=== PATIENT | female | born 1945 | race Caucasian/White ===

== ENCOUNTER 2017-06-25 14:45 | Inpatient (IN) | payer OTHER ==
[~2017-06-25] VITALS: Ht 160 cm; Wt 140.0 kg
[2017-06-25] MEDS ORDERED: ONDANSETRON INJ 2 MG/ML 2 ML VIAL IV STA (15:01)
[2017-06-25] MEDS ORDERED: SODIUM CHLORIDE 0.9% 500ML 500 ML IV STA ×2 (15:01→16:43)
--- NOTE | 2017-06-25 15:05 | EMERGENCY ROOM VISIT NOTE ---
History Report prepared by Pietro: Ying Russo Under the Supervision of: Dr. Joshua Parra D.O. First contact with patient: 14:54 Chief Complaint: VOMITING Stated Complaint: THROWING UP, AB PAIN Nursing Triage Summary: vomiting, constipation, and abd. pain x3 days. History of Present Illness The patient is a 71 year old female who presents to the Emergency Room with complaints of intermittent vomiting beginning 2 days ago. The patient states that her symptoms started with a cough 10 days ago and 2 days ago she began to have nausea and vomiting. She reports that she is not able to keep food or water down and her emesis is dark brown and purplish in color. She notes that she thought she had the flu but called her PCP today and he advised her to come in to the ED to be evaluated for a bowel obstruction. The patient complains of chills, abdominal pain with vomiting, a headache, and constipation for 2-3 days. She reports a history of diverticulitis, cholecystectomy, and appendectomy. Source of History: patient Onset: 2 days ago Position: other (global) Quality: other (vomiting) Timing: intermittent Associated Symptoms: + chills, + headache, + cough, + abdominal pain Note: Pt complains of constipation. Review of Systems See HPI for pertinent positives & negatives. A total of 10 systems reviewed and were otherwise negative. Past Medical & Surgical Medical Problems: (1) Diverticulitis Surgical Problems: (1) History of appendectomy (2) History of cholecystectomy Family History No pertinent family history stated. Social History Smoking Status: Never Smoker Marital Status: Housing Status: lives with family Occupation Status: employed Current/Historical Medications Scheduled Bismuth Subsalicylate (Pepto Bismol Chew Tab), 2 TAB PO TID Furosemide (Lasix), 40 MG PO DAILY Insulin Human Isophan/Regular (Novolin 70/30), 38 UNITS SC BID Metoprolol Succ (Toprol Xl) (Toprol-Xl), 50 MG PO DAILY Simvastatin (Zocor), 40 MG PO QPM Allergies Coded Allergies: Ciprofloxacin (Verified Allergy, Severe, swelling, 06/25/17) Physical Exam Vital Signs Date Time Temp Pulse Resp B/P (MAP) Pulse Ox O2 Delivery O2 Flow Rate FiO2 06/25/17 20:10 120 22 139/85 97 Oxymask 10 06/25/17 20:01 36.4 119 23 111/81 93 Oxymask 10 06/25/17 16:59 101 20 136/87 97 06/25/17 16:23 97 06/25/17 16:09 99 20 139/73 97 Nasal Cannula 2.5 06/25/17 14:47 36.8 101 20 131/76 93 2.5 Physical Exam GENERAL: Patient is awake, alert, mildly anxious appearing and uncomfortable. EYES: The conjunctivae are clear. The pupils are round and reactive. EARS, NOSE, MOUTH AND THROAT: The nose is without any evidence of any deformity. Mucous membranes are moist tongue is midline NECK: The neck is nontender and supple. RESPIRATORY: Shallow breath sounds noted with diminished breath sounds throughout no conversational dyspnea or tachypnea noted. CARDIOVASCULAR: Tachycardic rate and regular rhythm noted there no murmurs noted to auscultation GASTROINTESTINAL: The abdomen is moderately distended but soft. Bowel sounds are present in all quadrants. Abdomen is diffusely tender. Multiple surgical sites noted. LUQ and epigastric tenderness noted. MUSCULOSKELETAL/EXTREMITIES: There is no evidence of gross deformity full range of motion is noted in the hips and shoulders SKIN: There is no obvious evidence of any rash. There are no petechiae, pallor or cyanosis noted. NEUROLOGIC: Patient is awake alert and oriented x3 Medical Decision & Procedures ER Provider Diagnostic Interpretation: Radiology results as stated below per my review and radiologist interpretation: CHEST ONE VIEW PORTABLE FINDINGS: No pleural effusions. No pneumothorax. The heart is mildly enlarged. No focal lung consolidations to suggest pneumonia. No evidence for pulmonary edema. IMPRESSION: Mild cardiomegaly. Electronically signed by: Kike Riley M.D. 06/25/2017 3:47 PM Dictated Date/Time: 06/25/2017 3:46 PM A[address]OMEN AND PELVIS CT WITHOUT CONTRAST FINDINGS: Mild subsegmental bibasilar atelectasis and/or pleural-parenchymal scarring. No pneumatosis or pneumoperitoneum identified. Imaged inferior cardiac chambers are unremarkable. Gallbladder appears to be surgically absent. Hepatic steatosis. No intrahepatic biliary ductal dilation. Spleen and right adrenal gland are unremarkable. Low attenuating lesion of the left adrenal gland, 1.3 x 1.7 cm demonstrates Hounsfield unit of 7 suggesting adrenal adenoma. Mild nonspecific symmetric bilateral perinephric stranding. No renal calculi or hydronephrosis. Ureters are within normal limits. Urinary bladder is partially collapsed. Uterus and adnexa are unremarkable. Moderate atherosclerosis of the aorta. No bulky adenopathy. Air-fluid level of the stomach. Fluid-filled distention involves multiple loops of small bowel throughout the upper, mid and lower abdomen with bowel loops measuring up to 3.2 cm transversely. Focal transition point is noted on image 288 series 3 as bowel enters a moderate left paracentral ventral abdominal wall hernia which contains both mesenteric fat and small bowel. Additional focal transition point is noted along the left lateral margin of the hernia ostium, image 284 series 3. Mild interloop edema is noted as well as mild mesenteric edema. Multiple additional ventral abdominal wall hernias are noted including a right paracentral ventral abdominal wall hernia containing nonobstructed transverse colon. The terminal ileum is decompressed. Prior ventral abdominal wall hernia repair. Postoperative changes of the mid sigmoid colon suggesting prior partial sigmoid colon resection. A few scattered noninflamed colonic diverticula are noted. Multilevel degenerative changes of the spine and pelvis. Bones appear intact. At least moderate changes of the bilateral hips. Mild levoscoliosis of the lumbar spine. IMPRESSION: 1. High-grade small bowel obstruction secondary to a left paracentral hernia which contains both small bowel and mesenteric fat. Transitioned collapsed bowel noted along the margins of the hernia sac as above. Mild interloop and mesenteric edema without evidence of pneumatosis or pneumoperitoneum. 2. Prior partial sigmoid colon resection. Minimal colonic diverticulosis. 3. Hepatic steatosis. 4. Left adrenal adenoma, 1.7 cm. Electronically signed by: Abelardo Espinal M.D. 06/25/2017 4:09 PM Dictated Date/Time: 06/25/2017 3:56 PM Laboratory Results 06/25/17 15:15 Red Blood Count 5.27, Mean Corpuscular Volume 88.0, Mean Corpuscular Hemoglobin 29.6, Mean Corpuscular Hemoglobin Concent 33.6, Mean Platelet Volume 9.4, Neutrophils (%) (Auto) 86.1, Lymphocytes (%) (Auto) 8.1, Monocytes (%) (Auto) 5.3, Eosinophils (%) (Auto) 0.1, Basophils (%) (Auto) 0.1, Neutrophils # (Auto) 12.34, Lymphocytes # (Auto) 1.16, Monocytes # (Auto) 0.76, Eosinophils # (Auto) 0.01, Basophils # (Auto) 0.01 06/25/17 15:15 Test 06/25/17 15:15 06/25/17 20:05 White Blood Count 14.33 K/uL (4.8-10.8) Red Blood Count 5.27 M/uL (4.2-5.4) Hemoglobin 15.6 g/dL (12.0-16.0) Hematocrit 46.4 % (37-47) Mean Corpuscular Volume 88.0 fL (80-100) Mean Corpuscular Hemoglobin 29.6 pg (25-34) Mean Corpuscular Hemoglobin Concent 33.6 g/dl (32-36) Platelet Count 289 K/uL (130-400) Mean Platelet Volume 9.4 fL (7.4-10.4) Neutrophils (%) (Auto) 86.1 % Lymphocytes (%) (Auto) 8.1 % Monocytes (%) (Auto) 5.3 % Eosinophils (%) (Auto) 0.1 % Basophils (%) (Auto) 0.1 % Neutrophils # (Auto) 12.34 K/uL (1.4-6.5) Lymphocytes # (Auto) 1.16 K/uL (1.2-3.4) Monocytes # (Auto) 0.76 K/uL (0.11-0.59) Eosinophils # (Auto) 0.01 K/uL (0-0.5) Basophils # (Auto) 0.01 K/uL (0-0.2) RDW Standard Deviation 49.0 fL (36.4-46.3) RDW Coefficient of Variation 15.3 % (11.5-14.5) Immature Granulocyte % (Auto) 0.3 % Immature Granulocyte # (Auto) 0.05 K/uL (0.00-0.02) Prothrombin Time 10.6 SECONDS (9.0-12.0) Prothromb Time International Ratio 1.0 (0.9-1.1) Activated Partial Thromboplast Time 26.2 SECONDS (21.0-31.0) Partial Thromboplastin Ratio 1.0 Anion Gap 10.0 mmol/L (3-11) Est Creatinine Clear Calc Drug Dose 68.8 ml/min Estimated GFR () 72.2 Estimated GFR (Non- 62.3 BUN/Creatinine Ratio 28.7 (10-20) Calcium Level 9.4 mg/dl (8.5-10.1) Total Bilirubin 0.9 mg/dl (0.2-1) Direct Bilirubin 0.2 mg/dl (0-0.2) Aspartate Amino Transf (AST/SGOT) 12 U/L (15-37) Alanine Aminotransferase (ALT/SGPT) 17 U/L (12-78) Alkaline Phosphatase 100 U/L (45-117) Total Creatine Kinase 54 U/L (26-192) Creatine Kinase MB 1.3 ng/ml (0.5-3.6) Creatine Kinase MB Ratio 2.4 (0-3.0) Troponin I < 0.015 ng/ml (0-0.045) Total Protein 8.1 gm/dl (6.4-8.2) Albumin 4.0 gm/dl (3.4-5.0) Amylase Level 39 U/L (25-115) Lipase 70 U/L (73-393) Bedside Glucose 170 mg/dl (70-90) Laboratory results per my review. Medications Administered Medications (Trade) Dose Ordered Sig/Lizabeth Route Start Time Stop Time Status Last Admin Dose Admin Ondansetron HCl (Zofran Inj) 4 mg NOW STAT IV 06/25/17 15:01 06/25/17 15:02 DC 06/25/17 15:22 4 MG Sodium Chloride 500 ml @ 999 mls/hr Q31M STAT IV 06/25/17 15:01 06/25/17 15:31 DC 06/25/17 15:22 999 MLS/HR Sodium Chloride 500 ml @ 999 mls/hr Q31M STAT IV 06/25/17 16:43 06/25/17 17:13 DC 06/25/17 16:52 999 MLS/HR Piperacillin Sod/ Tazobactam Sod (Zosyn Iv) 4.5 gm STK-MED ONCE .ROUTE 06/25/17 16:45 06/25/17 16:46 DC 06/25/17 16:50 4.5 GM Insulin Human Regular (novoLIN-R U-100 PER UNIT) 8 units STK-MED ONCE .ROUTE 06/25/17 17:32 06/25/17 17:33 DC 06/25/17 17:32 8 UNITS ECG Indication: vomiting Rate (beats per minute): 107 Rhythm: sinus tachycardia Findings: no ectopy, other (No acuter ST segment abnormality) ED Course 1454: The patient was evaluated in room B2. A complete history and physical examination were performed. 1501: NSS 500ml @ 999 mls/hr IV, Zofran Inj 4mg IV. 1622: I discussed the patient's case with Dr. French. The patient will be evaluated for further management and will be going to the OR. 1633: I updated the patient and she is going to the OR. 1643: NSS 500 ml @ 999 mls/hr IV, Zosyn IV 4.5gm IV. 1723: Upon reevaluation, the patient is doing well. I discussed results and treatment plan with the patient. She verbalizes agreement and understanding. I spoke with Dr. French of surgery. The patient will be going to the OR. Medical Decision Differential diagnosis: Etiologies such as appendicitis, diverticulitis, PUD, biliary pathology, UTI, pancreatitis, obstruction, mesenteric ischemia, aortic pathology, infections, inflammatory bowel disease, renal colic, as well as others were entertained. Nursing notes reviewed. Additional history is obtained from the patient's family members. The patient is a 71-year-old female who presented to emergency department for evaluation of nausea and vomiting. The patient had a very distended abdomen with diffuse tenderness. She's had surgical intervention in the past and on my initial valuation I thought she could have a ventral hernia. She stated that she did not feel that there is any significant change in her abdomen in the area of question did not feel worse painful to the patient. This didn't prove to be an incarcerated ventral hernia on CT the abdomen and pelvis. I discussed her case with the on-call surgery they have agreed to evaluate the patient in the emergency department for further management and disposition. The patient was treated with IV fluids IV antiemetics and IV antibiotics. On subsequent reevaluation she was feeling much better. I discussed the patient's laboratory and radiographic studies with her. Medication Reconcilliation Current Medication List: was personally reviewed by me Blood Pressure Screening Patient's blood pressure: Elevated blood pressure Blood pressure disposition: Elevated BP felt to be situational Consults Time Called: 1617 Consulting Physician: Dr. French - Surgery Returned Call: 1622 I discussed the patient's case with Dr. French. The patient will be evaluated for further management and will be going to the OR. Impression Primary Impression: Incarcerated ventral hernia Additional Impressions: Small bowel obstruction Nausea Vomiting Scribe Attestation The scribe's documentation has been prepared under my direction and personally reviewed by me in its entirety. I confirm that the note above accurately reflects all work, treatment, procedures, and medical decision making performed by me. Departure Information Dispostion Being Evaluated By Surgeon Referrals Kings Nichols M.D. (PCP) Patient Instructions My [facility] Problem Qualifiers Additional Impressions: Vomiting Vomiting type: unspecified Vomiting Intractability: non-intractable Nausea presence: with nausea Qualified Codes: R11.2 - Nausea with vomiting, unspecified
[2017-06-25] MEDS ORDERED: METO50TA7 PO (15:11)
[2017-06-25] MEDS ORDERED: BISM262T3 PO (15:11)
[2017-06-25] MEDS ORDERED: FRS/40 PO (15:11)
[2017-06-25] MEDS ORDERED: SIMV40TA2 PO (15:11)
[2017-06-25] MEDS ORDERED: INSU70IN2 SC (15:11)
[2017-06-25 15:31] LABS: BASO % 0.1 %; BASO ABS # 0.01 K/uL (0-0.2); EOS % 0.1 %; EOS ABS # 0.01 K/uL (0-0.5); HEMATOCRIT 46.4 % (37-47); HEMOGLOBIN 15.6 g/dL (12.0-16.0); IG# 0.05 K/uL (0.00-0.02); LYMPH % 8.1 %; LYMPH ABS # 1.16 K/uL (1.2-3.4); MEAN CORPUSCULAR HEMOGLOBIN 29.6 pg (25-34); MEAN CORPUSCULAR HGB CONC 33.6 g/dl (32-36); MEAN PLATELET VOLUME 9.4 fL (7.4-10.4); MONO % 5.3 %; MONO ABS # 0.76 K/uL (0.11-0.59); NEUT % 86.1 %; NEUT ABS # 12.34 K/uL (1.4-6.5); PLATELET COUNT 289 K/uL (130-400); RED CELL DISTRIBUTION WIDTH CV 15.3 % (11.5-14.5); WHITE BLOOD COUNT 14.33 K/uL (4.8-10.8)
[2017-06-25 15:44] LABS: PTT PATIENT 26.2 SECONDS (21.0-31.0)
--- NOTE | 2017-06-25 15:49 | DIAGNOSTIC IMAGING REPORT ---
CHEST ONE VIEW PORTABLE HISTORY: Generalized abdominal pain. COMPARISON: None. FINDINGS: No pleural effusions. No pneumothorax. The heart is mildly enlarged. No focal lung consolidations to suggest pneumonia. No evidence for pulmonary edema. IMPRESSION: Mild cardiomegaly. Electronically signed by: Kike Riley M.D. 06/25/2017 3:47 PM Dictated Date/Time: 06/25/2017 3:46 PM
[2017-06-25 15:53] LABS: ALT/SGPT 17 U/L (12-78); BLOOD UREA NITROGEN 27 mg/dl (7-18); CALCIUM 9.4 mg/dl (8.5-10.1); CARBON DIOXIDE 28 mmol/L (21-32); CREATININE 0.93 mg/dl (0.60-1.20); GLUCOSE 265 mg/dl (70-99); LIPASE 70 U/L (73-393); POTASSIUM 4.2 mmol/L (3.5-5.1); SODIUM 135 mmol/L (136-145)
[2017-06-25 15:58] LABS: ALKALINE PHOSPHATASE 100 U/L (45-117); AST/SGOT 12 U/L (15-37); CKMB 1.3 ng/ml (0.5-3.6); TOTAL PROTEIN 8.1 gm/dl (6.4-8.2)
--- NOTE | 2017-06-25 16:10 | DIAGNOSTIC IMAGING REPORT ---
ABDOMEN AND PELVIS CT WITHOUT CONTRAST CT DOSE: 1488.44 mGy.cm HISTORY: Acute vomiting vomiting TECHNIQUE: Multiaxial CT images of the abdomen and pelvis were performed without contrast. A dose lowering technique was utilized adhering to the principles of ALARA. COMPARISON STUDY: None. FINDINGS: Mild subsegmental bibasilar atelectasis and/or pleural-parenchymal scarring. No pneumatosis or pneumoperitoneum identified. Imaged inferior cardiac chambers are unremarkable. Gallbladder appears to be surgically absent. Hepatic steatosis. No intrahepatic biliary ductal dilation. Spleen and right adrenal gland are unremarkable. Low attenuating lesion of the left adrenal gland, 1.3 x 1.7 cm demonstrates Hounsfield unit of 7 suggesting adrenal adenoma. Mild nonspecific symmetric bilateral perinephric stranding. No renal calculi or hydronephrosis. Ureters are within normal limits. Urinary bladder is partially collapsed. Uterus and adnexa are unremarkable. Moderate atherosclerosis of the aorta. No bulky adenopathy. Air-fluid level of the stomach. Fluid-filled distention involves multiple loops of small bowel throughout the upper, mid and lower abdomen with bowel loops measuring up to 3.2 cm transversely. Focal transition point is noted on image 288 series 3 as bowel enters a moderate left paracentral ventral abdominal wall hernia which contains both mesenteric fat and small bowel. Additional focal transition point is noted along the left lateral margin of the hernia ostium, image 284 series 3. Mild interloop edema is noted as well as mild mesenteric edema. Multiple additional ventral abdominal wall hernias are noted including a right paracentral ventral abdominal wall hernia containing nonobstructed transverse colon. The terminal ileum is decompressed. Prior ventral abdominal wall hernia repair. Postoperative changes of the mid sigmoid colon suggesting prior partial sigmoid colon resection. A few scattered noninflamed colonic diverticula are noted. Multilevel degenerative changes of the spine and pelvis. Bones appear intact. At least moderate changes of the bilateral hips. Mild levoscoliosis of the lumbar spine. IMPRESSION: 1. High-grade small bowel obstruction secondary to a left paracentral hernia which contains both small bowel and mesenteric fat. Transitioned collapsed bowel noted along the margins of the hernia sac as above. Mild interloop and mesenteric edema without evidence of pneumatosis or pneumoperitoneum. 2. Prior partial sigmoid colon resection. Minimal colonic diverticulosis. 3. Hepatic steatosis. 4. Left adrenal adenoma, 1.7 cm. Electronically signed by: Abelardo Espinal M.D. 06/25/2017 4:09 PM Dictated Date/Time: 06/25/2017 3:56 PM
[2017-06-25] MEDS ORDERED: PIPERACILLIN/TAZOBACTAM 4.5 GM/100ML D5W IV STA (16:43)
[2017-06-25] MEDS ORDERED: PIPERACILLIN/TAZOBACTAM 4.5 GM/100ML D5W ONE (16:45)
[2017-06-25] MEDS ORDERED: LIDOCAINE HCL 1% 20 ML VIAL ONE (16:53)
[2017-06-25] MEDS ORDERED: BUPIVACAINE 0.5 % 5 MG/1 ML MPF 30ML VIAL ONE (16:53)
[2017-06-25] MEDS ORDERED: BACITRACIN OINT 15 GM TUBE ONE ×2 (16:53→19:37)
--- NOTE | 2017-06-25 16:59 | Surgery Consultation ---
Consultation Date of Consultation: Jun 25, 2017. Attending Physician: History of Present Illness The patient is a 71 year old female who presents to the Emergency Room with complaints of intermittent vomiting beginning 2 days ago. The patient states that her symptoms started with a cough 10 days ago and 2 days ago she began to have nausea and vomiting. She reports that she is not able to keep food or water down and her emesis is dark brown and purplish in color. She notes that she thought she had the flu but called her PCP today and he advised her to come in to the ED to be evaluated for a bowel obstruction. The patient complains of chills, abdominal pain with vomiting, a headache, and constipation for 2-3 days. She reports a history of diverticulitis, cholecystectomy, and appendectomy. I saw pt at ER, I reviewed pt's H/P with pt, pt has been abdominal pain with nausea and vomiting for 3 days, pt denies fever, no diarrhea, Social History Smoking Status: Never Smoker Smokeless Tobacco Use: No Alcohol Use: none Drug Use: none Marital Status: Housing Status: lives with family Occupation Status: employed Allergies Coded Allergies: Ciprofloxacin (Unverified Adverse Reaction, Severe, swelling, 06/25/17) Home Medications Scheduled Bismuth Subsalicylate (Pepto Bismol Chew Tab), 2 TAB PO TID Furosemide (Lasix), 40 MG PO DAILY Insulin Human Isophan/Regular (Novolin 70/30), 38 UNITS SC BID Metoprolol Succ (Toprol Xl) (Toprol-Xl), 50 MG PO DAILY Simvastatin (Zocor), 40 MG PO QPM Current Inpatient Medications Current Inpatient Medications Medications (Trade) Dose Ordered Sig/Lizabeth Route Start Time Stop Time Status Last Admin Dose Admin Sodium Chloride 500 ml @ 999 mls/hr Q31M STAT IV 06/25/17 16:43 06/25/17 17:13 Review of Systems Constitutional: + problem reported (Obesity), No fever, No chills, No sweats, No weight loss, No weakness, No fatigue Eyes: No worsening of vision, No eye pain, No redness, No discharge, No diplopia, No problem reported ENT: No hearing loss, No unusual epistaxis, No nasal symptoms, No sore throat, No tinnitus, No dental problems, No trouble swallowing, No problem reported Respiratory: + problem reported (COPD use O2 at night at 2L/min) Cardiovascular: No chest pain, No orthopnea, No PND, No edema, No claudication , No palpitations, No problem reported Abdomen: + pain, + nausea, + vomiting Musculoskeletal: No joint pain, No muscle pain, No swelling, No calf pain, No problem reported Genitourinary - Female: + dysuria, + urinary frequency, + urinary urgency, + problem reported (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, UTI) Neurologic: No memory loss, No paralysis, No weakness, No numbness/tingling, No vertigo, No balance problems, No problem reported Psychiatric: No depression symptoms, No anhedonism, No anxiety, No insomnia, No substance abuse, No problem reported Endocrine: No fatigue, No excessive thirst, No excessive urination, No problem reported Hematologic / Lymphatic: No abnormal bleeding/bruising, No clotting problems, No swollen lymph nodes, No night sweats, No problem reported Physical Exam Date Time Temp Pulse Resp B/P (MAP) Pulse Ox O2 Delivery O2 Flow Rate FiO2 06/25/17 16:23 97 06/25/17 16:09 99 20 139/73 97 Nasal Cannula 2.5 06/25/17 14:47 36.8 101 20 131/76 93 2.5 General Appearance: WD/WN, + mild distress Head: normocephalic Eyes: normal inspection ENT: normal ENT inspection Neck: supple, no JVD Respiratory/Chest: chest non-tender, lungs clear, normal breath sounds Cardiovascular: regular rate, rhythm, no edema, no gallop, no JVD, no murmur Abdomen/GI: normal bowel sounds, no organomegaly, no pulsatile mass, normal rectal exam, + tenderness (at middle abdomen with bulging, possitive for ventral hernia , is id not reducible, ) Extremities/Musculoskelatal: normal inspection, no calf tenderness, normal capillary refill Neurologic/Psych: no motor/sensory deficits, alert, normal mood/affect Skin: normal color, warm/dry, no rash Laboratory Results Last 24 Hours Test 06/25/17 15:15 White Blood Count 14.33 K/uL Red Blood Count 5.27 M/uL Hemoglobin 15.6 g/dL Hematocrit 46.4 % Mean Corpuscular Volume 88.0 fL Mean Corpuscular Hemoglobin 29.6 pg Mean Corpuscular Hemoglobin Concent 33.6 g/dl Platelet Count 289 K/uL Mean Platelet Volume 9.4 fL Neutrophils (%) (Auto) 86.1 % Lymphocytes (%) (Auto) 8.1 % Monocytes (%) (Auto) 5.3 % Eosinophils (%) (Auto) 0.1 % Basophils (%) (Auto) 0.1 % Neutrophils # (Auto) 12.34 K/uL Lymphocytes # (Auto) 1.16 K/uL Monocytes # (Auto) 0.76 K/uL Eosinophils # (Auto) 0.01 K/uL Basophils # (Auto) 0.01 K/uL RDW Standard Deviation 49.0 fL RDW Coefficient of Variation 15.3 % Immature Granulocyte % (Auto) 0.3 % Immature Granulocyte # (Auto) 0.05 K/uL Prothrombin Time 10.6 SECONDS Prothromb Time International Ratio 1.0 Activated Partial Thromboplast Time 26.2 SECONDS Partial Thromboplastin Ratio 1.0 Sodium Level 135 mmol/L Potassium Level 4.2 mmol/L Chloride Level 97 mmol/L Carbon Dioxide Level 28 mmol/L Anion Gap 10.0 mmol/L Blood Urea Nitrogen 27 mg/dl Creatinine 0.93 mg/dl Est Creatinine Clear Calc Drug Dose 68.8 ml/min Estimated GFR () 72.2 Estimated GFR (Non- 62.3 BUN/Creatinine Ratio 28.7 Random Glucose 265 mg/dl Calcium Level 9.4 mg/dl Total Bilirubin 0.9 mg/dl Direct Bilirubin 0.2 mg/dl Aspartate Amino Transf (AST/SGOT) 12 U/L Alanine Aminotransferase (ALT/SGPT) 17 U/L Alkaline Phosphatase 100 U/L Total Creatine Kinase 54 U/L Creatine Kinase MB 1.3 ng/ml Creatine Kinase MB Ratio 2.4 Troponin I < 0.015 ng/ml Total Protein 8.1 gm/dl Albumin 4.0 gm/dl Amylase Level 39 U/L Lipase 70 U/L Assessment & Plan ABDOMEN AND PELVIS CT WITHOUT CONTRAST CT DOSE: 1488.44 mGy.cm HISTORY: Acute vomiting vomiting TECHNIQUE: Multiaxial CT images of the abdomen and pelvis were performed without contrast. A dose lowering technique was utilized adhering to the principles of ALARA. COMPARISON STUDY: None. FINDINGS: Mild subsegmental bibasilar atelectasis and/or pleural-parenchymal scarring. No pneumatosis or pneumoperitoneum identified. Imaged inferior cardiac chambers are unremarkable. Gallbladder appears to be surgically absent. Hepatic steatosis. No intrahepatic biliary ductal dilation. Spleen and right adrenal gland are unremarkable. Low attenuating lesion of the left adrenal gland, 1.3 x 1.7 cm demonstrates Hounsfield unit of 7 suggesting adrenal adenoma. Mild nonspecific symmetric bilateral perinephric stranding. No renal calculi or hydronephrosis. Ureters are within normal limits. Urinary bladder is partially collapsed. Uterus and adnexa are unremarkable. Moderate atherosclerosis of the aorta. No bulky adenopathy. Air-fluid level of the stomach. Fluid-filled distention involves multiple loops of small bowel throughout the upper, mid and lower abdomen with bowel loops measuring up to 3.2 cm transversely. Focal transition point is noted on image 288 series 3 as bowel enters a moderate left paracentral ventral abdominal wall hernia which contains both mesenteric fat and small bowel. Additional focal transition point is noted along the left lateral margin of the hernia ostium, image 284 series 3. Mild interloop edema is noted as well as mild mesenteric edema. Multiple additional ventral abdominal wall hernias are noted including a right paracentral ventral abdominal wall hernia containing nonobstructed transverse colon. The terminal ileum is decompressed. Prior ventral abdominal wall hernia repair. Postoperative changes of the mid sigmoid colon suggesting prior partial sigmoid colon resection. A few scattered noninflamed colonic diverticula are noted. Multilevel degenerative changes of the spine and pelvis. Bones appear intact. At least moderate changes of the bilateral hips. Mild levoscoliosis of the lumbar spine. IMPRESSION: 1. High-grade small bowel obstruction secondary to a left paracentral hernia which contains both small bowel and mesenteric fat. Transitioned collapsed bowel noted along the margins of the hernia sac as above. Mild interloop and mesenteric edema without evidence of pneumatosis or pneumoperitoneum. 2. Prior partial sigmoid colon resection. Minimal colonic diverticulosis. 3. Hepatic steatosis. 4. Left adrenal adenoma, 1.7 cm. Assessment: pt is a 71 yo female who presents to ER with 3 days history abdominal pain with nausea and vomiting, IMP : incarcerated ventral hernia Plan, I recommend to do exploratory laparotomy, ventral hernia repair with possible mesh, possible bowel resection, stoma, D/W benefits, risks and alternatives of the procedure, the risks -infection, bleeding, injury bowel,hernia recurrence, NE , DVT, stroke, pulmonary failure, and . pt and her and her son understood, they agree with surgery, I answered all questions,
[2017-06-25] MEDS ORDERED: HYDROmorphone INJ 2 MG/ML SYR/VIAL IV PRN (17:00)
[2017-06-25] MEDS ORDERED: ATROPINE SULFATE 0.1 MG/ML 5ML SYR IV PRN (17:00)
[2017-06-25] MEDS ORDERED: PHENYLEPHRINE 100MCG/ML 5ML SYR IV PRN (17:00)
[2017-06-25] MEDS ORDERED: ONDANSETRON INJ 2 MG/ML 2 ML VIAL IV PRN ×2 (17:00→20:15)
[2017-06-25] MEDS ORDERED: EpHEDrine SULFATE INJ 50 MG/ML AMP IV PRN (17:00)
--- NOTE | 2017-06-25 17:26 | History & Physical Bridge Note ---
H&P Re-Evaluation Bridge Note: I have examined the patient, reviewed the History & Physical and in the interval since the performance of the History & Physical I have noted the following changes of clinical significance: No changes noted
[2017-06-25] MEDS ORDERED: NovoLIN-R INSULIN PER UNIT CHARGE ONE (17:32)
[2017-06-25] MEDS ORDERED: CEFAZOLIN IV 3,000 MG in SYRINGE 0 ML IV ONE (17:45)
[2017-06-25] MEDS ORDERED: CEFAZOLIN SOD 3000MG/15 ML IV PUSH IV ONE (17:45)
[2017-06-25] MEDS ORDERED: FENTANYL CITRATE INJ 50 MCG/1 ML 2 ML VIAL ONE (17:46)
[2017-06-25] MEDS ORDERED: MIDAZOLAM HCL 1 MG/ML 2ML VIAL ONE (17:46)
[2017-06-25] MEDS ORDERED: ALBUMIN HUMAN 5% 12.5 GM/250 ML VIAL IV ONE (18:23)
[2017-06-25] MEDS ORDERED: LIDOCAINE HCL 2% 2 ML VIAL (20MG/ML) ONE (18:29)
[2017-06-25] MEDS ORDERED: ROCURONIUM BROMIDE 10 MG/ML 5 ML VIAL IV ONE (18:29)
[2017-06-25] MEDS ORDERED: VASOPRESSIN 20 UNIT/ML VIAL ONE (18:29)
[2017-06-25] MEDS ORDERED: PROPOFOL IV EMULSION 10 MG/ML 20 ML VIAL IV ONE (18:29)
[2017-06-25] MEDS ORDERED: PHENYLEPHRINE 100MCG/ML 5ML SYR ONE (18:29)
[2017-06-25] MEDS ORDERED: ONDANSETRON INJ 2 MG/ML 2 ML VIAL ONE (18:29)
[2017-06-25] MEDS ORDERED: DEXAMETHASONE SOD INJ 4 MG/ML VIAL ONE (18:29)
[2017-06-25] MEDS ORDERED: NEOSTIGMINE METHYLSULFATE 5 MG/5 ML SYR ONE (19:37)
[2017-06-25] MEDS ORDERED: GLYCOPYRROLATE INJ 0.2 MG/ML VIAL ONE (19:38)
--- NOTE | 2017-06-25 19:56 | [facility] Post Operative Brief Note ---
Immediate Operative Summary Operative Date Jun 25, 2017. Pre-Operative Diagnosis Incarcerated Ventral Hernia Post-Operative Diagnosis Incarcerated Ventral Hernia Procedure(s) Performed Exploratory Laparotomy, Repair of Ventral Hernia with Mesh, lysis adhesion Surgeon Dr. Wheeler Letter Of Credit Document Examiner Surgeon(s) surgical assistant Estimated Blood Loss 20CC Findings 4 ventral hernia, one of them is incarcerated with small bowel, once the put small bowel back to abdominal cavity, the bowel is pink color, Fluids (cc crystalloids) 2200ml Specimens A. Hernia Sac Drains MARISSA x 1 Anesthesia general Complication(s) None Disposition Recovery Room / PACU
[2017-06-25] MEDS ORDERED: HYDROmorphone INJ 1 MG/ML SYR ONE (20:12)
[2017-06-25] MEDS ORDERED: HYDROmorphone INJ 1 MG/ML SYR IV PRN (20:15)
[2017-06-25] MEDS ORDERED: ACETAMINOPHEN 325 MG TAB PO PRN (20:15)
--- NOTE | 2017-06-25 20:50 | Anesthesiology Progress Note ---
Anesthesia Post Op Note Date & Time Jun 25, 2017 at 20:49 Vital Signs Pain Intensity: 5 Vital Signs Past 12 Hours Date Time Temp Pulse Resp B/P (MAP) Pulse Ox O2 Delivery O2 Flow Rate FiO2 06/25/17 20:40 108 19 161/83 94 Nasal Cannula 4 06/25/17 20:30 117 27 164/84 95 Nasal Cannula 4 06/25/17 20:20 109 23 140/79 99 Oxymask 10 06/25/17 20:10 120 22 139/85 97 Oxymask 10 06/25/17 20:01 36.4 119 23 111/81 93 Oxymask 10 06/25/17 16:59 101 20 136/87 97 06/25/17 16:23 97 06/25/17 16:09 99 20 139/73 97 Nasal Cannula 2.5 06/25/17 14:47 36.8 101 20 131/76 93 2.5 Notes Mental Status: alert / awake / arousable, participated in evaluation Pt Amnestic to Procedure: Yes Nausea / Vomiting: adequately controlled Pain: adequately controlled Airway Patency, RR, SpO2: stable & adequate BP & HR: stable & adequate Hydration State: stable & adequate Anesthetic Complications: no major complications apparent
[2017-06-25 21:10] VITALS: BP 142/79; TEMP 36.7; O2SAT 95
[2017-06-25 21:41] VITALS: BP 149/72; PULSE 118; O2SAT 95
[2017-06-25 21:55] VITALS: BP 156/82; PULSE 111; TEMP 36.6; O2SAT 95; Ht 160 cm; Wt 140.0 kg
[2017-06-25] MEDS: METRONIDAZOLE / NSS 500 MG in PREMIXED NSS 100 ML IV SCH (22:31)
[2017-06-25] MEDS: D5W AND 1/2NSS + 20MEQ KCL 1,000 ML IV SCH (22:31)
[2017-06-25] MEDS: CEFTRIAXONE SOD INJ 1 GM in DEXTROSE 5% ADD-VANTAGE 50ML 50 ML IV SCH (22:31)
[2017-06-25 22:41] VITALS: BP 140/73; PULSE 103; O2SAT 94
--- NOTE | 2017-06-25 23:06 | Medical Consult ---
Consultation Date of Consultation: Jun 25, 2017 ~ 23:00 . Attending Physician: Anthony Wheeler MD . Reason for Consultation: medical management . History of Present Illness 71 YO female from [place], followed by Dr. Nichols. History of hypertensin, DM type 2, COPD, and other problems as noted. Presented to ED with abdominal pain, nausea, vomiting. Symptoms started about 2 days prior to admission. CT demonstrated small bowel obstruction secondary to ventral hernia. Admitted by General Surgery. Exploratory lap and repair of ventral hernia performed by Dr. Wheeler. Doing well postoperatively. No chest pain. No cough or dyspnea. No nausea or vomiting. Postop pain well-controlled. . 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: Chronic Surgical Problems: (1) Status post appendectomy Status: Chronic (2) Status post cholecystectomy Status: Chronic (3) Status post partial colectomy Status: Chronic (4) Status post total knee replacement Status: Chronic Family History Congestive heart failure MOTHER Hypertension MOTHER Social History Smoking Status: Former Smoker Smokeless Tobacco Use: No Alcohol Use: occasionally Drug Use: none Marital Status: Housing Status: lives with family Occupation Status: employed Allergies Coded Allergies: Ciprofloxacin (Verified Allergy, Severe, swelling, 06/25/17) Home Medications Reported Home Medications Medications Dose Route/Sig Max Daily Dose Days Date Category Tenormin (Atenolol) 50 Mg Tab 50 Mg PO DAILY 06/25/17 Reported Novolin 70/30 (Insulin Human Isoph/Insulin Regular) Inj 38 Units SC BID 06/25/17 Reported Pepto Bismol Chew Tab (Bismuth Subsalicylate) 262 Mg Tab 2 Tab PO TID 06/25/17 Reported Zocor (Simvastatin) 40 Mg Tab 40 Mg PO QPM 06/25/17 Reported Lasix (Furosemide) 40 Mg Tab 40 Mg PO DAILY 06/25/17 Reported Current Inpatient Medications Current Inpatient Medications Medications (Trade) Dose Ordered Sig/Lizabeth Route Start Time Stop Time Status Last Admin Dose Admin Enoxaparin Sodium (Lovenox Inj) 40 mg DAILY SQ 06/26/17 09:00 07/26/17 08:59 Potassium Chloride/Dextrose/ Sod Cl 1,000 ml @ 100 mls/hr Q10H IV 06/25/17 22:00 18 21:59 06/25/17 22:31 100 MLS/HR Ceftriaxone Sodium 1 gm/ Dextrose 50 ml @ 100 mls/hr Q12H IV 06/25/17 22:00 06/26/17 21:59 06/25/17 22:31 100 MLS/HR Metronidazole 500 mg/Prmx 100 ml @ 100 mls/hr Q8H IV 06/25/17 22:00 06/26/17 21:59 06/25/17 22:31 100 MLS/HR Ondansetron HCl (Zofran Inj) 4 mg Q4H PRN IV 06/25/17 20:15 07/25/17 20:14 Acetaminophen (Tylenol Tab) 650 mg Q6H PRN PO 06/25/17 20:15 07/25/17 20:14 Morphine Sulfate (MoRPHine SULFATE INJ) 3 mg Q3HWA PRN IV 06/25/17 20:15 07/09/17 20:14 Hydromorphone HCl (Dilaudid Inj) 1 mg Q3H PRN IV 06/25/17 20:15 07/09/17 20:14 Pantoprazole Sodium 40 mg/ Syringe 10 ml @ 5 mls/min BID@0900,2100 IV 06/25/17 21:00 07/25/17 20:59 Review of Systems Constitutional: No fever ENT: + nasal symptoms Respiratory: + dyspnea on exertion, No cough Cardiovascular: + edema, No chest pain Abdomen: + problem reported (as noted in HPI) Musculoskeletal: + joint pain (knees) Genitourinary - Female: + problem reported (recurrent UTI's; no recent dysuria) Endocrine: No excessive thirst, No excessive urination Physical Exam Date Time Temp Pulse Resp B/P (MAP) Pulse Ox O2 Delivery O2 Flow Rate FiO2 06/25/17 21:55 36.6 111 20 156/82 95 Nasal Cannula 2.0 06/25/17 20:50 36.7 109 19 142/79 95 Nasal Cannula 4 06/25/17 20:40 108 19 161/83 94 Nasal Cannula 4 06/25/17 20:30 117 27 164/84 95 Nasal Cannula 4 06/25/17 20:20 109 23 140/79 99 Oxymask 10 06/25/17 20:10 120 22 139/85 97 Oxymask 10 06/25/17 20:01 36.4 119 23 111/81 93 Oxymask 10 06/25/17 16:59 101 20 136/87 97 06/25/17 16:23 97 06/25/17 16:09 99 20 139/73 97 Nasal Cannula 2.5 06/25/17 14:47 36.8 101 20 131/76 93 2.5 General Appearance: no apparent distress, + obese Head: normocephalic, atraumatic Eyes: normal inspection, PERRL, EOMI, sclerae normal ENT: pharynx normal, + pertinent finding (NGT) Neck: supple, no adenopathy, thyroid normal, trachea midline Respiratory/Chest: no respiratory distress, no accessory muscle use, + pertinent finding (mild wheezing) Cardiovascular: regular rate, rhythm, no edema, no gallop, no JVD, no murmur Abdomen/GI: + pertinent finding (abdominal binder applied; quiet bowel sounds, soft) Extremities/Musculoskelatal: no calf tenderness, + pertinent finding (SCD's applied; 1+ pretibial edema) Neurologic/Psych: 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 (PERRL, EOMI, no facial palsy, no dysarthria), no motor/sensory deficits (motor strength upper and lower extremities grossly intact), alert, normal mood/affect, oriented x 3 Skin: normal color, warm/dry, no rash Lymphatic: no adenopathy (cervical) Laboratory Results Last 24 Hours Test 06/25/17 15:15 06/25/17 17:17 06/25/17 20:05 06/25/17 22:45 White Blood Count 14.33 K/uL Red Blood Count 5.27 M/uL Hemoglobin 15.6 g/dL Hematocrit 46.4 % Mean Corpuscular Volume 88.0 fL Mean Corpuscular Hemoglobin 29.6 pg Mean Corpuscular Hemoglobin Concent 33.6 g/dl Platelet Count 289 K/uL Mean Platelet Volume 9.4 fL Neutrophils (%) (Auto) 86.1 % Lymphocytes (%) (Auto) 8.1 % Monocytes (%) (Auto) 5.3 % Eosinophils (%) (Auto) 0.1 % Basophils (%) (Auto) 0.1 % Neutrophils # (Auto) 12.34 K/uL Lymphocytes # (Auto) 1.16 K/uL Monocytes # (Auto) 0.76 K/uL Eosinophils # (Auto) 0.01 K/uL Basophils # (Auto) 0.01 K/uL RDW Standard Deviation 49.0 fL RDW Coefficient of Variation 15.3 % Immature Granulocyte % (Auto) 0.3 % Immature Granulocyte # (Auto) 0.05 K/uL Prothrombin Time 10.6 SECONDS Prothromb Time International Ratio 1.0 Activated Partial Thromboplast Time 26.2 SECONDS Partial Thromboplastin Ratio 1.0 Sodium Level 135 mmol/L Potassium Level 4.2 mmol/L Chloride Level 97 mmol/L Carbon Dioxide Level 28 mmol/L Anion Gap 10.0 mmol/L Blood Urea Nitrogen 27 mg/dl Creatinine 0.93 mg/dl Est Creatinine Clear Calc Drug Dose 68.8 ml/min Estimated GFR () 72.2 Estimated GFR (Non- 62.3 BUN/Creatinine Ratio 28.7 Random Glucose 265 mg/dl Calcium Level 9.4 mg/dl Total Bilirubin 0.9 mg/dl Direct Bilirubin 0.2 mg/dl Aspartate Amino Transf (AST/SGOT) 12 U/L Alanine Aminotransferase (ALT/SGPT) 17 U/L Alkaline Phosphatase 100 U/L Total Creatine Kinase 54 U/L Creatine Kinase MB 1.3 ng/ml Creatine Kinase MB Ratio 2.4 Troponin I < 0.015 ng/ml Total Protein 8.1 gm/dl Albumin 4.0 gm/dl Amylase Level 39 U/L Lipase 70 U/L Bedside Glucose 256 mg/dl 170 mg/dl Urine Color YELLOW Urine Appearance CLEAR Urine pH 5.0 Urine Specific [place] 1.025 Urine Protein NEG Urine Glucose (UA) NEG Urine Ketones TRACE Urine Occult Blood NEG Urine Nitrite NEG Urine Bilirubin NEG Urine Urobilinogen NEG Urine Leukocyte Esterase NEG ABDOMEN AND PELVIS CT WITHOUT CONTRAST IMPRESSION: 1. High-grade small bowel obstruction secondary to a left paracentral hernia which contains both small bowel and mesenteric fat. Transitioned collapsed bowel noted along the margins of the hernia sac as above. Mild interloop and mesenteric edema without evidence of pneumatosis or pneumoperitoneum. 2. Prior partial sigmoid colon resection. Minimal colonic diverticulosis. 3. Hepatic steatosis. 4. Left adrenal adenoma, 1.7 cm. Electronically signed by: Abelardo Espinal M.D. 06/25/2017 4:09 PM Dictated Date/Time: 06/25/2017 3:56 PM EKG performed at 15:15 reviewed and demonstrated baseline artifact, ST at 107 / minute, no acute ST or T-wave abnormalities. . Assessment & Plan S/P REPAIR VENTRAL HERNIA Doing well postoperatively. HYPERTENSION Usually takes atenolol 50 mg daily. Currently NPO. IV metoprolol until able to resume oral meds. Follow and titrate Rx. COPD Respiratory status stable postop. Incentive spirometry. Advair + Xopenex nebs PRN ordered. DM TYPE 2 Usually well controlled on 70/30. Currently NPO, receiving IV fluids with 5% dextrose. Lantus + NovoLog per protocol during hospital stay. Check Hgb A1C. VTE PROPHYLAXIS SQ enoxaparin and SCD's ordered. Ambulate as able. Thank you for this consultation. We will follow the patient with you during their hospital stay. I will be covering retort engineer; Dr. Aguirre will be covering day shift. You can reach a member of the [facility] Medicine Team 27/01 via pager @ [phone]. You can reach me via cell @ [phone]. .
[2017-06-25] MEDS ORDERED: ATEN50TA PO (23:07)
[2017-06-25] MEDS ORDERED: INSULIN GLARGINE SOLOSTAR 100 UNITS/ML 3 ML PEN SC ONE (23:08)
[2017-06-25] MEDS ORDERED: INSULIN ASPART 100 UNITS/ML 3 ML PEN SC ONE (23:08)
[2017-06-25] MEDS: PANTOprazole INJ 40 MG in SYRINGE 0 ML IV SCH (23:11)
[2017-06-25] MEDS ORDERED: LEVALBUTEROL 0.63MG/3 ML NEB INH PRN (23:15)
[2017-06-25] MEDS ORDERED: METOPROLOL TARTRATE 1 MG/ML VIAL ONE (23:15)
[2017-06-25 23:30] VITALS: BP 112/62; PULSE 106; TEMP 37.5; O2SAT 94
[2017-06-25] MEDS: METOPROLOL TARTRATE 1 MG/ML VIAL IV. SCH (23:38)
[2017-06-26] VITALS (9 sets, daily range): BP systolic 107–122; BP diastolic 63–72; PULSE 81–103; TEMP 36.5–37.1; O2SAT 91–96
[2017-06-26] MEDS: MoRPHine SULFATE 4 MG/ML 1 ML CARP\\VIAL IV PRN ×2 (02:34→14:10)
[2017-06-26] MEDS: METRONIDAZOLE / NSS 500 MG in PREMIXED NSS 100 ML IV SCH ×2 (05:25→14:11)
[2017-06-26] MEDS: METOPROLOL TARTRATE 1 MG/ML VIAL IV. SCH (05:28)
[2017-06-26] MEDS: INSULIN ASPART 100 UNITS/ML 3 ML PEN SC SCH ×4 (05:30→21:00)
--- NOTE | 2017-06-26 07:08 | OPERATIVE REPORT ---
DATE OF OPERATION: 06/25/2017 PREOPERATIVE DIAGNOSIS: Recurrent ventral hernia. POSTOPERATIVE DIAGNOSIS: Same. OPERATION: Open repair recurrent ventral hernia with mesh, exploratory laparotomy, lysis of adhesions. SURGEON: Anthony Wheeler MD. ANESTHESIA: General. ESTIMATED BLOOD LOSS: About 20 mL. FINDINGS: Incarcerated ventral hernia, actually patient has 4 ventral hernia, 1 of them incarcerated. Once we reduced the small bowel back into the abdominal cavity, the small bowel color changed to pink color from blue, no bowel perforation. COMPLICATIONS: None. INDICATIONS FOR THE PROCEDURE: This is a 71-year-old female who presented to the ED with 3 days history of abdominal pain, nausea and vomiting. The patient had a CT scan showed possible incarcerated ventral hernia and patient will be required do emergency exploratory laparotomy with ventral hernia repair, possible bowel resection, stoma. I did talk to the patient about the benefit and risk, alternate procedure. I indicated the risks may include but not limited such as bleeding, infection, abscess, seroma, complications related to the mesh, myocardial infarction, DVT, stroke, even . They understand. The patient signed informed consent. They agreed to proceed with the procedure. I answered all questions. DETAILS OF PROCEDURE: We brought the patient to the OR, put the patient in the supine position. The patient received SCD on bilateral legs to prevent DVT. Also, the patient received Cipro and Ancef IV for prophylactic antibiotic. The patient received general anesthesia without difficulty. The abdomen was properly prepped and draped in routine sterile fashion. After time out, I made an incision on the left side because the incarcerated hernia was on the left side of the abdomen and once we made the incision we got into the abdomen without difficulty, completely reduced the small bowel back into the abdominal cavity. Before we reduced the small bowel color was blue. Once we reduced small bowel back to abdominal cavity, the the bowel color changed to pink. Then we did exploratory laparotomy and found the patient had 4 ventral hernias and one of them incarcerated once we reduced the small bowel and the 2 ventral hernias on the left side and another 2 ventral hernia on the right side. So we tried to reduce all of the hernia type content back to the abdominal cavity and then we connected it to the four hernias, and I chose large mesh sized with 20x 25 cm mesh with coated on and also I used some omental cover over the small bowel and large bowel and put the mesh in and then I used tacker to tach mesh on the abdominal wall. Rechecked no active bleeding and hemostasis obtained. Then I put one 7 mm MARISSA drainage and also before we put the mesh in, we had to take down multiple adhesions with lysis of adhesions. Once we attached the mesh in and then I used #1 Ethibond to close the fascial layer interruptedly and closed subcutaneous layer by using 2-0 Vicryl continuous running, closed skin by using staple and also fixed the MARISSA drainage on the skin by using 2-0 Vicryl. Then we put the dressing on. The patient tolerated the procedure well. All instrument, needle and sponge count correct x2 at the end of the case. The hernia sac was removed and sent to pathology. After the procedure, I did talk to the patient's family member about the OR finding and procedure we did, they understand. I attest to the content of the Intraoperative Record and any orders documented therein. Any exceptions are noted below. SILVESTRED
[2017-06-26 07:12] LABS: HEMOGLOBIN 11.9 g/dL (12.0-16.0); MEAN CELL VOLUME 90.9 fL (80-100); MEAN CORPUSCULAR HEMOGLOBIN 28.5 pg (25-34); MEAN CORPUSCULAR HGB CONC 31.3 g/dl (32-36); MEAN PLATELET VOLUME 9.6 fL (7.4-10.4); PLATELET COUNT 192 K/uL (130-400); RED CELL DISTRIBUTION WIDTH CV 15.7 % (11.5-14.5); RED CELL DISTRIBUTION WIDTH SD 52.1 fL (36.4-46.3); WHITE BLOOD COUNT 11.74 K/uL (4.8-10.8)
[2017-06-26 07:41] LABS: ALBUMIN 2.9 gm/dl (3.4-5.0); CALCIUM 7.7 mg/dl (8.5-10.1); CREATININE 0.89 mg/dl (0.60-1.20); TOTAL PROTEIN 5.7 gm/dl (6.4-8.2)
[2017-06-26 07:50] LABS: HEMOGLOBIN A1C 6.5 % (4.5-5.6)
[2017-06-26] MEDS: ENOXAPARIN 40 MG/0.4 ML SYR SQ SCH (09:17)
[2017-06-26] MEDS: PANTOprazole INJ 40 MG in SYRINGE 0 ML IV SCH (09:17)
[2017-06-26] MEDS: D5W AND 1/2NSS + 20MEQ KCL 1,000 ML IV SCH (09:17)
[2017-06-26] MEDS: FLUTICASONE/SALMETEROL 250/50 (ADVAIR) 14 PUFF/1 INHALER INH SCH ×2 (09:18→20:27)
[2017-06-26] MEDS: INSULIN GLARGINE SOLOSTAR 100 UNITS/ML 3 ML PEN SC SCH ×2 (09:20→21:20)
[2017-06-26] MEDS: CEFTRIAXONE SOD INJ 1 GM in DEXTROSE 5% ADD-VANTAGE 50ML 50 ML IV SCH (09:20)
--- NOTE | 2017-06-26 10:09 | Clinical Documentation Query ---
HARINI Sutton : CLINICAL DOCUMENTATION QUERY Patient is a 71 year old female who on 06/25 underwent exploratory laparotomy, repair of ventral hernia, and adhesiolysis. BMI noted to be 46.9 kg/m*m. In order to capture this clinically relevant information, an associated diagnosis must explicitly be documented by the provider. Consider documentation as suggested below as clinically appropriate. Thank you. In your clinical opinion is this patient being managed for: ( ) Morbid obesity ( ) Not Agree ( ) Other explanation of clinical findings (Please Explain) ( ) Unable to determine (Please Define) ( ) Need to Discuss The medical record reflects the following clinical findings, treatment, and risk factors. Clinical Indicators: As above Treatment: n/a Risk Factors: Caloric intake > caloric expenditure Please clarify and document your clinical opinion in the progress notes and discharge summary. Terms such as "probable", "suspected", "likely", "questionable", "possible", or "still to be ruled out" are acceptable. IF IN AGREEMENT, YOU MUST DOCUMENT ABOVE DIAGNOSTIC STATEMENT IN DAILY PROGRESS NOTES AND DISCHARGE SUMMARY. This document is not part of the patient's record. Thank You, Hill Dean, RN [phone]
--- NOTE | 2017-06-26 12:04 | Progress Note ---
Medicine Progress Note Date & Time of Visit: Jun 26, 2017 at 11:35. Subjective Pt was seen and examined Sitting in chair with no distress Pt said that her pain is improved She has not had a BM yet Tolerating clear liquid diet Denies any chest pain, palpitation, dizziness and SOB Objective Last 8 Hrs Date Time Temp Pulse Resp B/P (MAP) Pulse Ox O2 Delivery O2 Flow Rate FiO2 06/26/17 08:00 Nasal Cannula 2.0 06/26/17 07:52 36.7 82 17 111/66 (81) 96 Nasal Cannula 2.0 06/26/17 05:28 92 123/69 06/26/17 04:02 37.1 92 22 110/65 (80) 95 Nasal Cannula 3.0 06/26/17 04:01 94 Nasal Cannula 3.0 Physical Exam: General- No acute distress Head- atraumatic Eyes- PERRL, EOMI ENT- oropharynx clear Neck- supple, no JVD Lungs- clear to auscultation Heart- regular rhythm Abdomen- Abdominal tenderness with palpation, abdominal binder applied Extremities- no calf tenderness Neuro- alert, oriented x 3; PERRL, EOMI Skin- warm & dry Laboratory Results: Last 24 Hours Test 06/25/17 15:15 06/25/17 17:17 06/25/17 20:05 06/25/17 22:45 White Blood Count 14.33 K/uL Red Blood Count 5.27 M/uL Hemoglobin 15.6 g/dL Hematocrit 46.4 % Mean Corpuscular Volume 88.0 fL Mean Corpuscular Hemoglobin 29.6 pg Mean Corpuscular Hemoglobin Concent 33.6 g/dl Platelet Count 289 K/uL Mean Platelet Volume 9.4 fL Neutrophils (%) (Auto) 86.1 % Lymphocytes (%) (Auto) 8.1 % Monocytes (%) (Auto) 5.3 % Eosinophils (%) (Auto) 0.1 % Basophils (%) (Auto) 0.1 % Neutrophils # (Auto) 12.34 K/uL Lymphocytes # (Auto) 1.16 K/uL Monocytes # (Auto) 0.76 K/uL Eosinophils # (Auto) 0.01 K/uL Basophils # (Auto) 0.01 K/uL RDW Standard Deviation 49.0 fL RDW Coefficient of Variation 15.3 % Immature Granulocyte % (Auto) 0.3 % Immature Granulocyte # (Auto) 0.05 K/uL Prothrombin Time 10.6 SECONDS Prothromb Time International Ratio 1.0 Activated Partial Thromboplast Time 26.2 SECONDS Partial Thromboplastin Ratio 1.0 Sodium Level 135 mmol/L Potassium Level 4.2 mmol/L Chloride Level 97 mmol/L Carbon Dioxide Level 28 mmol/L Anion Gap 10.0 mmol/L Blood Urea Nitrogen 27 mg/dl Creatinine 0.93 mg/dl Est Creatinine Clear Calc Drug Dose 68.8 ml/min Estimated GFR () 72.2 Estimated GFR (Non- 62.3 BUN/Creatinine Ratio 28.7 Random Glucose 265 mg/dl Calcium Level 9.4 mg/dl Total Bilirubin 0.9 mg/dl Direct Bilirubin 0.2 mg/dl Aspartate Amino Transf (AST/SGOT) 12 U/L Alanine Aminotransferase (ALT/SGPT) 17 U/L Alkaline Phosphatase 100 U/L Total Creatine Kinase 54 U/L Creatine Kinase MB 1.3 ng/ml Creatine Kinase MB Ratio 2.4 Troponin I < 0.015 ng/ml Total Protein 8.1 gm/dl Albumin 4.0 gm/dl Amylase Level 39 U/L Lipase 70 U/L Bedside Glucose 256 mg/dl 170 mg/dl Urine Color YELLOW Urine Appearance CLEAR Urine pH 5.0 Urine Specific [place] 1.025 Urine Protein NEG Urine Glucose (UA) NEG Urine Ketones TRACE Urine Occult Blood NEG Urine Nitrite NEG Urine Bilirubin NEG Urine Urobilinogen NEG Urine Leukocyte Esterase NEG Test 06/25/17 23:18 06/26/17 05:23 06/26/17 06:22 06/26/17 06:58 Bedside Glucose 231 mg/dl 224 mg/dl 203 mg/dl White Blood Count 11.74 K/uL Red Blood Count 4.18 M/uL Hemoglobin 11.9 g/dL Hematocrit 38.0 % Mean Corpuscular Volume 90.9 fL Mean Corpuscular Hemoglobin 28.5 pg Mean Corpuscular Hemoglobin Concent 31.3 g/dl RDW Standard Deviation 52.1 fL RDW Coefficient of Variation 15.7 % Platelet Count 192 K/uL Mean Platelet Volume 9.6 fL Sodium Level 137 mmol/L Potassium Level 4.0 mmol/L Chloride Level 103 mmol/L Carbon Dioxide Level 30 mmol/L Anion Gap 4.0 mmol/L Blood Urea Nitrogen 22 mg/dl Creatinine 0.89 mg/dl Est Creatinine Clear Calc Drug Dose 73.8 ml/min Estimated GFR () 76.1 Estimated GFR (Non- 65.7 BUN/Creatinine Ratio 25.1 Random Glucose 206 mg/dl Estimated Average Glucose 140 mg/dl Hemoglobin A1c 6.5 % Calcium Level 7.7 mg/dl Total Bilirubin 0.5 mg/dl Aspartate Amino Transf (AST/SGOT) 8 U/L Alanine Aminotransferase (ALT/SGPT) 12 U/L Alkaline Phosphatase 60 U/L Total Protein 5.7 gm/dl Albumin 2.9 gm/dl Globulin 2.8 gm/dl Albumin/Globulin Ratio 1.0 Assessment & Plan SMALL BOWEL OBSTRUCTION WITH INCARCERATED VENTRAL HERNIA s/p day 1 Exploratory Laparotomy, Repair of Ventral Hernia with Mesh, lysis adhesion No post op complication has been doing well Starting on clear liquid diet and tolerated well so far Continue monitor h/h HYPERTENSION On IV metoprolol since pt was NPO Will resume Oral atenolol Continue monitor BP COPD Incentive spirometry. Advair + Xopenex nebs PRN ordered. Stable DM TYPE 2 Recent hba1c 6.5 Will decrease D5 fluid since pt starting on clear liquid and BS has been elevated Continue lantus Insulin coverage VTE PROPHYLAXIS SQ enoxaparin SCDs Current Inpatient Medications: Current Inpatient Medications Medications (Trade) Dose Ordered Sig/Lizabeth Route Start Time Stop Time Status Last Admin Dose Admin Enoxaparin Sodium (Lovenox Inj) 40 mg DAILY SQ 06/26/17 09:00 07/26/17 08:59 06/26/17 09:17 40 MG Potassium Chloride/Dextrose/ Sod Cl 1,000 ml @ 100 mls/hr Q10H IV 06/25/17 22:00 07/25/17 21:59 06/26/17 09:17 100 MLS/HR Ceftriaxone Sodium 1 gm/ Dextrose 50 ml @ 100 mls/hr Q12H IV 06/25/17 22:00 06/26/17 21:59 06/26/17 09:20 100 MLS/HR Metronidazole 500 mg/Prmx 100 ml @ 100 mls/hr Q8H IV 06/25/17 22:00 06/26/17 21:59 06/26/17 05:25 100 MLS/HR Ondansetron HCl (Zofran Inj) 4 mg Q4H PRN IV 06/25/17 20:15 07/25/17 20:14 Acetaminophen (Tylenol Tab) 650 mg Q6H PRN PO 06/25/17 20:15 07/25/17 20:14 Morphine Sulfate (MoRPHine SULFATE INJ) 3 mg Q3HWA PRN IV 06/25/17 20:15 07/09/17 20:14 06/26/17 02:34 3 MG Hydromorphone HCl (Dilaudid Inj) 1 mg Q3H PRN IV 06/25/17 20:15 07/09/17 20:14 Pantoprazole Sodium 40 mg/ Syringe 10 ml @ 5 mls/min BID@0900,2100 IV 06/25/17 21:00 07/25/17 20:59 06/26/17 09:17 5 MLS/MIN Metoprolol Tartrate (Lopressor Iv) 5 mg Q6 IV. 06/26/17 00:00 07/26/17 00:00 06/26/17 05:28 5 MG Insulin Aspart (novoLOG ASPART) SLIDING SCALE G... ACHS SC 06/26/17 07:00 07/26/17 06:59 06/26/17 05:30 2 UNITS Insulin Glargine (Lantus Solostar Pen) BSG LANTUS SQ < ... BID SC 06/26/17 09:00 07/26/17 08:59 06/26/17 09:20 14 UNITS Salmeterol Xinafoate/ Fluticasone (Advair Diskus 250/50 Inh) 1 puff BID INH 06/26/17 09:00 07/26/17 08:59 06/26/17 09:18 1 PUFF Levalbuterol (Xopenex 0.63 Mg/ 3 Ml Neb) 0.63 mg Q6H PRN INH 06/25/17 23:15 07/25/17 23:14
[2017-06-26] MEDS ORDERED: OXYC-57 PO (14:54)
--- NOTE | 2017-06-26 14:59 | Discharge Instructions ---
Discharge Instructions Date of Service Jun 26, 2017. Admission Reason for Admission: Incarcerated Ventral Hernia Discharge Discharge Diagnosis / Problem: same Discharge Goals Goal(s): Decrease discomfort, Improve function Activity Recommendations Activity Limitations: as noted below No heavy lifting over 10 pounds for 6 weeks No strenuous activity until cleared by surgeon No submerging incisions underwater for 2 weeks (no bathing, swimming, or hot tubs) No driving while taking narcotic pain medication or until you are pain free . Instructions / Follow-Up Instructions / Follow-Up You may shower in 3 days, sponge bath and wash hair in meantime. Replace surgical dressing each day, keep clean and dry Walking and light activity is encouraged to prevent blood clots from forming in legs Your surgical alfred will be removed in surgical office You will be given Narcotic pain medication as needed for moderate to severe pain. This medication may make you drowsy. You may take extra strength Tylenol or Ibuprofen as needed for mild pain. Follow up in surgical office in 1-2 weeks, please call office at [phone] to make an appointment. [place] should be removed no later than 14 days post op. Wear abdominal binder daily for support, you may remove at bedtime Current Hospital Diet Patient's current hospital diet: Clear Liquid Diet Discharge Diet Recommended Diet: Regular Diet Procedures Procedures Performed: Exploratory Laparotomy, Repair of Ventral Hernia with Mesh, lysis adhesion Pending Studies Studies pending at discharge: no Laboratory Results Hemoglobin A1c Test 06/26/17 06:22 Range/Units Estimated Average Glucose 140 mg/dl Hemoglobin A1c 6.5 H 4.5-5.6 % Medical Emergencies . Who to Call and When: Medical Emergencies: If at any time you feel your situation is an emergency, please call 911 immediately. . Non-Emergent Contact Non-Emergency issues call your: Primary Care Provider, Surgeon Call Non-Emergent contact if: you have a fever, temperature is above 101, your pain is not controlled, your pain is worsening, your pain is unusual for you, wound has increased drainage, wound has increased redness, wound has increased pain . "Provider Documentation" section prepared by Libra Rodarte. . VTE Core Measure Inpt VTE Proph given/why not?: SCD's [place] Drug Monitoring Program Search Results: patient reviewed within database, no issues identified
[2017-06-26] MEDS ORDERED: OXYCODONE/ACETAMINOPHEN 5-325 TAB PO PRN ×2 (15:15)
--- NOTE | 2017-06-26 15:15 | Surgery Progress Note ---
Surgery Progress Note Date of Service Jun 26, 2017. Subjective Post OP Day: POD # 0 s/p ex lap, repair of incarcerated ventral hernia x 4 with mesh + feeling well, + pain controlled, No complaints, No bowel movement, No flatus, No nausea, No vomiting Objective Vital Signs: Date Time Temp Pulse Resp B/P (MAP) Pulse Ox O2 Delivery O2 Flow Rate FiO2 06/26/17 12:00 Nasal Cannula 2.0 06/26/17 11:36 37.0 85 20 122/72 (89) 96 Nasal Cannula 2.0 06/26/17 08:00 Nasal Cannula 2.0 06/26/17 07:52 36.7 82 17 111/66 (81) 96 Nasal Cannula 2.0 06/26/17 05:28 92 123/69 06/26/17 04:02 37.1 92 22 110/65 (80) 95 Nasal Cannula 3.0 06/26/17 04:01 94 Nasal Cannula 3.0 06/26/17 00:10 36.6 103 18 110/66 (81) 94 Nasal Cannula 3.0 06/26/17 00:00 94 Nasal Cannula 3.0 06/25/17 23:38 110 110/66 06/25/17 23:30 37.5 106 17 112/62 (79) 94 Nasal Cannula 4.0 06/25/17 23:15 110 140/73 06/25/17 22:41 103 18 140/73 (95) 94 Nasal Cannula 4.0 06/25/17 21:55 36.6 111 20 156/82 95 Nasal Cannula 2.0 06/25/17 21:41 118 19 149/72 (97) 95 Nasal Cannula 4.0 06/25/17 21:10 36.7 19 142/79 (100) 95 Nasal Cannula 4.0 06/25/17 20:50 36.7 109 19 142/79 95 Nasal Cannula 4 06/25/17 20:40 108 19 161/83 94 Nasal Cannula 4 06/25/17 20:30 117 27 164/84 95 Nasal Cannula 4 06/25/17 20:20 109 23 140/79 99 Oxymask 10 06/25/17 20:10 120 22 139/85 97 Oxymask 10 06/25/17 20:01 36.4 119 23 111/81 93 Oxymask 10 06/25/17 16:59 101 20 136/87 97 06/25/17 16:23 97 06/25/17 16:09 99 20 139/73 97 Nasal Cannula 2.5 Physical Exam: MARISSA drainage (serosanguineous), nasogastric drainage (minimal bilious and dark brown output), urine output (clear le) General Appearance: WD/WN, no apparent distress, + obese Head: normocephalic, atraumatic Neck: trachea midline Respiratory/Chest: no respiratory distress, no accessory muscle use Abdomen: non distended, soft, no organomegaly, no pulsatile mass, + tenderness (appropriate post op but minimal) Incision(s): findings (incision not inspected POD # 0) Laboratory Results: Results Past 24 Hours Test 06/25/17 15:15 06/25/17 17:17 06/25/17 20:05 06/25/17 22:45 Range/Units White Blood Count 14.33 4.8-10.8 K/uL Red Blood Count 5.27 4.2-5.4 M/uL Hemoglobin 15.6 12.0-16.0 g/dL Hematocrit 46.4 37-47 % Mean Corpuscular Volume 88.0 80-100 fL Mean Corpuscular Hemoglobin 29.6 25-34 pg Mean Corpuscular Hemoglobin Concent 33.6 32-36 g/dl Platelet Count 289 130-400 K/uL Mean Platelet Volume 9.4 7.4-10.4 fL Neutrophils (%) (Auto) 86.1 % Lymphocytes (%) (Auto) 8.1 % Monocytes (%) (Auto) 5.3 % Eosinophils (%) (Auto) 0.1 % Basophils (%) (Auto) 0.1 % Neutrophils # (Auto) 12.34 1.4-6.5 K/uL Lymphocytes # (Auto) 1.16 1.2-3.4 K/uL Monocytes # (Auto) 0.76 0.11-0.59 K/uL Eosinophils # (Auto) 0.01 0-0.5 K/uL Basophils # (Auto) 0.01 0-0.2 K/uL RDW Standard Deviation 49.0 36.4-46.3 fL RDW Coefficient of Variation 15.3 11.5-14.5 % Immature Granulocyte % (Auto) 0.3 % Immature Granulocyte # (Auto) 0.05 0.00-0.02 K/uL Prothrombin Time 10.6 9.0-12.0 SECONDS Prothromb Time International Ratio 1.0 0.9-1.1 Activated Partial Thromboplast Time 26.2 21.0-31.0 SECONDS Partial Thromboplastin Ratio 1.0 Sodium Level 135 136-145 mmol/L Potassium Level 4.2 3.5-5.1 mmol/L Chloride Level 97 98-107 mmol/L Carbon Dioxide Level 28 21-32 mmol/L Anion Gap 10.0 3-11 mmol/L Blood Urea Nitrogen 27 7-18 mg/dl Creatinine 0.93 0.60-1.20 mg/dl Est Creatinine Clear Calc Drug Dose 68.8 ml/min Estimated GFR () 72.2 Estimated GFR (Non- 62.3 BUN/Creatinine Ratio 28.7 10-20 Random Glucose 265 70-99 mg/dl Calcium Level 9.4 8.5-10.1 mg/dl Total Bilirubin 0.9 0.2-1 mg/dl Direct Bilirubin 0.2 0-0.2 mg/dl Aspartate Amino Transf (AST/SGOT) 12 15-37 U/L Alanine Aminotransferase (ALT/SGPT) 17 12-78 U/L Alkaline Phosphatase 100 45-117 U/L Total Creatine Kinase 54 26-192 U/L Creatine Kinase MB 1.3 0.5-3.6 ng/ml Creatine Kinase MB Ratio 2.4 0-3.0 Troponin I < 0.015 0-0.045 ng/ml Total Protein 8.1 6.4-8.2 gm/dl Albumin 4.0 3.4-5.0 gm/dl Amylase Level 39 25-115 U/L Lipase 70 73-393 U/L Bedside Glucose 256 170 70-90 mg/dl Urine Color YELLOW Urine Appearance CLEAR CLEAR Urine pH 5.0 4.5-7.5 Urine Specific Dorris 1.025 1.000-1.030 Urine Protein NEG NEG Urine Glucose (UA) NEG NEG Urine Ketones TRACE NEG Urine Occult Blood NEG NEG Urine Nitrite NEG NEG Urine Bilirubin NEG NEG Urine Urobilinogen NEG NEG Urine Leukocyte Esterase NEG NEG Test 06/25/17 23:18 06/26/17 05:23 06/26/17 06:22 06/26/17 06:58 Range/Units Bedside Glucose 231 224 203 70-90 mg/dl White Blood Count 11.74 4.8-10.8 K/uL Red Blood Count 4.18 4.2-5.4 M/uL Hemoglobin 11.9 12.0-16.0 g/dL Hematocrit 38.0 37-47 % Mean Corpuscular Volume 90.9 80-100 fL Mean Corpuscular Hemoglobin 28.5 25-34 pg Mean Corpuscular Hemoglobin Concent 31.3 32-36 g/dl RDW Standard Deviation 52.1 36.4-46.3 fL RDW Coefficient of Variation 15.7 11.5-14.5 % Platelet Count 192 130-400 K/uL Mean Platelet Volume 9.6 7.4-10.4 fL Sodium Level 137 136-145 mmol/L Potassium Level 4.0 3.5-5.1 mmol/L Chloride Level 103 98-107 mmol/L Carbon Dioxide Level 30 21-32 mmol/L Anion Gap 4.0 3-11 mmol/L Blood Urea Nitrogen 22 7-18 mg/dl Creatinine 0.89 0.60-1.20 mg/dl Est Creatinine Clear Calc Drug Dose 73.8 ml/min Estimated GFR () 76.1 Estimated GFR (Non- 65.7 BUN/Creatinine Ratio 25.1 10-20 Random Glucose 206 70-99 mg/dl Estimated Average Glucose 140 mg/dl Hemoglobin A1c 6.5 4.5-5.6 % Calcium Level 7.7 8.5-10.1 mg/dl Total Bilirubin 0.5 0.2-1 mg/dl Aspartate Amino Transf (AST/SGOT) 8 15-37 U/L Alanine Aminotransferase (ALT/SGPT) 12 12-78 U/L Alkaline Phosphatase 60 45-117 U/L Total Protein 5.7 6.4-8.2 gm/dl Albumin 2.9 3.4-5.0 gm/dl Globulin 2.8 2.5-4.0 gm/dl Albumin/Globulin Ratio 1.0 0.9-2 Test 06/26/17 11:25 Range/Units Bedside Glucose 185 70-90 mg/dl Assessment & Plan POD # 0 s/p ex lap , repair of incarcerated ventral hernia x 4 with mesh -vitals stable, afebrile - no leukocytosis - minimal abdominal pain - no nausea or vomiting Plan: Will start oral Percocet as needed for pain, breakthrough IV pain medication as needed Continue IV fluids and IV antibiotics Continue MARISSA drain Continue Abdominal binder discontinue NGT discontinue [place] catheter Start clear liquids Encourage ambulation Continue SCDs and Lovenox walker for ambulation Dr. Wheeler has seen and examined patient, agrees with above
[2017-06-26] MEDS: PANTOprazole SOD 40 MG TAB PO SCH (20:27)
[2017-06-27] MEDS: D5W AND 1/2NSS + 20MEQ KCL 1,000 ML IV SCH ×2 (01:57→17:36)
[2017-06-27 03:35] VITALS: BP 110/65; PULSE 84; TEMP 36.9; O2SAT 93
[2017-06-27 07:46] VITALS: BP 124/73; PULSE 82; TEMP 37.4; O2SAT 92
[2017-06-27] MEDS: FLUTICASONE/SALMETEROL 250/50 (ADVAIR) 14 PUFF/1 INHALER INH SCH ×2 (08:25→20:09)
[2017-06-27] MEDS: INSULIN ASPART 100 UNITS/ML 3 ML PEN SC SCH ×4 (08:26→21:00)
[2017-06-27] MEDS: INSULIN GLARGINE SOLOSTAR 100 UNITS/ML 3 ML PEN SC SCH ×2 (08:27→21:01)
[2017-06-27] MEDS: PANTOprazole SOD 40 MG TAB PO SCH ×2 (08:27→20:10)
[2017-06-27] MEDS: ENOXAPARIN 40 MG/0.4 ML SYR SQ SCH (08:28)
[2017-06-27 11:44] VITALS: BP 112/54; PULSE 78; TEMP 37.5; O2SAT 96
--- NOTE | 2017-06-27 14:28 | Surgery Progress Note ---
Surgery Progress Note Date of Service Jun 27, 2017. Subjective Post OP Day: 2 + feeling well pt is doing better, no abdominal pain, no nausea, no vomiting, not pass gas yet. Objective Vital Signs: Date Time Temp Pulse Resp B/P (MAP) Pulse Ox O2 Delivery O2 Flow Rate FiO2 06/27/17 12:00 Nasal Cannula 2.0 06/27/17 11:44 37.5 78 19 112/54 (73) 96 Nasal Cannula 2.0 06/27/17 08:00 Nasal Cannula 2.0 06/27/17 07:46 37.4 82 18 124/73 (90) 92 Nasal Cannula 2.0 06/27/17 04:00 Nasal Cannula 2.0 06/27/17 03:35 36.9 84 18 110/65 (80) 93 Nasal Cannula 2.0 06/27/17 00:00 Nasal Cannula 2.0 06/26/17 23:50 36.9 85 17 114/63 (80) 93 Nasal Cannula 2.0 06/26/17 19:55 Nasal Cannula 2.0 06/26/17 19:30 36.5 81 20 107/63 (78) 91 Room Air 06/26/17 16:00 Nasal Cannula 2.0 06/26/17 15:29 36.8 81 20 116/67 (83) 95 Nasal Cannula 3.0 General Appearance: WD/WN, no apparent distress Head: normocephalic Neck: supple, no JVD Respiratory/Chest: chest non-tender, lungs clear Cardiovascular: regular rate, rhythm, no edema, no gallop, no JVD, no murmur Abdomen: normal bowel sounds, non tender, + distended Incision(s): clean, dry, intact Extremities: normal range of motion, non-tender, normal inspection Laboratory Results: Results Past 24 Hours Test 06/26/17 16:16 06/26/17 21:05 06/27/17 06:45 Range/Units Bedside Glucose 197 176 160 70-90 mg/dl Assessment & Plan S/P repair ventral hernia with mesh, pt is doing fine, reglan 10 mg po q8h for 2 days only I informed pt, 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
[2017-06-27] MEDS ORDERED: BISACODYL 5 MG TABEC PO ONE (14:30)
[2017-06-27 15:29] VITALS: BP 115/71; PULSE 76; TEMP 36.8; O2SAT 94
[2017-06-27] MEDS: METRONIDAZOLE / NSS 500 MG in PREMIXED NSS 100 ML IV SCH ×2 (15:35→23:59)
[2017-06-27] MEDS: CEFAZOLIN IV 1,000 MG in SYRINGE 0 ML IV SCH ×2 (15:35→23:59)
--- NOTE | 2017-06-27 18:53 | Progress Note ---
Medicine Progress Note Date & Time of Visit: Jun 27, 2017 at 18:49. Subjective Pt was seen and examined Lying in bed with no distress Pt said that she feels fine She said that she does not have any abdominal pain She tolerated diet has not had a BM yet Denies any chest pain, palpitation, dizziness and SOB Objective Last 8 Hrs Date Time Temp Pulse Resp B/P (MAP) Pulse Ox O2 Delivery O2 Flow Rate FiO2 06/27/17 16:00 Nasal Cannula 2.0 06/27/17 15:29 36.8 76 20 115/71 (86) 94 Nasal Cannula 4.0 06/27/17 12:00 Nasal Cannula 2.0 06/27/17 11:44 37.5 78 19 112/54 (73) 96 Nasal Cannula 2.0 Physical Exam: General- No acute distress Head- atraumatic Eyes- PERRL, EOMI ENT- oropharynx clear Neck- supple, no JVD Lungs- clear to auscultation Heart- regular rhythm Abdomen-hypoactive bowel sound, abdominal binder applied Extremities- no calf tenderness Neuro- alert, oriented x 3; PERRL, EOMI Skin- warm & dry Laboratory Results: Last 24 Hours Test 06/26/17 21:05 06/27/17 06:45 06/27/17 11:24 06/27/17 16:25 Bedside Glucose 176 mg/dl 160 mg/dl 142 mg/dl 137 mg/dl Assessment & Plan SMALL BOWEL OBSTRUCTION WITH INCARCERATED VENTRAL HERNIA s/p day 2 Exploratory Laparotomy, Repair of Ventral Hernia with Mesh, lysis adhesion No post op complication has been doing well Diet advanced as tolerated Manage by surgery Continue monitor h/h HYPERTENSION D/C IV metoprolol yesterday Continue Oral atenolol BP stable COPD Incentive spirometry. Advair + Xopenex nebs PRN ordered. Stable DM TYPE 2 Recent hba1c 6.5 Will decrease D5 fluid since pt starting on clear liquid and BS has been elevated Continue lantus Insulin coverage VTE PROPHYLAXIS SQ enoxaparin SCDs Current Inpatient Medications: Current Inpatient Medications Medications (Trade) Dose Ordered Sig/Lizabeth Route Start Time Stop Time Status Last Admin Dose Admin Enoxaparin Sodium (Lovenox Inj) 40 mg DAILY SQ 06/26/17 09:00 07/26/17 08:59 06/27/17 08:28 40 MG Potassium Chloride/Dextrose/ Sod Cl 1,000 ml @ 50 mls/hr Q20H IV 06/25/17 22:00 07/25/17 21:59 06/27/17 17:36 50 MLS/HR Ondansetron HCl (Zofran Inj) 4 mg Q4H PRN IV 06/25/17 20:15 07/25/17 20:14 06/26/17 14:10 4 MG Acetaminophen (Tylenol Tab) 650 mg Q6H PRN PO 06/25/17 20:15 07/25/17 20:14 06/26/17 14:11 650 MG Morphine Sulfate (MoRPHine SULFATE INJ) 3 mg Q3HWA PRN IV 06/25/17 20:15 07/09/17 20:14 06/26/17 14:10 3 MG Hydromorphone HCl (Dilaudid Inj) 1 mg Q3H PRN IV 06/25/17 20:15 07/09/17 20:14 06/26/17 21:24 1 MG Insulin Aspart (novoLOG ASPART) SLIDING SCALE G... ACHS SC 06/26/17 07:00 07/26/17 06:59 06/27/17 17:35 1 UNITS Insulin Glargine (Lantus Solostar Pen) BSG LANTUS SQ < ... BID SC 06/26/17 09:00 07/26/17 08:59 06/27/17 08:27 12 UNITS Salmeterol Xinafoate/ Fluticasone (Advair Diskus 250/50 Inh) 1 puff BID INH 06/26/17 09:00 07/26/17 08:59 06/27/17 08:25 1 PUFF Levalbuterol (Xopenex 0.63 Mg/ 3 Ml Neb) 0.63 mg Q6H PRN INH 06/25/17 23:15 07/25/17 23:14 Atenolol (Tenormin Tab) 50 mg DAILY PO 06/27/17 09:00 07/27/17 08:59 06/27/17 08:28 50 MG Oxycodone/ Acetaminophen (Percocet 5-325mg Tab) 1 tab Q4H PRN PO 06/26/17 15:15 07/10/17 15:14 Oxycodone/ Acetaminophen (Percocet 5-325mg Tab) 2 tab Q4H PRN PO 06/26/17 15:15 07/10/17 15:14 Pantoprazole Sodium (Protonix Tab) 40 mg BID PO 06/26/17 21:00 06/30/17 09:01 06/27/17 08:27 40 MG Metoclopramide HCl (Reglan Tab) 10 mg Q8 PO 06/27/17 22:00 06/29/17 14:01 Metronidazole 500 mg/Prmx 100 ml @ 100 mls/hr Q8H IV 06/27/17 16:00 07/11/17 15:59 06/27/17 15:35 100 MLS/HR Cefazolin Sodium 1000 mg/Syringe 5 ml @ 2.5 mls/min Q8H IV 06/27/17 15:00 06/30/17 07:01 06/27/17 15:35 2.5 MLS/MIN
[2017-06-27 19:49] VITALS: BP 121/71; PULSE 77; TEMP 36.9; O2SAT 94
[2017-06-27] MEDS: METOCLOPRAMIDE HCL 10 MG TAB PO SCH (20:09)
[2017-06-27] MEDS ORDERED: ZOLPIDEM TARTRATE 5 MG TAB PO PRN (21:00)
[2017-06-28 00:11] VITALS: BP 126/75; PULSE 82; TEMP 37.3; O2SAT 96
[2017-06-28 04:04] VITALS: BP 103/63; PULSE 83; TEMP 37.6; O2SAT 97
[2017-06-28] MEDS: METOCLOPRAMIDE HCL 10 MG TAB PO SCH (06:20)
[2017-06-28 06:34] LABS: BASO % 0.1 %; BASO ABS # 0.01 K/uL (0-0.2); EOS ABS # 0.14 K/uL (0-0.5); HEMATOCRIT 34.6 % (37-47); HEMOGLOBIN 11.1 g/dL (12.0-16.0); IG# 0.01 K/uL (0.00-0.02); LYMPH % 14.5 %; LYMPH ABS # 1.03 K/uL (1.2-3.4); MEAN CELL VOLUME 91.5 fL (80-100); MEAN CORPUSCULAR HEMOGLOBIN 29.4 pg (25-34); MEAN CORPUSCULAR HGB CONC 32.1 g/dl (32-36); MEAN PLATELET VOLUME 9.6 fL (7.4-10.4); MONO % 6.9 %; MONO ABS # 0.49 K/uL (0.11-0.59); NEUT % 76.4 %; NEUT ABS # 5.42 K/uL (1.4-6.5); PLATELET COUNT 157 K/uL (130-400); RED CELL DISTRIBUTION WIDTH CV 15.6 % (11.5-14.5); RED CELL DISTRIBUTION WIDTH SD 52.4 fL (36.4-46.3)
[2017-06-28 07:07] LABS: ALBUMIN 2.6 gm/dl (3.4-5.0); CALCIUM 7.7 mg/dl (8.5-10.1); CREATININE 0.63 mg/dl (0.60-1.20); POTASSIUM 3.5 mmol/L (3.5-5.1); TOTAL PROTEIN 5.7 gm/dl (6.4-8.2)
[2017-06-28 07:09] VITALS: BP 133/80; PULSE 85; TEMP 36.8; O2SAT 97
[2017-06-28] MEDS: INSULIN ASPART 100 UNITS/ML 3 ML PEN SC SCH (07:43)
[2017-06-28] MEDS: INSULIN GLARGINE SOLOSTAR 100 UNITS/ML 3 ML PEN SC SCH (07:44)
[2017-06-28] MEDS: CEFAZOLIN IV 1,000 MG in SYRINGE 0 ML IV SCH (07:45)
[2017-06-28] MEDS: PANTOprazole SOD 40 MG TAB PO SCH (07:48)
[2017-06-28] MEDS: METRONIDAZOLE / NSS 500 MG in PREMIXED NSS 100 ML IV SCH (07:48)
[2017-06-28] MEDS: FLUTICASONE/SALMETEROL 250/50 (ADVAIR) 14 PUFF/1 INHALER INH SCH (07:48)
[2017-06-28] MEDS: ENOXAPARIN 40 MG/0.4 ML SYR SQ SCH (07:49)
[2017-06-28] MEDS ORDERED: TRAM-453 PO (08:58)
[2017-06-28] MEDS ORDERED: AMOX875T PO (08:58)
--- NOTE | 2017-06-28 09:09 | Surgery Progress Note ---
Surgery Progress Note Date of Service Jun 28, 2017. Subjective Post OP Day: 3 + feeling well, + bowel movement, + flatus, + pain controlled, No complaints, No nausea, No vomiting Objective Vital Signs: Date Time Temp Pulse Resp B/P (MAP) Pulse Ox O2 Delivery O2 Flow Rate FiO2 06/28/17 07:09 36.8 85 16 133/80 (97) 97 2.0 06/28/17 04:19 Nasal Cannula 2.0 06/28/17 04:04 37.6 83 19 103/63 (76) 97 Room Air 06/28/17 00:11 37.3 82 19 126/75 (92) 96 Room Air 06/27/17 23:59 Nasal Cannula 2.0 06/27/17 20:00 Nasal Cannula 2.0 06/27/17 19:49 36.9 77 20 121/71 (88) 94 Nasal Cannula 4.0 06/27/17 16:00 Nasal Cannula 2.0 06/27/17 15:29 36.8 76 20 115/71 (86) 94 Nasal Cannula 4.0 06/27/17 12:00 Nasal Cannula 2.0 06/27/17 11:44 37.5 78 19 112/54 (73) 96 Nasal Cannula 2.0 Physical Exam: MARISSA drainage (serosang drainage. ) General Appearance: WD/WN, no apparent distress Head: normocephalic, atraumatic Respiratory/Chest: no respiratory distress, no accessory muscle use Abdomen: non tender, soft, + pertinent finding (MARISSA drain in place) Incision(s): clean, dry, intact, findings (alfred in place. Area of suspicion to left of incision at umbilicus- no drainage, no redness ) Laboratory Results: Results Past 24 Hours Test 06/27/17 11:24 06/27/17 16:25 06/27/17 20:41 06/28/17 05:49 Range/Units Bedside Glucose 142 137 179 70-90 mg/dl White Blood Count 7.10 4.8-10.8 K/uL Red Blood Count 3.78 4.2-5.4 M/uL Hemoglobin 11.1 12.0-16.0 g/dL Hematocrit 34.6 37-47 % Mean Corpuscular Volume 91.5 80-100 fL Mean Corpuscular Hemoglobin 29.4 25-34 pg Mean Corpuscular Hemoglobin Concent 32.1 32-36 g/dl Platelet Count 157 130-400 K/uL Mean Platelet Volume 9.6 7.4-10.4 fL Neutrophils (%) (Auto) 76.4 % Lymphocytes (%) (Auto) 14.5 % Monocytes (%) (Auto) 6.9 % Eosinophils (%) (Auto) 2.0 % Basophils (%) (Auto) 0.1 % Neutrophils # (Auto) 5.42 1.4-6.5 K/uL Lymphocytes # (Auto) 1.03 1.2-3.4 K/uL Monocytes # (Auto) 0.49 0.11-0.59 K/uL Eosinophils # (Auto) 0.14 0-0.5 K/uL Basophils # (Auto) 0.01 0-0.2 K/uL RDW Standard Deviation 52.4 36.4-46.3 fL RDW Coefficient of Variation 15.6 11.5-14.5 % Immature Granulocyte % (Auto) 0.1 % Immature Granulocyte # (Auto) 0.01 0.00-0.02 K/uL Sodium Level 136 136-145 mmol/L Potassium Level 3.5 3.5-5.1 mmol/L Chloride Level 101 98-107 mmol/L Carbon Dioxide Level 28 21-32 mmol/L Anion Gap 7.0 3-11 mmol/L Blood Urea Nitrogen 10 7-18 mg/dl Creatinine 0.63 0.60-1.20 mg/dl Est Creatinine Clear Calc Drug Dose 114.7 ml/min Estimated GFR () 105.3 Estimated GFR (Non- 90.9 BUN/Creatinine Ratio 16.4 10-20 Random Glucose 208 70-99 mg/dl Calcium Level 7.7 8.5-10.1 mg/dl Total Bilirubin 0.3 0.2-1 mg/dl Aspartate Amino Transf (AST/SGOT) 8 15-37 U/L Alanine Aminotransferase (ALT/SGPT) 10 12-78 U/L Alkaline Phosphatase 64 45-117 U/L Total Protein 5.7 6.4-8.2 gm/dl Albumin 2.6 3.4-5.0 gm/dl Globulin 3.1 2.5-4.0 gm/dl Albumin/Globulin Ratio 0.8 0.9-2 Test 06/28/17 06:52 Range/Units Bedside Glucose 226 70-90 mg/dl Assessment & Plan s/p Repair of Ventral Hernia with Mesh Patient seen and examined with Dr. Murphy. Pain controlled, tolerating diet. +Flatus, +BM Drain removed. Patient tolerated, no complications. New dressing placed. Abdominal binder. Patient would prefer Ultram for pain medication. Will give patient 7 days of Augmentin. Return precautions discussed with patient. OK for discharge. Provided verbal discharge instructions.
[2017-06-28 10:30] VITALS: BP 133/80; PULSE 85; TEMP 36.8; O2SAT 97
--- NOTE | 2017-07-03 12:11 | EDITING REQUIRED CODING QUERY ---
CODING QUERY To promote full compliance with coding requirements relating to patient care, provider participation is requested in all cases of surgery tech uncertainty. Please assist us with the question(s) below: Coding Question(s): The Operative Report on 06/25/17 documents "multiple adhesions with lysis of adhesions". Clinical significance of the adhesions and the lysis of adhesions needs to be specified in order to correctly code procedures performed. Coding clinic shows that "Documentation of clinical significance by the surgeon may include, but is not limited to, the following language: numerous adhesions requiring a long time to lyse, extensive adhesions involving tedious lysis, extensive lysis, etc. If uncertainty exists regarding clinical significance, then query the provider. " Multiple adhesions are documented but there is no documentation that these required tedious or extensive lysis. Please clarify below, in your clinical opinion. ( ) Multiple adhesions - were not significant - did not require extensive or tedious lysis of adhesions ( ) Multiple adhesions - were significant - did require extensive or tedious lysis of adhesions Physician's Response(s): Thank you Selina Couch Principal Diagnosis: "_that condition established after study, to be chiefly responsible for occasioning the admission of the patient to the hospital for care." Co-Existing Principal Diagnosis: "_when two or more diagnoses equally meet the criteria for principal diagnosis as determined by the circumstances of admission, diagnostic work up, and/or therapy provided, and the Alphabetic Index, Tabular List, or another coding guideline does not provide sequencing direction, any one of the diagnoses may be sequenced first." "When the physician has documented what appears to be a current diagnosis in the body of the record, but has not included the diagnosis in the final diagnostic statement, the physician should be asked whether the diagnosis should be added." (Source Coding [facility] 2 QTR90. p3-4)
--- NOTE | 2017-07-03 12:17 | EDITING REQUIRED CODING QUERY ---
CODING QUERY To promote full compliance with coding requirements relating to patient care, provider participation is requested in all cases of medical records coder uncertainty. Please assist us with the question(s) below: Coding Question(s): Your consult on 06/25 describes the patient as obese in the physical section. Please clarify below, in your clinical opinion. ( x ) Obese meaning the patient has a diagnosis of obesity ( ) unspecified obesity ( x ) morbid obesity (BMI was 54) ( ) Obese is descriptive only and there is no diagnosis of obesity Physician's Response(s): Thank you Selina Couch Principal Diagnosis: "_that condition established after study, to be chiefly responsible for occasioning the admission of the patient to the hospital for care." Co-Existing Principal Diagnosis: "_when two or more diagnoses equally meet the criteria for principal diagnosis as determined by the circumstances of admission, diagnostic work up, and/or therapy provided, and the Alphabetic Index, Tabular List, or another coding guideline does not provide sequencing direction, any one of the diagnoses may be sequenced first." "When the physician has documented what appears to be a current diagnosis in the body of the record, but has not included the diagnosis in the final diagnostic statement, the physician should be asked whether the diagnosis should be added." (Source [facility]oding [facility] 2 QTR90. p3-4)
--- NOTE | 2017-07-08 15:40 | Discharge Summary ---
Discharge Summary Dates Admission Date / Time: Jun 25, 2017 at 20:11 Discharge Date: Jun 28, 2017 Dispostion / Condition Discharge Disposition: Home Condition at Discharge: Good Principal Diagnosis (1) Incarcerated ventral hernia (2) Small bowel obstruction Problem List (1) Hypertension (2) Diabetes mellitus, type 2 (3) COPD (chronic obstructive pulmonary disease) (4) Recurrent UTI (5) History of colonic diverticulitis (6) Diverticular disease of colon Consultations / Procedures Consultations: Hospitalist Procedures: Repair of incarcerated ventral hernia with mesh x 4 Pending Studies / Follow-Up None Medication Reconciliation Continued Medications: Atenolol (Tenormin) 50 Mg Tab 50 MG PO DAILY, TAB Bismuth Subsalicylate (Pepto Bismol Chew Tab) 262 Mg Tab 2 TAB PO TID, TAB Furosemide (Lasix) 40 Mg Tab 40 MG PO DAILY, TAB Insulin Human Isophan/Regular (Novolin 70/30) Inj 38 UNITS SC BID, BTL Simvastatin (Zocor) 40 Mg Tab 40 MG PO QPM, TAB Admission HPI Per the Admitting provider: The patient is a 71 year old female who presents to the Emergency Room with complaints of intermittent vomiting beginning 2 days ago. The patient states that her symptoms started with a cough 10 days ago and 2 days ago she began to have nausea and vomiting. She reports that she is not able to keep food or water down and her emesis is dark brown and purplish in color. She notes that she thought she had the flu but called her PCP today and he advised her to come in to the ED to be evaluated for a bowel obstruction. The patient complains of chills, abdominal pain with vomiting, a headache, and constipation for 2-3 days. She reports a history of diverticulitis, cholecystectomy, and appendectomy. I saw pt at ER, I reviewed pt's H/P with pt, pt has been abdominal pain with nausea and vomiting for 3 days, pt denies fever, no diarrhea, Hospital Course (1) Incarcerated ventral hernia Patient was taken to operating room for repair of incarcerated ventral hernia. Patient was found to have 4 ventral hernias with obstruction of small bowel in one of the hernias which was reduced. The hernias were connected and repair with mesh was initiated. Patient tolerated procedure well without any complications. Was transferred to recovery and then to Telemetry floor for post operative care. POD # 1 patient evaluated, minimal NGT , minimal abdominal pain , Clear urine in [place], vitals stable and no leukocytosis. NGT was removed and diet advanced to clear liquids. Post op IV antibiotics continued. MARISSA drain continued. Abdominal binder, SCDs, and SQ lovenox continued. Advised on ambulation and ordered walker for assistance. [place] catheter was discontinued. Her home atenolol was continued as she was able to take in clear liquids and IV metoprolol was discontinued. POD # 2 she was doing well, pain minimal, she still had no return of bowel function. She was started on PO Reglan 10 mg q 8 hours for 2 days. POD # 3 she had return of bowel function with flatus and bowel movement, pain controlled. MARISSA drain was removed. Abdominal binder continued for support. She was discharged home on Tramadol as needed for pain and 7 day course of Augmentin. Overall hospital course was uneventful. (2) Small bowel obstruction please refer to above (3) Hypertension Managed by hospitalist team with IV Metoprolol until taking PO and switched to home Atenolol. (4) Diabetes mellitus, type 2 Managed by hospitalist service: placed on Novolog and Lantus Coverage (5) COPD (chronic obstructive pulmonary disease) Managed by hospitalist service, stable, Discharge Instructions as given to patient Copies To Primary Care Provider: Kings Nichols M.D..
== END 2017-06-28 11:00 | disposition home or self-care (01) | DRG 336 ==
LOC: C.EDB 14:46 → C.2T 20:11 → ENRESERV 20:34
PROVIDERS: ADMIT Surgery; ATTEND Surgery
PROC: 0DNU0ZZ Release Omentum, Open Approach (ICD-10-PCS; principal; 2017-06-25 12:45)
PROC: 0WUF0JZ Supplement Abdominal Wall with Synthetic Substitute, Open Approach (ICD-10-PCS; principal; 2017-06-25 12:45)
DX: K43.0 Incisional hernia with obstruction, without gangrene (principal); Z68.43 Body mass index [BMI] 50.0-59.9, adult; K66.0 Peritoneal adhesions (postprocedural) (postinfection); E11.9 Type 2 diabetes mellitus without complications; J44.9 Chronic obstructive pulmonary disease, unspecified; I10 Essential (primary) hypertension; E66.01 Morbid (severe) obesity due to excess calories; Z79.899 Other long term (current) drug therapy; Z79.4 Long term (current) use of insulin; Z87.891 Personal history of nicotine dependence; Z82.49 Family history of ischemic heart disease and other diseases of the circulatory system

== ENCOUNTER 2022-10-29 13:10 | Inpatient (IN) ==
--- NOTE | 2022-10-29 13:14 | ED Triage Note ---
Date of Service October 29, 2022 History of Present Illness This patient was briefly evaluated while in triage. An abbreviated physical exam was performed. This patient is a 77-year-old Female who presents to the ED for evaluation of difficulty breathing. Patient reports recent hospitalization for UTI and pn eumonia in [place] with discharge 1 week ago. She has been experiencing shortness of breath since. History of COPD, on 5L O2 at baseline. Physical Exam Constitutional: alert and oriented x3. no acute distress. HEENT: normocephalic, atraumatic. normal conjunctiva.EOM's grossly intact. Respiratory: on 5L O2 sating 84%. distant lung sounds no wheezes, rhonchi, or crackles. equal chest rise. normal respiratory effort, no accessory muscle use. No tripoding or stridor Cardiovascular: normal heart sounds without murmur. regular rate and rhythm. GI: abdomen is soft, nontender. Psych:appropriate mood and affect. Supplement O2 increased to 10 L and sating 100%. Turn back to 8L Initial orders for labs and / or imaging were placed and patient was placed briefly back in the waiting area until a bed is available. Please see further documentation for the full ED course.
[2022-10-29] MEDS ORDERED: ALBUT/IPRATROP 3MG/0.5MG NEB 3 ML VIAL NEB STA (13:24)
[2022-10-29] MEDS ORDERED: CEFEPIME 2,000 MG/20 ML VIAL IV STA (13:24)
[2022-10-29] MEDS ORDERED: MoRPHine SULFATE 2 MG/ML CARP IV STA (13:32)
[2022-10-29] MEDS ORDERED: MoRPHine SULFATE 2 MG/ML CARP IV PRN (13:32)
--- NOTE | 2022-10-29 13:37 | Emergency Department Note ---
Impression & Plan Hypoxia, SOB (shortness of breath), Weakness, Pleural effusion, Pneumonia ED Provider Note NAME: LUZ FERNANDEZ AGE: 77 SEX: F : 1945 ARRIVES VIA: Walk-In INFORMANT: [Patient][family] ED PROVIDER(S): [Glenn Snider MD] CHIEF COMPLAINT: Shortness of breath, weakness HISTORY OF PRESENT ILLNESS: The patient is a 77-year-old female who was discharged from [place] just over a week ago. She was in the hospital for pneumonia and a UTI. Since discharge, she has had increasing shortness of breath and increasing weakness. She presents for evaluation at our hospital. The patient denies any increased cough. She has not had a fever, no vomiting. She does complain of some tailbone pain from sitting on her bed and chair all the time. The patient does have COPD. She typically wears around 5 L. She states 4 days ago, her doctor's office told her to stop taking her Lasix as they felt she was dehydrated. She has restarted the medication for the last 48 hours. She does wonder if she may be fluid overloaded. Of note, the patient's O2 saturation was low in triage at 84% on her typical 5 L. The oxygen had to be increased to 10 L. PMHx/PSHx: See Below SOCIAL HISTORY: See Below. PHYSICAL EXAM: GENERAL: Patient is in no acute distress. Somewhat anxious. HEENT: No acute trauma, normocephalic atraumatic, mucous membranes moist, no nasal congestion. NECK: No stridor, no adenopathy, no meningismus, trachea is midline. LUNGS: Diminished breath sounds bilaterally, increased respiratory rate, no wheezing. HEART: Mildly tachycardic, regular rhythm, no obvious murmur. ABDOMEN: Soft, nontender, bowel sounds positive, no peritonitis. Obese. EXTREMITIES: No cyanosis, mild bilateral pedal edema, full range of motion of all the joints without pain or difficulty, no signs for acute trauma. NEUROLOGIC: Oriented x 3, no acute motor or sensory deficits, no focal weakness. SKIN: No rash, no jaundice, no diaphoresis. DIFFERENTIAL DIAGNOSIS: Exacerbation of COPD, CHF/fluid overload, bronchitis or pneumonia, UTI, anemia, electrolyte imbalance, cardiac ischemia, among others. EMERGENCY DEPARTMENT COURSE/PROCEDURES: Prior/Outside records reviewed: None. ECG per my interpretation: Indication was shortness of breath. The ECG shows a normal sinus rhythm with a rate of 92. There is no ST elevation, no PVCs. The QTc is 410. Continuous Cardiac Monitoring per my interpretation: An order was placed for continuous cardiac monitoring. The monitor shows a rate of 102 with sinus tachycardia. Critical Care Note: I have personally spent 38 minutes of critical care time in the direct management of this patient. This includes bedside care, in terpretation of diagnostic studies, and testing, discussion with consultants, patient, and family members, and other required patient management activities. This 38 minutes is in excess of all separately billable procedures. MEDICAL DECISION MAKING: There is no leukocytosis. The patient is anemic with a hemoglobin of 10. The patient does carry history of anemia although this value today is lower than her baseline. There is a normal platelet count. No coagulopathy. CO2 is elevated consistent with some chronic CO2 retention. There was a normal creatinine. Lactic acid level was not elevated making sepsis less likely. No concerning liver enzyme elevation. BNP was not elevated making significant fluid overload less likely. Procalcitonin level was not not elevated. Respiratory bio fire was completely negative. Chest film per my review shows a left pleural effusion with a potential left lower lung consolidation. On exam, the patient did seem somewhat short of breath. She was not hypoxic during the time of my evaluation although, her O2 supplementation value was at 7 L. Because of the persistent symptoms and her dyspnea, a chest CT was done. No PE seen on imaging although, a left pleural effusion with a potential pneumonia on the left was seen. The patient was rapidly assessed. She was given IV cefepime as empiric antibiotic coverage. She was given a DuoNeb, she received IV morphine for her tailbone pain. With the above treatment, the patient does seem more comfortable. She is breathing easier. She is in no distress currently. Given the hypoxia documented earlier, given her persistent symptoms despite her recent hospitalization, given the findings on x-ray and CT, I do think a hospital stay is warranted. I did speak with the patient and case management, the on-call hospitalist was consulted. DISPOSITION: Patient's presentation and findings warrant a hospital stay and further work-up. 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" Social History Smoking Status: Former smoker Tobacco Type: Cigarettes Preferred Language: Australian Allergies Allergies Allergy/AdvReac Type Severity Reaction Status Date / Time Cipro Allergy Severe swelling Verified 06/25/17 17:13 ciprofloxacin [Cipro] Allergy Intermediate SWELLING/BLISTERING Verified 10/29/22 16:11 OF LIPS empagliflozin AdvReac Intermediate RECURRENT Verified 10/29/22 16:11 [From Jardiance] UTI'S metformin AdvReac Intermediate Gastrointestinal Verified 10/29/22 16:11 Upset Home Meds Home Medications Medication Instructions Recorded Confirmed albuterol sulfate 90 mcg/actuation 2 puff inhalation Q4H PRN Wheezing 10/29/22 0 10/29/22 aerosol inhaler alprazolam 0.25 mg tablet 0.25 mg PO DAILY PRN Anxiety 10/29/22 10/29/22 amlodipine 5 mg tablet 5 mg PO DAILY 10/29/22 10/29/22 atorvastatin 20 mg tablet 20 mg PO DAILY 10/29/22 10/29/22 citalopram 20 mg tablet 20 mg PO DAILY 10/29/22 10/29/22 fluticasone 250 mcg-salmeterol 50 1 inh inhalation BID 10/29/22 10/29/22 mcg/dose blistr powdr for inhalation (Advair Diskus) furosemide 40 mg tablet 80 mg PO QAM 10/29/22 10/29/22 insulin lispro protamine-lispro See Rx Instructions .Route .COMPLEX 10/29/22 10/29/22 100 unit/mL (75-25) subcutaneous pen (Humalog Mix 75-25 KwikPen) menthol 0.44 %-zinc oxide 20.6 % 1 applic topical TID PRN Skin 10/29/22 10/29/22 topical ointment (Calmoseptine) Irritation umeclidinium 62.5 mcg/actuation 1 inh inhalation DAILY 10/29/22 10/29/22 blister powder for inhalation (Incruse Ellipta) Results & Data (ED) Vital Signs Vital Signs - 24 hr 10/29/22 13:12 10/29/22 14:13 10/29/22 14:26 Temperature 36.2 C L Temperature Source Temporal Artery Scan Pulse Rate 105 H Pulse Rate [Right Finger] 96 H Respiratory Rate 32 H Respiratory Effort / Characteristics Non-Labored Respiratory Depth Normal Blood Pressure 147/77 H Blood Pressure [Right Arm] 139/87 Blood Pressure Mean 100 Blood Pressure Mean [Right Arm] 104 Pulse Oximetry 99 98 Oxygen Delivery Method Nasal Cannula Nasal Cannula Oxygen Flow Rate 10 5 Sepsis New/Unexplained Change in Mental Status N/A Sepsis Action Taken by Nursing No Action Required Pulse Oximetry Post Tiitration 10/29/22 14:28 10/29/22 15:45 Temperature Temperature Source Pulse Rate 91 H Pulse Rate [Right Finger] Respiratory Rate Respiratory Effort / Characteristics Respiratory Depth Blood Pressure Blood Pressure [Right Arm] Blood Pressure Mean Blood Pressure Mean [Right Arm] Pulse Oximetry Oxygen Delivery Method Nasal Cannula Oxygen Flow Rate 5 Sepsis New/Unexplained Change in Mental Status Sepsis Action Taken by Nursing Pulse Oximetry Post Tiitration 93 Home Medications Current Medication List: was personally reviewed by me Laboratory Data Attestation: I reviewed the patient's lab results. 10/29/22 13:14 10/29/22 13:14 Lab Results 10/29/22 10/29/22 10/29/22 Range/Units 13:14 13:14 13:15 WBC 5.29 (4.8-10.8) K/ul RBC 3.55 L (4.20-5.40) M/uL Hgb 10.0 L (12.0-16.0) g/dl Hct 33.8 L (37.0-47.0) % MCV 95.2 (80.0-100.0) fL MCH 28.2 (25.0-34.0) pg MCHC 29.6 L (32.0-36.0) g/dL RDW Std Deviation 51.5 H (36.4-46.3) fL RDW Coeff of Dalton 14.7 H (11.5-14.5) % Plt Count 150 (130-400) K/uL MPV 9.4 (9.4-12.4) fL Immature Gran % (Auto) 0.6 % Neut % (Auto) 78.0 % Lymph % (Auto) 12.9 % Mcdowell % (Auto) 6.4 % Eos % (Auto) 1.7 % Baso % (Auto) 0.4 % Neut # (Auto) 4.13 (1.40-6.50) K/uL Lymph # (Auto) 0.68 L (1.2-3.4) K/uL Mcdowell # (Auto) 0.34 (0.11-0.59) K/uL Eos # (Auto) 0.09 (0-0.50) K/uL Baso # (Auto) 0.02 (0-0.2) K/uL Immature Gran # (Auto) 0.03 (0.01-0.20) K/uL PT 10.7 (9.0-12.0) Seconds INR 1.0 (0.9-1.1) APTT 25.0 (21.0-31.0) Seconds PTT Ratio 0.9 Sodium 141 (136-145) mmol/L Potassium 4.1 (3.5-5.1) mmol/L Chloride 94 L (98-107) mmol/L Carbon Dioxide > 45 H* (21-32) mmol/L Anion Gap TNP BUN 18 (6-23) mg/dl Creatinine 0.54 L (0.6-1.2) mg/dl Est Cr Clr Drug Dosing 116.7 ml/min Est GFR ( Amer) 106.2 ml/min Est GFR (Non-Af Amer) 91.7 ml/min BUN/Creatinine Ratio 33.3 H (10-20) Glucose 139 H (70-99(Fasting)) mg/dl Lactate (0.4-2.0) mmol/L Calcium 9.6 (8.6-10.3) mg/dl Total Bilirubin 0.4 (0.2-1.0) mg/dl AST 13 (13-39) U/L ALT 13 (7-52) U/L Alkaline Phosphatase 71 (34-104) U/L Troponin I High Sens 10.5 (0-14) pg/ml B-Natriuretic Peptide (0-100) pg/ml Total Protein 7.0 (6.0-8.3) gm/dl Albumin 3.8 (3.4-5.0) gm/dl Globulin 3.2 (2.5-4.0) gm/dl Albumin/Globulin Ratio 1.2 (0.9-2) Procalcitonin (0-0.5) ng/ml Adenovirus (PCR) (NotDetected) B. pertussis DNA (PCR) (NotDetected) B.parapertussis DNA PCR (NotDetected) C. pneumoniae DNA (PCR) (NotDetected) Coronavirus OC43 (PCR) (NotDetected) Coronavirus HKU1 (PCR) (NotDetected) Coronavirus 229E (PCR) (NotDetected) SARS-CoV-2 (PCR) (NotDetected) Coronavirus NL63 (PCR) (NotDetected) Human Metapneumovir PCR (NotDetected) Influenza Type A (PCR) (NotDetected) Influenza Type B (PCR) (NotDetected) M. pneumoniae (PCR) (NotDetected) Parainfluenza 1 (PCR) (NotDetected) Parainfluenza 2 (PCR) (NotDetected) Parainfluenza 3 (PCR) (NotDetected) Parainfluenza 4 (PCR) (NotDetected) RSV (PCR) (NotDetected) Entero/Rhino (PCR) (NotDetected) 10/29/22 10/29/22 10/29/22 Range/Units 13:15 13:36 13:55 WBC (4.8-10.8) K/ul RBC (4.20-5.40) M/uL Hgb (12.0-16.0) g/dl Hct (37.0-47.0) % MCV (80.0-100.0) fL MCH (25.0-34.0) pg MCHC (32.0-36.0) g/dL RDW Std Deviation (36.4-46.3) fL RDW Coeff of Dalton (11.5-14.5) % Plt Count (130-400) K/uL MPV (9.4-12.4) fL Immature Gran % (Auto) % Neut % (Auto) % Lymph % (Auto) % Mcdowell % (Auto) % Eos % (Auto) % Baso % (Auto) % Neut # (Auto) (1.40-6.50) K/uL Lymph # (Auto) (1.2-3.4) K/uL Mcdowell # (Auto) (0.11-0.59) K/uL Eos # (Auto) (0-0.50) K/uL Baso # (Auto) (0-0.2) K/uL Immature Gran # (Auto) (0.01-0.20) K/uL PT (9.0-12.0) Seconds INR (0.9-1.1) APTT (21.0-31.0) Seconds PTT Ratio Sodium (136-145) mmol/L Potassium (3.5-5.1) mmol/L Chloride (98-107) mmol/L Carbon Dioxide (21-32) mmol/L Anion Gap BUN (6-23) mg/dl Creatinine (0.6-1.2) mg/dl Est Cr Clr Drug Dosing ml/min Est GFR ( Amer) ml/min Est GFR (Non-Af Amer) ml/min BUN/Creatinine Ratio (10-20) Glucose (70-99(Fasting)) mg/dl Lactate 1.1 (0.4-2.0) mmol/L Calcium (8.6-10.3) mg/dl Total Bilirubin (0.2-1.0) mg/dl AST (13-39) U/L ALT (7-52) U/L Alkaline Phosphatase (34-104) U/L Troponin I High Sens (0-14) pg/ml B-Natriuretic Peptide 43 (0-100) pg/ml Total Protein (6.0-8.3) gm/dl Albumin (3.4-5.0) gm/dl Globulin (2.5-4.0) gm/dl Albumin/Globulin Ratio (0.9-2) Procalcitonin < 0.05 (0-0.5) ng/ml Adenovirus (PCR) (NotDetected) B. pertussis DNA (PCR) (NotDetected) B.parapertussis DNA PCR (NotDetected) C. pneumoniae DNA (PCR) (NotDetected) Coronavirus OC43 (PCR) (NotDetected) Coronavirus HKU1 (PCR) (NotDetected) Coronavirus 229E (PCR) (NotDetected) SARS-CoV-2 (PCR) (NotDetected) Coronavirus NL63 (PCR) (NotDetected) Human Metapneumovir PCR (NotDetected) Influenza Type A (PCR) (NotDetected) Influenza Type B (PCR) (NotDetected) M. pneumoniae (PCR) (NotDetected) Parainfluenza 1 (PCR) (NotDetected) Parainfluenza 2 (PCR) (NotDetected) Parainfluenza 3 (PCR) (NotDetected) Parainfluenza 4 (PCR) (NotDetected) RSV (PCR) (NotDetected) Entero/Rhino (PCR) (NotDetected) 10/29/22 Range/Units 14:15 WBC (4.8-10.8) K/ul RBC (4.20-5.40) M/uL Hgb (12.0-16.0) g/dl Hct (37.0-47.0) % MCV (80.0-100.0) fL MCH (25.0-34.0) pg MCHC (32.0-36.0) g/dL RDW Std Deviation (36.4-46.3) fL RDW Coeff of Dalton (11.5-14.5) % Plt Count (130-400) K/uL MPV (9.4-12.4) fL Immature Gran % (Auto) % Neut % (Auto) % Lymph % (Auto) % Mcdowell % (Auto) % Eos % (Auto) % Baso % (Auto) % Neut # (Auto) (1.40-6.50) K/uL Lymph # (Auto) (1.2-3.4) K/uL Mcdowell # (Auto) (0.11-0.59) K/uL Eos # (Auto) (0-0.50) K/uL Baso # (Auto) (0-0.2) K/uL Immature Gran # (Auto) (0.01-0.20) K/uL PT (9.0-12.0) Seconds INR (0.9-1.1) APTT (21.0-31.0) Seconds PTT Ratio Sodium (136-145) mmol/L Potassium (3.5-5.1) mmol/L Chloride (98-107) mmol/L Carbon Dioxide (21-32) mmol/L Anion Gap BUN (6-23) mg/dl Creatinine (0.6-1.2) mg/dl Est Cr Clr Drug Dosing ml/min Est GFR ( Amer) ml/min Est GFR (Non-Af Amer) ml/min BUN/Creatinine Ratio (10-20) Glucose (70-99(Fasting)) mg/dl Lactate (0.4-2.0) mmol/L Calcium (8.6-10.3) mg/dl Total Bilirubin (0.2-1.0) mg/dl AST (13-39) U/L ALT (7-52) U/L Alkaline Phosphatase (34-104) U/L Troponin I High Sens (0-14) pg/ml B-Natriuretic Peptide (0-100) pg/ml Total Protein (6.0-8.3) gm/dl Albumin (3.4-5.0) gm/dl Globulin (2.5-4.0) gm/dl Albumin/Globulin Ratio (0.9-2) Procalcitonin (0-0.5) ng/ml Adenovirus (PCR) Not Detected (NotDetected) B. pertussis DNA (PCR) Not Detected (NotDetected) B.parapertussis DNA PCR Not Detected (NotDetected) C. pneumoniae DNA (PCR) Not Detected (NotDetected) Coronavirus OC43 (PCR) Not Detected (NotDetected) Coronavirus HKU1 (PCR) Not Detected (NotDetected) Coronavirus 229E (PCR) Not Detected (NotDetected) SARS-CoV-2 (PCR) Not Detected (NotDetected) Coronavirus NL63 (PCR) Not Detected (NotDetected) Human Metapneumovir PCR Not Detected (NotDetected) Influenza Type A (PCR) Not Detected (NotDetected) Influenza Type B (PCR) Not Detected (NotDetected) M. pneumoniae (PCR) Not Detected (NotDetected) Parainfluenza 1 (PCR) Not Detected (NotDetected) Parainfluenza 2 (PCR) Not Detected (NotDetected) Parainfluenza 3 (PCR) Not Detected (NotDetected) Parainfluenza 4 (PCR) Not Detected (NotDetected) RSV (PCR) Not Detected (NotDetected) Entero/Rhino (PCR) Not Detected (NotDetected) Administered Medications Discontinued Medications Albuterol (Albut/Ipratrop 3mg/0.5mg Neb 3 Ml Vial) 3 ml NEB NOW STA; Protocol Stop: 10/29/22 13:25 Last Admin: 10/29/22 14:02 Dose: 3 ml Documented By: ESTEFANI Cefepime HCl (Maxipime) 2,000 mg in 20 mls @ 5 mls/min IV NOW STA; Protocol Stop: 10/29/22 13:27 Last Admin: 10/29/22 13:54 Dose: 5 mls/min Documented By: ESTEFANI Ioversol (Optiray 320 500ml) 110 ml IV ONCE ONE Stop: 10/29/22 16:25 Last Admin: 10/29/22 16:24 Dose: 110 ml Documented By: TDA Morphine Sulfate (Morphine Sulfate 2 Mg/Ml Carp) 2 mg IV NOW STA Stop: 10/29/22 13:33 Last Admin: 10/29/22 13:53 Dose: 2 mg Documented By: ESTEFANI Imaging Data Radiologist's Impression: Chest X-Ray 10/29/22 13:14 XR chest 1V portable HISTORY: Dyspnea COMPARISON: Chest 06/25/2017. FINDINGS: The cardiac silhouette remains enlarged. No evidence for pulmonary edema. No pneumothorax. Blunting of the left costophrenic sulci which could be due to a small left pleural effusion. Bibasilar densities, left greater the right which favor atelectasis versus a pneumonia. IMPRESSION: Probable small left pleural effusion with bibasilar densities. This could represent atelectasis or pneumonia. This will be better appreciated on the same day chest CT. ACT 112: Negative or not required by law. Electronically signed by: Kike Riley M.D. 10/29/2022 1:50 PM Chest CTA 10/29/22 13:24 CT ANGIOGRAPHY OF THE CHEST, PULMONARY EMBOLUS PROTOCOL CLINICAL HISTORY: Increasing shortness of breath. COMPARISON STUDY: Chest radiograph June 25, 2017 and October 29, 2022. TECHNIQUE: Following IV administration of 110 mL of Optiray, helical axial images of the chest were obtained utilizing the pulmonary embolus protocol. Maximal intensity projections and sagittal and coronal reformats were viewed on an independent 3D workstation. IV contrast was administered without complication. Automated exposure control was utilized for the study. A dose lowering technique was utilized adhering to the principles of ALARA. CT DOSE: 1824.81 mGy.cm FINDINGS: No pulmonary emboli are identified. This exam is mildly compromised by artifact. Moderate cardiomegaly is noted. There is no thoracic aortic dissection. There is no thoracic lymphadenopathy. Small left pleural effusion is present. There is no pneumothorax. Moderate left lower lobe airspace opacity is present with mild volume loss. Subpleural right lower lobe opacity favors atelectasis. Central airways are patent. No acute fractures within the bony thorax. Left adrenal nodule is unchanged since CT of June 25, 2017. This favors an adenoma. IMPRESSION: 1. No pulmonary emboli identified. Exam mildly compromised by artifact. 2. Small left pleural effusion. Moderate associated left lower lobe opacity. This could reflect pneumonia or atelectasis. 3. Cardiomegaly. ACT 112: Negative or not required by law. Electronically signed by: Bari Wyatt M.D. 10/29/2022 4:35 PM Discharge Plan Visit Data Chief Complaint: Shortness of Breath/Dyspnea Stated Complaint: LOW O2,TROUBLE BREATHING,UTI,WEAK ED Provider: Glenn Snider Discharge Problem: Hypoxia, SOB (shortness of breath), Weakness, Pleural effusion, Pneumonia Patient Disposition: Admitted As Inpatient Condition: Fair Forms Stand Alone Forms: My [facility] [place] [employer] Prescriptions Prescriptions: No Action furosemide 40 mg tablet 80 mg PO QAM fluticasone propion-salmeterol [Advair Diskus] 250-50 mcg/dose blister with device 1 inh INHALATION BID atorvastatin 20 mg tablet 20 mg PO DAILY amlodipine 5 mg Tablet 5 mg PO DAILY alprazolam 0.25 mg tablet 0.25 mg PO DAILY PRN (Reason: Anxiety) citalopram 20 mg tablet 20 mg PO DAILY albuterol sulfate 90 mcg/actuation Hfa Aerosol Inhaler 2 puff INHALATION Q4H PRN (Reason: Wheezing) insulin lispro protamin-lispro [Humalog Mix 75-25 KwikPen] 100 unit/mL (75-25) insulin pen See Rx Instructions .ROUTE .COMPLEX Rx Instructions: TAKES 70 UNITS QAM, THEN 60 UNITS QPM. menthol-zinc oxide [Calmoseptine] 0.44-20.6 % Ointment 1 applic TOPICAL TID PRN (Reason: Skin Irritation) Incruse Ellipta 62.5 mcg/actuation Blister With Device 1 inh INHALATION DAILY Referrals Referrals: Kings Nichols MD [Primary Care Provider] - Pneumonia Qualifiers: Pneumonia type: due to unspecified organism Laterality: left Lung location: lower lobe of lung Qualified Code(s): J18.9 - Pneumonia, unspecified organism
--- NOTE | 2022-10-29 13:51 | XRay Report ---
XR chest 1V portable HISTORY: Dyspnea COMPARISON: Chest 06/25/2017. FINDINGS: The cardiac silhouette remains enlarged. No evidence for pulmonary edema. No pneumothorax. Blunting of the left costophrenic sulci which could be due to a small left pleural effusion. Bibasila r densities, left greater the right which favor atelectasis versus a pneumonia. IMPRESSION: Probable small left pleural effusion with bibasilar densities. This could represent atelectasis or pn eumonia. This will be better appreciated on the same day chest CT. ACT 112: Negative or not required by law. Electronically signed by: Kike Riley M.D. 10/29/2022 1:50 PM
[2022-10-29 14:18] LABS: Basophils # (auto) 0.02 K/uL (0-0.2); Basophils % (auto) 0.4 %; Eosinophils # (auto) 0.09 K/uL (0-0.50); Eosinophils % (auto) 1.7 %; Hematocrit (blood only) 33.8 % (37.0-47.0); Immature Granulocytes # (auto) 0.03 K/uL (0.01-0.20); Immature Granulocytes % (auto) 0.6 %; Lymphocytes # (auto) 0.68 K/uL (1.2-3.4); Lymphocytes % (auto) 12.9 %; Mean Corpuscular Hemoglobin 28.2 pg (25.0-34.0); Mean Corpuscular Hgb Conc 29.6 g/dL (32.0-36.0); Mean Corpuscular Volume 95.2 fL (80.0-100.0); Mean Platelet Volume 9.4 fL (9.4-12.4); Monocytes # (auto) 0.34 K/uL (0.11-0.59); Monocytes % (auto) 6.4 %; Neutrophils # (auto) 4.13 K/uL (1.40-6.50); Platelet Count 150 K/uL (130-400); RDW Coefficient of Variation 14.7 % (11.5-14.5); RDW Standard Deviation 51.5 fL (36.4-46.3); Red Blood Count 3.55 M/uL (4.20-5.40); White Blood Count 5.29 K/ul (4.8-10.8)
[2022-10-29 14:50] LABS: Partial Thromboplastin Ratio 0.9; Prothrombin Time 10.7 Seconds (9.0-12.0)
[2022-10-29 15:02] LABS: Alanine Aminotransferase 13 U/L (7-52); Albumin Globulin Ratio 1.2 (0.9-2); Albumin Level 3.8 gm/dl (3.4-5.0); Alkaline Phosphatase 71 U/L (34-104); Aspartate Aminotransferase 13 U/L (13-39); BUN Creatinine Ratio 33.3 (10-20); Bilirubin,Total 0.4 mg/dl (0.2-1.0); Blood Urea Nitrogen 18 mg/dl (6-23); Calcium 9.6 mg/dl (8.6-10.3); Carbon Dioxide > 45 mmol/L (21-32); Chloride 94 mmol/L (98-107); Creatinine Clr Calc Pharmacy 116.7 ml/min; Est GFR (African American) 106.2 ml/min; Est GFR (Non-African American) 91.7 ml/min; Globulin 3.2 gm/dl (2.5-4.0); Glucose 139 mg/dl (70-99(Fasting)); Potassium 4.1 mmol/L (3.5-5.1); Sodium 141 mmol/L (136-145); Troponin I High Sensitivity 10.5 pg/ml (0-14)
[2022-10-29 15:33] LABS: Adenovirus PCR Not Detected (NotDetected); Bordetella parapertussis PCR Not Detected (NotDetected); Bordetella pertussis PCR Not Detected (NotDetected); Chlamydia pneumoniae PCR Not Detected (NotDetected); Coronavirus 229E PCR Not Detected (NotDetected); Coronavirus CoV-2 (COVID19)PCR Not Detected (NotDetected); Coronavirus HKU1 PCR Not Detected (NotDetected); Coronavirus NL63 PCR Not Detected (NotDetected); Coronavirus OC43PCR Not Detected (NotDetected); Human Metapneumovirus PCR Not Detected (NotDetected); Influenza A PCR Not Detected (NotDetected); Influenza B PCR Not Detected (NotDetected); Mycoplasma pneumoniae PCR Not Detected (NotDetected); Parainfluenza Virus 1 PCR Not Detected (NotDetected); Parainfluenza Virus 2 PCR Not Detected (NotDetected); Parainfluenza Virus 3 PCR Not Detected (NotDetected); Parainfluenza Virus 4 PCR Not Detected (NotDetected); Respiratory Syncytial VirusPCR Not Detected (NotDetected); Rhinovirus/Enterovirus PCR Not Detected (NotDetected)
--- NOTE | 2022-10-29 15:50 | Electrocardiogram Report ---
Test Reason : Blood Pressure : / mmHG Vent. Rate : 092 BPM Atrial Rate : 092 BPM P-R Int : 184 ms QRS Dur : 066 ms QT Int : 332 ms P-R-T Axes : 057 029 046 degrees QTc Int : 410 ms Poor data quality, interpretation may be adversely affected Normal sinus rhythm Low voltage QRS Borderline ECG When compared with ECG of 25-JUN-2017 15:15, No significant change was found Confirmed by Joshua Pardo ([id number]) on 10/29/2022 3:49:38 PM Referred By: Confirmed By:Joshua Pardo
[2022-10-29] MEDS ORDERED: OPTIRAY 320 500ml IV ONE (16:24)
--- NOTE | 2022-10-29 16:37 | CT Scan Report ---
CT ANGIOGRAPHY OF THE CHEST, PULMONARY EMBOLUS PROTOCOL CLINICAL HISTORY: Increasing shortness of breath. COMPARISON STUDY: Chest radiograph June 25, 2017 and October 29, 2022. TECHNIQUE: Following IV administration of 110 mL of Optiray, helical axial images of the chest were o btained utilizing the pulmonary embolus protocol. Maximal intensity projections and sagittal and cor onal reformats were viewed on an independent 3D workstation. IV contrast was administered without co mplication. Automated exposure control was utilized for the study. A dose lowering technique was ut ilized adhering to the principles of ALARA. CT DOSE: 1824.81 mGy.cm FINDINGS: No pulmonary emboli are identified. This exam is mildly compromised by artifact. Moderate cardiomegaly is noted. There is no thoracic aortic dissection. There is no thoracic lymphadenopathy. Small left pleural effusion is present. There is no pneumothorax. Moderate left lower lobe airspace o pacity is present with mild volume loss. Subpleural right lower lobe opacity favors atelectasis. Cent ral airways are patent. No acute fractures within the bony thorax. Left adrenal nodule is unchanged s homer CT of June 25, 2017. This favors an adenoma. IMPRESSION: 1. No pulmonary emboli identified. Exam mildly compromised by artifact. 2. Small left pleural effusion. Moderate associated left lower lobe opacity. This could reflect pneum onia or atelectasis. 3. Cardiomegaly. ACT 112: Negative or not required by law. Electronically signed by: Bari Wyatt M.D. 10/29/2022 4:35 PM
--- NOTE | 2022-10-29 16:57 | History & Physical Report ---
Date of Service October 29, 2022 Assessment & Plan (1) SOB (shortness of breath): Plan: presented after recent treatment for PNA/UTI at [facility], signed out AMA but completed 7 day course Levaquin w/ PCP Also had her lasix/spironolactone on hold for low BPs at the office w/ reported "baseline weight ~280lb" however not weighing herself at home and currently 286lb in our system. Could be resolving parapneumonic effusion as well on imaging? Will request records from [facility] for further info CTA chest NEGATIVE for PE. Lactic 1.1. Procal <0.05. No leukocytosis on labs or fevers. Did note chills at home Suspect she has resolving pna and more effusion/atelectasis given slightly volume up given holding her home diuretics/weights up despite normal BNP as completed 7 days Levaquin. Procal <0.05. Biofire NEGATIVE Back on her usual 5L NC, no further tachypnea Admit med/surg given stability/no arrhythmia on tele. Suspect due to combination recent illness, deconditioning, not treating her restrictive lung disease or obstructive lung disease given noncompliance w/ inhalers and BiPAP at home Checking ABG given CO2 retention on chemistries -- of note, on chronic BiPAP but hasn't been using >3 months due to recall/faulty machine -- BiPAP ordered HS -- have CM contact [facility] in AM to verify settings and see about getting new machine at home -- Can consider dose diamox w/ diuresis as well Lasix 40mg IV x 1 for today, planned to resume her usual Lasix 80 mg/Spironolactone 25mg in AM Incentive spirometer, flutter valve, mucinex Continue Incruse, Advair or hospital equivalent --> Will need new rx at dc as hasn't used in >1 month as she cant find/under her couch Encourage compliance with medications Will obtain PT/OT evals prior to d/c given AMA from [facility] to ensure no needs at discharge -- NWB overnight given concerns for R ankle fx as below Monitor labs in AM (2) Diastolic heart failure: Plan: suspected , due to significant COPD/obesity/hypoventilation/noncompliance w/ BiPAP. BNP not elevated but weights up/effusion as above Lasix 40mg IV x 1 now, resume her lasix 80mg PO/spironolactone 25mg for AM Monitor weights/I&Os (3) COPD (chronic obstructive pulmonary disease): Plan: on 5L at baseline, no change in sputum to suspect exacerbation. recently completed 7 days levaquin outpatient. Neg procal, no abx at present CO2 retention likely from not using BiPAP outpatient checking ABG as above, BiPAP for tonight Pulmonary toilet, mucinex. could consider hypertonic saline if needed if having difficulty clearing any secretions/mucus plugging (4) Hypertension: Plan: Low last week, currently improved and stable Lasix 40mg IV x 1 now, resume her usual lasix/spironolactone in AM. Will hold amlodipine and rec likely dc this medication to prevent LE edema symptoms Monitor BP (5) Pleural effusion: Plan: small, likely volume related lasix as above monitor on repeat exam/cxr (6) Hypoxia: Plan: spo2 drop on admit to 84% but rebounded and currently back on her usual 5L BiPAP ordered for tonight for suspected acute on chronic respiratory failure with hypercarbia (7) Diabetes mellitus, type 2: Plan: hold home meds place on glargine 20u BID for now to start (on 60+70 mixed 75/25 at home) BSG AC/HS, SSI while inpatient w/ range 120-180, CF 20, CR 6 monitor BSGs (8) Right ankle swelling: Plan: right ankle injury reported w/ twisting, mechanical in nature. appears sprained obtaining x-ray at this time for further eval --> of note, she has been weight bearing on this at home --> imaging w/ small avulsion fracture at the distal tip of the right fibula whi ch appears acute. No dislocation. Do not suspect any need for surgery, but will consult ortho for AM KAYDEN wrap for tonight given size of ankle likely not fit into gel splint Pain control/ice NWB RLE for now Ortho consult for AM DVT proph: Lovenox SQ while inpatient --:> given obesity w/ 40mg BID History of Present Illness Chief Complaint: shortness of breath Primary Care Provider: Kings Nichols MD 77yo female with PMHx significant for COPD, HTN, DM II, diverticulitis presented with difficulty breathing after recent discharge over a week ago which was treated for pneumonia and a UTI and discharged home. Baseline COPD on 5L NC which she is presently on and maintaining good saturation SpO2 was 84% and increased her supplemental O2 to 10L w/ SpO2 100% and turned back down to 8L. When seen by ER provider was down to 7L. Currently on 4L in room w/ SpO2 96% with good wave form. Per patient, she signed out AMA from [facility] due to noisy roommate and was not sent on any continued antibiotics. Saw PCP in follow up who rx Levaquin and patient notes she completed 7 day course on Friday or Friday of this past week. Apparently at same time last week, PCP felt she was dehydrated w/ low BP in the office (usually running ~116/60s, but was 100/50s at office) and was instructed to hold her diuretics. Now she is reporting increased LE edema and reporting increased shortness of breath. Weight at baseline ~280lb but reports she hasn't weighed herself this past week due to feeling so poorly. Current weight in system 286lb. She notes some chills, but no fevers and she had been monitoring these. +cough on occasion, white/clear slightly cloudy looking sputum. Did endorse they had been giving her heparin SQ while in [facility]. She did also twist her ankle but has been walking on it, mechanical in nature. Medication noncompliance as well as w/ her BiPAP noted as below suspected to be contributing. * TO be on albuterol HFA, Advair BID, Incruse daily. * She notes she has not known where these are in her house and hasn't been using these at least for over a month as they fell under her couch and she has not been able to get these. * Also hasn't had her BiPAP in about 3 months. She notes she does not recall the settings but initially was recalled but when she got her unit it wasn't working right and she hasn't been using this since about June. * She states can call [facility] in AM when they open to see about settings. HTN and volume management with amlodipine 5mg, Lasix 80mg daily, spironolactone 25mg at baseline but hasn't been on her lasix or spironolactone since end of last week. Citalopram 20mg daily for depression. Xanax 0.25mg daily as needed. Atorvastatin 20mg daily. Is on insulin for her DM -- 70 + 60 humalog mix of 75/25 Discussed admitting for BiPAP/diuretics and eval by therapy and refills of her medications for at discharge and planned to resume her usual diuretics in AM Rec following up w/ her equipment company in AM to verify BiPAP settings and have CM assist w/ issues with reported issues with her home unit. ER Course: CXR w/ probable small left pleural effusion with bibasilar densities. Atelectasis or pneumonia. CTA Chest NEGATIVE for PE. mildly compromised exam. Small L pleural effusion, moderate associated left lower lobe opacity. Could reflect atelectasis or pneumonia. BNP 43 and not elevated. Procalcitonin negative <0.05. WBC wnl 5.2k. Hgb 10. Plt 150. Chemistry w/ elevated CO2 >45. BUN/Cr 18/0.54. Glu 139. Lactic 1.1. Trop 10.5 Biofire testing NEGATIVE. Duoneb x1. Morphine 2mg IV x 1. Cefepime 2gm IV now Allergies Allergy/AdvReac Type Severity Reaction Status Date / Time Cipro Allergy Severe swelling Verified 06/25/17 17:13 ciprofloxacin [Cipro] Allergy Intermediate SWELLING/BLISTERING Verified 10/29/22 16:11 OF LIPS empagliflozin AdvReac Intermediate RECURRENT Verified 10/29/22 16:11 [From Jardiance] UTI'S metformin AdvReac Intermediate Gastrointestinal Verified 10/29/22 16:11 Upset Home Medications Medication Instructions Recorded Confirmed Type albuterol sulfate 90 mcg/actuation 2 puff inhalation Q4H PRN Wheezing 10/29/22 10/29/22 History aerosol inhaler alprazolam 0.25 mg tablet 0.25 mg PO DAILY PRN Anxiety 10/29/22 10/29/22 History amlodipine 5 mg tablet 5 mg PO DAILY 10/29/22 10/29/22 History atorvastatin 20 mg tablet 20 mg PO DAILY 10/29/22 10/29/22 History citalopram 20 mg tablet 20 mg PO DAILY 10/29/22 10/29/22 History fluticasone 250 mcg-salmeterol 50 1 inh inhalation BID 10/29/22 10/29/22 History mcg/dose blistr powdr for inhalation (Advair Diskus) furosemide 40 mg tablet 80 mg PO QAM 10/29/22 10/29/22 History insulin lispro protamine-lispro See Rx Instructions .Route .COMPLEX 10/29/22 10/29/22 History 100 unit/mL (75-25) subcutaneous pen (Humalog Mix 75-25 KwikPen) menthol 0.44 %-zinc oxide 20.6 % 1 applic topical TID PRN Skin 10/29/22 10/29/22 History topical ointment (Calmoseptine) Irritation umeclidinium 62.5 mcg/actuation 1 inh inhalation DAILY 10/29/22 10/29/22 History blister powder for inhalation (Incruse Ellipta) 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 Current Living Situation: Spouse Other Information That Helps Us Care for You: No Feels Safe at Home: Yes Safety Concerns: Feels Safe At This Time Assistive Devices: Glasses, Oxygen - Continuous and Wheelchair Review of Systems Review of Systems: All systems reviewed & are unremarkable except as noted in HPI & below Physical Exam Physical Exam: General: WN obese female sitting in bed, NAD, on 4-5L NC (baseline 5L) with SpO2 96% HEENT: head normocephalic, atraumatic, mmm, trachea midlien Resp: diminished due to body habitus but no significant diffuse , +cough, on NC, not tachypneic CV: distant HS due to body habitus but NSR on monitor, no signifciant m/r/g, trace b/l LE edema, calves nontender and pulses palpable GI: +BS, soft/NT : no lowe MSK/Neuro: no focal deficit, no slurred speech/facial droop R ankle w/ ecchymosis and swelling, primarily on lateral aspect. tenderness to palpation but ROM and sensation intact (obtaining xray for eval), pulses palpable Psych: AOx3, cooperative with exam Results & Data Results & Data Vital Signs (Past 12 Hours) Vital Signs Temp Pulse Pulse Resp BP BP Pulse Ox 10/29/22 15:45 91 H 10/29/22 14:28 10/29/22 14:26 139/87 10/29/22 14:13 96 H 98 10/29/22 13:12 36.2 C L 105 H 32 H 147/77 H 99 O2 Del Method O2 Flow Rate 10/29/22 15:45 10/29/22 14:28 Nasal Cannula 5 10/29/22 14:26 10/29/22 14:13 Nasal Cannula 5 10/29/22 13:12 Nasal Cannula 10 Laboratory Results 10/29/22 10/29/22 10/29/22 Range/Units 14:15 13:55 13:36 WBC (4.8-10.8) K/ul RBC (4.20-5.40) M/uL Hgb (12.0-16.0) g/dl Hct (37.0-47.0) % MCV (80.0-100.0) fL MCH (25.0-34.0) pg MCHC (32.0-36.0) g/dL RDW Std Deviation (36.4-46.3) fL RDW Coeff of Dalton (11.5-14.5) % Plt Count (130-400) K/uL MPV (9.4-12.4) fL Immature Gran % (Auto) % Neut % (Auto) % Lymph % (Auto) % L[place]kin % (Auto) % Eos % (Auto) % Baso % (Auto) % Neut # (Auto) (1.40-6.50) K/uL Lymph # (Auto) (1.2-3.4) K/uL Lumpkin # (Auto) (0.11-0.59) K/uL Eos # (Auto) (0-0.50) K/uL Baso # (Auto) (0-0.2) K/uL Immature Gran # (Auto) (0.01-0.20) K/uL PT (9.0-12.0) Seconds INR (0.9-1.1) APTT (21.0-31.0) Seconds PTT Ratio Sodium (136-145) mmol/L Potassium (3.5-5.1) mmol/L Chloride (98-107) mmol/L Carbon Dioxide (21-32) mmol/L Anion Gap BUN (6-23) mg/dl Creatinine (0.6-1.2) mg/dl Est Cr Clr Drug Dosing ml/min Est GFR ( Amer) ml/min Est GFR (Non-Af Amer) ml/min BUN/Creatinine Ratio (10-20) Glucose (70-99(Fasting)) mg/dl Lactate 1.1 (0.4-2.0) mmol/L Calcium (8.6-10.3) mg/dl Total Bilirubin (0.2-1.0) mg/dl AST (13-39) U/L ALT (7-52) U/L Alkaline Phosphatase (34-104) U/L Troponin I High Sens (0-14) pg/ml B-Natriuretic Peptide 43 (0-100) pg/ml Total Protein (6.0-8.3) gm/dl Albumin (3.4-5.0) gm/dl Globulin (2.5-4.0) gm/dl Albumin/Globulin Ratio (0.9-2) Procalcitonin (0-0.5) ng/ml Adenovirus (PCR) Not Detected (NotDetected) B. pertussis DNA (PCR) Not Detected (NotDetected) B.parapertussis DNA PCR Not Detected (NotDetected) C. pneumoniae DNA (PCR) Not Detected (NotDetected) Coronavirus OC43 (PCR) Not Detected (NotDetected) Coronavirus HKU1 (PCR) Not Detected (NotDetected) Coronavirus 229E (PCR) Not Detected (NotDetected) SARS-CoV-2 (PCR) Not Detected (NotDetected) Coronavirus NL63 (PCR) Not Detected (NotDetected) Human Metapneumovir PCR Not Detected (NotDetected) Influenza Type A (PCR) Not Detected (NotDetected) Influenza Type B (PCR) Not Detected (NotDetected) M. pneumoniae (PCR) Not Detected (NotDetected) Parainfluenza 1 (PCR) Not Detected (NotDetected) Parainfluenza 2 (PCR) Not Detected (NotDetected) Parainfluenza 3 (PCR) Not Detected (NotDetected) Parainfluenza 4 (PCR) Not Detected (NotDetected) RSV (PCR) Not Detected (NotDetected) Entero/Rhino (PCR) Not Detected (NotDetected) 10/29/22 10/29/22 10/29/22 Range/Units 13:15 13:15 13:14 WBC (4.8-10.8) K/ul RBC (4.20-5.40) M/uL Hgb (12.0-16.0) g/dl Hct (37.0-47.0) % MCV (80.0-100.0) fL MCH (25.0-34.0) pg MCHC (32.0-36.0) g/dL RDW Std Deviation (36.4-46.3) fL RDW Coeff of Dalton (11.5-14.5) % Plt Count (130-400) K/uL MPV (9.4-12.4) fL Immature Gran % (Auto) % Neut % (Auto) % Lymph % (Auto) % L[place]kin % (Auto) % Eos % (Auto) % Baso % (Auto) % Neut # (Auto) (1.40-6.50) K/uL Lymph # (Auto) (1.2-3.4) K/uL L[place]kin # (Auto) (0.11-0.59) K/uL Eos # (Auto) (0-0.50) K/uL Baso # (Auto) (0-0.2) K/uL Immature Gran # (Auto) (0.01-0.20) K/uL PT 10.7 (9.0-12.0) Seconds INR 1.0 (0.9-1.1) APTT 25.0 (21.0-31.0) Seconds PTT Ratio 0.9 Sodium 141 (136-145) mmol/L Potassium 4.1 (3.5-5.1) mmol/L Chloride 94 L (98-107) mmol/L Carbon Dioxide > 45 H* (21-32) mmol/L Anion Gap TNP BUN 18 (6-23) mg/dl Creatinine 0.54 L (0.6-1.2) mg/dl Est Cr Clr Drug Dosing 116.7 ml/min Est GFR ( Amer) 106.2 ml/min Est GFR (Non-Af Amer) 91.7 ml/min BUN/Creatinine Ratio 33.3 H (10-20) Glucose 139 H (70-99(Fasting)) mg/dl Lactate (0.4-2.0) mmol/L Calcium 9.6 (8.6-10.3) mg/dl Total Bilirubin 0.4 (0.2-1.0) mg/dl AST 13 (13-39) U/L ALT 13 (7-52) U/L Alkaline Phosphatase 71 (34-104) U/L Troponin I High Sens 10.5 (0-14) pg/ml B-Natriuretic Peptide (0-100) pg/ml Total Protein 7.0 (6.0-8.3) gm/dl Albumin 3.8 (3.4-5.0) gm/dl Globulin 3.2 (2.5-4.0) gm/dl Albumin/Globulin Ratio 1.2 (0.9-2) Procalcitonin < 0.05 (0-0.5) ng/ml Adenovirus (PCR) (NotDetected) B. pertussis DNA (PCR) (NotDetected) B.parapertussis DNA PCR (NotDetected) C. pneumoniae DNA (PCR) (NotDetected) Coronavirus OC43 (PCR) (NotDetected) Coronavirus HKU1 (PCR) (NotDetected) Coronavirus 229E (PCR) (NotDetected) SARS-CoV-2 (PCR) (NotDetected) Coronavirus NL63 (PCR) (NotDetected) Human Metapneumovir PCR (NotDetected) Influenza Type A (PCR) (NotDetected) Influenza Type B (PCR) (NotDetected) M. pneumoniae (PCR) (NotDetected) Parainfluenza 1 (PCR) (NotDetected) Parainfluenza 2 (PCR) (NotDetected) Parainfluenza 3 (PCR) (NotDetected) Parainfluenza 4 (PCR) (NotDetected) RSV (PCR) (NotDetected) Entero/Rhino (PCR) (NotDetected) 10/29/22 Range/Units 13:14 WBC 5.29 (4.8-10.8) K/ul RBC 3.55 L (4.20-5.40) M/uL Hgb 10.0 L (12.0-16.0) g/dl Hct 33.8 L (37.0-47.0) % MCV 95.2 (80.0-100.0) fL MCH 28.2 (25.0-34.0) pg MCHC 29.6 L (32.0-36.0) g/dL RDW Std Deviation 51.5 H (36.4-46.3) fL RDW Coeff of Dalton 14.7 H (11.5-14.5) % Plt Count 150 (130-400) K/uL MPV 9.4 (9.4-12.4) fL Immature Gran % (Auto) 0.6 % Neut % (Auto) 78.0 % Lymph % (Auto) 12.9 % Lumpkin % (Auto) 6.4 % Eos % (Auto) 1.7 % Baso % (Auto) 0.4 % Neut # (Auto) 4.13 (1.40-6.50) K/uL Lymph # (Auto) 0.68 L (1.2-3.4) K/uL Lumpkin # (Auto) 0.34 (0.11-0.59) K/uL Eos # (Auto) 0.09 (0-0.50) K/uL Baso # (Auto) 0.02 (0-0.2) K/uL Immature Gran # (Auto) 0.03 (0.01-0.20) K/uL PT (9.0-12.0) Seconds INR (0.9-1.1) APTT (21.0-31.0) Seconds PTT Ratio Sodium (136-145) mmol/L Potassium (3.5-5.1) mmol/L Chloride (98-107) mmol/L Carbon Dioxide (21-32) mmol/L Anion Gap BUN (6-23) mg/dl Creatinine (0.6-1.2) mg/dl Est Cr Clr Drug Dosing ml/min Est GFR ( Amer) ml/min Est GFR (Non-Af Amer) ml/min BUN/Creatinine Ratio (10-20) Glucose (70-99(Fasting)) mg/dl Lactate (0.4-2.0) mmol/L Calcium (8.6-10.3) mg/dl Total Bilirubin (0.2-1.0) mg/dl AST (13-39) U/L ALT (7-52) U/L Alkaline Phosphatase (34-104) U/L Troponin I High Sens (0-14) pg/ml B-Natriuretic Peptide (0-100) pg/ml Total Protein (6.0-8.3) gm/dl Albumin (3.4-5.0) gm/dl Globulin (2.5-4.0) gm/dl Albumin/Globulin Ratio (0.9-2) Procalcitonin (0-0.5) ng/ml Adenovirus (PCR) (NotDetected) B. pertussis DNA (PCR) (NotDetected) B.parapertussis DNA PCR (NotDetected) C. pneumoniae DNA (PCR) (NotDetected) Coronavirus OC43 (PCR) (NotDetected) Coronavirus HKU1 (PCR) (NotDetected) Coronavirus 229E (PCR) (NotDetected) SARS-CoV-2 (PCR) (NotDetected) Coronavirus NL63 (PCR) (NotDetected) Human Metapneumovir PCR (NotDetected) Influenza Type A (PCR) (NotDetected) Influenza Type B (PCR) (NotDetected) M. pneumoniae (PCR) (NotDetected) Parainfluenza 1 (PCR) (NotDetected) Parainfluenza 2 (PCR) (NotDetected) Parainfluenza 3 (PCR) (NotDetected) Parainfluenza 4 (PCR) (NotDetected) RSV (PCR) (NotDetected) Entero/Rhino (PCR) (NotDetected) Diagnostic Findings Chest X-Ray 10/29/22 13:14 XR chest 1V portable HISTORY: Dyspnea COMPARISON: Chest 06/25/2017. FINDINGS: The cardiac silhouette remains enlarged. No evidence for pulmonary ed neda. No pneumothorax. Blunting of the left costophrenic sulci which could be due to a small left pleural effusion. Bibasilar densities, left greater the right which favor atelectasis versus a pneumonia. IMPRESSION: Probable small left pleural effusion with bibasilar densities. This could represent atelectasis or pneumonia. This will be better appreciated on the same day chest CT. ACT 112: Negative or not required by law. Electronically signed by: Kike Riley M.D. 10/29/2022 1:50 PM Chest CTA 10/29/22 13:24 CT ANGIOGRAPHY OF THE CHEST, PULMONARY EMBOLUS PROTOCOL CLINICAL HISTORY: Increasing shortness of breath. COMPARISON STUDY: Chest radiograph June 25, 2017 and October 29, 2022. TECHNIQUE: Following IV administration of 110 mL of Optiray, helical axial images of the chest were obtained utilizing the pulmonary embolus protocol. Maximal intensity projections and sagittal and coronal reformats were viewed on an independent 3D workstation. IV contrast was administered without complication. Automated exposure control was utilized for the study. A dose lowering technique was utilized adhering to the principles of ALARA. CT DOSE: 1824.81 mGy.cm FINDINGS: No pulmonary emboli are identified. This exam is mildly compromised by artifact. Moderate cardiomegaly is noted. There is no thoracic aortic dissection. There is no thoracic lymphadenopathy. Small left pleural effusion is present. There is no pneumothorax. Moderate left lower lobe airspace opacity is present with mild volume loss. Subpleural right lower lobe opacity favors atelectasis. Central airways are patent. No acute fractures within the bony thorax. Left adrenal nodule is unchanged since CT of June 25, 2017. This favors an adenoma. IMPRESSION: 1. No pulmonary emboli identified. Exam mildly compromised by artifact. 2. Small left pleural effusion. Moderate associated left lower lobe opacity. This could reflect pneumonia or atelectasis. 3. Cardiomegaly. ACT 112: Negative or not required by law. Electronically signed by: Bari Wyatt M.D. 10/29/2022 4:35 PM Supervising Physician Co-Signing Physician Notes I personally saw and examined the patient. I verified all little points and agree with Sheron Licea PA-C with the following exceptions and/or additions: 77 year old female who presents to the ER with shortness of breath. Treated for pneumonia at [facility] and left against medical advice on October 18. PCP then treated with 7 days of Levaquin. Follower up with PCP on October 25 and was taken off diuretics as felt to be dehydrated. She has declined significancy since coming off antibiotics and diuretics. She does not measure her weight but possibly her leg are more swollen. Right ankle noted to have extensive lateral ecchymosis - she reports twisting her ankle a few days ago and did not seek medical help for this. O/E morbidly obese, HS RRR (quiet heart sounds), no murmurs, no respiratory distress, Chest reduced breath sounds throughout without wheezing, Abdo SNT, 1+ b/l equal pitting leg edema, right lateral ankle ecchymosis without pain on movement A/P Chronic hypoxic hypercapnic respiratory failure - BiPAP HS, On baseline 4-5LPM O2. Aim O2 sats 88-92%, ABG suspicious of chronic rather than acute hypercapnia. She is effectively not treating her restrictive lung disease (CHRISTIANO, obesity hypoventilation) or obstructive lung disease (asthma/COPD) COPD/asthma - not suspectrf to have acute exacerbation, not treating at home as she doesn't know where her inhaler is. Restart inhalers Atelectasis/consolidation on CT - suspect this is residual from her recent pneumonia, new pneumonia not suspect given normal WBC, baseline O2, afebrile and negative procalcitonin. Incentive spirometer, flutter valve, BiPAP. Generalized weakness and deconditioning - this is really her main reason for admission, suspect due to not treating her chronic medical conditions in the setting fo recent pneumonia. New acute pathology not suspect with current workup. PT/OT, I suspect she will need inpatient rehabilitation Fibula ankle fracture - NWB until seen by orthopedics. KAYDEN wrap. Consult ortho PG Care Time/CCT Total # of Minutes Spent Total Time Spent with Patient: Total time spent is greater than 50% in coordination of care (as documented) at patient's floor/unit and/or counseling patient: Coding Level of Care Code 32273 INT INP/OBS CARE 3/75MIN Diagnoses SOB (shortness of breath) R06.02 Diastolic heart failure I50.30 COPD (chronic obstructive pulmonary disease) J44.9 Hypertension I10 Pleural effusion J90 Hypoxia R09.02 Diabetes mellitus, type 2 E11.9 Right ankle swelling M25.471
[2022-10-29 17:14] LABS: Magnesium 2.1 mg/dl (1.7-2.4)
[2022-10-29 17:18] LABS: Base Excess ABG 22.6 mEq/L (-9-1.8); HCO3 ABG 52 mmol/L (19-24); Oxygen Saturation ABG 96.9 % (90-95); PCO2 ABG 76 mmHg (35-46); PO2 ABG 79 mmHg (80-95); pH ABG 7.44 (7.35-7.45)
[2022-10-29 17:20] LABS: Allen Test Pos (Pos)
[2022-10-29] MEDS ORDERED: FUROSEMIDE 40 MG/4 ML VIAL IV ONE (17:24)
--- NOTE | 2022-10-29 17:54 | XRay Report ---
XR ankle RT min 3V routine CLINICAL HISTORY: Right ankle injury, swelling, r/o fx COMPARISON STUDY: None. FINDINGS: There is diffuse soft tissue swelling within the right ankle. There is a small acute avulsi on fracture at the distal tip of the fibula. This is not significantly displaced. A few additional we ll-corticated ossific densities at the medial and lateral malleoli are consistent with old avulsion i njuries.. No dislocation. IMPRESSION: There is a small avulsion fracture at the distal tip of the right fibula which appears a cute. No dislocation. ACT 112: Negative or not required by law. Electronically signed by: Kike Riley M.D. 10/29/2022 5:51 PM
[2022-10-29] MEDS ORDERED: ALBUTEROL HFA 8 GM INHALER INH PRN (21:39)
[2022-10-29] MEDS ORDERED: ALBUT/IPRATROP 3MG/0.5MG NEB 3 ML VIAL NEB PRN (21:39)
[2022-10-29] MEDS ORDERED: ONDANSETRON INJ 2 MG/ML 2 ML VIAL IV PRN (21:39)
[2022-10-29] MEDS ORDERED: DEXTROSE 50% 50 ML SYRINGE IV PRN (21:39)
[2022-10-29] MEDS ORDERED: CARBOHYDRATES FOR HYPOGLYCEMIA PO PRN (21:39)
[2022-10-29] MEDS ORDERED: GLUCAGON FOR INJ 1 MG VIAL SQ PRN (21:39)
[2022-10-29] MEDS ORDERED: GLUCOSE 40% GEL 15 GM TUBE PO PRN (21:39)
[2022-10-29] MEDS ORDERED: GLUCOSE 10 TAB/TUBE PO PRN (21:39)
[2022-10-29] MEDS ORDERED: ALPRAZolam 0.25 MG TABLET PO PRN (21:39)
[2022-10-29] MEDS: LANTUS PER UNIT CHARGE SQ SCH (22:07)
[2022-10-29] MEDS: INSULIN ASPART PER UNIT CHARGE SC SCH (22:07)
[2022-10-29] MEDS: guaiFENesin 600 MG TABCR PO SCH (22:49)
[2022-10-29] MEDS: UMECLIDINIUM BROMIDE 62.5MCG/BLISTER 7 PUFFS/INHALER INH SCH (22:52)
[2022-10-29] MEDS: oxyCODONE HCL IR 5 MG TAB (IMMEDIATE RELEASE) PO PRN (22:54)
[2022-10-30] MEDS: ENOXAPARIN INJ 40 MG/0.4 ML SYR SQ SCH ×3 (00:53→21:46)
[2022-10-30] MEDS: ACETAMINOPHEN 325 MG TAB PO PRN (05:53)
[2022-10-30 06:23] LABS: Hematocrit (blood only) 32.9 % (37.0-47.0); Hemoglobin 9.7 g/dl (12.0-16.0); Mean Corpuscular Hemoglobin 28.1 pg (25.0-34.0); Mean Corpuscular Hgb Conc 29.5 g/dL (32.0-36.0); Mean Corpuscular Volume 95.4 fL (80.0-100.0); Mean Platelet Volume 9.5 fL (9.4-12.4); Platelet Count 150 K/uL (130-400); RDW Coefficient of Variation 15.1 % (11.5-14.5); RDW Standard Deviation 52.8 fL (36.4-46.3); Red Blood Count 3.45 M/uL (4.20-5.40); White Blood Count 5.39 K/ul (4.8-10.8)
[2022-10-30 07:46] LABS: Appearance Urine Clear (Clear); Bacteria Urine Automated Negative (Negative); Bilirubin Urine Negative (Negative); Blood Urine 3+ (Negative); Cast Urine Automated 0 /lpf (0-5); Color Urine Yellow; Epithelial Cell Urine Auto >30 /lpf (0-5); Glucose Urine UA Negative (Negative); Ketones Urine Negative (Negative); Leukocyte Esterase Urine Negative (Negative); Nitrite Urine Negative (Negative); Protein Urine Negative (Negative); RBC Urine Automated >30 /hpf (0-4); Specific Gravity Urine 1.031 (1.000-1.030); Urobilinogen Urine Negative (Negative); pH Urine 5.5 (4.5-7.5)
[2022-10-30 09:20] LABS: Estimated Average Glucose 137 mg/dl; Hemoglobin A1C 6.4 % (4.5-5.6)
[2022-10-30] MEDS: ATORVASTATIN 20 MG TAB PO SCH (09:43)
[2022-10-30] MEDS: CITALOPRAM 20 MG TAB PO SCH (09:43)
[2022-10-30] MEDS: SPIRONOLACTONE 25 MG TAB PO SCH (09:44)
[2022-10-30] MEDS: guaiFENesin 600 MG TABCR PO SCH ×2 (09:44→21:48)
[2022-10-30] MEDS: FUROSEMIDE 80 MG TAB PO SCH (09:44)
[2022-10-30] MEDS: POLYETHYLENE (MIRALAX) 17 GM PACK PO SCH (09:45)
[2022-10-30] MEDS: UMECLIDINIUM BROMIDE 62.5MCG/BLISTER 7 PUFFS/INHALER INH SCH (09:45)
[2022-10-30] MEDS: FLUTICASONE/VILANTEROL 200/25MCG 14 PUFFS/INHALER INH SCH (09:46)
[2022-10-30 09:47] LABS: Alanine Aminotransferase 10 U/L (7-52); Albumin Globulin Ratio 1.2 (0.9-2); Albumin Level 3.6 gm/dl (3.4-5.0); Alkaline Phosphatase 66 U/L (34-104); Aspartate Aminotransferase 14 U/L (13-39); BUN Creatinine Ratio 27.5 (10-20); Bilirubin,Total 0.5 mg/dl (0.2-1.0); Blood Urea Nitrogen 19 mg/dl (6-23); Calcium 9.2 mg/dl (8.6-10.3); Carbon Dioxide > 45 mmol/L (21-32); Chloride 93 mmol/L (98-107); Creatinine Clr Calc Pharmacy 90.2 ml/min; Est GFR (Non-African American) 84.6 ml/min; Globulin 3.1 gm/dl (2.5-4.0); Glucose 141 mg/dl (70-99(Fasting)); Magnesium 2.1 mg/dl (1.7-2.4); Potassium 4.1 mmol/L (3.5-5.1); Sodium 142 mmol/L (136-145); Total Protein 6.7 gm/dl (6.0-8.3)
[2022-10-30] MEDS: DICLOFENAC SOD 1% GEL 100 GM TUBE EXT SCH ×3 (09:49→21:47)
[2022-10-30] MEDS: oxyCODONE HCL IR 5 MG TAB (IMMEDIATE RELEASE) PO PRN ×3 (09:56→21:56)
[2022-10-30] MEDS: INSULIN ASPART PER UNIT CHARGE SC SCH ×4 (09:58→21:47)
[2022-10-30] MEDS: LANTUS PER UNIT CHARGE SQ SCH ×2 (09:58→21:47)
--- NOTE | 2022-10-30 10:19 | Orthopedic Consultation ---
Date of Consultation October 30, 2022 Assessment & Plan (1) Right ankle sprain: Patient was seen and evaluated today by myself as well as Dr. Aguilera. She does have an acute right ankle sprain. She has an avulsion injury off the distal fibula which does not require any surgical intervention. We reapplied the Devang bandage on her ankle today. We will order her an ankle stirrup gel splint as I do think this will fit adequately. She only needs to wear this when out of bed. She can weight-bear as tolerated. She can do full range of motion of the ankle as tolerated. Encouraged ice and elevation as needed for swelling. Use a walker to assist with transfers to a chair or wheelchair. We will x-ray her right tib-fib to evaluate for any proximal fibular fracture. She understands and agrees with the plan. All questions were answered. Follow-up for our office will be scheduled. Call [phone] with any questions or concerns. History of Present Illness Reason for Consultation: Right ankle sprain, avulsion fracture Attending Physician: Dayne Jerez History of Present Illness Patient is a pleasant 77-year-old female who was brought to the [facility] for increasing shortness of breath and difficulty breathing. She was hospitalized in [place] over a week ago. She was on oxygen and treated for pneumonia and urinary tract infection. She signed out of that hospital AMA. She states on Friday she was ambulating to go to the bathroom and twisted her right ankle. She denies any previous problems with the right ankle. She states that she did have pain but she has been able to weight-bear last few days. She was seen evaluated today by myself as well as Dr. Aguilera. She states that s he normally ambulates within her home in a wheelchair but she does take a few steps with a walker to get into the wheelchair from bed. Most of her pain is on the outer side of the ankle. She denies any numbness or tingling. She states she has "bad hips and bad knees". Allergies Allergy/AdvReac Type Severity Reaction Status Date / Time Cipro Allergy Severe swelling Verified 06/25/17 17:13 ciprofloxacin [Cipro] Allergy Intermediate SWELLING/BLISTERING Verified 10/29/22 16:11 OF LIPS empagliflozin AdvReac Intermediate RECURRENT Verified 10/29/22 16:11 [From Jardiance] UTI'S metformin AdvReac Intermediate Gastrointestinal Verified 10/29/22 16:11 Upset Home Medications Medication Instructions Recorded Confirmed Type albuterol sulfate 90 mcg/actuation 2 puff inhalation Q4H PRN Wheezing 10/29/22 10/29/22 History aerosol inhaler alprazolam 0.25 mg tablet 0.25 mg PO DAILY PRN Anxiety 10/29/22 10/29/22 History amlodipine 5 mg tablet 5 mg PO DAILY 10/29/22 10/29/22 History atorvastatin 20 mg tablet 20 mg PO DAILY 10/29/22 10/29/22 History citalopram 20 mg tablet 20 mg PO DAILY 10/29/22 10/29/22 History fluticasone 250 mcg-salmeterol 50 1 inh inhalation BID 10/29/22 10/29/22 History mcg/dose blistr powdr for inhalation (Advair Diskus) furosemide 40 mg tablet 80 mg PO QAM 10/29/22 10/29/22 History insulin lispro protamine-lispro See Rx Instructions .Route .COMPLEX 10/29/22 10/29/22 History 100 unit/mL (75-25) subcutaneous pen (Humalog Mix 75-25 KwikPen) menthol 0.44 %-zinc oxide 20.6 % 1 applic topical TID PRN Skin 10/29/22 10/29/22 History topical ointment (Calmoseptine) Irritation umeclidinium 62.5 mcg/actuation 1 inh inhalation DAILY 10/29/22 10/29/22 History blister powder for inhalation (Incruse Ellipta) Patient History Medical History COPD (chronic obstructive pulmonary disease) Diabetes mellitus, type 2 Hypertension Pneumonia 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 Current Living Situation: Spouse Other Information That Helps Us Care for You: No Feels Safe at Home: Yes Safety Concerns: Feels Safe At This Time Assistive Devices: Glasses, Oxygen - Continuous and Wheelchair Physical Exam Musculoskeletal: Exam of her right ankle: Mild edema into the right ankle. Devang bandage in place and removed. She has a lot of ecchymosis on the outer aspect of the ankle itself. She also has some mild medial sided ecchymosis. She has full ankle dorsiflexion, plantarflexion, inversion and eversion. Toes move well. Distal sensation is normal. Skin is healthy and intact. No evidence of fracture blisters. Dorsalis pedis and posterior tibial pulses are 1+. Capillary fill is brisk. She is nontender with palpation of her toes or midfoot. She has negative anterior drawer. Tolerates full passive subtalar range of motion. Strength with dorsiflexion, plantarflexion, inversion and eversion is normal. She is tender with palpation over the soft tissues over the around the lateral malleolus. She is not specifically tender along the distal fibula except for the very tip of the lateral malleolus which correlates with her avulsion injury. She does have tenderness with palpation of the proximal fibula with palpation. She also has tenderness with palpation of the left proximal fibula as well. She is able to actively bend and straighten her knee. Calf is supple and nontender. Nontender over the medial malleolus. Mild discomfort in the soft tissues around the medial malleolus. Results & Data Vital Signs (Past 12 Hours) Vital Signs Temp Pulse Pulse Resp BP Pulse Ox O2 Del Method 10/30/22 07:25 36.8 C 95 H 18 129/72 96 Nasal Cannula 10/30/22 01:47 16 10/29/22 23:49 101 H 21 95 O2 Flow Rate 10/30/22 07:25 5 10/30/22 01:47 10/29/22 23:49 5 Diagnostic Findings XR ankle RT min 3V routine CLINICAL HISTORY: Right ankle injury, swelling, r/o fx COMPARISON STUDY: None. FINDINGS: There is diffuse soft tissue swelling within the right ankle. There is a small acute avulsion fracture at the distal tip of the fibula. This is not significantly displaced. A few additional well-corticated ossific densities at the medial and lateral malleoli are consistent with old avulsion injuries.. No dislocation. IMPRESSION: There is a small avulsion fracture at the distal tip of the right fibula which appears acute. No dislocation.
--- NOTE | 2022-10-30 11:30 | XRay Report ---
XR tibia fibula RT 2V CLINICAL HISTORY: right proximal fibular pain; right ankle sprain COMPARISON STUDY: Right ankle 10/29/2022. FINDINGS: There is again noted a small avulsion fracture at the distal tip of the right fibula which may be acute. There is soft tissue swelling within the right ankle. No dislocation. The proximal fibu la and tibia appear intact. There is a right total knee arthroplasty. IMPRESSION: Redemonstration of the small avulsion fracture at the distal tip of the right fibula whi ch may be acute. No additional fractures identified within the right lower leg. ACT 112: Negative or not required by law. Electronically signed by: Kike Riley M.D. 10/30/2022 11:29 AM
[2022-10-30 15:00] LABS: A calco-baum cmplx NotReported Not Detected (NotDetected); Bact fragilis Not Reported Not Detected (NotDetected); C auris Not Reported Not Detected (NotDetected); Calbicans Not Reported Not Detected (NotDetected); Candida glabrata Not Reported Not Detected (NotDetected); Candida krusei Not Reported Not Detected (NotDetected); Cneoformans/gatti Not Reported Not Detected (NotDetected); Cparapsilosis Not Reported Not Detected (NotDetected); Ctropicalis Not Reported Not Detected (NotDetected); E cloacae compx Not Reported Not Detected (NotDetected); Efaecalis Not Reported Not Detected (NotDetected); Efaecium Not Reported Not Detected (NotDetected); Enterobacterales Not Reported Not Detected (NotDetected); Escherichia coli Not Reported Not Detected (NotDetected); H influenzae Not Reported Not Detected (NotDetected); K aerogenes Not Reported Not Detected (NotDetected); Koxytoca Not Reported Not Detected (NotDetected); Kpneumoniae grp Not Reported Not Detected (NotDetected); Lmonocyt Not Reported Not Detected (NotDetected); N meningitidis Not Reported Not Detected (NotDetected); P aeruginosa Not Reported Not Detected (NotDetected); Proteus spp Not Reported Not Detected (NotDetected); Salmonella spp Not Reported Not Detected (NotDetected); Smarcescens Not Reported Not Detected (NotDetected); Staph lugdunensis Not Reported Not Detected (NotDetected); Staph spp. Not Reported DETECTED (NotDetected); Staphaureus Not Reported Not Detected (NotDetected); Staphepi Not Reported DETECTED (NotDetected); Stenmaltophilia Not Reported Not Detected (NotDetected); Strep agal(GrpB) Not Reported Not Detected (NotDetected); Strep pneum Not Reported Not Detected (NotDetected); Strep pyog (GrpA) Not Reported Not Detected (NotDetected); Strep spp Not Reported Not Detected (NotDetected); mecAC Resistant Gene Not Detected (NotDetected)
--- NOTE | 2022-10-30 15:23 | Hospitalist Progress Note ---
Date of Service October 30, 2022 Assessment & Plan (1) SOB (shortness of breath): Plan: presented after recent treatment for PNA/UTI at [facility], signed out AMA but completed 10 day course Levaquin w/ PCP Also had her lasix/spironolactone on hold for low BPs at the office w/ reported "baseline weight ~280lb" however not weighing herself at home and currently 286lb in our system. Could be resolving parapneumonic effusion as well on imaging? Will request records from [facility] for further info (CTA chest NEGATIVE for PE. Lactic 1.1. Procal <0.05. No leukocytosis on labs or fevers. Biofire Negative) Suspect she has resolving pna and more effusion/atelectasis given slightly volume up given holding her home diuretics/weights up despite normal BNP as completed 7 days Levaquin. Back on her usual 5L NC, CO2 elevated. - Patient refused to use the BiPAP last night Patient admitted to not using BiPAP for 6 months or more - CM working to contact [facility] to verify settings and see about getting new machine at home - Long discussion with patient regarding her lung disease and sleep apnea and the NEED to use the Bipap at night and discussed how increased O2 via NC is not helping her CO2 levels - resumed her usual Lasix 80mg/Spironolactone 25mg in AM - Incentive spirometer, flutter valve, mucinex - Continue Incruse, Advair or hospital equivalent --> Will need new rx at dc as hasn't used in >3 months as she cant find/under her couch Encourage compliance with medications (2) Diastolic heart failure: Plan: *Acute on chronic diastolic (congestive) heart failure suspected , due to significant COPD/obesity/hypoventilation/noncompliance w/ BiPAP. BNP not elevated but weights up/effusion as above Lasix 40mg IV x 1 in ER 10/29, resumed lasix 80mg PO/spironolactone 25mg 10/30 Monitor weights/I&Os (3) COPD (chronic obstructive pulmonary disease): Plan: on 5L at baseline, no change in sputum to suspect exacerbation. recently completed 10 days levaquin outpatient. Neg procal, no abx at present, Biofire negative CO2 retention likely from not using BiPAP outpatient BiPAP for tonight Pulmonary toilet, mucinex. could consider hypertonic saline if needed if having difficulty clearing any secretions/mucus plugging (4) Hypertension: Plan: Low last week, currently improved and stable Lasix 40mg IV x 1 now, resume her usual lasix/spironolactone in AM. Will hold amlodipine and rec likely dc this medication to prevent LE edema symptoms Monitor BP (5) Pleural effusion: Plan: small, likely volume related lasix as above monitor on repeat exam possible repeat CXR (6) Hypoxia: Plan: spo2 drop on admit to 84% but rebounded and currently back on her usual 5L BiPAP ordered for tonight for suspected acute on chronic respiratory failure with hypercarbia 96% on 5L nc (7) Diabetes mellitus, type 2: Plan: hold home meds place on glargine 20u BID for now to start (on 60+70 mixed 75/25 at home) BSG AC/HS, SSI while inpatient w/ range 120-180, CF 20, CR 6 monitor BSGs (8) Right ankle swelling: Plan: Ortho evaluated Right ankle sprain/avulsion injury off distal fibula WBAT Ice, elevation Air splint PT/OT Plan DVT proph: Lovenox SQ while inpatient --:> given obesity w/ 40mg BID Admission and Anticipated Discharge Date Admission Date: October 29, 2022 Subjective Patient is awake and laying in bed. was at bedside. Long discussion with patient and her regarding the need to be compliant with her inhalers and her BiPAP. Review of Systems Constitutional: + chills, + fatigue and + weakness; no fever and no anorexia Eyes: no blind spots, no diplopia and no eye pain Ear, Nose, Mouth, Throat: no ear pain, no tinnitus, no dizziness and no post nasal drip Respiratory: no cough and no hemoptysis SOB Cardiovascular: + edema; no chest pain, no palpitations, no syncope and no calf pain Gastrointestinal: + nausea; no abdominal pain, no vomiting and no blood in stools Musculoskeletal: pain and swelling right ankle Integumentary: no rash, no lesions and no new lesions Physical Exam Constitutional: + morbidly obese, cooperative and comfortable; no acute distress Neck: trachea midline, no thyromegaly Respiratory: normal respiratory effort, lungs clear to auscultation decreased breath sounds ue to body habitus Cardiovascular: RRR, no murmur, no edema Gastrointestinal (Abdomen): normal bowel sounds, soft, nontender, no hepatosplenomegaly Skin: swelling and ecchymoses right later ankle Psychiatric: A+Ox3, euthymic affect Results & Data Results & Data Vital Signs (Past 12 Hours) Vital Signs Temp Pulse Resp BP Pulse Ox O2 Del Method O2 Flow Rate 10/30/22 09:44 Nasal Cannula 5 10/30/22 07:25 36.8 C 95 H 18 129/72 96 Nasal Cannula 5 Laboratory Results Abnormal lab results 10/29/22 10/29/22 10/30/22 Range/Units 17:03 21:23 05:33 RBC 3.45 L (4.20-5.40) M/uL Hgb 9.7 L (12.0-16.0) g/dl Hct 32.9 L (37.0-47.0) % MCHC 29.5 L (32.0-36.0) g/dL RDW Std Deviation 52.8 H (36.4-46.3) fL RDW Coeff of Dalton 15.1 H (11.5-14.5) % ABG pCO2 76 H (35-46) mmHg ABG pO2 79 L (80-95) mmHg ABG HCO3 52 H (19-24) mmol/L ABG O2 Saturation 96.9 H (90-95) % ABG Base Excess 22.6 H (-9-1.8) mEq/L Chloride (98-107) mmol/L Carbon Dioxide (21-32) mmol/L BUN/Creatinine Ratio (10-20) Glucose (70-99(Fasting)) mg/dl POC Glucose 237 H (70-99) mg/dl Hemoglobin A1c (4.5-5.6) % Ur Specific [place] (1.000-1.030) Urine Blood (Negative) Urine RBC (Auto) (0-4) /hpf U Epithel Cells (Auto) (0-5) /lpf 10/30/22 10/30/22 10/30/22 Range/Units 05:33 05:33 07:32 RBC (4.20-5.40) M/uL Hgb (12.0-16.0) g/dl Hct (37.0-47.0) % MCHC (32.0-36.0) g/dL RDW Std Deviation (36.4-46.3) fL RDW Coeff of Dalton (11.5-14.5) % ABG pCO2 (35-46) mmHg ABG pO2 (80-95) mmHg ABG HCO3 (19-24) mmol/L ABG O2 Saturation (90-95) % ABG Base Excess (-9-1.8) mEq/L Chloride 93 L (98-107) mmol/L Carbon Dioxide > 45 H* (21-32) mmol/L BUN/Creatinine Ratio 27.5 H (10-20) Glucose 141 H (70-99(Fasting)) mg/dl POC Glucose (70-99) mg/dl Hemoglobin A1c 6.4 H (4.5-5.6) % Ur Specific [place] 1.031 H (1.000-1.030) Urine Blood 3+ H (Negative) Urine RBC (Auto) >30 H (0-4) /hpf U Epithel Cells (Auto) >30 H (0-5) /lpf 10/30/22 10/30/22 Range/Units 08:26 12:13 RBC (4.20-5.40) M/uL Hgb (12.0-16.0) g/dl Hct (37.0-47.0) % MCHC (32.0-36.0) g/dL RDW Std Deviation (36.4-46.3) fL RDW Coeff of Dalton (11.5-14.5) % ABG pCO2 (35-46) mmHg ABG pO2 (80-95) mmHg ABG HCO3 (19-24) mmol/L ABG O2 Saturation (90-95) % ABG Base Excess (-9-1.8) mEq/L Chloride (98-107) mmol/L Carbon Dioxide (21-32) mmol/L BUN/Creatinine Ratio (10-20) Glucose (70-99(Fasting)) mg/dl POC Glucose 163 H 296 H (70-99) mg/dl Hemoglobin A1c (4.5-5.6) % Ur Specific [place] (1.000-1.030) Urine Blood (Negative) Urine RBC (Auto) (0-4) /hpf U Epithel Cells (Auto) (0-5) /lpf Diagnostic Findings Chest CTA 10/29/22 13:24 CT ANGIOGRAPHY OF THE CHEST, PULMONARY EMBOLUS PROTOCOL CLINICAL HISTORY: Increasing shortness of breath. COMPARISON STUDY: Chest radiograph June 25, 2017 and October 29, 2022. TECHNIQUE: Following IV administration of 110 mL of Optiray, helical axial images of the chest were obtained utilizing the pulmonary embolus protocol. Maximal intensity projections and sagittal and coronal reformats were viewed on an independent 3D workstation. IV contrast was administered without complication. Automated exposure control was utilized for the study. A dose lowering technique was utilized adhering to the principles of ALARA. CT DOSE: 1824.81 mGy.cm FINDINGS: No pulmonary emboli are identified. This exam is mildly compromised by artifact. Moderate cardiomegaly is noted. There is no thoracic aortic dissection. There is no thoracic lymphadenopathy. Small left pleural effusion is present. There is no pneumothorax. Moderate left lower lobe airspace opacity is present with mild volume loss. Subpleural right lower lobe opacity favors atelectasis. Central airways are patent. No acute fractures within the bony thorax. Left adrenal nodule is unchanged since CT of June 25, 2017. This favors an adenoma. IMPRESSION: 1. No pulmonary emboli identified. Exam mildly compromised by artifact. 2. Small left pleural effusion. Moderate associated left lower lobe opacity. This could reflect pneumonia or atelectasis. 3. Cardiomegaly. ACT 112: Negative or not required by law. Electronically signed by: Bari Wyatt M.D. 10/29/2022 4:35 PM Ankle X-Ray 10/29/22 17:18 XR ankle RT min 3V routine CLINICAL HISTORY: Right ankle injury, swelling, r/o fx COMPARISON STUDY: None. FINDINGS: There is diffuse soft tissue swelling within the right ankle. There is a small acute avulsion fracture at the distal tip of the fibula. This is not significantly displaced. A few additional well-corticated ossific densities at the medial and lateral malleoli are consistent with old avulsion injuries.. No dislocation. IMPRESSION: There is a small avulsion fracture at the distal tip of the right fibula which appears acute. No dislocation. ACT 112: Negative or not required by law. Electronically signed by: Kike Riley M.D. 10/29/2022 5:51 PM Tibia/Fibula X-Ray 10/30/22 10:29 XR tibia fibula RT 2V CLINICAL HISTORY: right proximal fibular pain; right ankle sprain COMPARISON STUDY: Right ankle 10/29/2022. FINDINGS: There is again noted a small avulsion fracture at the distal tip of the right fibula which may be acute. There is soft tissue swelling within the right ankle. No dislocation. The proximal fibula and tibia appear intact. There is a right total knee arthroplasty. IMPRESSION: Redemonstration of the small avulsion fracture at the distal tip of the right fibula which may be acute. No additional fractures identified within the right lower leg. ACT 112: Negative or not required by law. Electronically signed by: Kike Riley M.D. 10/30/2022 11:29 AM PG Care Time/CCT Total # of Minutes Spent Total Time Spent with Patient: Total time spent is greater than 50% in coordination of care (as documented) at patient's floor/unit and/or counseling patient: Coding Level of Care Code 61094 SUB INP/OBS CARE 2/35MIN Diagnoses SOB (shortness of breath) R06.02 Diastolic heart failure I50.30 COPD (chronic obstructive pulmonary disease) J44.9 Hypertension I10 Pleural effusion J90 Hypoxia R09.02 Diabetes mellitus, type 2 E11.9 Right ankle swelling M25.471
[2022-10-30 16:01] LABS: Staphylococcus epidermidis DETECTED (NotDetected); Staphylococcus spp. DETECTED (NotDetected)
[2022-10-31] MEDS: ACETAMINOPHEN 325 MG TAB PO PRN (02:50)
[2022-10-31] MEDS: oxyCODONE HCL IR 5 MG TAB (IMMEDIATE RELEASE) PO PRN ×3 (03:24→17:56)
[2022-10-31] MEDS: guaiFENesin 600 MG TABCR PO SCH ×2 (08:53→20:13)
[2022-10-31] MEDS: SPIRONOLACTONE 25 MG TAB PO SCH (08:53)
[2022-10-31] MEDS: CITALOPRAM 20 MG TAB PO SCH (08:54)
[2022-10-31] MEDS: ATORVASTATIN 20 MG TAB PO SCH (08:54)
[2022-10-31] MEDS: FUROSEMIDE 80 MG TAB PO SCH (08:54)
[2022-10-31] MEDS: DICLOFENAC SOD 1% GEL 100 GM TUBE EXT SCH ×3 (08:55→20:13)
[2022-10-31] MEDS: UMECLIDINIUM BROMIDE 62.5MCG/BLISTER 7 PUFFS/INHALER INH SCH (08:55)
[2022-10-31] MEDS: POLYETHYLENE (MIRALAX) 17 GM PACK PO SCH (08:56)
[2022-10-31] MEDS: FLUTICASONE/VILANTEROL 200/25MCG 14 PUFFS/INHALER INH SCH (08:58)
[2022-10-31] MEDS: INSULIN ASPART PER UNIT CHARGE SC SCH ×4 (09:04→20:18)
[2022-10-31] MEDS: LANTUS PER UNIT CHARGE SQ SCH ×2 (09:04→20:19)
--- NOTE | 2022-10-31 09:06 | Orthopedic Progress Note ---
Date of Service October 31, 2022 Assessment & Plan (1) Right ankle sprain: Plan: The patient was educated regarding today's findings. I did speak with her nurse. The patient is only ordered oxycodone 5 mg every 6 hours as needed for pain control. Given her size, she may need 2 tablets for more severe pain. This was discussed with the patient. She is in agreement. Additional tablet was ordered for severe pain. She will need to participate with physical therapy in order to return home. If not, she will likely require SNF admission and rehab. The patient states she does not want to go to a group home facility. Devang wrap was reapplied properly, including her foot and ankle. Continue with elevation. She may be out of bed and weight-bear on the ankle with her ankle brace in place. Weight-bear as tolerated. We will continue to follow as long as she is admitted. Admission and Anticipated Discharge Date Admission Date: October 29, 2022 Subjective Patient is seen in her room this morning. She is finished her breakfast. She states she is in significant pain from her ankle and her sciatica. Her nurses in the room at the same time and states her pain has not been well controlled. She has not participated in therapy secondary to pain. No other complaints. She would like to go home. Physical Exam Physical Exam: General: Well-developed, well-nourished, obese elderly female, in obvious discomfort. No acute distress. Laying in bed. Alert and oriented. Her Devang wrap is present only on the lower leg and does not currently however the foot or ankle. Skin: Warm and dry with good turgor. No rashes. Patient has extensive ecchymosis and edema present around her right ankle. No open wounds. Musculoskeletal: She has generalized pain with palpation around her ankle. No pain with palpation over the forefoot or digits. No pain with palpation over her proximal tibia or fibula. No pain at her knee. Motor function of the toes is intact. Motor function the ankle was also intact, though it does increase her pain both medial and lateral. Neurologic: Gross sensation is intact across all aspects of her right foot and ankle by soft touch. Peripheral pulses are 2+. Capillary refill is equal for each of the toes. Results & Data Vital Signs (Past 12 Hours) Vital Signs Temp Pulse Resp BP Pulse Ox O2 Del Method O2 Flow Rate 10/31/22 07:54 37.0 C 87 18 118/70 92 Nasal Cannula 5
--- NOTE | 2022-10-31 09:40 | Hospitalist Progress Note ---
Date of Service October 31, 2022 Assessment & Plan (1) SOB (shortness of breath): Plan: presented after recent treatment for PNA/UTI at [facility], signed out AMA after 4 days, but completed 10 day course Levaquin rx by PCP (Dr Dwyer) Also had her lasix/spironolactone on hold for low BPs at the office w/ reported "baseline weight ~280lb" however not weighing herself at home and currently 286lb in our system. Could be resolving parapneumonic effusion as well on imag ing? Will request records from [facility] for further info (CTA chest NEGATIVE for PE. Lactic 1.1. Procal <0.05. No leukocytosis on labs or fevers. Biofire Negative, BNP normal- 43) Back on her usual 5L NC, CO2 elevated. Patient admitted to not using BiPAP for 6 months or more - CM working to contact [facility] to verify settings and see about getting new machine at home - Long discussion with patient regarding her lung disease and sleep apnea and the NEED to use the Bipap at night and discussed how increased O2 via NC is not helping her CO2 levels - resumed her usual Lasix 80mg/Spironolactone 25mg in AM - Incentive spirometer, flutter valve, mucinex - Continue Incruse, Advair or hospital equivalent --> Will need new rx at [place] as hasn't used in >3 months as she cant find/under her couch Encourage compliance with medications and BIPAP (2) Diastolic heart failure: Plan: - Suspected , due to significant COPD/obesity/hypoventilation/noncompliance w/ BiPAP. BNP not elevated but weights up/effusion as above Lasix 40mg IV x 1 in ER 10/29, resumed lasix 80mg PO/spironolactone 25mg 10/30 Monitor weights/I&Os (Negative 720) (3) COPD (chronic obstructive pulmonary disease): Plan: on 5L at baseline, no change in sputum to suspect exacerbation. recently completed 10 days levaquin outpatient. Neg procal, no abx at present, Biofire negative CO2 retention likely from not using BiPAP outpatient BiPAP Pulmonary toilet, mucinex. (could consider hypertonic saline if needed if having difficulty clearing any secretions/mucus plugging) currently denies any congestion or cough (4) Hypertension: Plan: Low last week, currently improved and stable Lasix 40mg IV x 1 in ER, resumed her usual lasix/spironolactone 10/30. Will hold amlodipine and rec likely dc this medication to prevent LE edema symptoms Monitor BP Today 123/69 (5) Pleural effusion: Plan: small, likely volume related lasix as above monitor on repeat exam possible repeat CXR (6) Hypoxia: Plan: spo2 drop on admit to 84% but rebounded and currently back on her usual 5L BiPAP ordered for tonight for suspected acute on chronic respiratory failure with hypercarbia 95% on 5L nc (7) Diabetes mellitus, type 2: Plan: hold home meds place on glargine 20u BID for now to start (on 60+70 mixed 75/25 at home) BSG AC/HS, SSI while inpatient w/ range 120-180, CF 20, CR 6 monitor BSGs (8) Right ankle swelling: Plan: Ortho evaluated Right ankle sprain/avulsion injury off distal fibula WBAT Ice, elevation Air splint PT/OT Plan DVT proph: Lovenox SQ while inpatient --:> given obesity w/ 40mg BID Admission and Anticipated Discharge Date Admission Date: October 29, 2022 Supervising Physician Co-Signing Physician Notes PA Supervision Note: I did not personally see or examine the patient today, but I verified all little points of BRODERICK Santana's assessment and plan with the following exceptions/addition s: Anemia-hemoglobin 9-10, normocytic Also with thrombocytopenia Check iron studies, B12, folate, TSH in the morning Subjective Patient is seen in her room this morning. She is finished her breakfast. She called her son so I was able to talk with her, her and her son at the same time. Her son notified me that she actually has a new BiPAP machine at home. He was not aware that she has not been on her inhalers or the BiPAP for the past 3-6 months. She tells me she is feeling better today. Review of Systems Constitutional: + chills, + fatigue and + weakness; no fever and no anorexia Eyes: no blind spots, no diplopia and no eye pain Ear, Nose, Mouth, Throat: no ear pain, no tinnitus, no dizziness and no post nasal drip Respiratory: no cough and no hemoptysis SOB Cardiovascular: + edema; no chest pain, no palpitations, no syncope and no calf pain Gastrointestinal: + nausea; no abdominal pain, no vomiting and no blood in stools Musculoskeletal: pain and swelling right ankle Integumentary: no rash, no lesions and no new lesions Physical Exam Constitutional: + morbidly obese, cooperative and comfortable; no acute distress Neck: trachea midline, no thyromegaly Respiratory: normal respiratory effort, lungs clear to auscultation Cardiovascular: RRR, no murmur, no edema Gastrointestinal (Abdomen): normal bowel sounds, soft, nontender, no hepatosplenomegaly Psychiatric: A+Ox3, euthymic affect Results & Data Results & Data Vital Signs (Past 12 Hours) Vital Signs Temp Pulse Resp BP Pulse Ox O2 Del Method O2 Flow Rate 10/31/22 07:54 37.0 C 87 18 118/70 92 Nasal Cannula 5 Laboratory Results Laboratory Results - last 24 hr 10/29/22 10/30/22 10/30/22 13:50 05:33 12:13 Sodium 142 Potassium 4.1 Chloride 93 L Carbon Dioxide > 45 H* Anion Gap TNP BUN 19 Creatinine 0.69 Est Cr Clr Drug Dosing 90.2 Est GFR ( Amer) 98.0 Est GFR (Non-Af Amer) 84.6 BUN/Creatinine Ratio 27.5 H Glucose 141 H POC Glucose 296 H Calcium 9.2 Magnesium 2.1 Total Bilirubin 0.5 AST 14 ALT 10 Alkaline Phosphatase 66 Total Protein 6.7 Albumin 3.6 Globulin 3.1 Albumin/Globulin Ratio 1.2 Staphylococcus sp PCR DETECTED A mecA/C-Methicil Resis Gene Not Detected Staph epidermidis (PCR) DETECTED A Bld Cult ID Panel PCR See PCR Comment 10/30/22 10/30/22 10/31/22 17:11 20:25 07:57 Sodium Potassium Chloride Carbon Dioxide Anion Gap BUN Creatinine Est Cr Clr Drug Dosing Est GFR ( Amer) Est GFR (Non-Af Amer) BUN/Creatinine Ratio Glucose POC Glucose 118 H 246 H 159 H Calcium Magnesium Total Bilirubin AST ALT Alkaline Phosphatase Total Protein Albumin Globulin Albumin/Globulin Ratio Staphylococcus sp PCR mecA/C-Methicil Resis Gene Staph epidermidis (PCR) Bld Cult ID Panel PCR PG Care Time/CCT Total # of Minutes Spent Total Time Spent with Patient: Total time spent is greater than 50% in coordination of care (as documented) at patient's floor/unit and/or counseling patient: Coding Level of Care Code 29809 SUB INP/OBS CARE 235MIN Diagnoses SOB (shortness of breath) R06.02 Diastolic heart failure I50.30 COPD (chronic obstructive pulmonary disease) J44.9 Hypertension I10 Pleural effusion J90 Hypoxia R09.02 Diabetes mellitus, type 2 E11.9 Right ankle swelling M25.471
[2022-10-31] MEDS: ENOXAPARIN INJ 40 MG/0.4 ML SYR SQ SCH ×2 (10:27→22:03)
[2022-10-31 10:40] LABS: Hematocrit (blood only) 30.2 % (37.0-47.0); Mean Corpuscular Hgb Conc 29.8 g/dL (32.0-36.0); Mean Corpuscular Volume 94.1 fL (80.0-100.0); Mean Platelet Volume 9.6 fL (9.4-12.4); Platelet Count 123 K/uL (130-400); RDW Coefficient of Variation 14.9 % (11.5-14.5); RDW Standard Deviation 51.3 fL (36.4-46.3); Red Blood Count 3.21 M/uL (4.20-5.40); White Blood Count 4.79 K/ul (4.8-10.8)
[2022-10-31 11:05] LABS: BUN Creatinine Ratio 34.5 (10-20); Blood Urea Nitrogen 20 mg/dl (6-23); Calcium 8.8 mg/dl (8.6-10.3); Carbon Dioxide > 45 mmol/L (21-32); Chloride 90 mmol/L (98-107); Creatinine Clr Calc Pharmacy 107.3 ml/min; Est GFR (African American) 103.8 ml/min; Est GFR (Non-African American) 89.5 ml/min; Glucose 226 mg/dl (70-99(Fasting)); Potassium 3.9 mmol/L (3.5-5.1); Sodium 140 mmol/L (136-145)
[2022-11-01] MEDS: oxyCODONE HCL IR 5 MG TAB (IMMEDIATE RELEASE) PO PRN ×3 (00:04→13:07)
[2022-11-01 08:13] LABS: Hematocrit (blood only) 30.4 % (37.0-47.0); Hemoglobin 9.2 g/dl (12.0-16.0); Mean Corpuscular Hemoglobin 27.7 pg (25.0-34.0); Mean Corpuscular Hgb Conc 30.3 g/dL (32.0-36.0); Mean Corpuscular Volume 91.6 fL (80.0-100.0); Mean Platelet Volume 10.3 fL (9.4-12.4); Platelet Count 133 K/uL (130-400); RDW Coefficient of Variation 15.1 % (11.5-14.5); RDW Standard Deviation 50.6 fL (36.4-46.3); Red Blood Count 3.32 M/uL (4.20-5.40); White Blood Count 6.18 K/ul (4.8-10.8)
[2022-11-01] MEDS: guaiFENesin 600 MG TABCR PO SCH (08:49)
[2022-11-01] MEDS: DICLOFENAC SOD 1% GEL 100 GM TUBE EXT SCH ×2 (08:50→13:00)
[2022-11-01] MEDS: ATORVASTATIN 20 MG TAB PO SCH (08:50)
[2022-11-01] MEDS: CITALOPRAM 20 MG TAB PO SCH (08:50)
[2022-11-01] MEDS: SPIRONOLACTONE 25 MG TAB PO SCH (08:50)
[2022-11-01] MEDS: FUROSEMIDE 80 MG TAB PO SCH (08:50)
[2022-11-01] MEDS: FLUTICASONE/VILANTEROL 200/25MCG 14 PUFFS/INHALER INH SCH (08:51)
[2022-11-01] MEDS: UMECLIDINIUM BROMIDE 62.5MCG/BLISTER 7 PUFFS/INHALER INH SCH (08:51)
[2022-11-01] MEDS: POLYETHYLENE (MIRALAX) 17 GM PACK PO SCH (08:53)
[2022-11-01] MEDS: INSULIN ASPART PER UNIT CHARGE SC SCH ×2 (08:57→13:38)
[2022-11-01] MEDS: LANTUS PER UNIT CHARGE SQ SCH (08:58)
--- NOTE | 2022-11-01 09:34 | Orthopedic Progress Note ---
Date of Service November 01, 2022 Assessment & Plan (1) Right ankle sprain: Plan: Weightbearing as tolerated. Ice with easy wrap Keep compressed with Devang bandage PT/OT Pain control with p.o. medication Elevate lower extremity Patient may need outpatient rehabilitation if she is not able to pass PT/OT protocol Patient can follow-up with our clinic 2 weeks after discharge Admission and Anticipated Discharge Date Admission Date: October 29, 2022 Subjective This 77-year-old female is seen for follow-up today of right ankle pain due to an avulsion fracture that she sustained a few days ago. Currently patient is lying in bed with her foot elevated and compressed with an Devang bandage. She states that her pain is well controlled with p.o. pain medication. She states she did work with physical therapy yesterday but had significant pain with weightbearing on the right lower extremity. She denies any numbness in her foot. She states she really only has pain when someone pushes on the outside of her ankle. Patient has no complaint of chest pain, shortness of breath, fever, chills, sweats or numbness or tingling in the right lower extremity. Review of Systems Review of Systems: This 77-year-old female is seen for follow-up today of right ankle pain due to an avulsion fracture that she sustained a few days ago. Currently patient is lying in bed with her foot elevated and compressed with an Devang bandage. She states that her pain is well controlled with p.o. pain medication. She states she did work with physical therapy yesterday but had significant pain with weightbearing on the right lower extremity. She denies any numbness in her foot. She states she really only has pain when someone pushes on the outside of her ankle. Patient has no complaint of chest pain, shortness of breath, fever, chills, sweats or numbness or tingling in the right lower extremity. Physical Exam Physical Exam: Right ankle: Patient has edema and ecchymosis over the outside of the ankle just distal to the lateral malleolus. She has point tenderness over this area as well as over the ATFL. She has no pain with resisted dorsi or plantarflexion. There is no pain with resisted internal or external rotation. She does experience some slight pain with passive inversion and eversion. Her peripheral pulses are 2+. Her capillary fill is difficult to appreciate due to her toenail onychomycosis. Her Devang bandage was reapplied in proper fashion. Results & Data Vital Signs (Past 12 Hours) Vital Signs Temp Pulse Resp BP Pulse Ox O2 Del Method O2 Flow Rate 11/01/22 07:58 Nasal Cannula 5 11/01/22 07:48 36.7 C 89 18 123/75 94 Nasal Cannula 5 11/01/22 02:11 17 94 5 10/31/22 22:01 37.1 C 92 H 18 114/70 94 CPAP Diagnostic Findings Laboratory Results WBC 6.18 K/ul (4.8-10.8) 11/01/22 06:50 RBC 3.32 M/uL (4.20-5.40) L 11/01/22 06:50 Hgb 9.2 g/dl (12.0-16.0) L 11/01/22 06:50 Hct 30.4 % (37.0-47.0) L 11/01/22 06:50 MCV 91.6 fL (80.0-100.0) 11/01/22 06:50 MCH 27.7 pg (25.0-34.0) 11/01/22 06:50 MCHC 30.3 g/dL (32.0-36.0) L 11/01/22 06:50 RDW Std Deviation 50.6 fL (36.4-46.3) H 11/01/22 06:50 RDW Coeff of Dalton 15.1 % (11.5-14.5) H 11/01/22 06:50 Plt Count 133 K/uL (130-400) 11/01/22 06:50 MPV 10.3 fL (9.4-12.4) 11/01/22 06:50 Immature Gran % (Auto) 0.6 % 10/29/22 13:14 Neut % (Auto) 78.0 % 10/29/22 13:14 Lymph % (Auto) 12.9 % 10/29/22 13:14 Randolph % (Auto) 6.4 % 10/29/22 13:14 Eos % (Auto) 1.7 % 10/29/22 13:14 Baso % (Auto) 0.4 % 10/29/22 13:14 Neut # (Auto) 4.13 K/uL (1.40-6.50) 10/29/22 13:14 Lymph # (Auto) 0.68 K/uL (1.2-3.4) L 10/29/22 13:14 Randolph # (Auto) 0.34 K/uL (0.11-0.59) 10/29/22 13:14 Eos # (Auto) 0.09 K/uL (0-0.50) 10/29/22 13:14 Baso # (Auto) 0.02 K/uL (0-0.2) 10/29/22 13:14 Immature Gran # (Auto) 0.03 K/uL (0.01-0.20) 10/29/22 13:14 PT 10.7 Seconds (9.0-12.0) 10/29/22 13:15 INR 1.0 (0.9-1.1) 10/29/22 13:15 APTT 25.0 Seconds (21.0-31.0) 10/29/22 13:15 PTT Ratio 0.9 10/29/22 13:15 ABG pH 7.44 (7.35-7.45) 10/29/22 17:03 ABG pCO2 76 mmHg (35-46) H 10/29/22 17:03 ABG pO2 79 mmHg (80-95) L 10/29/22 17:03 ABG HCO3 52 mmol/L (19-24) H 10/29/22 17:03 ABG O2 Saturation 96.9 % (90-95) H 10/29/22 17:03 ABG Base Excess 22.6 mEq/L (-9-1.8) H 10/29/22 17:03 Antonio Test Pos (Pos) 10/29/22 17:03 Oxygen Given 4 10/29/22 17:03 Sodium 140 mmol/L (136-145) 10/31/22 09:55 Potassium 3.9 mmol/L (3.5-5.1) 10/31/22 09:55 Chloride 90 mmol/L (98-107) L 10/31/22 09:55 Carbon Dioxide > 45 mmol/L (21-32) H* 10/31/22 09:55 Anion Gap TNP 10/31/22 09:55 BUN 20 mg/dl (6-23) 10/31/22 09:55 Creatinine 0.58 mg/dl (0.6-1.2) L 10/31/22 09:55 Est Cr Clr Drug Dosing 107.3 ml/min 10/31/22 09:55 Est GFR ( Amer) 103.8 ml/min 10/31/22 09:55 Est GFR (Non-Af Amer) 89.5 ml/min 10/31/22 09:55 BUN/Creatinine Ratio 34.5 (10-20) H 10/31/22 09:55 Glucose 226 mg/dl (70-99(Fasting)) H 10/31/22 09:55 POC Glucose 185 mg/dl (70-99) H 11/01/22 08:12 Estimat Average Glucose 137 mg/dl 10/30/22 05:33 Hemoglobin A1c 6.4 % (4.5-5.6) H 10/30/22 05:33 Lactate 1.1 mmol/L (0.4-2.0) 10/29/22 13:55 Calcium 8.8 mg/dl (8.6-10.3) 10/31/22 09:55 Magnesium 2.0 mg/dl (1.7-2.4) 10/31/22 09:55 Total Bilirubin 0.5 mg/dl (0.2-1.0) 10/30/22 05:33 AST 14 U/L (13-39) 10/30/22 05:33 ALT 10 U/L (7-52) 10/30/22 05:33 Alkaline Phosphatase 66 U/L (34-104) 10/30/22 05:33 Troponin I High Sens 10.5 pg/ml (0-14) 10/29/22 13:14 B-Natriuretic Peptide 43 pg/ml (0-100) 10/29/22 13:36 Total Protein 6.7 gm/dl (6.0-8.3) 10/30/22 05:33 Albumin 3.6 gm/dl (3.4-5.0) 10/30/22 05:33 Globulin 3.1 gm/dl (2.5-4.0) 10/30/22 05:33 Albumin/Globulin Ratio 1.2 (0.9-2) 10/30/22 05:33 Vitamin B12 272 pg/ml (180-914) 11/01/22 06:50 Folate 18.95 ng/ml (>5.38) 11/01/22 06:50 Procalcitonin < 0.05 ng/ml (0-0.5) 10/29/22 13:15 TSH 4.129 uIu/ml (0.300-4.500) 11/01/22 06:50 Urine Color Yellow 10/30/22 07:32 Urine Appearance Clear (Clear) 10/30/22 07:32 Urine pH 5.5 (4.5-7.5) 10/30/22 07:32 Ur Specific Drury 1.031 (1.000-1.030) H 10/30/22 07:32 Urine Protein Negative (Negative) 10/30/22 07:32 Urine Glucose (UA) Negative (Negative) 10/30/22 07:32 Urine Ketones Negative (Negative) 10/30/22 07:32 Urine Blood 3+ (Negative) H 10/30/22 07:32 Urine Nitrite Negative (Negative) 10/30/22 07:32 Urine Bilirubin Negative (Negative) 10/30/22 07:32 Urine Urobilinogen Negative (Negative) 10/30/22 07:32 Ur Leukocyte Esterase Negative (Negative) 10/30/22 07:32 Urine WBC (Auto) 1-5 /hpf (0-5) 10/30/22 07:32 Urine RBC (Auto) >30 /hpf (0-4) H 10/30/22 07:32 U Hyaline Cast (Auto) 0 /lpf (0-5) 10/30/22 07:32 U Epithel Cells (Auto) >30 /lpf (0-5) H 10/30/22 07:32 Urine Bacteria (Auto) Negative (Negative) 10/30/22 07:32 Adenovirus (PCR) Not Detected (NotDetected) 10/29/22 14:15 B. pertussis DNA (PCR) Not Detected (NotDetected) 10/29/22 14:15 B.parapertussis DNA PCR Not Detected (NotDetected) 10/29/22 14:15 C. pneumoniae DNA (PCR) Not Detected (NotDetected) 10/29/22 14:15 Coronavirus OC43 (PCR) Not Detected (NotDetected) 10/29/22 14:15 Coronavirus HKU1 (PCR) Not Detected (NotDetected) 10/29/22 14:15 Coronavirus 229E (PCR) Not Detected (NotDetected) 10/29/22 14:15 SARS-CoV-2 (PCR) Not Detected (NotDetected) 10/29/22 14:15 Coronavirus NL63 (PCR) Not Detected (NotDetected) 10/29/22 14:15 Human Metapneumovir PCR Not Detected (NotDetected) 10/29/22 14:15 Influenza Type A (PCR) Not Detected (NotDetected) 10/29/22 14:15 Influenza Type B (PCR) Not Detected (NotDetected) 10/29/22 14:15 M. pneumoniae (PCR) Not Detected (NotDetected) 10/29/22 14:15 Parainfluenza 1 (PCR) Not Detected (NotDetected) 10/29/22 14:15 Parainfluenza 2 (PCR) Not Detected (NotDetected) 10/29/22 14:15 Parainfluenza 3 (PCR) Not Detected (NotDetected) 10/29/22 14:15 Parainfluenza 4 (PCR) Not Detected (NotDetected) 10/29/22 14:15 RSV (PCR) Not Detected (NotDetected) 10/29/22 14:15 Entero/Rhino (PCR) Not Detected (NotDetected) 10/29/22 14:15 Staphylococcus sp PCR DETECTED (NotDetected) A 10/29/22 13:50 mecA/C-Methicil Resis Gene Not Detected (NotDetected) 10/29/22 13:50 Staph epidermidis (PCR) DETECTED (NotDetected) A 10/29/22 13:50 Bld Cult ID Panel PCR See PCR Comment (NotDetected) 10/29/22 13:50 Impressions Chest X-Ray 10/29/22 13:14 XR chest 1V portable HISTORY: Dyspnea COMPARISON: Chest 06/25/2017. FINDINGS: The cardiac silhouette remains enlarged. No evidence for pulmonary edema. No pneumothorax. Blunting of the left costophrenic sulci which could be due to a small left pleural effusion. Bibasilar densities, left greater the right which favor atelectasis versus a pneumonia. IMPRESSION: Probable small left pleural effusion with bibasilar densities. This could represent atelectasis or pneumonia. This will be better appreciated on the same day chest CT. ACT 112: Negative or not required by law. Electronically signed by: Kike Riley M.D. 10/29/2022 1:50 PM Chest CTA 10/29/22 13:24 CT ANGIOGRAPHY OF THE CHEST, PULMONARY EMBOLUS PROTOCOL CLINICAL HISTORY: Increasing shortness of breath. COMPARISON STUDY: Chest radiograph June 25, 2017 and October 29, 2022. TECHNIQUE: Following IV administration of 110 mL of Optiray, helical axial images of the chest were obtained utilizing the pulmonary embolus protocol. Maximal intensity projections and sagittal and coronal reformats were viewed on an independent 3D workstation. IV contrast was administered without complication. Automated exposure control was utilized for the study. A dose lowering technique was utilized adhering to the principles of ALARA. CT DOSE: 1824.81 mGy.cm FINDINGS: No pulmonary emboli are identified. This exam is mildly compromised by artifact. Moderate cardiomegaly is noted. There is no thoracic aortic dissection. There is no thoracic lymphadenopathy. Small left pleural effusion is present. There is no pneumothorax. Moderate left lower lobe airspace opacity is present with mild volume loss. Subpleural right lower lobe opacity favors atelectasis. Central airways are patent. No acute fractures within the bony thorax. Left adrenal nodule is unchanged since CT of June 25, 2017. This favors an adenoma. IMPRESSION: 1. No pulmonary emboli identified. Exam mildly compromised by artifact. 2. Small left pleural effusion. Moderate associated left lower lobe opacity. This could reflect pneumonia or atelectasis. 3. Cardiomegaly. ACT 112: Negative or not required by law. Electronically signed by: Bari Wyatt M.D. 10/29/2022 4:35 PM Ankle X-Ray 10/29/22 17:18 XR ankle RT min 3V routine CLINICAL HISTORY: Right ankle injury, swelling, r/o fx COMPARISON STUDY: None. FINDINGS: There is diffuse soft tissue swelling within the right ankle. There is a small acute avulsion fracture at the distal tip of the fibula. This is not significantly displaced. A few additional well-corticated ossific densities at the medial and lateral malleoli are consistent with old avulsion injuries.. No dislocation. IMPRESSION: There is a small avulsion fracture at the distal tip of the right fibula which appears acute. No dislocation. ACT 112: Negative or not required by law. Electronically signed by: Kike Riley M.D. 10/29/2022 5:51 PM Tibia/Fibula X-Ray 10/30/22 10:29 XR tibia fibula RT 2V CLINICAL HISTORY: right proximal fibular pain; right ankle sprain COMPARISON STUDY: Right ankle 10/29/2022. FINDINGS: There is again noted a small avulsion fracture at the distal tip of the right fibula which may be acute. There is soft tissue swelling within the right ankle. No dislocation. The proximal fibula and tibia appear intact. There is a right total knee arthroplasty. IMPRESSION: Redemonstration of the small avulsion fracture at the distal tip of the right fibula which may be acute. No additional fractures identified within the right lower leg. ACT 112: Negative or not required by law. Electronically signed by: Kike Riley M.D. 10/30/2022 11:29 AM
[2022-11-01 10:04] LABS: Ferritin 79.5 ng/ml (8-388)
[2022-11-01 10:25] LABS: Calcium 8.7 mg/dl (8.6-10.3); Potassium 4.4 mmol/L (3.5-5.1)
[2022-11-01 10:26] LABS: BUN Creatinine Ratio 31.3 (10-20); Creatinine Clr Calc Pharmacy 92.9 ml/min; Est GFR (Non-African American) 85.4 ml/min; Magnesium 2.1 mg/dl (1.7-2.4)
[2022-11-01] MEDS: ENOXAPARIN INJ 40 MG/0.4 ML SYR SQ SCH (10:44)
[2022-11-01] MEDS ORDERED: CYANOCOBALAMIN 1000 MCG/ML VIAL IM SCH (11:30)
--- NOTE | 2022-11-01 12:05 | XCELERA ---
[id number]
--- NOTE | 2022-11-01 12:26 | Discharge Summary ---
Date of Service November 01, 2022 Admission HPI Per Admitting Provider 77yo female with PMHx significant for COPD, HTN, DM II, diverticulitis presented with difficulty breathing after recent discharge over a week ago which was treated for pneumonia and a UTI and discharged home. Baseline COPD on 5L NC which she is presently on and maintaining good saturation SpO2 was 84% and increased her supplemental O2 to 10L w/ SpO2 100% and turned back down to 8L. When seen by ER provider was down to 7L. Currently on 4L in room w/ SpO2 96% with good wave form. Per patient, she signed out AMA from [facility] due to noisy roommate and was not sent on any continued antibiotics. Saw PCP in follow up who rx Levaquin and patient notes she completed 7 day course on Friday or Friday of this past week. Apparently at same time last week, PCP felt she was dehydrated w/ low BP in the office (usually running ~116/60s, but was 100/50s at office) and was instructed to hold her diuretics. Now she is reporting increased LE edema and reporting increased shortness of breath. Weight at baseline ~280lb but reports she hasn't weighed herself this past week due to feeling so poorly. Current weight in system 286lb. She notes some chills, but no fevers and she had been monitoring these. +cough on occasion, white/clear slightly cloudy looking sputum. Did endorse they had been giving her heparin SQ while in [facility]. She did also twist her ankle but has been walking on it, mechanical in nature. Medication noncompliance as well as w/ her BiPAP noted as below suspected to be contributing. * TO be on albuterol HFA, Advair BID, Incruse daily. * She notes she has not known where these are in her house and hasn't been using these at least for over a month as they fell under her couch and she has not been able to get these. * Also hasn't had her BiPAP in about 3 months. She notes she does not recall the settings but initially was recalled but when she got her unit it wasn't working right and she hasn't been using this since about June. * She states can call [facility] in AM when they open to see about settings. HTN and volume management with amlodipine 5mg, Lasix 80mg daily, spironolactone 25mg at baseline but hasn't been on her lasix or spironolactone since end of l ast week. Citalopram 20mg daily for depression. Xanax 0.25mg daily as needed. Atorvastatin 20mg daily. Is on insulin for her DM -- 70 + 60 humalog mix of 75/25 Discussed admitting for BiPAP/diuretics and eval by therapy and refills of her medications for at discharge and planned to resume her usual diuretics in AM Rec following up w/ her equipment company in AM to verify BiPAP settings and have CM assist w/ issues with reported issues with her home unit. ER Course: CXR w/ probable small left pleural effusion with bibasilar densities. Atelectasis or pneumonia. CTA Chest NEGATIVE for PE. mildly compromised exam. Small L pleural effusion, moderate associated left lower lobe opacity. Could reflect atelectasis or pneumonia. BNP 43 and not elevated. Procalcitonin negative <0.05. WBC wnl 5.2k. Hgb 10. Plt 150. Chemistry w/ elevated CO2 >45. BUN/Cr 18/0.54. Glu 139. Lactic 1.1. Trop 10.5 Biofire testing NEGATIVE. Duoneb x1. Morphine 2mg IV x 1. Cefepime 2gm IV now Admission Exam Per Admitting Provider General: WN obese female sitting in bed, NAD, on 4-5L NC (baseline 5L) with SpO2 96% HEENT: head normocephalic, atraumatic, mmm, trachea midlien Resp: diminished due to body habitus but no significant diffuse , +cough, on NC, not tachypneic CV: distant HS due to body habitus but NSR on monitor, no signifciant m/r/g, trace b/l LE edema, calves nontender and pulses palpable GI: +BS, soft/NT : no lowe MSK/Neuro: no focal deficit, no slurred speech/facial droop R ankle w/ ecchymosis and swelling, primarily on lateral aspect. tenderness to palpation but ROM and sensation intact (obtaining xray for eval), pulses palpable Psych: AOx3, cooperative with exam Principal Diagnosis COPD Diastolic heart failure Noncompliance Discharge Exam Constitutional + morbidly obese, cooperative and comfortable; no acute distress Neck trachea midline, no thyromegaly Respiratory normal respiratory effort, lungs clear to auscultation Cardiovascular RRR, no murmur, no edema Gastrointestinal (Abdomen) normal bowel sounds, soft, nontender, no hepatosplenomegaly Psychiatric A+Ox3, euthymic affect Discharge Data Allergies Allergy/AdvReac Type Severity Reaction Status Date / Time Cipro Allergy Severe swelling Verified 06/25/17 17:13 ciprofloxacin [Cipro] Allergy Intermediate SWELLING/BLISTERING Verified 10/29/22 16:11 OF LIPS empagliflozin AdvReac Intermediate RECURRENT Verified 10/29/22 16:11 [From Jardiance] UTI'S metformin AdvReac Intermediate Gastrointestinal Verified 10/29/22 16:11 Upset Consultations 10/29/22 16:28 ED Decision to Admit Stat 10/29/22 18:00 HIM [Consult Health Information Management] Routine 10/29/22 18:21 Consult Orthopedic Surgery Routine Ordered Studies 10/29/22 13:24 CT angio chest PE protocol Stat Hospital Course (1) SOB (shortness of breath): presented after recent treatment for PNA/UTI at [facility], signed out AMA after 4 days, but completed 10 day course Levaquin rx by PCP (Dr Dwyer) Also had her lasix/spironolactone on hold for low BPs at the office w/ reported "baseline weight ~280lb" however not weighing herself at home and currently 286lb in our system. Could be resolving parapneumonic effusion as well on imaging? Will request records from [facility] for further info (CTA chest NEGATIVE for PE. Lactic 1.1. Procal <0.05. No leukocytosis on labs or fevers. Biofire Negative, BNP normal- 43) Back on her usual 5L NC, CO2 elevated. Patient admitted to not using BiPAP for 6 months or more - CM working to contact [facility] to verify settings and see about getting new machine at home - Long discussion with patient regarding her lung disease and sleep apnea and the NEED to use the Bipap at night and discussed how increased O2 via NC is not helping her CO2 levels - resumed her usual Lasix 80mg/Spironolactone 25mg in AM - Incentive spirometer, flutter valve, mucinex - Continue Incruse, Advair or hospital equivalent --> Will need new rx at [place] as hasn't used in >3 months as she cant find/under her couch Encourage compliance with medications and BIPAP Echo - Technically limited study Left ventricular systolic function is normal No RWMA EF 60-65% No obvious valvular pathology (2) Diastolic heart failure: - Suspected , due to significant COPD/obesity/hypoventilation/noncompliance w/ BiPAP. BNP not elevated but weights up/effusion as above Lasix 40mg IV x 1 in ER 10/29, resumed lasix 80mg PO/spironolactone 25mg 10/30 Monitor weights/I&Os (Negative 600) (3) COPD (chronic obstructive pulmonary disease): on 5L at baseline, no change in sputum to suspect exacerbation. recently completed 10 days levaquin outpatient. Neg procal, no abx at present, Biofire negative CO2 retention likely from not using BiPAP outpatient BiPAP Pulmonary toilet, mucinex. (could consider hypertonic saline if needed if having difficulty clearing any secretions/mucus plugging) currently denies any congestion or cough (4) Hypertension: Low last week, currently improved and stable Lasix 40mg IV x 1 in ER, resumed her usual lasix/spironolactone 10/30. Will hold amlodipine and rec likely dc this medication to prevent LE edema symptoms Monitor BP Today 123/75 (5) Pleural effusion: small, likely volume related lasix as above (6) Hypoxia: spo2 drop on admit to 84% but rebounded and currently back on her usual 5L BiPAP ordered for tonight for suspected acute on chronic respiratory failure with hypercarbia 94% on 5L nc (7) Diabetes mellitus, type 2: hold home meds place on glargine 20u BID for now to start (on 60+70 mixed 75/25 at home) BSG AC/HS, SSI while inpatient w/ range 120-180, CF 20, CR 6 monitor BSGs (8) Right ankle swelling: Ortho evaluated Right ankle sprain/avulsion injury off distal fibula WBAT Ice, elevation Air splint PT/OT (9) B12 deficiency anemia: B12 low at 272 Folate normal 18.95 iron studies adequate, mildly low % saturation at 13 IM injection B12 x 1 today and then B12 500mcg daily after Plan DVT proph: Lovenox SQ while inpatient --:> given obesity w/ 40mg BID Total Time Total Time Spent Total Time Spent (In Minutes): 40 Discharge Plan Discharge Items Patient Disposition: Hospice - Home Reason For Visit: SOB Discharge Diagnosis: COPD Diastolic heart failure Medication and BiPAP noncompliance Condition on Discharge: Fair Activity: Per Instructions section Weightbearing: Right weightbearing Weightbearing Comment: with walker Non-emergency contact: Surgeon Call non-emergency contact if: your pain is not controlled, your temperature is above 101, your wound has increased redness and your wound has increased drainage Follow-up/Referrals: Linda Mosquera PA-C [Physician Generator Rebuilder] - 11/13/22 2:15 pm Kings Nichols MD [Primary Care Provider] - Diet: Carb Consistent or DM2 and Heart Healthy Addtl Attending Provider Instructions: You came to the ER with complaints of difficulty breathing and shortness of breath. You had a recent admission to [facility] and were treated for pneumonia and UTI with 4 days of IV antibiotics. You left this hospital Against Medical Advice and then followed up with your family doctor and received and took a weeks worth of Levaquin. You were told from your family doctor that your urine was infected. You had repeat urine studies here that did not reveal a UTI. You also had Blood cultures x different sites and after 48 hours no growth. The blood cultures will continue to grown out over the next 24 hours and these results can be followed up by your family doctor. You were found to have elevated carbon dioxide levels due to your noncompliance with the BiPAP machine. You also had been noncompliant at home with your inhalers and your BiPAP over the past 6 months. We had long discussions regarding why it is important for medication, inhaler and also BiPAP machine compliance. Discussed the above with you, your and also your son via the phone. Your son wanted a referral to [facility] for your COPD diagnosis for at home hospice care. Rx was done and Case Management to send to [facility] upon discharge. You could also follow up with the heart failure clinic as an outpatient. I will let this up to the discretion of your family doctor. You should have a hospital follow up with your family doctor in a few weeks. You had an echo during this hospital stay that was normal. Also during your stay your hemoglobin in your blood was low and you had no evidence of any bleeding. Your iron studies were adequate but your Vitamin B12 was low. You were given B12 injection x 1 today and recommended to take B12 500mcg daily after. Addtl Carrot Tier Provider Instructions: Orthopedic instructions: -Weight-bear as tolerated right lower extremity with your ankle stirrup brace in place when out of bed. -Use walker to assist with ambulation. -Allowed for full range of motion of your right ankle as tolerated. -Apply Devang bandage as needed to right ankle for swelling. -Ice to right ankle as needed for 15 to 20 minutes every 2-3 hours. Pending Studies at Discharge: Yes Studies:: final blood cultures Stand-Alone Forms: [facility] Medications and DC Order Prescriptions: New spironolactone 25 mg Tablet 25 mg PO QAM Qty: 0 0RF oxycodone 5 mg Tablet 5 mg PO Q8H PRN (Reason: pain) Qty: 10 0RF cyanocobalamin (vitamin B-12) 500 mcg Tablet 500 mcg PO QAM Qty: 0 0RF Continued furosemide 40 mg tablet 80 mg PO QAM fluticasone propion-salmeterol [Advair Diskus] 250-50 mcg/dose blister with device 1 inh INHALATION BID atorvastatin 20 mg tablet 20 mg PO DAILY amlodipine 5 mg Tablet 5 mg PO DAILY alprazolam 0.25 mg tablet 0.25 mg PO DAILY PRN (Reason: Anxiety) citalopram 20 mg tablet 20 mg PO DAILY albuterol sulfate 90 mcg/actuation Hfa Aerosol Inhaler 2 puff INHALATION Q4H PRN (Reason: Wheezing) insulin lispro protamin-lispro [Humalog Mix 75-25 KwikPen] 100 unit/mL (75-25) insulin pen See Rx Instructions .ROUTE .COMPLEX Rx Instructions: TAKES 70 UNITS QAM, THEN 60 UNITS QPM. menthol-zinc oxide [Calmoseptine] 0.44-20.6 % Ointment 1 applic TOPICAL TID PRN (Reason: Skin Irritation) Incruse Ellipta 62.5 mcg/actuation Blister With Device 1 inh INHALATION DAILY Qty: 30 0RF Discharge Orders: Discharge Order- CHF (Routine); Ordered 11/01/22 Ordered By: Sarika Sousa/Other Patient Handouts: Managing Type 2 Diabetes, COPD: Using Inhalers, COPD Meds, What Is a BiPAP, Using a BPAP, Special Foot Care for Diabetes Admission Data Admit Date/Time: 10/29/22 17:43 Attending Provider: Meli Alves Admit Provider: Abdirahman Villareal Primary Care Provider: Kings Nichols Other Providers: Adam Aguilera ; Abdirahman Villareal ; [facility] Other Interventions: Discharge Summary Assessment (RN) Last Done: 11/01/22 13:45 Supervising Physician Co-Signing Physician Notes PA Supervision Note: I personally saw and examined the patient. I verified all little points and agree with BRODERICK Santana with the following exceptions and/or additions: S- O- Vitals reviewed Gen: [AAOx3, NAD, morbidly obese] HEENT: [anicteric sclerae, EOMI] CV: [RRR no mgr nl S1S2] Pulm: [unlabored breathing, diminished BS throughout due to body habitus, no wcr] A/P-77 y female here with acute on chronic respiratory failure with hypoxia and hypercapnia, due to noncompliance with home BiPAP and possible previous PNA Improving with increased BiPAP use. Treating anemia as above STbale for dc to home Coding Level of Care Code 58949 INP/OBS DISCH >30 MIN Diagnoses SOB (shortness of breath) R06.02 Diastolic heart failure I50.30 COPD (chronic obstructive pulmonary disease) J44.9 Hypertension I10 Pleural effusion J90 Hypoxia R09.02 Diabetes mellitus, type 2 E11.9 Right ankle swelling M25.471 B12 deficiency anemia D51.9
[2022-11-02] MEDS ORDERED: CYANOCOBALAMIN (B-12) 500 MCG TABLET PO SCH (09:00)
--- NOTE | 2022-11-03 11:38 | Coding Query ---
To promote full compliance with coding requirements relating to patient care, provider participation is requested in all cases of contact center agent uncertainty. Please assist us with the question(s) below: Coding Question(s): The diagnosis(es) below was documented in the progress notes then subsequently fell off all further documentation. Please indicate if it is still a possible diagnosis or ruled out. Physician's Response(s): ACUTE ON CHRONIC DIASTOLIC HEART FAILURE ( x ) Diagnosed and POA ( ) Diagnosed and not POA ( ) Ruled out ( ) Other (please specify) Thank you for your assistance, Linda Mccormick - Investigator [employer] [facility]
== END 2022-11-01 14:46 | disposition hospice, home (50) | DRG 291 ==
LOC: ED 13:10 → SUATTDRO 17:43 → 3N 17:43

== ENCOUNTER 2022-12-19 12:51 | Inpatient (IN) ==
--- NOTE | 2022-12-19 14:04 | XRay Report ---
XR chest 1V not portable HISTORY: 77 years-old Female Dyspnea acute shortness breath COMPARISON: 10/29/2022 TECHNIQUE: AP view the chest FINDINGS: Cardiac silhouette is enlarged. Unchanged prominence of the mediastinal contours. No pneumothorax or overt pulmonary edema. Small pleural effusions with mild bibasilar densities. IMPRESSION: 1. Cardiomegaly without overt pulmonary edema. 2. Small pleural effusions with mild bibasilar opacities suggestive of atelectasis. ACT 112: Negative or not required by law. The above report was generated using voice recognition software. It may contain grammatical, syntax o r spelling errors. Electronically signed by: Jack Espinal M.D. 12/19/2022 2:03 PM
[2022-12-19] MEDS ORDERED: HYDROCODONE/ACETAMOPHEN 5/325MG TAB PO ONE (14:07)
[2022-12-19 14:09] LABS: Basophils # (auto) 0.02 K/uL (0-0.2); Basophils % (auto) 0.3 %; Eosinophils # (auto) 0.08 K/uL (0-0.50); Eosinophils % (auto) 1.2 %; Hemoglobin 10.4 g/dl (12.0-16.0); Immature Granulocytes # (auto) 0.03 K/uL (0.01-0.20); Immature Granulocytes % (auto) 0.4 %; Lymphocytes # (auto) 0.96 K/uL (1.2-3.4); Lymphocytes % (auto) 13.9 %; Mean Corpuscular Hemoglobin 27.2 pg (25.0-34.0); Mean Corpuscular Hgb Conc 29.7 g/dL (32.0-36.0); Mean Corpuscular Volume 91.6 fL (80.0-100.0); Mean Platelet Volume 9.6 fL (9.4-12.4); Monocytes # (auto) 0.36 K/uL (0.11-0.59); Monocytes % (auto) 5.2 %; Neutrophils # (auto) 5.48 K/uL (1.40-6.50); Platelet Count 147 K/uL (130-400); RDW Coefficient of Variation 15.1 % (11.5-14.5); RDW Standard Deviation 50.4 fL (36.4-46.3); Red Blood Count 3.82 M/uL (4.20-5.40); White Blood Count 6.93 K/ul (4.8-10.8)
[2022-12-19 14:27] LABS: Alanine Aminotransferase 14 U/L (7-52); Albumin Globulin Ratio 1.2 (0.9-2); Alkaline Phosphatase 74 U/L (34-104); Aspartate Aminotransferase 18 U/L (13-39); BUN Creatinine Ratio 37.3 (10-20); Bilirubin,Total 0.4 mg/dl (0.2-1.0); Blood Urea Nitrogen 22 mg/dl (6-23); Calcium 9.5 mg/dl (8.6-10.3); Carbon Dioxide > 45 mmol/L (21-32); Chloride 88 mmol/L (98-107); Creatinine Clr Calc Pharmacy 110.4 ml/min; Est GFR (African American) 103.2 ml/min; Globulin 3.3 gm/dl (2.5-4.0); Glucose 135 mg/dl (70-99(Fasting)); Potassium 4.7 mmol/L (3.5-5.1); Sodium 141 mmol/L (136-145); Total Protein 7.3 gm/dl (6.0-8.3)
[2022-12-19 14:30] LABS: Troponin I High Sensitivity 10.8 pg/ml (0-14)
--- NOTE | 2022-12-19 14:36 | Emergency Department Note ---
Impression & Plan COPD (chronic obstructive pulmonary disease), Chronic respiratory acidosis, Urinary tract infection ED Provider Note NAME: LUZ FERNANDEZ AGE: 77 SEX: F : 1945 ARRIVES VIA: Walk-In INFORMANT: Patient, the patient's family members ED PROVIDER(S): Joshua Parra DO CHIEF COMPLAINT: Altered mental status HPI: The patient is a 77-year-old female who presented to the emergency department for an evaluation of altered mental status. The patient presented with family members. The patient has a history of COPD as well as CHF. She is currently on hospice. She also complains of chronic abdominal pain. The patient has a history of recent urinary tract infection as well. The patient was noted to have increasing issues with altered mental status and difficulty breathing. The patient was brought to the emergency department today at the family for further evaluation. ROS: See above HPI for pertinent positives & negatives. A total of 10 systems reviewed and were otherwise negative. PAST MEDICAL HISTORY: See Below PAST SURGICAL HISTORY: See Below FAMILY HISTORY: See Below SOCIAL HISTORY: See Below HOME MEDICATIONS: See Below ALLERGIES: See Below VITALS: See Below PHYSICAL EXAMINATION: GENERAL: Patient is awake and alert. The patient is somewhat anxious. EYES: The conjunctivae are clear. The pupils are round and reactive. EARS, NOSE, MOUTH AND THROAT: The nose is without any evidence of any deformity. NECK: The neck is nontender and supple. RESPIRATORY: Diminished breath sounds are noted throughout. There was no tachypnea or conversational dyspnea. CARDIOVASCULAR: Regular rate and rhythm noted there no murmurs rubs or gallops normal S1 normal S2. GASTROINTESTINAL: The abdomen was soft and mildly distended. There is diffuse tenderness but no guarding rigidity. MUSCULOSKELETAL/EXTREMITIES: There is no evidence of gross deformity full range of motion is noted in the hips and shoulders. SKIN: Skin is warm and dry. There is no significant pedal edema. NEUROLOGIC: Patient is awake and oriented to person. She recognizes family. Strength was symmetric. Patient was able to stand and pivot with help from nursing staff. MEDICAL DECISION MAKING: The patient is a 77-year-old female who presented to the emergency department with family for an evaluation of altered mental status. The patient has a history of oxygen dependent lung condition. She also has a history of frequent urinary tract infection. The patient is hospice at this time but her family was noticing that she was worsening and brought her to the emergency department. She also suffers from chronic pain. The patient was treated with IV antibiotics emergency department. Patient was reevaluated multiple times. I discussed patient's laboratory and radiographic studies with the family. I also discussed this case with the on-call [facility] hospitalist. Triage Nursing notes reviewed. Prior medical records reviewed Vital Signs: reviewed and remarkable for hypotension. Differential diagnosis: Infection, hypoglycemia, electrolyte abnormalities, overdose, toxicologic, cardiac sources, intracerebral event, neurologic, trauma, as well as other pathologies. ER treatment provided: See below Diagnostics interpreted by me: ECG: EKG was obtained in the emergency department. My interpretation is normal sinus rhythm at 96 bpm. There is no ectopy. There is no acute ST segment abnormalities noted. This was compared to a tracing from October 29, 2022. No changes were noted. Cardiac Monitoring: An order was placed for continuous cardiac monitoring. The monitor shows a rate of 101 bpm with sinus tachycardia. Laboratory studies: As stated above and show below. Imaging studies: See below. Radiographic imaging was reviewed by myself Consultation(s): I discussed this case with Dr. 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 Current Living Situation: Spouse Feels Safe at Home: Yes Assistive Devices: Scooter/Electric Scooter, Walker and Wheelchair Allergies Allergies Allergy/AdvReac Type Severity Reaction Status Date / Time empagliflozin AdvReac Intermediate RECURRENT Verified 12/19/22 15:46 [From Jardiance] UTI'S metformin AdvReac Intermediate Gastrointestinal Verified 12/19/22 15:46 Upset oxycodone AdvReac Intermediate HALLUCINATI Verified 12/19/22 15:48 ONS Home Meds Home Medications Medication Instructions Recorded Confirmed albuterol sulfate 90 mcg/actuation 2 puff inhalation Q4H PRN Wheezing 10/29/22 12/19/22 aerosol inhaler alprazolam 0.25 mg tablet 0.25 mg PO DAILY PRN Anxiety 10/29/22 12/19/22 amlodipine 5 mg tablet 5 mg PO DAILY 10/29/22 12/19/22 atorvastatin 20 mg tablet 20 mg PO DAILY 10/29/22 12/19/22 citalopram 20 mg tablet 20 mg PO DAILY 10/29/22 12/19/22 fluticasone 250 mcg-salmeterol 50 1 inh inhalation BID 10/29/22 12/19/22 mcg/dose blistr powdr for inhalation (Advair Diskus) furosemide 40 mg tablet 80 mg PO QAM 10/29/22 12/19/22 insulin lispro protamine-lispro See Rx Instructions .Route .COMPLEX 10/29/22 12/19/22 100 unit/mL (75-25) subcutaneous pen (Humalog Mix 75-25 KwikPen) menthol 0.44 %-zinc oxide 20.6 % 1 applic topical TID PRN Skin 10/29/22 12/19/22 topical ointment (Calmoseptine) Irritation hydrocodone 10 mg-acetaminophen 1 tab PO DIRECTED PRN Pain 12/19/22 12/19/22 325 mg tablet Previous Rx's Medication Instructions Recorded cyanocobalamin (vitamin B-12) 500 500 mcg PO QAM #0 tabs 11/01/22 mcg tablet spironolactone 25 mg tablet 25 mg PO QAM #0 tabs 11/01/22 umeclidinium 62.5 mcg/actuation 1 inh inhalation DAILY #30 ea 11/01/22 blister powder for inhalation (Incruse Ellipta) Results & Data (ED) Vital Signs Vital Signs - 24 hr 12/19/22 12:52 12/19/22 14:20 12/19/22 14:40 Temperature 36.8 C Temperature Source Temporal Artery Scan Pulse Rate 100 H 64 Pulse Rate [Right Finger] 85 Respiratory Rate 18 18 Respiratory Effort / Characteristics Spontaneous Blood Pressure 142/69 H Blood Pressure [Left Arm] Blood Pressure Mean 93 Blood Pressure Mean [Left Arm] Pulse Oximetry 97 97 Oxygen Delivery Method Nasal Cannula High Flow Nasal Cannula Oxygen Flow Rate 6 20 Fraction of Inspired Oxygen 45 Sepsis Recent Fever Within 48 Hours No Sepsis New/Unexplained Change in Mental Status Yes Sepsis Action Taken by Nursing No Action Required 12/19/22 14:30 12/19/22 15:00 12/19/22 16:20 Temperature Temperature Source Pulse Rate Pulse Rate [Right Finger] 76 101 H Respiratory Rate 20 26 H Respiratory Effort / Characteristics Blood Pressure Blood Pressure [Left Arm] 99/56 L 92/56 L Blood Pressure Mean Blood Pressure Mean [Left Arm] 70 68 Pulse Oximetry 88 L 98 96 Oxygen Delivery Method Nasal Cannula High Flow Nasal Cannula Oxygen Flow Rate 6 Fraction of Inspired Oxygen Sepsis Recent Fever Within 48 Hours Sepsis New/Unexplained Change in Mental Status Sepsis Action Taken by Snf Medications Current Medication List: was personally reviewed by me Laboratory Data Attestation: I reviewed the patient's lab results. 12/19/22 13:45 12/19/22 13:45 Lab Results 12/19/22 12/19/22 12/19/22 Range/Units 13:27 13:45 13:45 WBC 6.93 (4.8-10.8) K/ul RBC 3.82 L (4.20-5.40) M/uL Hgb 10.4 L (12.0-16.0) g/dl Hct 35.0 L (37.0-47.0) % MCV 91.6 (80.0-100.0) fL MCH 27.2 (25.0-34.0) pg MCHC 29.7 L (32.0-36.0) g/dL RDW Std Deviation 50.4 H (36.4-46.3) fL RDW Coeff of [place] 15.1 H (11.5-14.5) % Plt Count 147 (130-400) K/uL MPV 9.6 (9.4-12.4) fL Immature Gran % (Auto) 0.4 % Neut % (Auto) 79.0 % Lymph % (Auto) 13.9 % [place] % (Auto) 5.2 % Eos % (Auto) 1.2 % Baso % (Auto) 0.3 % Neut # (Auto) 5.48 (1.40-6.50) K/uL Lymph # (Auto) 0.96 L (1.2-3.4) K/uL [place] # (Auto) 0.36 (0.11-0.59) K/uL Eos # (Auto) 0.08 (0-0.50) K/uL Baso # (Auto) 0.02 (0-0.2) K/uL Immature Gran # (Auto) 0.03 (0.01-0.20) K/uL VBG pH (7.36-7.41) VBG pCO2 (38-50) mmHg VBG pO2 mmHg VBG HCO3 mmol/L VBG O2 Saturation % VBG Base Excess mEq/L Sodium 141 (136-145) mmol/L Potassium 4.7 (3.5-5.1) mmol/L Chloride 88 L (98-107) mmol/L Carbon Dioxide > 45 H* (21-32) mmol/L Anion Gap TNP BUN 22 (6-23) mg/dl Creatinine 0.59 L (0.6-1.2) mg/dl Est Cr Clr Drug Dosing 110.4 ml/min Est GFR ( Amer) 103.2 ml/min Est GFR (Non-Af Amer) 89.0 ml/min BUN/Creatinine Ratio 37.3 H (10-20) Glucose 135 H (70-99(Fasting)) mg/dl POC Glucose 157 H (70-99) mg/dl Calcium 9.5 (8.6-10.3) mg/dl Total Bilirubin 0.4 (0.2-1.0) mg/dl AST 18 (13-39) U/L ALT 14 (7-52) U/L Alkaline Phosphatase 74 (34-104) U/L Troponin I High Sens 10.8 (0-14) pg/ml Total Protein 7.3 (6.0-8.3) gm/dl Albumin 4.0 (3.4-5.0) gm/dl Globulin 3.3 (2.5-4.0) gm/dl Albumin/Globulin Ratio 1.2 (0.9-2) Urine Color Urine Appearance (Clear) Urine pH (4.5-7.5) Ur Specific [place] (1.000-1.030) Urine Protein (Negative) Urine Glucose (UA) (Negative) Urine Ketones (Negative) Urine Blood (Negative) Urine Nitrite (Negative) Urine Bilirubin (Negative) Urine Urobilinogen (Negative) Ur Leukocyte Esterase (Negative) Urine WBC (Auto) (0-5) /hpf Urine RBC (Auto) (0-4) /hpf U Hyaline Cast (Auto) (0-5) /lpf U Epithel Cells (Auto) (0-5) /lpf Urine Bacteria (Auto) (Negative) SARS-CoV-2, RNA, NAAT (NEGATIVE) 12/19/22 12/19/22 12/19/22 Range/Units 14:59 15:00 16:14 WBC (4.8-10.8) K/ul RBC (4.20-5.40) M/uL Hgb (12.0-16.0) g/dl Hct (37.0-47.0) % MCV (80.0-100.0) fL MCH (25.0-34.0) pg MCHC (32.0-36.0) g/dL RDW Std Deviation (36.4-46.3) fL RDW Coeff of [place] (11.5-14.5) % Plt Count (130-400) K/uL MPV (9.4-12.4) fL Immature Gran % (Auto) % Neut % (Auto) % Lymph % (Auto) % [place] % (Auto) % Eos % (Auto) % Baso % (Auto) % Neut # (Auto) (1.40-6.50) K/uL Lymph # (Auto) (1.2-3.4) K/uL [place] # (Auto) (0.11-0.59) K/uL Eos # (Auto) (0-0.50) K/uL Baso # (Auto) (0-0.2) K/uL Immature Gran # (Auto) (0.01-0.20) K/uL VBG pH 7.43 H (7.36-7.41) VBG pCO2 87 H (38-50) mmHg VBG pO2 41 mmHg VBG HCO3 58 mmol/L VBG O2 Saturation 71.5 % VBG Base Excess 27.3 mEq/L Sodium (136-145) mmol/L Potassium (3.5-5.1) mmol/L Chloride (98-107) mmol/L Carbon Dioxide (21-32) mmol/L Anion Gap BUN (6-23) mg/dl Creatinine (0.6-1.2) mg/dl Est Cr Clr Drug Dosing ml/min Est GFR ( Amer) ml/min Est GFR (Non-Af Amer) ml/min BUN/Creatinine Ratio (10-20) Glucose (70-99(Fasting)) mg/dl POC Glucose 108 H (70-99) mg/dl Calcium (8.6-10.3) mg/dl Total Bilirubin (0.2-1.0) mg/dl AST (13-39) U/L ALT (7-52) U/L Alkaline Phosphatase (34-104) U/L Troponin I High Sens (0-14) pg/ml Total Protein (6.0-8.3) gm/dl Albumin (3.4-5.0) gm/dl Globulin (2.5-4.0) gm/dl Albumin/Globulin Ratio (0.9-2) Urine Color Yellow Urine Appearance Clear (Clear) Urine pH 7.0 (4.5-7.5) Ur Specific [place] 1.010 (1.000-1.030) Urine Protein Negative (Negative) Urine Glucose (UA) Negative (Negative) Urine Ketones Negative (Negative) Urine Blood 2+ H (Negative) Urine Nitrite Positive A (Negative) Urine Bilirubin Negative (Negative) Urine Urobilinogen Negative (Negative) Ur Leukocyte Esterase 1+ H (Negative) Urine WBC (Auto) 10-30 H (0-5) /hpf Urine RBC (Auto) 10-30 H (0-4) /hpf U Hyaline Cast (Auto) 0 (0-5) /lpf U Epithel Cells (Auto) 5-10 H (0-5) /lpf Urine Bacteria (Auto) 4+ H (Negative) SARS-CoV-2, RNA, NAAT (NEGATIVE) 12/19/22 Range/Units 16:40 WBC (4.8-10.8) K/ul RBC (4.20-5.40) M/uL Hgb (12.0-16.0) g/dl Hct (37.0-47.0) % MCV (80.0-100.0) fL MCH (25.0-34.0) pg MCHC (32.0-36.0) g/dL RDW Std Deviation (36.4-46.3) fL RDW Coeff of Dalton (11.5-14.5) % Plt Count (130-400) K/uL MPV (9.4-12.4) fL Immature Gran % (Auto) % Neut % (Auto) % Lymph % (Auto) % [place] % (Auto) % Eos % (Auto) % Baso % (Auto) % Neut # (Auto) (1.40-6.50) K/uL Lymph # (Auto) (1.2-3.4) K/uL [place] # (Auto) (0.11-0.59) K/uL Eos # (Auto) (0-0.50) K/uL Baso # (Auto) (0-0.2) K/uL Immature Gran # (Auto) (0.01-0.20) K/uL VBG pH (7.36-7.41) VBG pCO2 (38-50) mmHg VBG pO2 mmHg VBG HCO3 mmol/L VBG O2 Saturation % VBG Base Excess mEq/L Sodium (136-145) mmol/L Potassium (3.5-5.1) mmol/L Chloride (98-107) mmol/L Carbon Dioxide (21-32) mmol/L Anion Gap BUN (6-23) mg/dl Creatinine (0.6-1.2) mg/dl Est Cr Clr Drug Dosing ml/min Est GFR ( Amer) ml/min Est GFR (Non-Af Amer) ml/min BUN/Creatinine Ratio (10-20) Glucose (70-99(Fasting)) mg/dl POC Glucose (70-99) mg/dl Calcium (8.6-10.3) mg/dl Total Bilirubin (0.2-1.0) mg/dl AST (13-39) U/L ALT (7-52) U/L Alkaline Phosphatase (34-104) U/L Troponin I High Sens (0-14) pg/ml Total Protein (6.0-8.3) gm/dl Albumin (3.4-5.0) gm/dl Globulin (2.5-4.0) gm/dl Albumin/Globulin Ratio (0.9-2) Urine Color Urine Appearance (Clear) Urine pH (4.5-7.5) Ur Specific [place] (1.000-1.030) Urine Protein (Negative) Urine Glucose (UA) (Negative) Urine Ketones (Negative) Urine Blood (Negative) Urine Nitrite (Negative) Urine Bilirubin (Negative) Urine Urobilinogen (Negative) Ur Leukocyte Esterase (Negative) Urine WBC (Auto) (0-5) /hpf Urine RBC (Auto) (0-4) /hpf U Hyaline Cast (Auto) (0-5) /lpf U Epithel Cells (Auto) (0-5) /lpf Urine Bacteria (Auto) (Negative) SARS-CoV-2, RNA, NAAT NEGATIVE (NEGATIVE) Administered Medications Discontinued Medications Hydrocodone Bitart/Acetaminophen (Hydrocodone/Acetamophen 5/325mg Tab) 1 tab PO ONE ONE Stop: 12/19/22 14:08 Last Admin: 12/19/22 14:15 Dose: 1 tab Documented By: OLIVER Ceftriaxone Sodium (Rocephin) 2,000 mg in 70 mls @ 140 mls/hr IV NOW STA Stop: 12/19/22 16:25 Last Admin: 12/19/22 16:42 Dose: 140 mls/hr Documented By: OLIVER Imaging Data Attestation: I personally reviewed and interpreted this imaging study as follows: My Impression: 1 view chest x-ray was obtained in the emergency department. My interpretation is cardiomegaly with atelectasis at the left base. This was compared to a chest x-ray from October 29, 2022. No changes were noted. Radiologist's Impression: Chest X-Ray 12/19/22 13:05 XR chest 1V not portable HISTORY: 77 years-old Female Dyspnea acute shortness breath COMPARISON: 10/29/2022 TECHNIQUE: AP view the chest FINDINGS: Cardiac silhouette is enlarged. Unchanged prominence of the mediastinal conto urs. No pneumothorax or overt pulmonary edema. Small pleural effusions with mild bibasilar densities. IMPRESSION: 1. Cardiomegaly without overt pulmonary edema. 2. Small pleural effusions with mild bibasilar opacities suggestive of atelectasis. ACT 112: Negative or not required by law. The above report was generated using voice recognition software. It may contain grammatical, syntax or spelling errors. Electronically signed by: Jack Espinal M.D. 12/19/2022 2:03 PM Discharge Plan Visit Data Chief Complaint: Shortness of Breath/Dyspnea Stated Complaint: OXYGEN IN 70S ED Provider: Joshua Parra Discharge Problem: COPD (chronic obstructive pulmonary disease), Chronic respiratory acidosis, Urinary tract infection Patient Disposition: Being Evaluated by Hospitalist Forms Stand Alone Forms: My [facility] Prescriptions Prescriptions: No Action furosemide 40 mg tablet 80 mg PO QAM fluticasone propion-salmeterol [Advair Diskus] 250-50 mcg/dose blister with device 1 inh INHALATION BID atorvastatin 20 mg tablet 20 mg PO DAILY amlodipine 5 mg Tablet 5 mg PO DAILY alprazolam 0.25 mg tablet 0.25 mg PO DAILY PRN (Reason: Anxiety) citalopram 20 mg tablet 20 mg PO DAILY albuterol sulfate 90 mcg/actuation Hfa Aerosol Inhaler 2 puff INHALATION Q4H PRN (Reason: Wheezing) insulin lispro protamin-lispro [Humalog Mix 75-25 KwikPen] 100 unit/mL (75-25) insulin pen See Rx Instructions .ROUTE .COMPLEX Rx Instructions: TAKES 70 UNITS QAM, THEN 60 UNITS QPM. menthol-zinc oxide [Calmoseptine] 0.44-20.6 % Ointment 1 applic TOPICAL TID PRN (Reason: Skin Irritation) spironolactone 25 mg Tablet 25 mg PO QAM Qty: 0 0RF cyanocobalamin (vitamin B-12) 500 mcg Tablet 500 mcg PO QAM Qty: 0 0RF Incruse Ellipta 62.5 mcg/actuation Blister With Device 1 inh INHALATION DAILY Qty: 30 0RF hydrocodone-acetaminophen 10-325 mg tablet 1 tab PO DIRECTED PRN (Reason: Pain) Referrals Referrals: Kings Nichols MD [Primary Care Provider] -
[2022-12-19 15:37] LABS: Appearance Urine Clear (Clear); Bacteria Urine Automated 4+ (Negative); Bilirubin Urine Negative (Negative); Blood Urine 2+ (Negative); Cast Urine Automated 0 /lpf (0-5); Color Urine Yellow; Glucose Urine UA Negative (Negative); Ketones Urine Negative (Negative); Leukocyte Esterase Urine 1+ (Negative); Nitrite Urine Positive (Negative); Protein Urine Negative (Negative); Urobilinogen Urine Negative (Negative)
[2022-12-19] MEDS ORDERED: cefTRIAXone SODIUM 2,000 MG/70 ML BAG IV STA (15:56)
[2022-12-19 16:24] LABS: Base Excess VBG 27.3 mEq/L; HCO3 VBG 58 mmol/L; Oxygen Saturation VBG 71.5 %; PCO2 VBG 87 mmHg (38-50); PO2 VBG 41 mmHg; pH VBG 7.43 (7.36-7.41)
--- NOTE | 2022-12-19 17:22 | History & Physical Report ---
Date of Service December 19, 2022 Assessment & Plan (1) CO2 narcosis: Plan: 77yo female with a history of COPD, T2DM, HFpEF, HTN, HLD, chronic abdominal pain, recurrent UTI, and MDD presents with multiple complaints including worsening AMS and SOB, found to be hypoxic en route to the hospital as well as on admission. AMS, hypoxic respiratory failure, SOB, COPD, CHRISTIANO, OHS Suspect acute mental status changes are secondary to CO2 narcosis from untreated CHRISTIANO and untreated COPD, given patient's history, unquantifiable CO2 levels on VBG, and very quick improvement in mental status upon receiving HFNC Admit to med/telemetry, cardiac monitoring, supplemental oxygen as-needed COPD: ordered budesonide nebs bid, formoterol nebs bid, tiotropium inh qAM CHRISTIANO: patient is agreeable to trying BiPAP again despite history of mask intolerance; patient educated on its importance with treating/preventing CO2 narcosis Will hold off on repeat VBGs given such a fast, dramatic improvement in mental status upon improved respiration w/ HFNC Urinary tract infection Patient notes a history of recurrent UTI, though we don't have any prior positive urine cultures on record (patient previously got all hospital care in [place]) Has had burning with urination "for months" UA grossly infected, culture pending Ceftriaxone dose (x1) administered in ED, continue for now HFpEF Small pleural effusions noted bilaterally on CXR, though patient is without severe LE edema Likely contributing to patient's SOB and hypoxia to a degree, though I suspect CO2 narcosis/untreated COPD/untreated CHRISTIANO are the primary drivers TTE (10/2022): normal LV function, EF 60-65%, though technically limited study Continue home lasix 80mg PO qAM DM2 HbA1c 6.4% (10/2022) Patient's home regimen held on admission Continue BSG checks, sliding-scale insulin, hypoglycemic protocol, DM2 diet HTN Pressures soft on admission Holding home amlodipine and spironolactone as a result Continue monitoring HLD: continue home statin MDD/SUZETTE: holding home xanax d/t respiratory depression, continue home citalopram Goals of care Patient and family report they have been receiving home hospice services However, from my interview, this seems to have been pursued moreso to simply obtain home care rather than for true home hospice care I suspect patient and family will need facilitated conversations to truly elucidate patient's goals of care and family understanding of end of life care For now, patient is DNR/DNI, but is otherwise interested in standard medical treatment I will hold off on discontinuing meds that would otherwise be held in the setting of hospice Patient will also likely require intensive patient education given that her worsening symptoms are exacerbated (if not caused) by home regimen nonadherence (both COPD and CHRISTIANO) FEN: DM2, heart healthy diet Code status: DNR/DNI DVT ppx: lovenox Held home meds: amlodipine, spironolactone, DM2 regimen, vicodin, xanax PT/OT: ordered Case management: consulted given complex needs, home equipment needs, home health services clarification Dispo: med/telemetry, next steps pending clinical improvement and further elucidation of goals of care (2) Urinary tract infection: (3) Hypertension: (4) COPD (chronic obstructive pulmonary disease): (5) Diabetes mellitus, type 2: (6) Diastolic heart failure: History of Present Illness Primary Care Provider: Kings Nichols MD 77yo female with a history of COPD, T2DM, HFpEF, HTN, HLD, chronic abdominal pain, recurrent UTI, and MDD presents with multiple complaints including worsening AMS and SOB, found to be hypoxic en route to the hospital as well as on admission. - patient was admitted at [facility] in October, was treated for pneumonia and recurrent UTI - pneumonia was successfully treated, but UTI symptoms (burning with urination, no urgency/frequency) have persisted - today, patient and family report a one-week history of worsening confusion, SOB, chills, and diarrhea - patient has COPD and CHRISTIANO but is regimen nonadherent (recently discontinued all inhalers because she thought she caught pneumonia from her inhalers; also is completely nonadherent with CHRISTIANO treatment, reporting inability to tolerate BiPAP or her trilogy ventilator) - patient was found by family earlier today to be very confused with spO2 as low as the 70s, was dozing off in the car on the way here -patient and patient's son report they have been receiving home hospice care, but are still interested in relatively aggressive treatment of infections and/or underlying disease processes (though I did confirm patient is DNR/DNI) Patient denies fever, vision changes, CP, palpitations, vomiting, hematochezia, melena, lightheadedness, dizziness, numbness, tingling, or other symptoms. Upon arrival, vitals were notable for soft BPs (90s/50s), borderline tachycardia (101), tachypnea (26), and hypoxia (88 which improved to the 90s on HFNC). Patient is afebrile. Initial labs were notable for mild anemia (10.4), elevated HCO3 (>45), alkalemia (pH 7.43) and elevated pCO2 (87) on VBG, and an infected UA; no leukocytosis, platelets wnl, no additional electrolyte abnormalities, creatinine not elevated, LFTs wnl, Tbili not elevated, covid PCR negative. In the ED, patient was given a dose of ceftriaxone and a dose of vicodin. EKG: NSR with PVCs, no overt ischemic change. CXR: cardiomegaly without overt pulmonary edema; small pleural effusions with mild bibasilar opacities suggestive of atelectasis Surrogate decision-maker in case of an emergency: stephon Paz ) Allergies Allergy/AdvReac Type Severity Reaction Status Date / Time empagliflozin AdvReac Intermediate RECURRENT Verified 12/19/22 15:46 [From Jardiance] UTI'S metformin AdvReac Intermediate Gastrointestinal Verified 12/19/22 15:46 Upset oxycodone AdvReac Intermediate HALLUCINATI Verified 12/19/22 15:48 ONS Home Medications Medication Instructions Recorded Confirmed Type albuterol sulfate 90 mcg/actuation 2 puff inhalation Q4H PRN Wheezing 10/29/22 12/19/22 History aerosol inhaler alprazolam 0.25 mg tablet 0.25 mg PO DAILY PRN Anxiety 10/29/22 12/19/22 History atorvastatin 20 mg tablet 20 mg PO DAILY 10/29/22 12/19/22 History citalopram 20 mg tablet 20 mg PO DAILY 10/29/22 12/19/22 History fluticasone 250 mcg-salmeterol 50 1 inh inhalation BID 10/29/22 12/19/22 History mcg/dose blistr powdr for inhalation (Advair Diskus) insulin lispro protamine-lispro See Rx Instructions .Route .COMPLEX 10/29/22 12/19/22 History 100 unit/mL (75-25) subcutaneous pen (Humalog Mix 75-25 KwikPen) menthol 0.44 %-zinc oxide 20.6 % 1 applic topical TID PRN Skin 10/29/22 12/19/22 History topical ointment (Calmoseptine) Irritation cyanocobalamin (vitamin B-12) 500 500 mcg PO QAM #0 tabs 11/01/22 12/19/22 Rx mcg tablet umeclidinium 62.5 mcg/actuation 1 inh inhalation DAILY #30 ea 11/01/22 12/19/22 Rx blister powder for inhalation (Incruse Ellipta) hydrocodone 10 mg-acetaminophen 1 tab PO DIRECTED PRN Pain 12/19/22 12/19/22 History 325 mg tablet cephalexin 250 mg capsule 250 mg PO QID #12 caps 12/23/22 Rx furosemide 80 mg tablet 80 mg PO DAILY #30 tabs 12/23/22 Rx metoprolol tartrate 25 mg tablet 25 mg PO BID #60 tabs 12/23/22 Rx potassium chloride 10 mEq 10 meq PO BID #60 tabs 12/23/22 Rx tablet,extended release(part/cryst) Past Med/Surg History Medical History COPD (chronic obstructive pulmonary disease) Diabetes mellitus, type 2 Hypertension Hypoxia Pleural effusion Pneumonia Recurrent 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" Right ankle swelling SOB (shortness of breath) Weakness Surgical History H/O ventral hernia repair Social History Smoking Status: Former smoker Tobacco Type: Cigarettes Cigarettes Per Day: 20; Second Hand Exposure: No; Do You Dip or Chew Tobacco: No; Hx Alcohol Use: Yes Alcohol type: hard liquor Hx Substance Use: No Preferred Language: Afghan Communication Ability: Effective Monkey Keeper Required: No Beliefs That Will Affect Care: None Current Living Situation: Spouse Feels Safe at Home: Yes Assistive Devices: Oxygen - Continuous, Scooter/Electric Scooter and Wheelchair Review of Systems Review of Systems: See HPI Physical Exam Physical Exam: Constitutional: tired-appearing but interactive and cooperative, no acute distress HEENT: NCAT, no conjunctival injection, HFNC in place CV: heart sounds distant, extremities well-perfused, 1+ LE edema Resp: breath sounds distant, breathing nonlabored GI: soft, mild generalized tenderness to palpation Neuro: alert, oriented, no focal neurologic deficit appreciated, speech clear and fluent, thought process intact, no confusion appreciated Results & Data Results & Data Vital Signs (Past 12 Hours) Vital Signs Temp Pulse Pulse Resp BP BP Pulse Ox 12/19/22 16:20 101 H 26 H 92/56 L 96 12/19/22 15:00 76 20 99/56 L 98 12/19/22 14:30 88 L 12/19/22 14:40 85 18 97 12/19/22 14:20 64 12/19/22 12:52 36.8 C 100 H 18 142/69 H 97 O2 Del Method O2 Flow Rate FiO2 12/19/22 16:20 High Flow Nasal Cannula 12/19/22 15:00 12/19/22 14:30 Nasal Cannula 6 12/19/22 14:40 High Flow Nasal Cannula 20 45 12/19/22 14:20 12/19/22 12:52 Nasal Cannula 6 Supervising Physician Co-Signing Physician Notes I personally saw and examined the patient. I verified all little points and agree with resident physician Dr Az Villanueva, with the following exceptions and/or additions: 77 year old female presents to the ER with acute confusion and hypoxia. Non- compliant with her medications as she thought the inhalers gave her pneumonia. O/E alert and orientated x3, morbidly obese, HS RRR, no murmurs, Chest reduced breath sounds throughout, Abdo SNT A/P Acute n chronic hypoxic hypercapnic respiratory failure due to untreated COPD, CHRISTIANO, OHS an chronic HFpEF - no acute etiology suspected just untreated chronic problems. BiPAP, budesonide NEB BID, Formoterol NEB BID, no need for increase in diuretics UTI - dysuria, ceftriaxone, follow up Resident Activity Tracking Resident Involvement: Resident Care Provided and Monitoring Analyst Coverage Note Care Provided: Adult Hospital Medicine (2) Urinary tract infection Hematuria presence: without hematuria Urinary tract infection type: site unspecified Qualified Code(s): N39.0 - Urinary tract infection, site not specified (4) COPD (chronic obstructive pulmonary disease) COPD type: unspecified COPD Qualified Code(s): J44.9 - Chronic obstructive pulmonary disease, unspecified
--- NOTE | 2022-12-19 19:54 | Electrocardiogram Report ---
Test Reason : Blood Pressure : / mmHG Vent. Rate : 096 BPM Atrial Rate : 096 BPM P-R Int : 128 ms QRS Dur : 066 ms QT Int : 320 ms P-R-T Axes : 031 068 072 degrees QTc Int : 404 ms Sinus rhythm with Premature supraventricular complexes Low voltage QRS Cannot rule out Anterior infarct , age undetermined Abnormal ECG When compared with ECG of 29-OCT-2022 13:35, Premature supraventricular complexes are now Present Minimal criteria for Anterior infarct are now Present Confirmed by Reggie Nguyen ([id number]) on 12/19/2022 7:54:25 PM Referred By: REFERRED SELF Confirmed By:Paco Nguyen
[2022-12-19] MEDS ORDERED: GLUCOSE 40% GEL 15 GM TUBE PO PRN (20:05)
[2022-12-19] MEDS ORDERED: ONDANSETRON INJ 2 MG/ML 2 ML VIAL IV PRN (20:05)
[2022-12-19] MEDS ORDERED: GLUCAGON FOR INJ 1 MG VIAL SQ PRN (20:05)
[2022-12-19] MEDS ORDERED: DEXTROSE 50% 50 ML SYRINGE IV PRN (20:05)
[2022-12-19] MEDS ORDERED: GLUCOSE 10 TAB/TUBE PO PRN (20:05)
[2022-12-19] MEDS ORDERED: CARBOHYDRATES FOR HYPOGLYCEMIA PO PRN (20:05)
[2022-12-19] MEDS: FORMOTEROL 20 MCG/2 ML VIAL NEB SCH (20:26)
[2022-12-19] MEDS: BUDESONIDE 0.5 MG/2 ML VIAL (PULMICORT) NEB SCH (20:26)
[2022-12-19] MEDS ORDERED: ENOXAPARIN INJ 40 MG/0.4 ML SYR SQ SCH (21:00)
[2022-12-19] MEDS: HYDROcodone/ACETAMINOPHEN 10/325 TAB PO PRN (21:42)
[2022-12-19] MEDS: INSULIN ASPART PER UNIT CHARGE SC SCH (21:42)
[2022-12-19] MEDS: LANTUS PER UNIT CHARGE SQ SCH (23:07)
[2022-12-20] MEDS: HYDROcodone/ACETAMINOPHEN 10/325 TAB PO PRN ×3 (04:22→16:59)
[2022-12-20] MEDS ORDERED: MICONAZOLE NITRATE POWDER 85 GM EXT PRN (07:10)
[2022-12-20 07:12] LABS: Hematocrit (blood only) 30.8 % (37.0-47.0); Hemoglobin 9.1 g/dl (12.0-16.0); Mean Corpuscular Hemoglobin 27.2 pg (25.0-34.0); Mean Corpuscular Hgb Conc 29.5 g/dL (32.0-36.0); Mean Corpuscular Volume 91.9 fL (80.0-100.0); Mean Platelet Volume 10.1 fL (9.4-12.4); Platelet Count 147 K/uL (130-400); Red Blood Count 3.35 M/uL (4.20-5.40)
[2022-12-20 07:35] LABS: BUN Creatinine Ratio 37.9 (10-20); Blood Urea Nitrogen 22 mg/dl (6-23); Calcium 9.2 mg/dl (8.6-10.3); Carbon Dioxide > 45 mmol/L (21-32); Chloride 89 mmol/L (98-107); Creatinine Clr Calc Pharmacy 104.5 ml/min; Est GFR (African American) 103.8 ml/min; Est GFR (Non-African American) 89.5 ml/min; Glucose 177 mg/dl (70-99(Fasting)); Potassium 3.8 mmol/L (3.5-5.1); Sodium 142 mmol/L (136-145)
[2022-12-20] MEDS: BUDESONIDE 0.5 MG/2 ML VIAL (PULMICORT) NEB SCH ×2 (07:35→19:38)
[2022-12-20] MEDS: FORMOTEROL 20 MCG/2 ML VIAL NEB SCH ×2 (07:35→19:38)
[2022-12-20] MEDS ORDERED: FUROSEMIDE 80 MG TAB PO SCH (09:00)
[2022-12-20] MEDS: INSULIN ASPART PER UNIT CHARGE SC SCH ×4 (09:12→21:01)
[2022-12-20] MEDS: LANTUS PER UNIT CHARGE SQ SCH ×2 (09:12→21:01)
[2022-12-20] MEDS: FUROSEMIDE 40 MG/4 ML VIAL IV SCH ×3 (09:20→21:17)
[2022-12-20] MEDS: ATORVASTATIN 20 MG TAB PO SCH (09:21)
[2022-12-20] MEDS: CITALOPRAM 20 MG TAB PO SCH (09:21)
[2022-12-20] MEDS: ENOXAPARIN INJ 40 MG/0.4 ML SYR SQ SCH (09:21)
[2022-12-20] MEDS: ACETAMINOPHEN 325 MG TAB PO PRN (09:23)
[2022-12-20] MEDS: UMECLIDINIUM BROMIDE 62.5MCG/BLISTER 7 PUFFS/INHALER INH SCH (09:23)
[2022-12-20 09:26] LABS: HCO3 ABG 51 mmol/L (19-24); Oxygen Saturation ABG 98.8 % (90-95); PCO2 ABG 77 mmHg (35-46); PO2 ABG 97 mmHg (80-95); pH ABG 7.43 (7.35-7.45)
[2022-12-20 09:27] LABS: Allen Test Pos (Pos)
[2022-12-20] MEDS: POTASSIUM CHLORIDE CRTAB 20 MEQ TABCR PO SCH ×2 (09:29→21:02)
[2022-12-20] MEDS ORDERED: BENZOCAINE 20% (ORAJEL) 11.9 GM TUBE MT PRN (09:54)
--- NOTE | 2022-12-20 12:52 | Hospitalist Progress Note ---
Date of Service December 20, 2022 Assessment & Plan (1) Diastolic heart failure: Plan: This appears to be acute on chronic. Parenteral Lasix diuresis. Monitor intake and output. Serial chest x-ray she recently had a cardiac echo in October of this year which will not be repeated (2) Acute and chronic respiratory failure ([id number]-xk-[id number]): Plan: Chronic CO2 retention noted. Keep saturation in the 90 to 92% range to prevent further CO2 retention. Wean oxygen down to previous requirements as tolerated (3) Morbid obesity: Plan: BMI greater than 40. Significant weight loss recommended (4) Diabetes mellitus, type 2: Plan: ADA diet. Continue current medical management. Sliding scale coverage as needed (5) COPD (chronic obstructive pulmonary disease): Plan: Acute exacerbation from CHF. Continue diuresis. Nebulizer treatments as needed (6) Urinary tract infection: Plan: Gram-negative rods isolated. Continue Rocephin, day 2. Tailor antibiotics according to identification and sensitivities Plan To be determined Admission and Anticipated Discharge Date Admission Date: December 19, 2022 Subjective Alert and oriented. No distress. is at the bedside. She appears to have acute on chronic diastolic CHF exacerbation. This has exacerbated her chronic respiratory failure. Recent TTE reveals normal ejection fraction. She has evidence of a UTI with gram-negative rods. She is now on Rocephin, day 2. Stat ABG reveals compensated respiratory acidosis. Her oxygen saturation should be kept in the 90 to 92% range to prevent further CO2 retention. She is on IV Lasix. We will monitor intake and output. Review of Systems Review of Systems: Constitutional-no fever or chills ENT-no blurred vision, no double vision, no epistaxis, no sore throat Respiratory-no cough, no wheezing. No hemoptysis. She does have dyspnea on exertion Cardiac-no palpitations, no chest pain, no syncope GI-no nausea, vomiting, diarrhea, melena, hematochezia -no urinary retention, no urinary incontinence, no dysuria, no hematuria Musculoskeletal-no joint pain, no muscle tenderness Skin-no bruising, no rashes, no pruritus Neuro-no isolated weakness, no paresthesia Psych-no depression, no anxiety Physical Exam Physical Exam: General-alert and oriented x3, no fevers, no chills. Morbidly obese HEENT-head atraumatic and normocephalic, pupils equal and reactive to light, extraocular muscles intact Neck-no lymphadenopathy or thyromegaly, trachea midline Chest-diminished breath sounds bilaterally. No wheezing or rhonchi Cardiac-regular rate and rhythm, normal S1 and S2 Abdomen-normal bowel sounds, nontender, no hepatosplenomegaly Extremities-chronic appearing 2+ peripheral edema in both legs Neuro-cranial nerves II through XII intact, motor and sensory function within normal limits, strength symmetrical , no focal deficits Psych-normal affect, normal mood Results & Data Results & Data Vital Signs (Past 12 Hours) Vital Signs Temp Pulse Pulse Resp BP Pulse Ox O2 Del Method 12/20/22 11:54 36.7 C 87 18 116/76 96 Nasal Cannula 12/20/22 11:30 90 12/20/22 09:00 12/20/22 07:53 36.9 C 95 H 18 120/69 99 Nasal Cannula 12/20/22 07:35 94 H 20 98 Nasal Cannula 12/20/22 03:01 36.8 C 94 H 22 118/68 98 CPAP 12/20/22 03:00 36.8 C 94 H 20 118/68 98 BiPAP 12/20/22 03:06 95 H 27 H 93 12/20/22 01:34 91 12/20/22 00:52 96 H 95 O2 Flow Rate 12/20/22 11:54 3 12/20/22 11:30 12/20/22 09:00 4 12/20/22 07:53 5 12/20/22 07:35 6 12/20/22 03:01 5 12/20/22 03:00 12/20/22 03:06 12 12/20/22 01:34 12 12/20/22 00:52 10 Laboratory Results 12/20/22 05:57 12/20/22 05:57 PG Care Time/CCT Total # of Minutes Spent Total Time Spent with Patient: Total time spent is greater than 50% in coordination of care (as documented) at patient's floor/unit and/or counseling patient: Coding Level of Care Code 16288 SUB INP/OBS CARE 3/50MIN Diagnoses Diastolic heart failure I50.30 Acute and chronic respiratory failure ([id number]) J96.20 Morbid obesity E66.01 Diabetes mellitus, type 2 E11.9 COPD (chronic obstructive pulmonary disease) J44.9 COPD type: unspecified COPD Urinary tract infection N39.0 Hematuria presence: without hematuria Urinary tract infection type: site unspecified (5) COPD (chronic obstructive pulmonary disease) COPD type: unspecified COPD Qualified Code(s): J44.9 - Chronic obstructive pulmonary disease, unspecified (6) Urinary tract infection Hematuria presence: without hematuria Urinary tract infection type: site unspecified Qualified Code(s): N39.0 - Urinary tract infection, site not specified
[2022-12-20] MEDS: cefTRIAXone SODIUM 2,000 MG in DEXTROSE 5% 50 ML IV SCH (16:59)
[2022-12-20] MEDS: ALPRAZolam 0.25 MG TABLET PO PRN (22:33)
[2022-12-21] MEDS: FORMOTEROL 20 MCG/2 ML VIAL NEB SCH ×2 (06:59→19:47)
[2022-12-21] MEDS: BUDESONIDE 0.5 MG/2 ML VIAL (PULMICORT) NEB SCH ×2 (07:00→19:47)
[2022-12-21 08:15] LABS: BUN Creatinine Ratio 28.6 (10-20); Blood Urea Nitrogen 16 mg/dl (6-23); Calcium 9.4 mg/dl (8.6-10.3); Carbon Dioxide > 45 mmol/L (21-32); Chloride 91 mmol/L (98-107); Creatinine Clr Calc Pharmacy 110.4 ml/min; Est GFR (Non-African American) 90.6 ml/min; Glucose 182 mg/dl (70-99(Fasting)); Sodium 142 mmol/L (136-145)
[2022-12-21] MEDS: HYDROcodone/ACETAMINOPHEN 10/325 TAB PO PRN ×3 (08:20→21:21)
[2022-12-21] MEDS: INSULIN ASPART PER UNIT CHARGE SC SCH ×4 (08:21→20:36)
[2022-12-21] MEDS: LANTUS PER UNIT CHARGE SQ SCH ×2 (08:22→20:38)
[2022-12-21] MEDS: ENOXAPARIN INJ 40 MG/0.4 ML SYR SQ SCH (08:22)
[2022-12-21] MEDS: POTASSIUM CHLORIDE CRTAB 20 MEQ TABCR PO SCH ×2 (09:05→20:39)
[2022-12-21] MEDS: UMECLIDINIUM BROMIDE 62.5MCG/BLISTER 7 PUFFS/INHALER INH SCH (09:06)
[2022-12-21] MEDS: ATORVASTATIN 20 MG TAB PO SCH (09:07)
[2022-12-21] MEDS: CITALOPRAM 20 MG TAB PO SCH (09:07)
[2022-12-21] MEDS: FUROSEMIDE 40 MG/4 ML VIAL IV SCH ×2 (09:11→20:35)
[2022-12-21] MEDS: METOPROLOL TARTRATE 25 MG TAB PO SCH (10:30)
--- NOTE | 2022-12-21 14:50 | Hospitalist Progress Note ---
Date of Service December 21, 2022 Assessment & Plan (1) Diastolic heart failure: Plan: This appears to be acute on chronic. Continue parenteral Lasix diuresis. Monitor intake and output. Serial chest x-ray. She recently had a cardiac echo in October of this year which will not be repeated (2) Acute and chronic respiratory failure ([id number]): Plan: Chronic CO2 retention noted. Keep saturation in the 90 to 92% range to prevent further CO2 retention. Wean oxygen down to previous requirements as tolerated (3) Morbid obesity: Plan: BMI greater than 40. Significant weight loss recommended (4) Diabetes mellitus, type 2: Plan: ADA diet. Continue current medical management. Sliding scale coverage as needed (5) COPD (chronic obstructive pulmonary disease): Plan: Acute exacerbation from CHF. Continue diuresis. Nebulizer treatments as needed (6) Urinary tract infection: Plan: Klebsiella isolated. Pansensitive. Continue Rocephin, day 3. Plan To be determined. She probably will want to go home however. Probably early next week Admission and Anticipated Discharge Date Admission Date: December 19, 2022 Subjective Alert and oriented. No new problems. Klebsiella isolated in the urine which is pansensitive. Continue Rocephin therapy. Excellent urine output with intravenous Lasix. Metoprolol added for heart rate and blood pressure control. Amlodipine and spironolactone were discontinued earlier this admission. Recent transthoracic echo revealed normal ejection fraction. She is not complaining much of her tooth ache today. Review of Systems Review of Systems: Constitutional-no fever or chills ENT-no blurred vision, no double vision, no epistaxis, no sore throat Respiratory-no cough, no wheezing. No hemoptysis. She does have dyspnea on exertion Cardiac-no palpitations, no chest pain, no syncope GI-no nausea, vomiting, diarrhea, melena, hematochezia -no urinary retention, no urinary incontinence, no dysuria, no hematuria Musculoskeletal-no joint pain, no muscle tenderness Skin-no bruising, no rashes, no pruritus Neuro-no isolated weakness, no paresthesia Psych-no depression, no anxiety Physical Exam Physical Exam: General-alert and oriented x3, no fevers, no chills. Morbidly obese HEENT-head atraumatic and normocephalic, pupils equal and reactive to light, extraocular muscles intact Neck-no lymphadenopathy or thyromegaly, trachea midline Chest-diminished breath sounds bilaterally. No wheezing or rhonchi Cardiac-regular rate and rhythm, normal S1 and S2 Abdomen-normal bowel sounds, nontender, no hepatosplenomegaly Extremities-chronic appearing 2+ peripheral edema in both legs Neuro-cranial nerves II through XII intact, motor and sensory function within normal limits, strength symmetrical , no focal deficits Psych-normal affect, normal mood Results & Data Results & Data Vital Signs (Past 12 Hours) Vital Signs Temp Pulse Pulse Resp BP Pulse Ox O2 Del Method 12/21/22 14:05 77 12/21/22 12:14 36.9 C 88 18 116/72 95 Nasal Cannula 12/21/22 07:50 Room Air 12/21/22 09:34 98 H 20 146/69 H 93 Nasal Cannula 12/21/22 09:32 94 Nasal Cannula 12/21/22 08:31 36.9 C 95 H 18 144/76 H 96 Nasal Cannula 12/21/22 05:49 94 H 12/21/22 07:02 78 18 94 Nasal Cannula 12/21/22 03:15 37.1 C 95 H 18 146/69 H 94 Nasal Cannula O2 Flow Rate 12/21/22 14:05 12/21/22 12:14 3 12/21/22 07:50 4 12/21/22 09:34 3 12/21/22 09:32 4 12/21/22 08:31 4 12/21/22 05:49 12/21/22 07:02 4 12/21/22 03:15 2 Laboratory Results 12/20/22 05:57 12/21/22 07:20 PG Care Time/CCT Total # of Minutes Spent Total Time Spent with Patient: Total time spent is greater than 50% in coordination of care (as documented) at patient's floor/unit and/or counseling patient: Coding Level of Care Code 36410 SUB INP/OBS CARE 3/50MIN Diagnoses Diastolic heart failure I50.30 Acute and chronic respiratory failure (rlzpt-lz-[id number]) J96.20 Morbid obesity E66.01 Diabetes mellitus, type 2 E11.9 COPD (chronic obstructive pulmonary disease) J44.9 COPD type: unspecified COPD Urinary tract infection N39.0 Hematuria presence: without hematuria Urinary tract infection type: site unspecified (5) COPD (chronic obstructive pulmonary disease) COPD type: unspecified COPD Qualified Code(s): J44.9 - Chronic obstructive pulmonary disease, unspecified (6) Urinary tract infection Hematuria presence: without hematuria Urinary tract infection type: site unspecified Qualified Code(s): N39.0 - Urinary tract infection, site not specified
[2022-12-21] MEDS: cefTRIAXone SODIUM 2,000 MG in DEXTROSE 5% 50 ML IV SCH (16:27)
[2022-12-21] MEDS: ALPRAZolam 0.25 MG TABLET PO PRN (20:35)
[2022-12-22] MEDS: METOPROLOL TARTRATE 25 MG TAB PO SCH ×3 (00:05→20:17)
[2022-12-22] MEDS: HYDROcodone/ACETAMINOPHEN 10/325 TAB PO PRN ×4 (03:53→23:17)
[2022-12-22] MEDS: BUDESONIDE 0.5 MG/2 ML VIAL (PULMICORT) NEB SCH ×2 (07:18→19:07)
[2022-12-22] MEDS: FORMOTEROL 20 MCG/2 ML VIAL NEB SCH ×2 (07:18→19:08)
[2022-12-22 07:40] LABS: BUN Creatinine Ratio 30.6 (10-20); Blood Urea Nitrogen 22 mg/dl (6-23); Calcium 9.1 mg/dl (8.6-10.3); Carbon Dioxide > 45 mmol/L (21-32); Chloride 93 mmol/L (98-107); Creatinine Clr Calc Pharmacy 84.9 ml/min; Est GFR (African American) 94.3 ml/min; Est GFR (Non-African American) 81.3 ml/min; Glucose 212 mg/dl (70-99(Fasting)); Potassium 4.4 mmol/L (3.5-5.1); Sodium 142 mmol/L (136-145)
[2022-12-22] MEDS: INSULIN ASPART PER UNIT CHARGE SC SCH ×4 (08:20→20:27)
[2022-12-22] MEDS: LANTUS PER UNIT CHARGE SQ SCH ×2 (08:21→20:27)
[2022-12-22] MEDS: ACETAMINOPHEN 325 MG TAB PO PRN ×2 (08:23→14:51)
[2022-12-22] MEDS: UMECLIDINIUM BROMIDE 62.5MCG/BLISTER 7 PUFFS/INHALER INH SCH (08:53)
[2022-12-22] MEDS: POTASSIUM CHLORIDE CRTAB 20 MEQ TABCR PO SCH (08:54)
[2022-12-22] MEDS: ENOXAPARIN INJ 40 MG/0.4 ML SYR SQ SCH (08:54)
[2022-12-22] MEDS: ATORVASTATIN 20 MG TAB PO SCH (08:55)
[2022-12-22] MEDS: CITALOPRAM 20 MG TAB PO SCH (08:55)
[2022-12-22] MEDS: FUROSEMIDE 40 MG/4 ML VIAL IV SCH ×2 (08:55→20:16)
--- NOTE | 2022-12-22 14:29 | Hospitalist Progress Note ---
Date of Service December 22, 2022 Assessment & Plan (1) Diastolic heart failure: Plan: This appears to be acute on chronic. Continue parenteral Lasix diuresis while hospitalized. Monitor intake and output. Serial chest x-ray. She recently had a cardiac echo in October of this year which will not be repeated. Improving (2) Acute and chronic respiratory failure ([id number]-[id number]): Plan: Chronic CO2 retention noted. Keep saturation in the 90 to 92% range to prevent further CO2 retention. Wean oxygen down to previous requirements as tolerated (3) Morbid obesity: Plan: BMI greater than 40. Significant weight loss recommended (4) Diabetes mellitus, type 2: Plan: ADA diet. Continue current medical management. Sliding scale coverage as needed (5) COPD (chronic obstructive pulmonary disease): Plan: Acute exacerbation from CHF. Continue diuresis. Nebulizer treatments as needed (6) Urinary tract infection: Plan: Klebsiella isolated. Pansensitive. Continue Rocephin, day 4. Plan Anticipate discharge to home with home health services tomorrow, December 23 Admission and Anticipated Discharge Date Admission Date: December 19, 2022 Subjective Alert and oriented. No new problems. Potassium supplementation down titrated today, December 22. Potassium level has risen to 4.4. Currently day 4 of Rocephin for uncomplicated UTI. She will complete her antibiotic therapy tomorrow, December 23. Anticipate discharge to home with home health services tomorrow, December 23 Review of Systems Review of Systems: Constitutional-no fever or chills ENT-no blurred vision, no double vision, no epistaxis, no sore throat Respiratory-no cough, no wheezing. No hemoptysis. She does have dyspnea on exertion Cardiac-no palpitations, no chest pain, no syncope GI-no nausea, vomiting, diarrhea, melena, hematochezia -no urinary retention, no urinary incontinence, no dysuria, no hematuria Musculoskeletal-no joint pain, no muscle tenderness Skin-no bruising, no rashes, no pruritus Neuro-no isolated weakness, no paresthesia Psych-no depression, no anxiety Physical Exam Physical Exam: General-alert and oriented x3, no fevers, no chills. Morbidly obese HEENT-head atraumatic and normocephalic, pupils equal and reactive to light, extraocular muscles intact Neck-no lymphadenopathy or thyromegaly, trachea midline Chest-diminished breath sounds bilaterally. No wheezing or rhonchi Cardiac-regular rate and rhythm, normal S1 and S2 Abdomen-normal bowel sounds, nontender, no hepatosplenomegaly Extremities-chronic appearing 2+ peripheral edema in both legs Neuro-cranial nerves II through XII intact, motor and sensory function within normal limits, strength symmetrical , no focal deficits Psych-normal affect, normal mood Results & Data Results & Data Vital Signs (Past 12 Hours) Vital Signs Temp Pulse Pulse Resp BP Pulse Ox O2 Del Method 12/22/22 12:02 36.7 C 77 22 112/72 90 Room Air, Nasal Cannula 12/22/22 07:15 Nasal Cannula 12/22/22 09:33 90 Nasal Cannula 12/22/22 07:48 36.5 C 91 H 18 118/72 95 Nasal Cannula 12/22/22 07:18 91 H 18 91 Nasal Cannula 12/22/22 05:44 83 12/22/22 03:58 36.6 C 93 H 18 128/75 98 CPAP O2 Flow Rate 12/22/22 12:02 2 12/22/22 07:15 2 12/22/22 09:33 2 12/22/22 07:48 2 12/22/22 07:18 2 12/22/22 05:44 12/22/22 03:58 2 Laboratory Results 12/20/22 05:57 12/22/22 06:57 PG Care Time/CCT Total # of Minutes Spent Total Time Spent with Patient: Total time spent is greater than 50% in coordination of care (as documented) at patient's floor/unit and/or counseling patient: Coding Level of Care Code 29704 SUB INP/OBS CARE 3/50MIN Diagnoses Diastolic heart failure I50.30 Acute and chronic respiratory failure (zykkc-[id number]) J96.20 Morbid obesity E66.01 Diabetes mellitus, type 2 E11.9 COPD (chronic obstructive pulmonary disease) J44.9 COPD type: unspecified COPD Urinary tract infection N39.0 Hematuria presence: without hematuria Urinary tract infection type: site unspecified (5) COPD (chronic obstructive pulmonary disease) COPD type: unspecified COPD Qualified Code(s): J44.9 - Chronic obstructive pulmonary disease, unspecified (6) Urinary tract infection Hematuria presence: without hematuria Urinary tract infection type: site unspecified Qualified Code(s): N39.0 - Urinary tract infection, site not specified
[2022-12-22] MEDS: cefTRIAXone SODIUM 2,000 MG in DEXTROSE 5% 50 ML IV SCH (15:00)
[2022-12-22] MEDS: POTASSIUM CHLORIDE 10 MEQ TABCR PO SCH (20:17)
[2022-12-22] MEDS: ALPRAZolam 0.25 MG TABLET PO PRN (21:38)
[2022-12-23] MEDS: HYDROcodone/ACETAMINOPHEN 10/325 TAB PO PRN ×2 (05:33→13:10)
[2022-12-23 07:03] LABS: Calcium 8.9 mg/dl (8.6-10.3); Creatinine Clr Calc Pharmacy 86.1 ml/min; Est GFR (African American) 95.9 ml/min; Est GFR (Non-African American) 82.7 ml/min; Potassium 3.9 mmol/L (3.5-5.1)
[2022-12-23] MEDS: FORMOTEROL 20 MCG/2 ML VIAL NEB SCH (07:11)
[2022-12-23] MEDS: BUDESONIDE 0.5 MG/2 ML VIAL (PULMICORT) NEB SCH (07:11)
[2022-12-23] MEDS: ENOXAPARIN INJ 40 MG/0.4 ML SYR SQ SCH (08:44)
[2022-12-23] MEDS: INSULIN ASPART PER UNIT CHARGE SC SCH ×2 (08:44→12:36)
[2022-12-23] MEDS: LANTUS PER UNIT CHARGE SQ SCH (08:44)
[2022-12-23] MEDS: UMECLIDINIUM BROMIDE 62.5MCG/BLISTER 7 PUFFS/INHALER INH SCH (08:47)
[2022-12-23] MEDS: CITALOPRAM 20 MG TAB PO SCH (08:50)
[2022-12-23] MEDS: POTASSIUM CHLORIDE 10 MEQ TABCR PO SCH (08:50)
[2022-12-23] MEDS: METOPROLOL TARTRATE 25 MG TAB PO SCH (08:50)
[2022-12-23] MEDS: ATORVASTATIN 20 MG TAB PO SCH (08:50)
[2022-12-23] MEDS: cephALEXin 250 MG CAP PO SCH ×2 (09:51→12:37)
--- NOTE | 2022-12-23 11:53 | Discharge Summary ---
Date of Service December 23, 2022 Admission HPI Per Admitting Provider 77yo female with a history of COPD, T2DM, HFpEF, HTN, HLD, chronic abdominal pain, recurrent UTI, and MDD presents with multiple complaints including worsening AMS and SOB, found to be hypoxic en route to the hospital as well as on admission. - patient was admitted at [facility] in October, was treated for pneumonia and recurrent UTI - pneumonia was successfully treated, but UTI symptoms (burning with urination, no urgency/frequency) have persisted - today, patient and family report a one-week history of worsening confusion, SOB, chills, and diarrhea - patient has COPD and CHRISTIANO but is regimen nonadherent (recently discontinued all inhalers because she thought she caught pneumonia from her inhalers; also is completely nonadherent with CHRISTIANO treatment, reporting inability to tolerate BiPAP or her trilogy ventilator) - patient was found by family earlier today to be very confused with spO2 as low as the 70s, was dozing off in the car on the way here -patient and patient's son report they have been receiving home hospice care, but are still interested in relatively aggressive treatment of infections and/or underlying disease processes (though I did confirm patient is DNR/DNI) Patient denies fever, vision changes, CP, palpitations, vomiting, hematochezia, melena, lightheadedness, dizziness, numbness, tingling, or other symptoms. Upon arrival, vitals were notable for soft BPs (90s/50s), borderline tachycardia (101), tachypnea (26), and hypoxia (88 which improved to the 90s on HFNC). Patient is afebrile. Initial labs were notable for mild anemia (10.4), elevated HCO3 (>45), alkalemia (pH 7.43) and elevated pCO2 (87) on VBG, and an infected UA; no leukocytosis, platelets wnl, no additional electrolyte abnormalities, creatinine not elevated, LFTs wnl, Tbili not elevated, covid PCR negative. In the ED, patient was given a dose of ceftriaxone and a dose of vicodin. EKG: NSR with PVCs, no overt ischemic change. CXR: cardiomegaly without overt pulmonary edema; small pleural effusions with mild bibasilar opacities suggestive of atelectasis Surrogate decision-maker in case of an emergency: stephon Paz ) Principal Diagnosis Acute on chronic diastolic CHF, Klebsiella UTI, acute on chronic hypercarbic/hypoxic respiratory failure Discharge Exam General-alert and oriented x3, no fevers, no chills. Morbidly obese HEENT-head atraumatic and normocephalic, pupils equal and reactive to light, extraocular muscles intact Neck-no lymphadenopathy or thyromegaly, trachea midline Chest-diminished breath sounds bilaterally. No wheezing or rhonchi Cardiac-regular rate and rhythm, normal S1 and S2 Abdomen-normal bowel sounds, nontender, no hepatosplenomegaly Extremities-chronic appearing 2+ peripheral edema in both legs Neuro-cranial nerves II through XII intact, motor and sensory function within normal limits, strength symmetrical , no focal deficits Psych-normal affect, normal mood Discharge Data Allergies Allergy/AdvReac Type Severity Reaction Status Date / Time empagliflozin AdvReac Intermediate RECURRENT Verified 12/19/22 15:46 [From Jardiance] UTI'S metformin AdvReac Intermediate Gastrointestinal Verified 12/19/22 15:46 Upset oxycodone AdvReac Intermediate HALLUCINATI Verified 12/19/22 15:48 ONS Consultations 12/19/22 16:26 ED Decision to Admit Stat Hospital Course (1) Diastolic heart failure: This appears to be acute on chronic. Treated while hospitalized with parenteral Lasix diuresis. Monitor intake and output. Serial chest x-ray. She recently had a cardiac echo in October of this year which will not be repeated. Improving (2) Acute and chronic respiratory failure ([id number]-[id number]): Chronic CO2 retention noted. Keep saturation in the 90 to 92% range to prevent further CO2 retention. Wean oxygen down to previous requirements as tolerated (3) Morbid obesity: BMI greater than 40. Significant weight loss recommended (4) Diabetes mellitus, type 2: ADA diet. Continue current medical management. Sliding scale coverage as needed (5) COPD (chronic obstructive pulmonary disease): Acute exacerbation from CHF. Continue diuresis. Nebulizer treatments as needed (6) Urinary tract infection: Klebsiella isolated. Pansensitive. Treated while hospitalized with intravenous Rocephin. Home on oral Keflex Plan Home with hospice services as before, today, December 23 Total Time Total Time Spent Total Time Spent (In Minutes): 40 minutes Discharge Plan Discharge Items Patient Disposition: Hospice - Home Reason For Visit: OXYGEN IN 70S Discharge Diagnosis: Acute on chronic diastolic CHF, acute on chronic hypercarbic/hypoxic respiratory failure, Klebsiella UTI Activity: Resume your previous activity Non-emergency contact: Primary Care Provider Call non-emergency contact if: you have any medication questions and your symptoms worsen Follow-up/Referrals: Kings Nichols MD [Primary Care Provider] - Diet: Carb Consistent or DM2 and Heart Healthy Addtl Attending Provider Instructions: Take Keflex (cephalexin) for 3 more days. Amlodipine and spironolactone have been discontinued. Metoprolol is new. Take Lasix (furosemide) once daily after lunch. The Lasix dose is 80 mg. Keep oxygen saturation in the 90 to 92% range, no higher Pending Studies at Discharge: No Stand-Alone Forms: My [facility] [employer] Medications and DC Order Prescriptions: New cephalexin 250 mg Capsule 250 mg PO QID Qty: 12 0RF furosemide 80 mg Tablet 80 mg PO DAILY Qty: 30 0RF potassium chloride 10 mEq Tablet,Er Particles/Crystals 10 meq PO BID Qty: 60 0RF metoprolol tartrate 25 mg Tablet 25 mg PO BID Qty: 60 0RF Continued fluticasone propion-salmeterol [Advair Diskus] 250-50 mcg/dose blister with device 1 inh INHALATION BID atorvastatin 20 mg tablet 20 mg PO DAILY alprazolam 0.25 mg tablet 0.25 mg PO DAILY PRN (Reason: Anxiety) citalopram 20 mg tablet 20 mg PO DAILY albuterol sulfate 90 mcg/actuation Hfa Aerosol Inhaler 2 puff INHALATION Q4H PRN (Reason: Wheezing) insulin lispro protamin-lispro [Humalog Mix 75-25 KwikPen] 100 unit/mL (75-25) insulin pen See Rx Instructions .ROUTE .COMPLEX Rx Instructions: TAKES 70 UNITS QAM, THEN 60 UNITS QPM. menthol-zinc oxide [Calmoseptine] 0.44-20.6 % Ointment 1 applic TOPICAL TID PRN (Reason: Skin Irritation) cyanocobalamin (vitamin B-12) 500 mcg Tablet 500 mcg PO QAM Qty: 0 0RF Incruse Ellipta 62.5 mcg/actuation Blister With Device 1 inh INHALATION DAILY Qty: 30 0RF hydrocodone-acetaminophen 10-325 mg tablet 1 tab PO DIRECTED PRN (Reason: Pain) Discontinued furosemide 40 mg tablet 80 mg PO QAM amlodipine 5 mg Tablet 5 mg PO DAILY spironolactone 25 mg Tablet 25 mg PO QAM Qty: 0 0RF Discharge Orders: Discharge Order- CHF (Routine); Ordered 12/23/22 Ordered By: Garret Smith Admission Data Admit Date/Time: 12/19/22 18:11 Attending Provider: Garret Smith Admit Provider: Az Villanueva Primary Care Provider: Kings Nichosl Other Providers: Abdirahman Villareal Coding Level of Care Code 36081 INP/OBS DISCH >30 MIN Diagnoses Diastolic heart failure I50.30 Acute and chronic respiratory failure (vreli-po-zdutfqo) J96.20 Morbid obesity E66.01 Diabetes mellitus, type 2 E11.9 COPD (chronic obstructive pulmonary disease) J44.9 COPD type: unspecified COPD Urinary tract infection N39.0 Hematuria presence: without hematuria Urinary tract infection type: site unspecified
[2022-12-24] MEDS ORDERED: FUROSEMIDE 80 MG TAB PO SCH (09:00)
--- NOTE | 2023-01-03 15:04 | Billing Data ---
Date of Service December 19, 2022 Coding Level of Care Code 98729 INT INP/OBS CARE
== END 2022-12-23 13:25 | disposition hospice, home (50) | DRG 291 ==
LOC: ED 12:51 → 2N 18:11 → SUATTDRO 18:11 → 2N 20:06

== ENCOUNTER 2023-03-04 08:47 | Inpatient (IN) ==
--- NOTE | 2023-03-04 09:05 | Emergency Department Note ---
Impression & Plan Sepsis, AMS (altered mental status), Acute respiratory failure with hypoxia and hypercarbia, Elevated procalcitonin, Acute exacerbation of CHF (congestive heart failure), Non-ST elevation PR (NSTEMI), Acute hyperkalemia ED Provider Note HISTORY OF PRESENT ILLNESS: Patient is a 77-year-old female presenting with altered mental status. History was obtained via and EMS. Patient was just admitted to [facility] beds at the [facility] over the last week for urosepsis. reports that she was discharged 2 to 3 days ago, but he is unsure with the timing. States that since last night the patient has been very confused and not making sense. Reports that she has missed multiple doses of her Lasix secondary to "being dehydrated." On assessment, the patient just continues to report "help me." ROS: as above PHYSICAL EXAM: Constitutional: Patient appears in no acute distress. Morbidly obese HENT: Head: Normocephalic and atraumatic. Eyes: EOMI, PERRL Mouth/Throat: Mucous membranes moist. Neck: Trachea midline. Neck supple. Cardiovascular: Tachycardic with regular rhythm. No murmurs, rubs or gallops. Intact distal pulses. Pulmonary/Chest: Patient hypoxic to 50% on room air. She was placed on her baseline 4 L nasal cannula with only slight improvement of saturations to 80%. She is was transition to a non-rebreather mask Abdominal: Abdomen soft, no tenderness, rebound or guarding. Musculoskeletal: No edema, tenderness or deformity noted. Skin: Warm and dry. No rash, erythema, pallor or cyanosis Psychiatric: Appropriate mood and affect for situation. Neurological: Alert and keenly responsive. CN II-XII grossly intact MDM: - Vitals signs showed hypoxia and tachypnea. - History obtained via EMS and , given patient's confusion. Patient presents with altered mental status. Patient reportedly has been very confused since last night. She was just discharged from Counts include 234 beds at the [facility] for urosepsis. Not been taking her Lasix at home secondary to "being dehydrated." No reported fevers at home. - Chronic conditions affecting care: COPD; DM-2; HTN; morbid obesity - Differential diagnoses include, but are not limited to: pneumonia; UTI; bacteremia; viral syndrome; CHF exacerbation; ACS - Order placed for continuous cardiac monitoring. At this time, monitor showed rate of 100 bpm with normal sinus rhythm, per my interpretation. - External medical records reviewed. Discharge summary from [facility] include 234 beds at the [facility] was reviewed. Patient was admitted for sepsis secondary to urinary tract infection. She was noted to be bacteremic with E. coli. She had positive blood cultures on 02/27/2023, but subsequent cultures were negative. She was discharged with cefdinir 300 mg twice daily for the following 10 days - EKG reviewed by myself showed normal sinus rhythm. Rate tachycardic at 104 bpm. QTc 399. No acute ischemic changes - Laboratory workup interpreted by myself showed normal WBC; elevated BNP (646); hyperkalemia (K 5.7); hyperglycemia (glucose 339); elevated troponin (40.3); hypermagnesemia (Mg 2.8); elevated procalcitonin (0.76) - VBG showed respiratory acidosis (pH 7.19; pCO2 113) - Patient transitioned to BiPAP. - Given 40 mg IV lasix. Given 5 units IV insulin for hyperkalemia and hype rglycemia. - Started on IV vancomycin and rocephin for antibiotic coverage. - Further fluids were not administered per sepsis protocol given heart failure status. - CXR showed pulmonary edema, per my interpretation. Radiology notes airspace opacities in bilateral lower lungs - COVID/flu/RSV negative - Discussion was had with renal social worker about patient's case and need for admission - Hospitalist consulted for admission - Patient admitted to [facility] service for further evaluation and management. I provided 48 minutes of critical care time to this patient's care outside of billable procedures. 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" Right ankle swelling SOB (shortness of breath) Weakness Surgical History H/O ventral hernia repair Social History Smoking Status: Former smoker Tobacco Type: Cigarettes Cigarettes Per Day: 20; Second Hand Exposure: No; Do You Dip or Chew Tobacco: No; Hx Alcohol Use: Yes Alcohol type: hard liquor Hx Substance Use: No Preferred Language: Arabic Communication Ability: Effective Footwear Sales Associate Required: No Beliefs That Will Affect Care: None Current Living Situation: Spouse Feels Safe at Home: Yes Assistive Devices: Oxygen - Continuous, Scooter/Electric Scooter and Wheelchair Allergies Allergies Allergy/AdvReac Type Severity Reaction Status Date / Time empagliflozin AdvReac Intermediate RECURRENT Verified 12/19/22 15:46 [From Jardiance] UTI'S metformin AdvReac Intermediate Gastrointestinal Verified 12/19/22 15:46 Upset oxycodone AdvReac Intermediate HALLUCINATI Verified 12/19/22 15:48 ONS Home Meds Home Medications Medication Instructions Recorded Confirmed albuterol sulfate 90 mcg/actuation 2 puff inhalation Q4H PRN Wheezing 10/29/22 12/19/22 aerosol inhaler alprazolam 0.25 mg tablet 0.25 mg PO DAILY PRN Anxiety 10/29/22 12/19/22 atorvastatin 20 mg tablet 20 mg PO DAILY 10/29/22 12/19/22 citalopram 20 mg tablet 20 mg PO DAILY 10/29/22 12/19/22 fluticasone 250 mcg-salmeterol 50 1 inh inhalation BID 10/29/22 12/19/22 mcg/dose blistr powdr for inhalation (Advair Diskus) insulin lispro protamine-lispro See Rx Instructions .Route .COMPLEX 10/29/22 12/19/22 100 unit/mL (75-25) subcutaneous pen (Humalog Mix 75-25 KwikPen) menthol 0.44 %-zinc oxide 20.6 % 1 applic topical TID PRN Skin 10/29/22 12/19/22 topical ointment (Calmoseptine) Irritation hydrocodone 10 mg-acetaminophen 1 tab PO DIRECTED PRN Pain 12/19/22 12/19/22 325 mg tablet Previous Rx's Medication Instructions Recorded cyanocobalamin (vitamin B-12) 500 500 mcg PO QAM #0 tabs 11/01/22 mcg tablet umeclidinium 62.5 mcg/actuation 1 inh inhalation DAILY #30 ea 11/01/22 blister powder for inhalation (Incruse Ellipta) cephalexin 250 mg capsule 250 mg PO QID #12 caps 12/23/22 furosemide 80 mg tablet 80 mg PO DAILY #30 tabs 12/23/22 metoprolol tartrate 25 mg tablet 25 mg PO BID #60 tabs 12/23/22 potassium chloride 10 mEq 10 meq PO BID #60 tabs 12/23/22 tablet,extended release(part/cryst) Results & Data (ED) Vital Signs Vital Signs - 24 hr 03/04/23 09:02 03/04/23 08:45 03/04/23 08:58 Temperature 36.5 C Temperature Source Oral Pulse Rate 102 H 101 H Pulse Rate from SpO2 Sensor Pulse Rhythm [Apical] Pulse Strength [Apical] Respiratory Rate 25 H Respiratory Effort / Characteristics Spontaneous Labored Respiratory Depth Shallow Respiratory Pattern Tachypnea Blood Pressure 157/103 H Blood Pressure Mean 121 Blood Pressure Position Lying Blood Pressure Position [Right Arm] Pulse Oximetry 91 92 Oxygen Delivery Method Nasal Cannula Nasal Cannula Oxygen Flow Rate 4 6 Fraction of Inspired Oxygen Sepsis Recent Fever Within 48 Hours No Sepsis New/Unexplained Change in Mental Status Yes Sepsis Action Taken by Nursing Physician Notified Oxygen Flow Rate - Titration Pulse Oximetry Post Tiitration 03/04/23 09:41 03/04/23 09:01 03/04/23 09:01 Temperature Temperature Source Pulse Rate 102 H Pulse Rate from SpO2 Sensor 106 H Pulse Rhythm [Apical] Pulse Strength [Apical] Respiratory Rate 23 Respiratory Effort / Characteristics Respiratory Depth Respiratory Pattern Blood Pressure 157/103 H Blood Pressure Mean 111 Blood Pressure Position Blood Pressure Position [Right Arm] Pulse Oximetry 87 L 86 L Oxygen Delivery Method Nasal Cannula Oxymask Nasal Cannula Oxygen Flow Rate 5 5 Fraction of Inspired Oxygen Sepsis Recent Fever Within 48 Hours Sepsis New/Unexplained Change in Mental Status Sepsis Action Taken by Nursing Oxygen Flow Rate - Titration 10 Pulse Oximetry Post Tiitration 96 03/04/23 09:03 03/04/23 09:30 03/04/23 09:30 Temperature Temperature Source Pulse Rate 101 H 95 H Pulse Rate from SpO2 Sensor 100 H 95 H Pulse Rhythm [Apical] Pulse Strength [Apical] Respiratory Rate 18 29 H Respiratory Effort / Characteristics Respiratory Depth Respiratory Pattern Blood Pressure 144/83 H Blood Pressure Mean 89 Blood Pressure Position Blood Pressure Position [Right Arm] Pulse Oximetry 90 97 Oxygen Delivery Method Oxymask Oxymask Oxygen Flow Rate Fraction of Inspired Oxygen Sepsis Recent Fever Within 48 Hours Sepsis New/Unexplained Change in Mental Status Sepsis Action Taken by Nursing Oxygen Flow Rate - Titration Pulse Oximetry Post Tiitration 03/04/23 09:43 03/04/23 11:24 03/04/23 11:10 Temperature Temperature Source Pulse Rate 96 H 97 H Pulse Rate from SpO2 Sensor 95 H Pulse Rhythm [Apical] Regular Pulse Strength [Apical] Normal Respiratory Rate 31 H 27 H Respiratory Effort / Characteristics Spontaneous Labored Respiratory Depth Normal Respiratory Pattern Regular Blood Pressure Blood Pressure Mean Blood Pressure Position Blood Pressure Position [Right Arm] Lying Pulse Oximetry 99 91 Oxygen Delivery Method Oxymask Oxygen Flow Rate Fraction of Inspired Oxygen 50 Sepsis Recent Fever Within 48 Hours Sepsis New/Unexplained Change in Mental Status Sepsis Action Taken by Nursing Oxygen Flow Rate - Titration Pulse Oximetry Post Tiitration 03/04/23 11:10 03/04/23 11:20 Temperature Temperature Source Pulse Rate 101 H 102 H Pulse Rate from SpO2 Sensor 101 H 99 H Pulse Rhythm [Apical] Pulse Strength [Apical] Respiratory Rate 17 30 H Respiratory Effort / Characteristics Respiratory Depth Respiratory Pattern Blood Pressure 151/97 H Blood Pressure Mean 115 Blood Pressure Position Blood Pressure Position [Right Arm] Pulse Oximetry 99 93 Oxygen Delivery Method Oxymask Oxymask Oxygen Flow Rate 8 6 Fraction of Inspired Oxygen Sepsis Recent Fever Within 48 Hours Sepsis New/Unexplained Change in Mental Status Sepsis Action Taken by Nursing Oxygen Flow Rate - Titration Pulse Oximetry Post Tiitration Laboratory Data 03/04/23 10:29 03/04/23 09:53 Lab Results 03/04/23 03/04/23 03/04/23 Range/Units 09:03 09:53 09:53 WBC (4.8-10.8) K/ul RBC (4.20-5.40) M/uL Hgb (12.0-16.0) g/dl Hct (37.0-47.0) % MCV (80.0-100.0) fL MCH (25.0-34.0) pg MCHC (32.0-36.0) g/dL RDW Std Deviation (36.4-46.3) fL RDW Coeff of Dalton (11.5-14.5) % Plt Count (130-400) K/uL MPV (9.4-12.4) fL Immature Gran % (Auto) % Neut % (Auto) % Lymph % (Auto) % Sherman % (Auto) % Eos % (Auto) % Baso % (Auto) % Neut # (Auto) (1.40-6.50) K/uL Lymph # (Auto) (1.20-3.40) K/uL Sherman # (Auto) (0.11-0.59) K/uL Eos # (Auto) (0.00-0.50) K/uL Baso # (Auto) (0.00-0.20) K/uL Immature Gran # (Auto) (0.01-0.20) K/uL VBG pH (7.36-7.41) VBG pCO2 (38-50) mmHg VBG pO2 mmHg VBG HCO3 mmol/L VBG O2 Saturation % VBG Base Excess mEq/L Sodium 138 (136-145) mmol/L Potassium 5.7 H (3.5-5.1) mmol/L Chloride 95 L (98-107) mmol/L Carbon Dioxide 36 H (21-32) mmol/L Anion Gap 7 (3-11) BUN 32 H (6-23) mg/dl Creatinine 0.71 (0.6-1.2) mg/dl Est Cr Clr Drug Dosing 88.1 ml/min Est GFR ( Amer) 95.9 ml/min Est GFR (Non-Af Amer) 82.7 ml/min BUN/Creatinine Ratio 45.1 H (10-20) Glucose 339 H* (70-99(Fasting)) mg/dl POC Glucose 334 H* (70-99) mg/dl Lactate 0.8 (0.4-2.0) mmol/L Calcium 9.6 (8.6-10.3) mg/dl Magnesium 2.8 H (1.7-2.4) mg/dl Total Bilirubin 0.3 (0.2-1.0) mg/dl Direct Bilirubin 0.1 (0-0.2) mg/dl AST 17 (13-39) U/L ALT 25 (7-52) U/L Alkaline Phosphatase 87 (34-104) U/L Troponin I High Sens 40.3 H (0-14) pg/ml B-Natriuretic Peptide (0-100) pg/ml Total Protein 7.2 (6.0-8.3) gm/dl Albumin 3.4 (3.4-5.0) gm/dl Procalcitonin (0-0.5) ng/ml SARS-CoV-2 (PCR) (Negative) Influenza Type A (PCR) (Neg) Influenza Type B (PCR) (Neg) RSV (RT-PCR) (Neg) 03/04/23 03/04/23 03/04/23 Range/Units 09:53 10:20 10:29 WBC 7.61 (4.8-10.8) K/ul RBC 3.34 L (4.20-5.40) M/uL Hgb 9.1 L (12.0-16.0) g/dl Hct 30.9 L (37.0-47.0) % MCV 92.5 (80.0-100.0) fL MCH 27.2 (25.0-34.0) pg MCHC 29.4 L (32.0-36.0) g/dL RDW Std Deviation 51.7 H (36.4-46.3) fL RDW Coeff of Dalton 15.3 H (11.5-14.5) % Plt Count 217 (130-400) K/uL MPV 9.7 (9.4-12.4) fL Immature Gran % (Auto) 3.0 % Neut % (Auto) 82.7 % Lymph % (Auto) 6.3 % Sherman % (Auto) 6.6 % Eos % (Auto) 0.9 % Baso % (Auto) 0.5 % Neut # (Auto) 6.29 (1.40-6.50) K/uL Lymph # (Auto) 0.48 L (1.20-3.40) K/uL Sherman # (Auto) 0.50 (0.11-0.59) K/uL Eos # (Auto) 0.07 (0.00-0.50) K/uL Baso # (Auto) 0.04 (0.00-0.20) K/uL Immature Gran # (Auto) 0.23 H (0.01-0.20) K/uL VBG pH (7.36-7.41) VBG pCO2 (38-50) mmHg VBG pO2 mmHg VBG HCO3 mmol/L VBG O2 Saturation % VBG Base Excess mEq/L Sodium (136-145) mmol/L Potassium (3.5-5.1) mmol/L Chloride (98-107) mmol/L Carbon Dioxide (21-32) mmol/L Anion Gap (3-11) BUN (6-23) mg/dl Creatinine (0.6-1.2) mg/dl Est Cr Clr Drug Dosing ml/min Est GFR ( Amer) ml/min Est GFR (Non-Af Amer) ml/min BUN/Creatinine Ratio (10-20) Glucose (70-99(Fasting)) mg/dl POC Glucose (70-99) mg/dl Lactate (0.4-2.0) mmol/L Calcium (8.6-10.3) mg/dl Magnesium (1.7-2.4) mg/dl Total Bilirubin (0.2-1.0) mg/dl Direct Bilirubin (0-0.2) mg/dl AST (13-39) U/L ALT (7-52) U/L Alkaline Phosphatase (34-104) U/L Troponin I High Sens (0-14) pg/ml B-Natriuretic Peptide (0-100) pg/ml Total Protein (6.0-8.3) gm/dl Albumin (3.4-5.0) gm/dl Procalcitonin 0.76 H (0-0.5) ng/ml SARS-CoV-2 (PCR) NEGATIVE (Negative) Influenza Type A (PCR) Negative (Neg) Influenza Type B (PCR) Negative (Neg) RSV (RT-PCR) Negative (Neg) 03/04/23 03/04/23 Range/Units 10:29 10:29 WBC (4.8-10.8) K/ul RBC (4.20-5.40) M/uL Hgb (12.0-16.0) g/dl Hct (37.0-47.0) % MCV (80.0-100.0) fL MCH (25.0-34.0) pg MCHC (32.0-36.0) g/dL RDW Std Deviation (36.4-46.3) fL RDW Coeff of Dalton (11.5-14.5) % Plt Count (130-400) K/uL MPV (9.4-12.4) fL Immature Gran % (Auto) % Neut % (Auto) % Lymph % (Auto) % Sherman % (Auto) % Eos % (Auto) % Baso % (Auto) % Neut # (Auto) (1.40-6.50) K/uL Lymph # (Auto) (1.20-3.40) K/uL Sherman # (Auto) (0.11-0.59) K/uL Eos # (Auto) (0.00-0.50) K/uL Baso # (Auto) (0.00-0.20) K/uL Immature Gran # (Auto) (0.01-0.20) K/uL VBG pH 7.19 L (7.36-7.41) VBG pCO2 113 H (38-50) mmHg VBG pO2 47 mmHg VBG HCO3 43 mmol/L VBG O2 Saturation 77.3 % VBG Base Excess 10.3 mEq/L Sodium (136-145) mmol/L Potassium (3.5-5.1) mmol/L Chloride (98-107) mmol/L Carbon Dioxide (21-32) mmol/L Anion Gap (3-11) BUN (6-23) mg/dl Creatinine (0.6-1.2) mg/dl Est Cr Clr Drug Dosing ml/min Est GFR ( Amer) ml/min Est GFR (Non-Af Amer) ml/min BUN/Creatinine Ratio (10-20) Glucose (70-99(Fasting)) mg/dl POC Glucose (70-99) mg/dl Lactate (0.4-2.0) mmol/L Calcium (8.6-10.3) mg/dl Magnesium (1.7-2.4) mg/dl Total Bilirubin (0.2-1.0) mg/dl Direct Bilirubin (0-0.2) mg/dl AST (13-39) U/L ALT (7-52) U/L Alkaline Phosphatase (34-104) U/L Troponin I High Sens (0-14) pg/ml B-Natriuretic Peptide 646 H (0-100) pg/ml Total Protein (6.0-8.3) gm/dl Albumin (3.4-5.0) gm/dl Procalcitonin (0-0.5) ng/ml SARS-CoV-2 (PCR) (Negative) Influenza Type A (PCR) (Neg) Influenza Type B (PCR) (Neg) RSV (RT-PCR) (Neg) Administered Medications Discontinued Medications Ceftriaxone Sodium (Rocephin) 2,000 mg in 70 mls @ 140 mls/hr IV NOW STA Stop: 03/04/23 10:42 Last Admin: 03/04/23 11:06 Dose: 140 mls/hr Documented By: KMGerman[facility] Imaging Data Radiologist's Impression: Chest X-Ray 03/04/23 09:02 XR chest 1V portable CLINICAL HISTORY: Sepsis TECHNIQUE: Single frontal radiograph of the chest was obtained. Comparison: Comparison is made to chest radiograph 12/19/2022 FINDINGS: No lines and tubes are seen. Cardiomegaly is noted. The aortic arch is calcified. There is prominence and cephalization of the vasculature with Lennox B lines seen. Airspace opacities in the bilateral lower lungs. There are are small bilateral pleural effusions. IMPRESSION: 1. Cardiomegaly and moderate pulmonary edema. 2. Airspace opacities are in the bilateral lower lungs. 3. Small bilateral pleural effusions. ACT 112: Negative or not required by law. Electronically signed by: Ash Dave M.D. 03/04/2023 9:35 AM Discharge Plan Visit Data Chief Complaint: Illness ED Provider: Dorothea Yeung Discharge Problem: Sepsis, AMS (altered mental status), Acute respiratory failure with hypoxia and hypercarbia, Elevated procalcitonin, Acute exacerbation of CHF (congestive heart failure), Non-ST elevation PR (NSTEMI), Acute hyperkalemia Forms Stand Alone Forms: [facility] Prescriptions Prescriptions: No Action fluticasone propion-salmeterol [Advair Diskus] 250-50 mcg/dose blister with device 1 inh INHALATION BID atorvastatin 20 mg tablet 20 mg PO DAILY alprazolam 0.25 mg tablet 0.25 mg PO DAILY PRN (Reason: Anxiety) citalopram 20 mg tablet 20 mg PO DAILY albuterol sulfate 90 mcg/actuation Hfa Aerosol Inhaler 2 puff INHALATION Q4H PRN (Reason: Wheezing) insulin lispro protamin-lispro [Humalog Mix 75-25 KwikPen] 100 unit/mL (75-25) insulin pen See Rx Instructions .ROUTE .COMPLEX Rx Instructions: TAKES 70 UNITS QAM, THEN 60 UNITS QPM. menthol-zinc oxide [Calmoseptine] 0.44-20.6 % Ointment 1 applic TOPICAL TID PRN (Reason: Skin Irritation) cyanocobalamin (vitamin B-12) 500 mcg Tablet 500 mcg PO QAM Qty: 0 0RF Incruse Ellipta 62.5 mcg/actuation Blister With Device 1 inh INHALATION DAILY Qty: 30 0RF hydrocodone-acetaminophen 10-325 mg tablet 1 tab PO DIRECTED PRN (Reason: Pain) cephalexin 250 mg Capsule 250 mg PO QID Qty: 12 0RF furosemide 80 mg Tablet 80 mg PO DAILY Qty: 30 0RF potassium chloride 10 mEq Tablet,Er Particles/Crystals 10 meq PO BID Qty: 60 0RF metoprolol tartrate 25 mg Tablet 25 mg PO BID Qty: 60 0RF Referrals Referrals: Kings Nichols MD [Primary Care Provider] -
--- NOTE | 2023-03-04 09:37 | XRay Report ---
XR chest 1V portable CLINICAL HISTORY: Sepsis TECHNIQUE: Single frontal radiograph of the chest was obtained. Comparison: Comparison is made to chest radiograph 12/19/2022 FINDINGS: No lines and tubes are seen. Cardiomegaly is noted. The aortic arch is calcified. There is prominence and cephalization of the vasculature with Lennox B lines seen. Airspace opacities in the bilateral l ower lungs. There are are small bilateral pleural effusions. IMPRESSION: 1. Cardiomegaly and moderate pulmonary edema. 2. Airspace opacities are in the bilateral lower lungs. 3. Small bilateral pleural effusions. ACT 112: Negative or not required by law. Electronically signed by: Ash Dave M.D. 03/04/2023 9:35 AM
[2023-03-04] MEDS ORDERED: cefTRIAXone SODIUM 2,000 MG/70 ML BAG IV STA (10:13)
[2023-03-04 10:44] LABS: Troponin I High Sensitivity 40.3 pg/ml (0-14)
[2023-03-04 10:45] LABS: Base Excess VBG 10.3 mEq/L; HCO3 VBG 43 mmol/L; Oxygen Saturation VBG 77.3 %; PCO2 VBG 113 mmHg (38-50); PO2 VBG 47 mmHg; pH VBG 7.19 (7.36-7.41)
[2023-03-04] MEDS ORDERED: VANCOMYCIN CONSULT ACTIVE PRN (10:57)
[2023-03-04] MEDS ORDERED: VANCOMYCIN HCL 2,500 MG in SODIUM CHLORIDE 0.9% 500 ML IV ONE (10:57)
[2023-03-04 10:59] LABS: Basophils # (auto) 0.04 K/uL (0.00-0.20); Basophils % (auto) 0.5 %; Eosinophils # (auto) 0.07 K/uL (0.00-0.50); Eosinophils % (auto) 0.9 %; Hematocrit (blood only) 30.9 % (37.0-47.0); Hemoglobin 9.1 g/dl (12.0-16.0); Immature Granulocytes # (auto) 0.23 K/uL (0.01-0.20); Lymphocytes # (auto) 0.48 K/uL (1.20-3.40); Lymphocytes % (auto) 6.3 %; Mean Corpuscular Hemoglobin 27.2 pg (25.0-34.0); Mean Corpuscular Hgb Conc 29.4 g/dL (32.0-36.0); Mean Corpuscular Volume 92.5 fL (80.0-100.0); Mean Platelet Volume 9.7 fL (9.4-12.4); Monocytes % (auto) 6.6 %; Neutrophils # (auto) 6.29 K/uL (1.40-6.50); Neutrophils % (auto) 82.7 %; Platelet Count 217 K/uL (130-400); RDW Coefficient of Variation 15.3 % (11.5-14.5); RDW Standard Deviation 51.7 fL (36.4-46.3); Red Blood Count 3.34 M/uL (4.20-5.40); White Blood Count 7.61 K/ul (4.8-10.8)
[2023-03-04 11:10] LABS: Albumin Level 3.4 gm/dl (3.4-5.0); Bilirubin Direct 0.1 mg/dl (0-0.2); Bilirubin,Total 0.3 mg/dl (0.2-1.0); Calcium 9.6 mg/dl (8.6-10.3); Magnesium 2.8 mg/dl (1.7-2.4); Potassium 5.7 mmol/L (3.5-5.1)
[2023-03-04 11:32] LABS: Influenza A virus by PCR Negative (Neg); Influenza B virus by PCR Negative (Neg); RSV by PCR Negative (Neg); SARS CoV2 RNA(COVID-19) Ceph NEGATIVE (Negative)
[2023-03-04 11:49] LABS: BUN Creatinine Ratio 45.1 (10-20); Creatinine Clr Calc Pharmacy 88.1 ml/min; Est GFR (African American) 95.9 ml/min; Est GFR (Non-African American) 82.7 ml/min; Total Protein 7.2 gm/dl (6.0-8.3)
[2023-03-04] MEDS ORDERED: FUROSEMIDE 40 MG/4 ML VIAL IV ONE (11:53)
[2023-03-04] MEDS ORDERED: NovoLIN-R INSULIN PER UNIT CHARGE IV STA ×2 (11:57→15:25)
--- NOTE | 2023-03-04 13:04 | History & Physical Report ---
Date of Service March 04, 2023 Assessment & Plan (1) Acute on chronic respiratory failure with hypoxia and hypercapnia: Plan: Continuous BiPAP 14/5 (continuous), Aim O2 sats 90% Suspect secondary to obesity hypoventilation, CHRISTIANO, diastolic CHF, possible pneumonia, with non-compliance with Trilogy, benzodiazepine use, pulmonary edema (Lasix held on recent admission and not started by patient after discharge) (2) Acute exacerbation of CHF (congestive heart failure): Plan: Preserved ejection fraction. BNP increased from 43/45 in to 646 today with pulmonary edema on CXR. Lasix 40mg IV BID Aim net negative 1.5L/day Strict I&Os Daily weights [place] catheter placed on admission for accurate I&Os, immobility and acute respiratory failure (3) AMS (altered mental status): Plan: Suspect from CO2 narcosis Lower suspicion of infective etiology, will repeat procalcitonin in 2 days with CXR, will continue on ceftriaxone irregardless for recent E. coli bacteremia (4) Pneumonia: Plan: Possible diagnosis although suspect this is more atelectasis with decreased respiratory effort and pulmonary edema Will continue with ceftriaxone, MRSA nose swab negative Consider broadening antibiotics if patient deteriorating, worsening CXR findings or procalcitonin (5) Acute hyperkalemia: Plan: ?taking potassium supplementation previous on med list. Insulin 5 units IV given in the ER. Suspect will improve with better glucose control with insulin and Lasix use causing excretion. Repeat with AM labs (6) Recurrent UTI: Plan: Continue ceftriaxone from recent hospitalization (last day March 11). Repeat urine and blood cultures here (7) COPD (chronic obstructive pulmonary disease): Plan: Do not suspect acute exacerbation. Switch routine Trelegy Ellipta for Incruse Ellipta + formoterol/budesonide nebs BID (8) Diabetes mellitus, type 2: Plan: Hemoglobin A1C 6.4 in October, will repeat with AM labs Home meds Humalog 75/25 mix 80 units QAM, 60 units QPM Give additional insulin 10 units IV now Consult pharmacy for ongoing glycemic control (9) Obesity hypoventilation syndrome: (10) Obstructive sleep apnea: Plan VTE Prophyalxis - Lovenox 40mg SQ BID Diet - NPO while in acute respiratory distress Disposition - admit to PCU Admission and Anticipated Discharge Date Admission Date: March 04, 2023 History of Present Illness Chief Complaint: Altered mental state Primary Care Provider: Kings Nichols MD Rosa North is a 77 year old female who presents to the ER via ALS due to altered mental state, hypoxia and shortness of breath following recent discharge from [facility] on March 02. Not taken her Lasix since discharge although was noted she should be on 80mg PO daily on discharge summary. This was also held during her admission due to concerns for dehydration. Progressively worsening altered mental state at home since discharge but her also feels they discharged her too early from [place] as she was far from her baseline. He is unclear whether she has started on the cefdinir yet as she does all her own medications. She has not used her Trilogy machine since discharge. She usually is on 4LPM home O2 but was placed on non-rebreather 10LPM to bring her O2 sats from 85% to 96% per EMS. Also administered 400ml NSS en route. She was recently hospitalized at [facility] February 27 - 2022 for E. coli bacteremia sepsis with suspected urinary source resistant to ampicillin. She was treated with IV ceftriaxone in the hospital and switched to cefdinir on discharge. She was given Xanax during that admission although was discontinued on her discharge summary. However she has continued to take Xanax four times a day. She also has [place] for pain relief although unclear if she has been taking this. She also has lorazepam at home and unclear if she was taking this in addition to her Xanax. She no longer takes citalopram for anxiety as she doesn't like how it makes her feel and just takes Xanax 4 times a day currently. Other medications discontinued include amlodipine, atorvastatin, citalopram, potassium, guaifenesin, citalopram, Xanax, Vitamin C, Docusate, Ferrous sulfate, methenamine, zinc sulfate. Allergies Allergy/AdvReac Type Severity Reaction Status Date / Time empagliflozin AdvReac Intermediate RECURRENT Verified 12/19/22 15:46 [From Jardiance] UTI'S metformin AdvReac Intermediate Gastrointestinal Verified 12/19/22 15:46 Upset oxycodone AdvReac Intermediate HALLUCINATI Verified 12/19/22 15:48 ONS Home Medications Medication Instructions Recorded Confirmed Type albuterol sulfate 90 mcg/actuation 2 puff inhalation Q4H PRN Wheezing 10/29/22 03/04/23 History aerosol inhaler insulin lispro protamine-lispro See Rx Instructions .Route .COMPLEX 10/29/22 03/04/23 History 100 unit/mL (75-25) subcutaneous pen (Humalog Mix 75-25 KwikPen) furosemide 80 mg tablet 80 mg PO DAILY #30 tabs 12/23/22 03/04/23 Rx alprazolam 0.25 mg tablet 0.25 mg PO Q6H PRN Anxiety 03/04/23 03/04/23 History cefdinir 300 mg capsule 300 mg PO BID 03/04/23 03/04/23 History fluticasone fur. 100 mcg-umeclid 1 inh inhalation DAILY 03/04/23 03/04/23 History 62.5 mcg-vilant 25 mcg inhalat.powder (Trelegy Ellipta) hydrocodone 10 mg-acetaminophen 1 tab PO Q4H PRN Pain 03/04/23 03/04/23 History 325 mg tablet semaglutide 0.25 mg or 0.5 mg (2 0.25 mg subcut WK 03/04/23 03/04/23 History mg/3 mL) subcutaneous pen injector (Ozempic) Past Med/Surg History Medical History (Updated 03/05/23 @ 07:19 by Abdirahman Villareal MD) Chronic respiratory acidosis COPD (chronic obstructive pulmonary disease) Diabetes mellitus, type 2 Hypertension Hypoxia Morbid obesity Pleural effusion Pneumonia Recurrent 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" Right ankle swelling SOB (shortness of breath) Weakness Surgical History H/O ventral hernia repair Social History Smoking Status: Former smoker Tobacco Type: Cigarettes Cigarettes Per Day: 20; Second Hand Exposure: No; Do You Dip or Chew Tobacco: No; Tobacco Cessation Education Requested by Patient: No Hx Alcohol Use: Yes Alcohol type: hard liquor Hx Substance Use: No Preferred Language: [place]an Communication Ability: Effective Nurse Recruiter Required: No Beliefs That Will Affect Care: None Current Living Situation: Spouse Other Information That Helps Us Care for You: No Feels Safe at Home: Yes Safety Concerns: Feels Safe At This Time Assistive Devices: Glasses, Walker and Wheelchair Review of Systems Review of Systems: Unobtainable due to cognitive status Physical Exam Constitutional: well developed and + acute distress; + not well nourished Eyes: PERRL, conjunctivae normal, anicteric sclerae ENMT: external ear and nose normal, oropharynx normal Neck: trachea midline, no thyromegaly Respiratory: + respiratory distress, + labored breathing, + uses accessory muscles, + tachypneic and + prolonged expiratory phase; + abnormal respiratory effort, + not able to speak in complete sentence, no audible wheezes and no stridor Cardiovascular: Rate/Rhythm: regular rate and + tachycardic Heart Sounds: no murmur Extremities: + pedal edema (1+ pitting b/l equal) Gastrointestinal (Abdomen): normal bowel sounds, soft, nontender, no hepatosplenomegaly Musculoskeletal: no cyanosis or clubbing, extremities motor strength 5/5 Skin: no rashes, warm and dry Psychiatric: Orientation: alert, oriented to person and oriented to place; + not oriented to time Eye Contact: + poor eye contact Results & Data Results & Data Vital Signs (Past 12 Hours) Vital Signs Temp Pulse Resp BP Pulse Ox O2 Del Method O2 Flow Rate 03/04/23 11:20 102 H 30 H 93 Oxymask 6 03/04/23 11:10 101 H 17 151/97 H 99 Oxymask 8 03/04/23 11:24 97 H 27 H 91 03/04/23 09:43 96 H 31 H 99 Oxymask 03/04/23 09:30 144/83 H 03/04/23 09:30 95 H 29 H 97 Oxymask 03/04/23 09:03 101 H 18 90 Oxymask 03/04/23 09:01 102 H 23 86 L Nasal Cannula 5 03/04/23 09:01 157/103 H 03/04/23 09:41 87 L Nasal Cannula, Oxymask 5 03/04/23 08:58 92 Nasal Cannula 6 03/04/23 08:45 36.5 C 101 H 25 H 157/103 H 91 Nasal Cannula 4 03/04/23 09:02 102 H FiO2 03/04/23 11:20 03/04/23 11:10 03/04/23 11:24 50 03/04/23 09:43 03/04/23 09:30 03/04/23 09:30 03/04/23 09:03 03/04/23 09:01 03/04/23 09:01 03/04/23 09:41 03/04/23 08:58 03/04/23 08:45 03/04/23 09:02 Laboratory Results Abnormal lab results 03/04/23 03/04/23 03/04/23 Range/Units 09:03 09:53 09:53 RBC (4.20-5.40) M/uL Hgb (12.0-16.0) g/dl Hct (37.0-47.0) % MCHC (32.0-36.0) g/dL RDW Std Deviation (36.4-46.3) fL RDW Coeff of Dalton (11.5-14.5) % Lymph # (Auto) (1.20-3.40) K/uL Immature Gran # (Auto) (0.01-0.20) K/uL VBG pH (7.36-7.41) VBG pCO2 (38-50) mmHg Potassium 5.7 H (3.5-5.1) mmol/L Chloride 95 L (98-107) mmol/L Carbon Dioxide 36 H (21-32) mmol/L BUN 32 H (6-23) mg/dl BUN/Creatinine Ratio 45.1 H (10-20) Glucose 339 H* (70-99(Fasting)) mg/dl POC Glucose 334 H* (70-99) mg/dl Magnesium 2.8 H (1.7-2.4) mg/dl Troponin I High Sens 40.3 H (0-14) pg/ml B-Natriuretic Peptide (0-100) pg/ml Procalcitonin 0.76 H (0-0.5) ng/ml 03/04/23 03/04/23 03/04/23 Range/Units 10: 10: 10:29 RBC 3.34 L (4.20-5.40) M/uL Hgb 9.1 L (12.0-16.0) g/dl Hct 30.9 L (37.0-47.0) % MCHC 29.4 L (32.0-36.0) g/dL RDW Std Deviation 51.7 H (36.4-46.3) fL RDW Coeff of Dalton 15.3 H (11.5-14.5) % Lymph # (Auto) 0.48 L (1.20-3.40) K/uL Immature Gran # (Auto) 0.23 H (0.01-0.20) K/uL VBG pH 7.19 L (7.36-7.41) VBG pCO2 113 H (38-50) mmHg Potassium (3.5-5.1) mmol/L Chloride (98-107) mmol/L Carbon Dioxide (21-32) mmol/L BUN (6-23) mg/dl BUN/Creatinine Ratio (10-20) Glucose (70-99(Fasting)) mg/dl POC Glucose (70-99) mg/dl Magnesium (1.7-2.4) mg/dl Troponin I High Sens (0-14) pg/ml B-Natriuretic Peptide 646 H (0-100) pg/ml Procalcitonin (0-0.5) ng/ml Diagnostic Findings XR chest 1V portable CLINICAL HISTORY: Sepsis TECHNIQUE: Single frontal radiograph of the chest was obtained. Comparison: Comparison is made to chest radiograph 12/19/2022 FINDINGS: No lines and tubes are seen. Cardiomegaly is noted. The aortic arch is calcified. There is prominence and cephalization of the vasculature with Lennox B lines seen. Airspace opacities in the bilateral lower lungs. There are are small bilateral pleural effusions. IMPRESSION: 1. Cardiomegaly and moderate pulmonary edema. 2. Airspace opacities are in the bilateral lower lungs. 3. Small bilateral pleural effusions. Medications Administered ER Medications Given: Ceftriaxone 2000mg IV Furosemide 40mg IV Insulin 5 units IV Vancomycin 2500mg IV ECG Rate (beats per minute): 104 Rhythm: normal sinus Findings: no acute ischemic change Comparison ECG Date: from (December 19, 2022) Change: the following changes noted (Premature supraventricular complexes are no longer present) Code Status & VTE Plan Code Status DNR/DNI per patient wishes VTE Prophylaxis Plan VTE Prophylaxis will be ordered: Yes PG Care Time/CCT Total # of Minutes Spent Total Time Spent with Patient: Total time spent is greater than 50% in coordination of care (as documented) at patient's floor/unit and/or counseling patient: Coding Level of Care Code 27420 INT INP/OBS CARE 3/75MIN Diagnoses Acute on chronic respiratory failure with hypoxia and hypercapnia J96.21; J96.22 Acute exacerbation of CHF (congestive heart failure) I50.9 AMS (altered mental status) R41.82 Pneumonia J18.9 Acute hyperkalemia E87.5 Recurrent UTI N39.0 COPD (chronic obstructive pulmonary disease) J44.9 COPD type: unspecified COPD Diabetes mellitus, type 2 E11.9 Obesity hypoventilation syndrome E66.2 Obstructive sleep apnea G47.33 (7) COPD (chronic obstructive pulmonary disease) COPD type: unspecified COPD Qualified Code(s): J44.9 - Chronic obstructive pulmonary disease, unspecified
[2023-03-04 13:15] LABS: Appearance Urine Clear (Clear); Bilirubin Urine Negative (Negative); Blood Urine 1+ (Negative); Color Urine Yellow; Glucose Urine UA Negative (Negative); Ketones Urine Negative (Negative); Leukocyte Esterase Urine Negative (Negative); Nitrite Urine Negative (Negative); Protein Urine 1+ (Negative); Specific Gravity Urine 1.015 (1.000-1.030); Urobilinogen Urine Negative (Negative); pH Urine 5.5 (4.5-7.5)
[2023-03-04 13:42] LABS: Bacteria Urine Automated 1+ (Negative)
[2023-03-04 14:59] LABS: Base Excess ABG 10.8 mEq/L (-9-1.8); HCO3 ABG 41 mmol/L (19-24); Oxygen Saturation ABG 98.9 % (90-95); PCO2 ABG 88 mmHg (35-46); PO2 ABG 126 mmHg (80-95); pH ABG 7.28 (7.35-7.45)
[2023-03-04 15:24] LABS: BUN Creatinine Ratio 42.3 (10-20); Calcium 9.3 mg/dl (8.6-10.3); Creatinine Clr Calc Pharmacy 88.1 ml/min; Est GFR (African American) 95.9 ml/min; Est GFR (Non-African American) 82.7 ml/min; Potassium 5.3 mmol/L (3.5-5.1)
[2023-03-04] MEDS ORDERED: PHARMACY GLYCEMIC MGMT CONSULT PRN (15:39)
[2023-03-04 16:07] LABS: Allen Test Pos (Pos)
[2023-03-04 16:10] LABS: Troponin I High Sensitivity 42.5 pg/ml (0-14)
[2023-03-04] MEDS ORDERED: LANTUS PER UNIT CHARGE SC SCH ×2 (16:30)
[2023-03-04] MEDS ORDERED: INSULIN ASPART PER UNIT CHARGE SC SCH (16:30)
[2023-03-04] MEDS: FUROSEMIDE 40 MG/4 ML VIAL IV SCH (17:12)
[2023-03-04] MEDS ORDERED: GLUCOSE 40% GEL 15 GM TUBE PO PRN (18:00)
[2023-03-04] MEDS ORDERED: CARBOHYDRATES FOR HYPOGLYCEMIA PO PRN (18:00)
[2023-03-04] MEDS ORDERED: GLUCAGON FOR INJ 1 MG VIAL IM PRN (18:00)
[2023-03-04] MEDS ORDERED: DEXTROSE 50% 50 ML SYRINGE IV PRN (18:00)
[2023-03-04] MEDS ORDERED: GLUCOSE 10 TAB/TUBE PO PRN (18:00)
[2023-03-04] MEDS ORDERED: FORMOTEROL 20 MCG/2 ML VIAL ONE (18:51)
[2023-03-04] MEDS: FORMOTEROL 20 MCG/2 ML VIAL NEB SCH (19:20)
[2023-03-04] MEDS: BUDESONIDE 0.5 MG/2 ML VIAL (PULMICORT) NEB SCH (19:20)
[2023-03-04] MEDS: clonazePAM 0.5 MG TAB PO SCH (22:05)
[2023-03-04] MEDS: INSULIN ASPART PER UNIT CHARGE SC SCH ×2 (22:18→23:55)
[2023-03-04] MEDS: ENOXAPARIN INJ 40 MG/0.4 ML SYR SQ SCH (22:19)
[2023-03-05] MEDS ORDERED: LORazepam 0.5 MG TAB PO STA (00:11)
[2023-03-05] MEDS ORDERED: SODIUM CHLOR 7% 4 ML NEB NEB ONE (00:55)
[2023-03-05] MEDS: guaiFENesin 600 MG TABCR PO SCH ×3 (01:15→21:10)
[2023-03-05] MEDS ORDERED: OLANZapine 5 MG TABLET PO ONE (03:35)
[2023-03-05] MEDS: INSULIN ASPART PER UNIT CHARGE SC SCH ×5 (05:18→21:08)
[2023-03-05 06:43] LABS: Allen Test Pos (Pos); Base Excess ABG 20.1 mEq/L (-9-1.8); HCO3 ABG 49 mmol/L (19-24); Oxygen Saturation ABG 98.9 % (90-95); PCO2 ABG 78 mmHg (35-46); PO2 ABG 135 mmHg (80-95); pH ABG 7.41 (7.35-7.45)
[2023-03-05 06:54] LABS: Basophils # (auto) 0.03 K/uL (0.00-0.20); Basophils % (auto) 0.4 %; Eosinophils # (auto) 0.08 K/uL (0.00-0.50); Eosinophils % (auto) 1.2 %; Hematocrit (blood only) 29.6 % (37.0-47.0); Hemoglobin 8.8 g/dl (12.0-16.0); Immature Granulocytes # (auto) 0.18 K/uL (0.01-0.20); Immature Granulocytes % (auto) 2.7 %; Lymphocytes # (auto) 0.92 K/uL (1.20-3.40); Lymphocytes % (auto) 13.7 %; Mean Corpuscular Hgb Conc 29.7 g/dL (32.0-36.0); Mean Corpuscular Volume 90.8 fL (80.0-100.0); Mean Platelet Volume 9.8 fL (9.4-12.4); Monocytes # (auto) 0.52 K/uL (0.11-0.59); Monocytes % (auto) 7.7 %; Neutrophils # (auto) 4.99 K/uL (1.40-6.50); Neutrophils % (auto) 74.3 %; Nucleated RBC # (auto) 0.03 K/uL (0.00-0.12); Nucleated RBC % (auto) 0.4 %; Platelet Count 238 K/uL (130-400); RDW Coefficient of Variation 15.2 % (11.5-14.5); RDW Standard Deviation 51.4 fL (36.4-46.3); Red Blood Count 3.26 M/uL (4.20-5.40); White Blood Count 6.72 K/ul (4.8-10.8)
--- NOTE | 2023-03-05 07:06 | Communication Note ---
Date of Service: March 04, 2023 Patient more alert and asking for her Xanax due to anxiety. Will switch to longer acting benzodiazepine to avoid respiratory depression while also avoiding benzodiazepine withdrawal. Clonazepam 0.5mg HS prescribed.
[2023-03-05] MEDS: FORMOTEROL 20 MCG/2 ML VIAL NEB SCH ×2 (07:14→19:26)
[2023-03-05] MEDS: BUDESONIDE 0.5 MG/2 ML VIAL (PULMICORT) NEB SCH ×2 (07:14→19:26)
--- NOTE | 2023-03-05 07:16 | XRay Report ---
XR chest 1V portable CLINICAL HISTORY: acute respiratory failure TECHNIQUE: Single frontal radiograph of the chest was obtained. Comparison: Comparison is made to chest radiograph 03/04/2023 FINDINGS: No lines and tubes are seen. Cardiomegaly is noted. The aortic arch is calcified. The lungs are clear . Trace bilateral pleural effusions, stable. IMPRESSION: 1. Cardiomegaly is noted. Previously noted airspace opacities in the lower lungs have resolved. 2. Stable trace bilateral pleural effusions. ACT 112: Negative or not required by law. Electronically signed by: Ash Dave M.D. 03/05/2023 7:14 AM
[2023-03-05 07:35] LABS: Albumin Globulin Ratio 0.9 (0.9-2); Albumin Level 3.2 gm/dl (3.4-5.0); BUN Creatinine Ratio 42.2 (10-20); Bilirubin,Total 0.3 mg/dl (0.2-1.0); Calcium 9.3 mg/dl (8.6-10.3); Creatinine Clr Calc Pharmacy 96.1 ml/min; Est GFR (African American) 100.5 ml/min; Est GFR (Non-African American) 86.7 ml/min; Globulin 3.5 gm/dl (2.5-4.0); Potassium 4.6 mmol/L (3.5-5.1); Total Protein 6.7 gm/dl (6.0-8.3)
[2023-03-05 07:46] LABS: Estimated Average Glucose 177 mg/dl; Hemoglobin A1C 7.8 % (4.5-5.6)
[2023-03-05] MEDS: ENOXAPARIN INJ 40 MG/0.4 ML SYR SQ SCH ×2 (07:46→21:09)
[2023-03-05] MEDS: ACETAMINOPHEN 325 MG TAB PO PRN ×3 (07:46→21:09)
[2023-03-05] MEDS: FUROSEMIDE 40 MG/4 ML VIAL IV SCH ×2 (07:47→16:08)
[2023-03-05] MEDS: UMECLIDINIUM BROMIDE 62.5MCG/BLISTER 7 PUFFS/INHALER INH SCH (07:48)
--- NOTE | 2023-03-05 10:58 | Pharmacy Report ---
Pharmacy Glycemic Short Note 2 - Date of Service March 05, 2023 - Glycemic Short BSG Results (Last 24 hours): 03/04/23 03/04/23 03/04/23 09:53 13:09 14:48 Glucose 339 H* 324 H* POC Glucose 311 H* 03/04/23 03/04/23 03/05/23 16:04 22:09 00:28 Glucose POC Glucose 334 H* 201 H 158 H 03/05/23 03/05/23 03/05/23 05:17 06:06 07:55 Glucose 144 H POC Glucose 153 H 136 H OUTPATIENT ANTIDIABETIC REGIMEN: * Humalog 75/25 mix, 80 units qAM, 60 units qPM * Semaglutide * HbA1c 7.8% on 03/05/23 ASSESSMENT: * 77 yo F with T2DM admitted with SOB and on continuous BiPAP. On antibiotics. NPO for now. BSG's have trended down significantly from 339 mg/dL yesterday Am to 136 mg/dL this AM after 25 units of Lantus and a weight-based severe stress Novolog regimen * Previous four-day admission this past December reviewed - Lantus 20 units BID, Novolog goal 110-140 mg/dL, CF 20, CR 6, while on antibiotics and ordered/consuming diet. Almost all BSG's (fasting and post-prandial) were > 180 mg/dL. * This admission, patient is NPO which is different from previous. But if/when patient ordered a diet, the above likely will aid with adjustment to current regimen * For now, will be less aggressive given NPO * OK to leave Novolog at q4h - may change to q6h tomorrow if BSG's remain in goal range PLAN FOR INPATIENT GLYCEMIC CONTROL: * Hold outpatient diabetes medications * Basal insulin * Lantus 15-25 units SQ @ 1600 today * Bolus insulin * NovoLog per scale ACHS or Q6hrs while NPO * Goal Range: Low 110 mg/dL - High 140 mg/dL * Correction Factor: 20 mg/dL/unit * Nutritional / Prandial insulin per carb ratio of 1 unit per 6 grams CHO consumed
[2023-03-05] MEDS: cefTRIAXone SODIUM 2,000 MG in DEXTROSE 5% 50 ML IV SCH (11:21)
[2023-03-05] MEDS ORDERED: ALPRAZolam 0.5 MG TABLET PO STA (13:50)
[2023-03-05] MEDS ORDERED: KETOROLAC TROMETHAMINE 15 MG/ML VIAL IV ONE (15:15)
--- NOTE | 2023-03-05 15:15 | Hospitalist Progress Note ---
Date of Service March 05, 2023 Assessment & Plan (1) Acute on chronic respiratory failure with hypoxia and hypercapnia: Plan: Chronic resp failure - due to OHS/CHRISTIANO, restrictive lung disease, ?COPD. Supposed to be on Trilogy machine at home - noncompliant with such, simply won't use it. Acute resp failure - 2nd to decompensated CHF. reports she was hydrated at [facility] in the setting of bacteremia, then upon discharge did not take lasix. CXR today is improved which supports improving decompensated CHF as main culprit for acute resp failure. Xanax use, narcotic use - will worsen both acute and chronic resp failure. Appears baseline pCO2 is upper 70s/low 70s. pH fortunately remained compensated. keep O2 sats low 90s. encouraged BIPAP use for the rest of the day. (2) Acute exacerbation of CHF (congestive heart failure): Plan: echo 10/2022 - preserved LV function; no RV dysfunction. appears volume overloaded clinically & radiographically. cont IV lasix 40mg BID. reassess tomorrow. labs am. (3) Pneumonia: Plan: Question of - but suspect #2 is main culprit for acute resp failure. Reassess in am. Elevated procal may simply be from recent bacteremia while at [facility]. (4) Acute hyperkalemia: Plan: Peak K was 5.7 now resolved reason for such?? creatinine stable on supplementation? (per pharmacy records) hold any supplements BMP am (5) Recurrent UTI: Plan: Continue ceftriaxone for recent e.coli bacteremia/UTI (although I don't have albs & records from [facility]) last day of abx ~ 03/11 repeat urine cx negative blood cultures thus far negative h/o colo-vesicular fistula?? (6) COPD (chronic obstructive pulmonary disease): Plan: Cont inhalers Wheezing may be due to pulmonary edema rather than COPD If wheezing persists despite diuresis then add duonebs qid Defer on steroids for now (7) Diabetes mellitus, type 2: Plan: pharmacy glycemic team has been consulted appreciate their assistance cont basal-bolus insulinl Hba1c 7.8% (8) Obesity hypoventilation syndrome: Plan: desperately needs to use Trilogy at home continue NC O2 continuously with O2 sat goal 90-92% (9) Obstructive sleep apnea: Plan: severe needs to use Trilogy machine but noncompliant with such (10) Acute metabolic encephalopathy: Plan: 2nd to CO2 retention cannot rule out ongoing confusion from recent bacteremia benzos/narcotics could be causing toxic effects ammonia checked - wnl needs to use BIPAP consistently limit benzos (11) Morbid obesity with BMI of 45.0-49.9, adult: Plan: BMI 48.8 (12) Bacteremia: Plan: 2nd e.coli source - urinary tract was treated for such at [facility] just a few days ago continue rocephin IV daily I do not have records from that admission patient with abdominal pain - could she have kidney stone? pyelo? other? (13) Myalgia: Plan: diffuse, body-wide etiology?? CPK checked due to recent falls - normal mag/K wnl follow carefully place on scheduled tylenol toradol x 1 now try to avoid narcotics (14) Chronic prescription benzodiazepine use: Plan: xanax - for at least a year or longer to avoid withdrawal cont clonazepam at gave xanax x 1 this afternoon and this caused significant lethargy; thus, try to avoid Plan VTE Prophyalxis - Lovenox 40mg SQ BID lengthy discussions held with pt's at bedside later in the visit I also updated the pt's son very challenging situation --> if she does not use BIPAP or Trilogy she will continue to struggle with CO2 retention using benzos and/or narcotics will suppress respiratory drive leading to worsening CO2 explained this in detail to pt's /son no good or easy answer for her complicated medical situation patient previously on hospice - strongly consider palliative care consultation to refine goals of care Admission and Anticipated Discharge Date Admission Date: March 04, 2023 Subjective tele overnight - NSR during the visit the pt's was at bedside patient very lethargic spent most of the visit sleeping when she did wake up she would complain of "pain everywhere" - muscles, joints she apparently had recent falls these occurred just prior to her admission at [facility] (February 27 - 2022 for E. coli bacteremia) when I asked her where the pain was worst she was unable to tell me reports she does have hydrocodone at home for pain but he tries to limit it as she does become sleepy after taking it pt's reports that since coming home from [facility] she had been sleeping in the chair appetite has been poor she has had prescriptions for xanax for at least a year - records indicate she was taking xanax 3-4x's a day or more she and state it is just 1-2x's a day Pt has Trilogy machine at home but will NOT use it she is only compliant with NC O2 Review of Systems Review of Systems: Unobtainable due to cognitive status Physical Exam Physical Exam: gen - morbidly obese, lethargic; when she does wake up she is confused, c/o pain "everywhere" mouth - MMM neck - unable to assess for JVD due to neck size heart - RRR, s1 s2, no obvious murmur lungs - diffuse wheezes b/l; rales (faint) bases; mild tachypnea abd - soft, ND, BS+, tender LLQ? ext - <1+ edema, pulses 2+ b/l psych - a/o x 1 only Results & Data Results & Data Vital Signs (Past 12 Hours) Vital Signs Temp Pulse Pulse Resp BP Pulse Ox O2 Del Method 03/05/23 12:01 37.1 C 99 H 20 145/85 H 90 BiPAP 03/05/23 08:00 101 H 03/05/23 08:00 High Flow Nasal Cannula 03/05/23 08:46 37.0 C 106 H 20 146/76 H 98 High Flow Nasal Cannula 03/05/23 07:14 103 H 22 100 High Flow Nasal Cannula 03/05/23 04:48 97 H 03/05/23 03:24 91 H 24 93 High Flow Nasal Cannula O2 Flow Rate FiO2 03/05/23 12:01 03/05/23 08:00 03/05/23 08:00 30 60 03/05/23 08:46 03/05/23 07:14 35 70 03/05/23 04:48 03/05/23 03:24 35 70 Laboratory Results Laboratory Results - last 24 hr 03/04/23 03/05/23 03/05/23 22:09 00:28 05:17 WBC RBC Hgb Hct MCV MCH MCHC RDW Std Deviation RDW Coeff of Dalton Plt Count MPV Immature Gran % (Auto) Neut % (Auto) Lymph % (Auto) [place] % (Auto) Eos % (Auto) Baso % (Auto) Neut # (Auto) Lymph # (Auto) [place] # (Auto) Eos # (Auto) Baso # (Auto) Immature Gran # (Auto) Absolute Nucleated RBC Nucleated RBC % (auto) ABG pH ABG pCO2 ABG pO2 ABG HCO3 ABG O2 Saturation ABG Base Excess Antonio Test VBG pH VBG pCO2 VBG pO2 VBG HCO3 VBG O2 Saturation VBG Base Excess Oxygen Given Sodium Potassium Chloride Carbon Dioxide Anion Gap BUN Creatinine Est Cr Clr Drug Dosing Est GFR ( Amer) Est GFR (Non-Af Amer) BUN/Creatinine Ratio Glucose POC Glucose 201 H 158 H 153 H Estimat Average Glucose Hemoglobin A1c Calcium Total Bilirubin AST ALT Alkaline Phosphatase Ammonia Total Creatine Kinase Troponin I High Sens Total Protein Albumin Globulin Albumin/Globulin Ratio Hepatitis C Ab (EIA) 03/05/23 03/05/23 03/05/23 06:06 06:06 06:06 WBC 6.72 RBC 3.26 L Hgb 8.8 L Hct 29.6 L MCV 90.8 MCH 27.0 MCHC 29.7 L RDW Std Deviation 51.4 H RDW Coeff of Dalton 15.2 H Plt Count 238 MPV 9.8 Immature Gran % (Auto) 2.7 Neut % (Auto) 74.3 Lymph % (Auto) 13.7 [place] % (Auto) 7.7 Eos % (Auto) 1.2 Baso % (Auto) 0.4 Neut # (Auto) 4.99 Lymph # (Auto) 0.92 L [place] # (Auto) 0.52 Eos # (Auto) 0.08 Baso # (Auto) 0.03 Immature Gran # (Auto) 0.18 Absolute Nucleated RBC 0.03 Nucleated RBC % (auto) 0.4 ABG pH ABG pCO2 ABG pO2 ABG HCO3 ABG O2 Saturation ABG Base Excess Antonio Test VBG pH VBG pCO2 VBG pO2 VBG HCO3 VBG O2 Saturation VBG Base Excess Oxygen Given Sodium 143 Potassium 4.6 Chloride 93 L Carbon Dioxide 45 H* Anion Gap 5 BUN 27 H Creatinine 0.64 Est Cr Clr Drug Dosing 96.1 Est GFR ( Amer) 100.5 Est GFR (Non-Af Amer) 86.7 BUN/Creatinine Ratio 42.2 H Glucose 144 H POC Glucose Estimat Average Glucose Hemoglobin A1c Calcium 9.3 Total Bilirubin 0.3 AST 19 ALT 25 Alkaline Phosphatase 80 Ammonia Total Creatine Kinase Troponin I High Sens Total Protein 6.7 Albumin 3.2 L Globulin 3.5 Albumin/Globulin Ratio 0.9 Hepatitis C Ab (EIA) Pending 03/05/23 03/05/23 03/05/23 06:06 06:15 07:55 WBC RBC Hgb Hct MCV MCH MCHC RDW Std Deviation RDW Coeff of Dalton Plt Count MPV Immature Gran % (Auto) Neut % (Auto) Lymph % (Auto) [place] % (Auto) Eos % (Auto) Baso % (Auto) Neut # (Auto) Lymph # (Auto) [place] # (Auto) Eos # (Auto) Baso # (Auto) Immature Gran # (Auto) Absolute Nucleated RBC Nucleated RBC % (auto) ABG pH 7.41 ABG pCO2 78 H ABG pO2 135 H ABG HCO3 49 H ABG O2 Saturation 98.9 H ABG Base Excess 20.1 H Antonio Test Pos VBG pH VBG pCO2 VBG pO2 VBG HCO3 VBG O2 Saturation VBG Base Excess Oxygen Given 70% Sodium Potassium Chloride Carbon Dioxide Anion Gap BUN Creatinine Est Cr Clr Drug Dosing Est GFR ( Amer) Est GFR (Non-Af Amer) BUN/Creatinine Ratio Glucose POC Glucose 136 H Estimat Average Glucose 177 Hemoglobin A1c 7.8 H Calcium Total Bilirubin AST ALT Alkaline Phosphatase Ammonia Total Creatine Kinase Troponin I High Sens Total Protein Albumin Globulin Albumin/Globulin Ratio Hepatitis C Ab (EIA) 03/05/23 03/05/23 03/05/23 12:10 16:13 16:27 WBC RBC Hgb Hct MCV MCH MCHC RDW Std Deviation RDW Coeff of Dalton Plt Count MPV Immature Gran % (Auto) Neut % (Auto) Lymph % (Auto) [place] % (Auto) Eos % (Auto) Baso % (Auto) Neut # (Auto) Lymph # (Auto) [place] # (Auto) Eos # (Auto) Baso # (Auto) Immature Gran # (Auto) Absolute Nucleated RBC Nucleated RBC % (auto) ABG pH ABG pCO2 ABG pO2 ABG HCO3 ABG O2 Saturation ABG Base Excess Antonio Test VBG pH VBG pCO2 VBG pO2 VBG HCO3 VBG O2 Saturation VBG Base Excess Oxygen Given Sodium Potassium Chloride Carbon Dioxide Anion Gap BUN Creatinine Est Cr Clr Drug Dosing Est GFR ( Amer) Est GFR (Non-Af Amer) BUN/Creatinine Ratio Glucose POC Glucose 146 H 158 H Estimat Average Glucose Hemoglobin A1c Calcium Total Bilirubin AST ALT Alkaline Phosphatase Ammonia 29.0 Total Creatine Kinase Troponin I High Sens Total Protein Albumin Globulin Albumin/Globulin Ratio Hepatitis C Ab (EIA) 03/05/23 03/05/23 03/05/23 16:27 16:27 20:47 WBC RBC Hgb Hct MCV MCH MCHC RDW Std Deviation RDW Coeff of Dalton Plt Count MPV Immature Gran % (Auto) Neut % (Auto) Lymph % (Auto) [place] % (Auto) Eos % (Auto) Baso % (Auto) Neut # (Auto) Lymph # (Auto) [place] # (Auto) Eos # (Auto) Baso # (Auto) Immature Gran # (Auto) Absolute Nucleated RBC Nucleated RBC % (auto) ABG pH ABG pCO2 ABG pO2 ABG HCO3 ABG O2 Saturation ABG Base Excess Antonio Test VBG pH 7.40 VBG pCO2 84 H VBG pO2 39 VBG HCO3 52 VBG O2 Saturation 60.6 VBG Base Excess 22.0 Oxygen Given Sodium Potassium Chloride Carbon Dioxide Anion Gap BUN Creatinine Est Cr Clr Drug Dosing Est GFR ( Amer) Est GFR (Non-Af Amer) BUN/Creatinine Ratio Glucose POC Glucose 154 H Estimat Average Glucose Hemoglobin A1c Calcium Total Bilirubin AST ALT Alkaline Phosphatase Ammonia Total Creatine Kinase 60 Troponin I High Sens 25.6 H D Total Protein Albumin Globulin Albumin/Globulin Ratio Hepatitis C Ab (EIA) PG Care Time/CCT Total # of Minutes Spent Total Time Spent with Patient: Total time spent is greater than 50% in coordination of care (as documented) at patient's floor/unit and/or counseling patient: Coding Level of Care Code 36671 SUB INP/OBS CARE 3/50MIN Diagnoses Acute on chronic respiratory failure with hypoxia and hypercapnia J96.21; J96.22 Acute exacerbation of CHF (congestive heart failure) I50.9 Pneumonia J18.9 Acute hyperkalemia E87.5 Recurrent UTI N39.0 COPD (chronic obstructive pulmonary disease) J44.9 COPD type: unspecified COPD Diabetes mellitus, type 2 E11.9 Obesity hypoventilation syndrome E66.2 Obstructive sleep apnea G47.33 Acute metabolic encephalopathy G93.41 Morbid obesity with BMI of 45.0-49.9, adult E66.01; Z68.42 Bacteremia R78.81 Myalgia M79.10 Chronic prescription benzodiazepine use Z79.899 (6) COPD (chronic obstructive pulmonary disease) COPD type: unspecified COPD Qualified Code(s): J44.9 - Chronic obstructive pulmonary disease, unspecified
[2023-03-05] MEDS ORDERED: ACETAMINOPHEN 325 MG TAB PO ONE (15:16)
[2023-03-05] MEDS ORDERED: LANTUS PER UNIT CHARGE SC ONE (16:00)
[2023-03-05 16:45] LABS: HCO3 VBG 52 mmol/L; Oxygen Saturation VBG 60.6 %; PCO2 VBG 84 mmHg (38-50); PO2 VBG 39 mmHg
[2023-03-05 17:20] LABS: Troponin I High Sensitivity 25.6 pg/ml (0-14)
[2023-03-05] MEDS: clonazePAM 0.5 MG TAB PO SCH (21:09)
[2023-03-05] MEDS ORDERED: ALPRAZolam 0.25 MG TABLET PO ONE (21:47)
[2023-03-06] MEDS: ACETAMINOPHEN 325 MG TAB PO PRN ×3 (01:59→14:43)
[2023-03-06] MEDS: FORMOTEROL 20 MCG/2 ML VIAL NEB SCH ×2 (07:03→18:46)
[2023-03-06] MEDS: BUDESONIDE 0.5 MG/2 ML VIAL (PULMICORT) NEB SCH ×2 (07:03→18:46)
[2023-03-06 07:10] LABS: Hematocrit (blood only) 30.6 % (37.0-47.0); Hemoglobin 8.9 g/dl (12.0-16.0); Mean Corpuscular Hemoglobin 26.6 pg (25.0-34.0); Mean Corpuscular Hgb Conc 29.1 g/dL (32.0-36.0); Mean Corpuscular Volume 91.6 fL (80.0-100.0); Mean Platelet Volume 9.4 fL (9.4-12.4); Nucleated RBC # (auto) 0.02 K/uL (0.00-0.12); Nucleated RBC % (auto) 0.4 %; Platelet Count 245 K/uL (130-400); RDW Coefficient of Variation 15.3 % (11.5-14.5); RDW Standard Deviation 51.5 fL (36.4-46.3); Red Blood Count 3.34 M/uL (4.20-5.40); White Blood Count 5.04 K/ul (4.8-10.8)
--- NOTE | 2023-03-06 07:55 | XRay Report ---
XR chest 1V portable CLINICAL HISTORY: Acute respiratory failure. COMPARISON STUDY: Chest CT October 29, 2022. Chest radiograph March 05, 2023. FINDINGS: Cardiomegaly is stable. There is pulmonary vascular congestion. Small left and trace right pleural effusions are noted with bibasilar opacities, greater on the left. IMPRESSION: 1. Cardiomegaly with pulmonary vascular congestion. Small left and trace right pleural effusion. 2. Bibasilar opacities which could reflect pneumonia or atelectasis. Radiographic follow-up to ensure resolution is recommended. ACT 112: Negative or not required by law. Electronically signed by: Bari Wyatt M.D. 03/06/2023 7:53 AM
[2023-03-06] MEDS: clonazePAM 0.5 MG TAB PO SCH ×2 (08:02→20:14)
[2023-03-06] MEDS: INSULIN ASPART PER UNIT CHARGE SC SCH ×4 (08:03→20:12)
[2023-03-06] MEDS: guaiFENesin 600 MG TABCR PO SCH ×2 (08:04→20:08)
[2023-03-06] MEDS: FUROSEMIDE 40 MG/4 ML VIAL IV SCH ×2 (08:04→17:03)
[2023-03-06] MEDS: UMECLIDINIUM BROMIDE 62.5MCG/BLISTER 7 PUFFS/INHALER INH SCH (08:04)
[2023-03-06] MEDS: ENOXAPARIN INJ 40 MG/0.4 ML SYR SQ SCH ×2 (08:04→20:08)
[2023-03-06 08:18] LABS: BUN Creatinine Ratio 36.9 (10-20); Blood Urea Nitrogen 24 mg/dl (6-23); Calcium 8.9 mg/dl (8.6-10.3); Carbon Dioxide > 45 mmol/L (21-32); Chloride 92 mmol/L (98-107); Est GFR (Non-African American) 86.2 ml/min; Glucose 106 mg/dl (70-99(Fasting)); Sodium 145 mmol/L (136-145)
--- NOTE | 2023-03-06 10:07 | Pharmacy Report ---
Pharmacy Glycemic Short Note 2 - Date of Service March 06, 2023 - Glycemic Short BSG Results (Last 24 hours): 03/05/23 03/05/23 03/05/23 12:10 16:13 20:47 Glucose POC Glucose 146 H 158 H 154 H 03/06/23 03/06/23 06:15 07:40 Glucose 106 H POC Glucose 106 H OUTPATIENT ANTIDIABETIC REGIMEN: * Humalog 75/25 mix, 80 units qAM, 60 units qPM * Semaglutide * HbA1c 7.8% on 03/05/23 ASSESSMENT: 03/06 * Patient now ordered a diet. 39 g CHO consumed with breakfast. May need to adjust regimen per below, but will base on lunch BSG. * AM fasting BSG excellent at 106 mg/dL after 20 units Lantus yesterday. Hesitant to be more aggressive despite higher doses last admin. May need to adjust tomorrow AM. Will schedule at lunch today to gradually transition to AM administration tomorrow, which may help with eventual transition back to Humalog 75/25 mix on discharge. Slightly lower dose today. * Lunch BSG stable from Am and in the lower end of goal range. Will not adjust Novolog. 03/05 * 77 yo F with T2DM admitted with SOB and on continuous BiPAP. On antibiotics. NPO for now. BSG's have trended down significantly from 339 mg/dL yesterday Am to 136 mg/dL this AM after 25 units of Lantus and a weight-based severe stress Novolog regimen * Previous four-day admission this past December reviewed - Lantus 20 units BID, Novolog goal 110-140 mg/dL, CF 20, CR 6, while on antibiotics and orde red/consuming diet. Almost all BSG's (fasting and post-prandial) were > 180 mg/dL. * This admission, patient is NPO which is different from previous. But if/when patient ordered a diet, the above likely will aid with adjustment to current regimen * For now, will be less aggressive given NPO * OK to leave Novolog at q4h - may change to q6h tomorrow if BSG's remain in goal range PLAN FOR INPATIENT GLYCEMIC CONTROL: * Hold outpatient diabetes medications * Basal insulin * Lantus 15 units SQ @ 1200 today * Bolus insulin * NovoLog per scale ACHS or Q6hrs while NPO * Goal Range: Low 110 mg/dL - High 140 mg/dL * Correction Factor: 20 mg/dL/unit * Nutritional / Prandial insulin per carb ratio of 1 unit per 6 grams CHO consumed
[2023-03-06] MEDS: cefTRIAXone SODIUM 2,000 MG in DEXTROSE 5% 50 ML IV SCH (11:36)
[2023-03-06] MEDS: ONDANSETRON INJ 2 MG/ML 2 ML VIAL IV PRN (11:36)
[2023-03-06] MEDS ORDERED: LANTUS PER UNIT CHARGE SC ONE (12:30)
[2023-03-06] MEDS ORDERED: clonazePAM 0.5 MG TAB PO STA (15:27)
[2023-03-06] MEDS ORDERED: KETOROLAC TROMETHAMINE 15 MG/ML VIAL IV ONE (15:27)
--- NOTE | 2023-03-06 17:33 | CT Scan Report ---
CT abd pelvis wo con, CT lumbar spine wo con CLINICAL HISTORY: recurrent UTIs, ?stones; sacral decub/pressure ulc TECHNIQUE: Helical axial images of the abdomen and pelvis were obtained. Automated dose lowering tech niques and/or adjustment according to patient size were utilized for this exam. Dedicated images of t he lumbar spine were obtained. This exam was performed without intravenous contrast. CT DOSE: 1826.96 mGy.cm COMPARISON: Comparison is made to CT abdomen pelvis 06/25/2017 FINDINGS: Lower chest: Bilateral pleural effusions are seen with underlying atelectasis. Liver: Unremarkable. No focal lesions are seen. Gallbladder and biliary tree: No calcified gallstones. Normal caliber wall. No intra- or extrahepatic biliary ductal dilation. Pancreas: Fatty replacement of the pancreas is seen. Spleen: Unremarkable. Adrenals: Nodularity of the adrenal glands is noted. Kidneys and ureters: Nonobstructive nephrolithiasis is seen. Bladder: Chacon catheter is seen. Reproductive organs: Unremarkable. Bowel: Diverticulosis is seen without evidence of diverticulitis. Postsurgical changes are seen in th e sigmoid colon. Lymph nodes Retroperitoneal: Unremarkable. Pelvic: Unremarkable. Mesenteric: Unremarkable. Peritoneum: Normal. Vessels: Atherosclerotic calcifications are seen. Abdominal wall: Large ventral hernia is seen. No drainable fluid collections in the sacrum. Bones: Degenerative changes are seen no evidence of acute fracture is seen. IMPRESSION: 1. No evidence of acute fracture. No drainable fluid collection or evidence of osteomyelitis in this patient with sacral decubitus ulcer. 2. Bilateral pleural effusions with underlying atelectasis. 3. Additional findings as above. ACT 112: Negative or not required by law. Electronically signed by: Ash Dave M.D. 03/06/2023 5:30 PM
--- NOTE | 2023-03-06 21:12 | Hospitalist Progress Note ---
Date of Service March 06, 2023 Assessment & Plan (1) Acute on chronic respiratory failure with hypoxia and hypercapnia: Plan: Chronic resp failure - due to OHS/CHRISTIANO, restrictive lung disease, ?COPD. Supposed to be on Trilogy machine at home - noncompliant with such, simply won't use it. Acute resp failure - 2nd to decompensated CHF. reports she was hydrated at [facility] in the setting of bacteremia, then upon discharge did not take lasix. Xanax use, narcotic use - will worsen both acute and chronic resp failure. Appears baseline pCO2 is upper 70s/low 80s. keep O2 sats low 90s. her nice turn-around overnight is attributable to better use of BIPAP yesterday/overnight as well as diuresis. (2) Acute exacerbation of CHF (congestive heart failure): Plan: echo 10/2022 - preserved LV function; no RV dysfunction. decompensation improving with stable renal function. cont IV lasix 40mg BID. labs am. (3) Pneumonia: Plan: Low suspicion for pneumonia. Suspect #2 is main culprit for acute resp failure. Elevated procal likely from recent bacteremia/UTI while at [facility]. (4) Acute hyperkalemia: Plan: Peak K was 5.7 now resolved reason for such?? creatinine has been stable on supplementation? (per pharmacy records) hold any supplements BMP am (5) Recurrent UTI: Plan: Continue ceftriaxone for recent e.coli bacteremia/UTI E.coli sens to ceftriaxone & cipro Also grew proteus - sens to ceftriaxone & cipro Cont rocephin overnight, then over to cipro in am first day of abx at [facility] was 02/27/23 Thus, today is day #8 of abx total of 14 days planned, last doses on 03/12 repeat urine cx negative blood cultures thus far negative h/o colo-vesicular fistula - see below (6) COPD (chronic obstructive pulmonary disease): Plan: Cont inhalers Wheezing may be due to pulmonary edema rather than COPD add combivenx qid Defer on systemic steroids for now (7) Diabetes mellitus, type 2: Plan: pharmacy glycemic team has been consulted appreciate their assistance cont basal-bolus insulinl Hba1c 7.8% (8) Obesity hypoventilation syndrome: Plan: desperately needs to use Trilogy at home continue NC O2 continuously with O2 sat goal 90-92% (9) Obstructive sleep apnea: Plan: severe needs to use Trilogy machine but noncompliant with such (10) Acute metabolic encephalopathy: Plan: 2nd to CO2 retention benzos/narcotics could be causing toxic effects ammonia checked - wnl needs to use BIPAP consistently limit benzos limit narcotics (11) Morbid obesity with BMI of 45.0-49.9, adult: Plan: BMI 48 (12) Bacteremia: Plan: 2nd e.coli source - urinary tract was treated for such at [facility] last week continue rocephin IV daily then IV cipro starting tomorrow patient with abdominal pain - kidney stone? pyelo? obtain CT abd/pelvis - r/o obstructing stone, etc. (13) Myalgia: Plan: diffuse, body-wide etiology?? CPK checked due to recent falls - normal mag/K wnl myalgias are better today follow (14) Chronic prescription benzodiazepine use: Plan: xanax - for at least a year or longer to avoid withdrawal cont clonazepam at HS she requested anti-anxiety meds this am - gave clonazepam 0.5mg this am probably will need the BID dosing moving forward (15) Lumbar back pain: Plan: due to recent falls will obtain lumbar CT scan - r/o compression fracture try to avoid narcotics toradol x 1 now for pain tylenol prn (16) Colovesical fistula: Plan: by the son's report she will cont to have recurrent UTIs from this not a good operative candidate in light of morbid obesity, chronic resp failure, etc Plan VTE Prophyalxis - Lovenox 40mg SQ BID patient previously on hospice - strongly consider palliative care consultation to refine goals of care son updated by phone this evening, questions answered Admission and Anticipated Discharge Date Admission Date: March 04, 2023 Subjective tele - NSR overnight, then today had 15+ beat run of NSVT patient feels MUCH better today more awake, alert, less dyspnea, and improved appetite still with lower abdominal pain and low back pain she states that she thinks she has been told she has kidney stones but "isn't sure" she also has been to [place] for "my bladder" I spoke with the pt's son and he stated that she indeed was to [facility] and that they were told she has a colo-vesicular fistula Review of Systems Review of Systems: gen - no fevers or chills cv - no chest pain, no orthopnea pulm - wore BIPAP most of the night (until 5am), less cough and less dyspnea today GI - no nausea/vomiting Physical Exam Physical Exam: gen - morbidly obese, looks much better today, awake/alert, talkative, no distress mouth - MMM neck - unable to assess for JVD due to neck size heart - RRR, s1 s2, no obvious murmur lungs - mild end-exp wheezes b/l; scant rales bases b/l; no increased work of breathing abd - soft, ND, BS+, slightly tender over the suprapubic region ext - trace edema b/l, pulses 2+ b/l psych - a/o x 3 but confused with some medical history Results & Data Results & Data Vital Signs (Past 12 Hours) Vital Signs Temp Pulse Pulse Resp BP Pulse Ox O2 Del Method 03/06/23 19:39 36.9 C 101 H 26 H 136/76 95 Nasal Cannula 03/06/23 18:48 64 15 100 Nasal Cannula 03/06/23 15:41 37.0 C 94 H 24 133/71 93 Nasal Cannula 03/06/23 15:35 Nasal Cannula, High Flow Nasal Cannula 03/06/23 15:17 95 H 03/06/23 15:13 71 03/06/23 11:46 37.0 C 99 H 22 157/82 H 89 L Nasal Cannula 03/06/23 11:11 17 92 Nasal Cannula O2 Flow Rate 03/06/23 19:39 4 03/06/23 18:48 4 03/06/23 15:41 4 03/06/23 15:35 5 03/06/23 15:17 03/06/23 15:13 03/06/23 11:46 4 03/06/23 11:11 4 Laboratory Results Laboratory Results - last 24 hr 03/05/23 03/06/23 03/06/23 06:06 06:15 06:15 WBC 5.04 RBC 3.34 L Hgb 8.9 L Hct 30.6 L MCV 91.6 MCH 26.6 MCHC 29.1 L RDW Std Deviation 51.5 H RDW Coeff of Dalton 15.3 H Plt Count 245 MPV 9.4 Absolute Nucleated RBC 0.02 Nucleated RBC % (auto) 0.4 Sodium Potassium Chloride Carbon Dioxide Anion Gap BUN Creatinine Est Cr Clr Drug Dosing Est GFR ( Amer) Est GFR (Non-Af Amer) BUN/Creatinine Ratio Glucose POC Glucose Calcium Procalcitonin 0.33 Hepatitis C Ab (EIA) NON-REACTIVE 03/06/23 03/06/23 03/06/23 06:15 07:40 11:07 WBC RBC Hgb Hct MCV MCH MCHC RDW Std Deviation RDW Coeff of Dalton Plt Count MPV Absolute Nucleated RBC Nucleated RBC % (auto) Sodium 145 Potassium 4.0 Chloride 92 L Carbon Dioxide > 45 H* Anion Gap TNP BUN 24 H Creatinine 0.65 Est Cr Clr Drug Dosing 94.0 Est GFR ( Amer) 100.0 Est GFR (Non-Af Amer) 86.2 BUN/Creatinine Ratio 36.9 H Glucose 106 H POC Glucose 106 H 111 H Calcium 8.9 Procalcitonin Hepatitis C Ab (EIA) 03/06/23 03/06/23 16:27 20:12 WBC RBC Hgb Hct MCV MCH MCHC RDW Std Deviation RDW Coeff of Dalton Plt Count MPV Absolute Nucleated RBC Nucleated RBC % (auto) Sodium Potassium Chloride Carbon Dioxide Anion Gap BUN Creatinine Est Cr Clr Drug Dosing Est GFR ( Amer) Est GFR (Non-Af Amer) BUN/Creatinine Ratio Glucose POC Glucose 103 H 134 H Calcium Procalcitonin Hepatitis C Ab (EIA) PG Care Time/CCT Total # of Minutes Spent Total Time Spent with Patient: Total time spent is greater than 50% in coordination of care (as documented) at patient's floor/unit and/or counseling patient: Coding Level of Care Code 60560 SUB INP/OBS CARE 3/50MIN Diagnoses Acute on chronic respiratory failure with hypoxia and hypercapnia J96.21; J96.22 Acute exacerbation of CHF (congestive heart failure) I50.9 Pneumonia J18.9 Acute hyperkalemia E87.5 Recurrent UTI N39.0 COPD (chronic obstructive pulmonary disease) J44.9 COPD type: unspecified COPD Diabetes mellitus, type 2 E11.9 Obesity hypoventilation syndrome E66.2 Obstructive sleep apnea G47.33 Acute metabolic encephalopathy G93.41 Morbid obesity with BMI of 45.0-49.9, adult E66.01; Z68.42 Bacteremia R78.81 Myalgia M79.10 Chronic prescription benzodiazepine use Z79.899 Lumbar back pain M54.50 Colovesical fistula N32.1 (6) COPD (chronic obstructive pulmonary disease) COPD type: unspecified COPD Qualified Code(s): J44.9 - Chronic obstructive pulmonary disease, unspecified
[2023-03-07] MEDS: ACETAMINOPHEN 325 MG TAB PO PRN ×2 (00:46→23:46)
[2023-03-07] MEDS: ONDANSETRON INJ 2 MG/ML 2 ML VIAL IV PRN (05:14)
[2023-03-07 06:34] LABS: Est GFR (African American) 95.9 ml/min; Est GFR (Non-African American) 82.7 ml/min
[2023-03-07] MEDS: FORMOTEROL 20 MCG/2 ML VIAL NEB SCH ×2 (07:30→19:51)
[2023-03-07] MEDS: BUDESONIDE 0.5 MG/2 ML VIAL (PULMICORT) NEB SCH ×2 (07:31→19:51)
[2023-03-07] MEDS: FUROSEMIDE 40 MG/4 ML VIAL IV SCH ×2 (08:56→17:51)
[2023-03-07] MEDS: clonazePAM 0.5 MG TAB PO SCH ×2 (08:56→20:34)
[2023-03-07] MEDS: INSULIN ASPART PER UNIT CHARGE SC SCH ×4 (08:57→20:35)
[2023-03-07] MEDS: ENOXAPARIN INJ 40 MG/0.4 ML SYR SQ SCH ×2 (08:57→20:34)
[2023-03-07] MEDS: guaiFENesin 600 MG TABCR PO SCH ×2 (08:57→20:34)
[2023-03-07] MEDS: UMECLIDINIUM BROMIDE 62.5MCG/BLISTER 7 PUFFS/INHALER INH SCH (08:58)
[2023-03-07] MEDS ORDERED: LANTUS PER UNIT CHARGE SC ONE ×2 (09:00→21:00)
[2023-03-07 09:22] LABS: BUN Creatinine Ratio 29.6 (10-20); Blood Urea Nitrogen 21 mg/dl (6-23); Calcium 8.6 mg/dl (8.6-10.3); Carbon Dioxide > 45 mmol/L (21-32); Chloride 92 mmol/L (98-107); Glucose 149 mg/dl (70-99(Fasting)); Potassium 3.8 mmol/L (3.5-5.1); Sodium 145 mmol/L (136-145)
--- NOTE | 2023-03-07 10:05 | Palliative Care Consultation ---
Date of Consultation March 07, 2023 Assessment & Plan (1) Dyspnea and respiratory abnormalities: Improved with NIV, encouraged to use this with sleep, naps and even if resting /watching TV Provided education on how NIV helps improve resp condition, relieve dyspnea, improve daytime somnolence etc. (2) Weakness generalized: (3) Abdominal pain, generalized: (4) Palliative care by specialist: Met with pt/family. Provided overview of Palliative Medicine, a subspecialty that provides specialized medical care for people living with a serious illness by offering a focus on quality of life. Palliative Medicine is often conflated with hospice: I advised patient/family that Palliative and hospice can be partners but we are not the same. It is important to understand the difference so that we may be informed, and not afraid. Palliative Medicine works to improve QOL through reduction of symptom burden/more control over their illness, for both the patient and family. Palliative medicine clinicians are board certified, specially-trained and another member of the patient's medical care team. We often provide an extra layer of support because our care is based on the needs of the patient, not the prognosis; as such, it's appropriate at any age/advancing stage of a serious illness and can be provided along with curative treatment. Palliative Medicine clinicians are also trained in advanced communication methodologies, to facilitate complex discussions about advanced illness planning, which are needed to help assure that the treatment choices match the patient's goals, aka delivering Goal Concordant care. Finally, we discussed that hospice is a visiting nurse service that focuses on care delivered at the very end of life for patients with terminal illness, with life expectancy less than 6 month. I had a teleconference with [facility] including patient's hospice nurse, ophthalmic medical technician, sap manager, etc. There has been some concern re patient's tends to be forgetful but no overt dementia symptoms noted. He can still care for his own needs. His physical strength is limited and due to her large body habitus, he often cannot support her and this is what caused her to fall at home - he could not assist and eventually calls [facility] for transport to hospital. I requested they have their hospice SW look into seeing if her hours for [facility] appointed caregivers can be expanded. [facility] team will be here for a formal MDT meeting with pt and . They are all available 03/12/23 at 12pm. I have notified pt son of same. (5) Advanced care planning/counseling discussion: We reviewed that all chronic/progressive disease has a declining trajectory over time where facets of patient self-identity and independence are lost. Every acute event leads to a further decline, resulting- many times, in a new baseline. Advised that the greatest priority is to determine what matters most to pt, then family and to develop a plan of care that is aligned with those priorities. She tells me she cannot remember all the details but knows she has been on a "version of hospice, like one level higher than hospice if that makes sense?" When i asked her what she feels are most important to her, she replied that being home with her who is around 80 years old matters the most. She refuses a skilled facility: "That's never happening." We spoke about her needs and the range of hospice. She admits she still wants to come to the hospital for escalating care - she does not mind being admitted/prolonged stays/repeated admissions. We discussed the chronic nature of her UTIs. We discussed the likely etiology is her colovesicular fistula. She replied that she felt that was an inaccurate assessment because a "surgeon told her that her fistula had been surgically repaired and fixed" and when a second surgeon "went down and looked for issues, did not find evidence of a fistula." We also discussed the multidrug-resistant nature of bacteria in the concern that eventually antibiotics may not be as effective or stop being effective altogether. She replied that she did not believe that was possible. She also felt that coming to the hospital assured her that she could have medications and treatments in an escalated manner such as IVs and/or other interventions for her bladder such as surgery etc. to help fix the issue. She recognizes that her lung issues are a little bit more progressive given the underlying lung disease and her sleep apnea. She states that she now understands the benefit of noninvasive ventilation and will be compliant with using her trilogy when she returns home. We discussed her prior history of longtime noncompliance with her trilogy therapy and she replied that no one had ever explained to her why it was important for how much it would help her feel better. We reviewed that these interventions and supportive resources are in her home to not only help her be more comfortable but to also improve her quality of life and stabilize her medical issues so that she does not need frequent hospitalization or readmission. I also advised that taking the help she was approved for through the [facility] agency for private caregiver support would be to her advantage as I do not feel she is hospice appropriate at this stage. Given that she wants to continue to return to the hospital and have escalated interventions for her symptoms, this does not indicate a patient who i s ready to embrace a comfort focused, quality of life intensive philosophy for advanced illness and end-of-life care. Patient has several advanced and complex comorbidities but none of them at this time appear to be significantly terminal. TS 45min face to face with pt Plan * Patient's goals are outlined above in our advance care planning conversation. This time, she wishes to have continued return to the hospital and ongoing interventions with escalation as needed to improve, correct or cure her underlying issues. She does not feel she has anything that is particularly unfixable at this time. * He is equally clear that she does not wish to have any conversation or consideration for senior living facility placement. She identifies that no matter what else is happening, her top priority is to return to her home and she feels her family is able to care for her. When asked to assist with her care, she replied her and her son. When asked if her son works full- time, she replied yes but he is available to help her whenever she wants. Patient has 2 other children but they are not involved in her care or particularly close to her. She had a fourth child, a daughter, who a year ago this month from a sudden heart attack. * Patient was encouraged to use her NIV with sleep, rest and nap time. She was encouraged to mobilize as much as possible and engage with physical therapy to improve strength and conditioning as well as her mobility. * I have updated nursing, case management, [facility] team, and the primar y team. * Please note: the above document was generated using voice recognition software. It may contain unintentional grammatical, syntax or spelling errors. Any formal questions or concerns about the content, text or information contained within the body of this dictation should be directly addressed to the provider for clarification. Thank you for allowing us to participate in the ongoing care of this patient. Please don't hesitate to call or page with any additional concerns. Dr. Cindy Motta DNP Director, Palliative Care History of Present Illness Reason for Consultation: Clarify goc, pt has been back and forth on [facility] and has had several readmissions to [facility] and [facility], with dementia Attending Physician: Abdirahman Landers MD History of Present Illness Maricarmen is a 77yo female who presents to [facility] ED with acute on chronic hypoxemia, hypercapnic resp failure. 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 - patient was admitted at [facility] in October, was treated for pneumonia and recurrent UTI - pneumonia was successfully treated, but UTI symptoms (burning with urination, no urgency/frequency) have persisted - today, patient and family report a one-week history of worsening confusion, SOB, chills, and diarrhea - patient has COPD and CHRISTIANO but is regimen nonadherent (recently discontinued all inhalers because she thought she caught pneumonia from her inhalers; also is completely nonadherent with CHRISTIANO treatment, reporting inability to tolerate BiPAP or her trilogy ventilator) - patient was found by family earlier today to be very confused with spO2 as low as the 70s, was dozing off in the car on the way here -patient and patient's son report they have been receiving home hospice care, but are still interested in relatively aggressive treatment of infections and/or underlying disease processes (though I did confirm patient is DNR/DNI)" PMH: COPD, T2DM, HFpEF, HTN, HLD, chronic abdominal pain, recurrent UTI, and MDD pt son and advised staff they both have viral resp illness/awaiting covid testing and will not be visiting in person. She has been on home hospice with [facility] (tel ); Per Flower at [facility] pt was admitted to home health 10/12 to 12/09/22 only and was NEVER on hospice with [facility]. Flower reviewed the home health notes and indicates that October 2022 admission to Home health states she had an [facility] admit for UTI and LLL PNA and she left AMA and pt's PCP sent home health referral. Pt was Pt was dc from [facility] home health 12/09/22 and represented to [facility] ED 12/19/22 with c/o AMS which was found to be due to AECOPD and HF exac, non compliance with NIV and diuretic therapies. Review of chart from [facility] December 2022 admission reveals she was dc to [facility] [phone](Attn Patrice) When I called [facility] this morning Patrice was out of office and their nurses were all in the filed. The individual answering the phones identified him self as the lehr loader. I explained the situation and concerns of not having a clear history of pt home situation/'s capability as caregiver and son's level of engagement etc. Pipe Threading Machine Operator advised he will page Patrice now and ask him to call, I provided my direct number for Patrice. Patrice returned my call and confirmed pt is on hospice with them. She was insistent on remaining full code at that time but eventually moved to DNR/DNI She was inconsistent with her goals, as well as her son, Dell Sharpe wanted her to have hospice bc it was the way to get her the most help at home. There re 2 additional siblings but they are not involved with pt nor do they offer to help. Hospice gave her a trilogy but she refuses to use it. She has revoked hospice 4 or more time in the past few times. Son has been insistent she continue to receive hospice because it is the highest level of in home support they can receive, but pt and son have also been equally clear about desiring aggressive medical interventions. [facility] staff note that her demands of hospice/family expectations of same are not realistic: most recently she had hospice motion and time study teacher paged to come to the house because she wanted to use the toilet so family paged hospice and demanded they come do this for pt/they did not assist pt themselves. She has been approved for services through [facility] but refuses to allow people into her home. She has "yee-picked" nursing staff from hospice and "fired" several nurses with complaints "that nurse talked to me too much" or "that nurse asked me too many questions" Allergies Allergy/AdvReac Type Severity Reaction Status Date / Time empagliflozin AdvReac Intermediate RECURRENT Verified 12/19/22 15:46 [From Jardiance] UTI'S metformin AdvReac Intermediate Gastrointestinal Verified 12/19/22 15:46 Upset oxycodone AdvReac Intermediate HALLUCINATI Verified 12/19/22 15:48 ONS Home Medications Medication Instructions Recorded Confirmed Type albuterol sulfate 90 mcg/actuation 2 puff inhalation Q4H PRN Wheezing 10/29/22 03/04/23 History aerosol inhaler insulin lispro protamine-lispro See Rx Instructions .Route .COMPLEX 10/29/22 03/04/23 History 100 unit/mL (75-25) subcutaneous pen (Humalog Mix 75-25 KwikPen) furosemide 80 mg tablet 80 mg PO DAILY #30 tabs 12/23/22 03/04/23 Rx alprazolam 0.25 mg tablet 0.25 mg PO Q6H PRN Anxiety 03/04/23 03/04/23 History cefdinir 300 mg capsule 300 mg PO BID 03/04/23 03/04/23 History fluticasone fur. 100 mcg-umeclid 1 inh inhalation DAILY 03/04/23 03/04/23 History 62.5 mcg-vilant 25 mcg inhalat.powder (Trelegy Ellipta) hydrocodone 10 mg-acetaminophen 1 tab PO Q4H PRN Pain 03/04/23 03/04/23 History 325 mg tablet semaglutide 0.25 mg or 0.5 mg (2 0.25 mg subcut WK 03/04/23 03/04/23 History mg/3 mL) subcutaneous pen injector (Ozempic) Patient History Medical History (Updated 03/07/23 @ 10:25 by Cindy Motta DNP) Chronic respiratory acidosis COPD (chronic obstructive pulmonary disease) Diabetes mellitus, type 2 Hypertension Hypoxia Morbid obesity Pleural effusion Pneumonia Recurrent 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" Right ankle swelling SOB (shortness of breath) Weakness Surgical History H/O ventral hernia repair Social History Smoking Status: Former smoker Tobacco Type: Cigarettes Cigarettes Per Day: 20; Second Hand Exposure: No; Do You Dip or Chew Tobacco: No; Tobacco Cessation Education Requested by Patient: No Hx Alcohol Use: Yes Alcohol type: hard liquor Hx Substance Use: No Preferred Language: Nepalese Communication Ability: Effective Back Hoe Machine Operator Required: No Beliefs That Will Affect Care: None Current Living Situation: Spouse Other Information That Helps Us Care for You: No Feels Safe at Home: Yes Safety Concerns: Feels Safe At This Time Assistive Devices: Lift Chair, Oxygen - Continuous, Walker and Wheelchair Review of Systems Constitutional: + weight gain, + increased appetite and + daytime sleepiness Eyes: + dry eyes Ear, Nose, Mouth, Throat: + nasal congestion, + snoring and + dry mouth Respiratory: + dyspnea, + snoring and + stopping breathing during sleep Cardiovascular: + orthopnea Gastrointestinal: + heartburn Genitourinary: + post-void dribbling Musculoskeletal: + stiffness, + limited range of motion and + muscle atrophy Integumentary: + change in hair Psychiatric: + abnormal sleep pattern, + anxiety and + difficulty concentrating Physical Exam Constitutional: + morbidly obese Eyes: PERRL, conjunctivae normal, anicteric sclerae ENMT: Mouth: + poor dentition Mallampati Class: IV Neck: + short neck and + thick neck Respiratory: normal respiratory effort (at rest), able to speak in complete sentences and symmetric chest movement Auscultation: + diminished lung sounds and + crackles (few) Cardiovascular: Rate/Rhythm: regular rate and regular rhythm Heart Sounds: normal S1 and normal S2 Gastrointestinal (Abdomen): obese, +pannus Musculoskeletal: generalized weakness Skin: pale, few ecchymoses, thin/dry skin Neurologic: PERRL, EOMI, accommodation nl, no face palsy, no dysarthria AAOx3 Psychiatric: A+Ox3, euthymic affect Eye Contact: good eye contact Speech: normal rate/rhythm/volume of speech Affect: euthymic affect Thought Process: + circumstantial thought process, + tangential thought process and + concrete thought process Results & Data Vital Signs (Past 12 Hours) Vital Signs Temp Pulse Pulse Resp BP Pulse Ox O2 Del Method 03/07/23 08:04 75 20 98 Nasal Cannula 03/07/23 07:43 37 C 98 H 33 H 155/64 H 93 Room Air 03/07/23 02:52 36.7 C 99 H 28 H 133/64 94 Nasal Cannula 03/06/23 23:20 Nasal Cannula 03/06/23 23:00 85 08/31/23 23:30 37.1 C 93 H 33 H 148/66 H 96 Nasal Cannula 03/06/23 22:10 86 24 94 O2 Flow Rate FiO2 03/07/23 08:04 4 03/07/23 07:43 03/07/23 02:52 03/06/23 23:20 4 03/06/23 23:00 03/06/23 23:30 4 03/06/23 22:10 40 Laboratory Results data reviewed Diagnostic Findings data reviewed PG Care Time/CCT Total # of Minutes Spent Total Time Spent: 130 Total Time Spent with Patient: Total time spent is greater than 50% in coordination of care (as documented) at patient's floor/unit and/or counseling patient: I spent 130 minutes overall addressing this very complex case: 30 in medical data review/discussion with referring provider(s) and/or preparation for the visit: Extensive data review and collection / discussion with providers from [facility] and [facility] teams 25 in direct interaction with the patient 45 Advance Care Planning/Goals of Care discussions as detailed above in note (must be >16min) 10 in subsequent review and synthesis of assessment and plan 20 in communicating with other providers regarding the patient's case: Primary team, nursing, care management, [facility] team as outlined above. Prolonged Care Time Prolonged Care Time: Yes Critical Care Time: No Critical Care Time Critical Care Time: No Advanced Care Planning 42853 Advanced Care Planning 30 Min 93782 Advanced Care Planning Additional 30 [place] [address] IN/OBS CONSULT LVL 5,80M Patient Type New History Comprehensive Exam Comprehensive Medical Decision Making High Complexity Diagnoses Dyspnea and respiratory abnormalities R06.00; R06.89 Weakness generalized R53.1 Abdominal pain, generalized R10.84 Palliative care by specialist Z51.5 Advanced care planning/counseling discussion Z71.89 Additional Codes Advanced Care Planning - 86764 Advanced Care Planning 30 Min: 75817 Advanced Care Planning 30 Min ([id number]) Advanced Care Planning - 46077 Advanced Care Planning Additional 30 Min: 21081 Advanced Care Planning Additional 30 Min ([id number]) Prolonged Care Time - Prolonged Care Time: Yes ([id number])
--- NOTE | 2023-03-07 10:34 | Pharmacy Report ---
Pharmacy Glycemic Short Note 2 - Date of Service March 07, 2023 - Glycemic Short BSG Results (Last 24 hours): 03/06/23 03/06/23 03/06/23 11:07 16:27 20:12 Glucose POC Glucose 111 H 103 H 134 H 03/07/23 03/07/23 05:55 07:26 Glucose 149 H POC Glucose 159 H OUTPATIENT ANTIDIABETIC REGIMEN: * Humalog 75/25 mix, 80 units qAM, 60 units qPM * Semaglutide * HbA1c 7.8% on 03/05/23 ASSESSMENT: 03/07 * BSGs at goal over last 24 hrs * Fasting BSG 159 this AM with 15 units basal on board. Basal needs this admission lower than prior possibly due to decreased PO intake. May provide additional basal this PM if BSGs climbing * Post-prandial BSGs controlled with current Novolog CR/CF - continue the same 03/06 * Patient now ordered a diet. 39 g CHO consumed with breakfast. May need to adjust regimen per below, but will base on lunch BSG. * AM fasting BSG excellent at 106 mg/dL after 20 units Lantus yesterday. Hesitant to be more aggressive despite higher doses last admin. May need to adjust tomorrow AM. Will schedule at lunch today to gradually transition to AM administration tomorrow, which may help with eventual transition back to Humalog 75/25 mix on discharge. Slightly lower dose today. * Lunch BSG stable from Am and in the lower end of goal range. Will not adjust Novolog. 03/05 * 77 yo F with T2DM admitted with SOB and on continuous BiPAP. On antibiotics. NPO for now. BSG's have trended down significantly from 339 mg/dL yesterday Am to 136 mg/dL this AM after 25 units of Lantus and a weight-based severe stress Novolog regimen * Previous four-day admission this past December reviewed - Lantus 20 units BID, Novolog goal 110-140 mg/dL, CF 20, CR 6, while on antibiotics and ordered/consuming diet. Almost all BSG's (fasting and post-prandial) were > 180 mg/dL. * This admission, patient is NPO which is different from previous. But if/when patient ordered a diet, the above likely will aid with adjustment to current regimen * For now, will be less aggressive given NPO * OK to leave Novolog at q4h - may change to q6h tomorrow if BSG's remain in goal range PLAN FOR INPATIENT GLYCEMIC CONTROL: * Hold outpatient diabetes medications * Basal insulin * Lantus 15 units SQ x 1 this AM; provide scaled dose this PM: 0 units if BSG < 140, 8 units if BSG 140-200, 15 units if BSG above 200 * Bolus insulin * NovoLog per scale ACHS or Q6hrs while NPO * Goal Range: Low 110 mg/dL - High 140 mg/dL * Correction Factor: 20 mg/dL/unit * Nutritional / Prandial insulin per carb ratio of 1 unit per 6 grams CHO consumed
[2023-03-07] MEDS: CIPROFLOXACIN / D5W 400 MG/200 ML BAG IV SCH ×2 (11:12→17:50)
[2023-03-07] MEDS ORDERED: IPRATROPIUM BROMIDE/ALBUTEROL respimat INH INH SCH (13:00)
[2023-03-07] MEDS: ALBUTEROL HFA 8 GM INHALER INH SCH ×3 (13:55→17:31)
[2023-03-07] MEDS: IPRATROPIUM BROMIDE HFA INHALER INH SCH ×3 (13:56→17:31)
[2023-03-07] MEDS ORDERED: clonazePAM 0.5 MG TAB PO STA (14:37)
--- NOTE | 2023-03-07 18:20 | Hospitalist Progress Note ---
Date of Service March 07, 2023 Assessment & Plan (1) Acute on chronic respiratory failure with hypoxia and hypercapnia: Plan: Chronic resp failure - due to OHS/CHRISTIANO, restrictive lung disease, ?COPD. Supposed to be on Trilogy machine at home - noncompliant with such, simply won't use it. Acute resp failure - 2nd to decompensated CHF. reports she was hydrated at [facility] in the setting of bacteremia, then upon discharge did not take lasix. Xanax use, narcotic use - will worsen both acute and chronic resp failure. Appears baseline pCO2 is upper 70s/low 80s. keep O2 sats low 90s. encouraged ongoing use of BIPAP with sleep. cont to diurese. (2) Acute exacerbation of CHF (congestive heart failure): Plan: echo 10/2022 - preserved LV function; no RV dysfunction. improving. BUN and Cr stable. cont IV lasix 40mg BID. BMP am. (3) Pneumonia: Plan: Low suspicion for pneumonia. Suspect #2 is main culprit for acute resp failure. Elevated procal likely from recent bacteremia/UTI while at [facility]. No Rx needed for pneumonia. Abx - for bacteremia/UTI. (4) Acute hyperkalemia: Plan: Peak K was 5.7 now resolved 2nd to K supplementation?? BMP am (5) Recurrent UTI: Plan: Recent e.coli bacteremia/UTI - dx [facility] 02/27 E.coli sens to ceftriaxone & cipro per records Also grew proteus - sens to ceftriaxone & cipro Stop rocephin Start cipro 400mg IV q8h first day of abx at [facility] was 02/27/23 Thus, today is day #9 of abx total of 14 days planned, last doses on 03/12 repeat urine cx negative blood cultures here thus far negative h/o colo-vesicular fistula - see below (6) COPD (chronic obstructive pulmonary disease): Plan: Cont inhalers Wheezing may be due to pulmonary edema rather than COPD Cont combivent qid Defer on systemic steroids for now (7) Diabetes mellitus, type 2: Plan: pharmacy glycemic team has been consulted appreciate their assistance cont basal-bolus insulinl Hba1c 7.8% (8) Obesity hypoventilation syndrome: Plan: desperately needs to use Trilogy at home continue NC O2 continuously with O2 sat goal 90-92% BIPAP at HS encouraged (9) Obstructive sleep apnea: Plan: severe needs to use Trilogy machine but noncompliant with such (10) Acute metabolic encephalopathy: Plan: resolved 2nd to CO2 retention benzos/narcotics could be causing toxic effects ammonia checked - wnl needs to use BIPAP consistently limit benzos limit narcotics (11) Morbid obesity with BMI of 45.0-49.9, adult: Plan: BMI 48 (12) Bacteremia: Plan: 2nd e.coli source - urinary tract was treated for such at [facility] last week stop rocephin start IV cipro today CT a/p without obstructing stones today is day #9 of 14 of abx (13) Myalgia: Plan: diffuse, body-wide etiology?? CPK checked due to recent falls - normal mag/K wnl myalgias are resolved (14) Chronic prescription benzodiazepine use: Plan: xanax - for at least a year or longer to avoid withdrawal cont clonazepam BID (15) Lumbar back pain: Plan: due to recent falls checked lumbar CT scan - no compression fracture seen try to avoid narcotics tylenol prn (16) Colovesical fistula: Plan: by the son's report dx [facility] [place] sometime in the last year or two she will cont to have recurrent UTIs from this not a good operative candidate in light of morbid obesity, chronic resp failure, etc (17) NSVT (nonsustained ventricular tachycardia): Plan: episode of such yesterday - 16-17 beats no symptoms echo with preserved EF earlier this year K/Mag wnl monitor Plan VTE Prophyalxis - Lovenox 40mg SQ BID episode of severe hypoxia - shunting? mucous plug? throwing PEs? check dopplers of legs - r/o DVT consider CTA chest patient previously on hospice - obtained palliative care consultation with Dr Motta today I appreciate her extensive consult Meeting set up for next week with family & [facility] son updated by phone yesterday evening Admission and Anticipated Discharge Date Admission Date: March 04, 2023 Subjective patient without complaints during the visit apparently had an episode of hypoxia to the 60s/70s while she was laying in bed patient was placed back on BIPAP with rapid resolution of the hypoxia patient states that during the episode above she had felt anxious and was coughing felt anxious due to the recent discussions about hospice eating better breathing overall is much better than previous back pain is unchanged tele overnight wnl unfortunately she only used BIPAP about 4 hours last pm Review of Systems Review of Systems: gen - no fevers or chills cv - no chest pain, no orthopnea (was laying nearly flat when I came to see her) GI - no abd pain or N/V pulm - mild cough, mild wheezing Physical Exam Physical Exam: gen - morbidly obese, awake/alert, distress mouth - MMM neck - unable to assess for JVD due to neck size heart - RRR, s1 s2, no obvious murmur lungs - mild end-exp wheezes b/l still present; no rales heard today; no increased work of breathing abd - soft, ND, BS+, NT ext - no edema b/l, pulses 2+ b/l psych - a/o x 3 Results & Data Results & Data Vital Signs (Past 12 Hours) Vital Signs Temp Pulse Pulse Resp BP Pulse Ox O2 Del Method 03/07/23 16:04 93 H 03/07/23 15:45 36.5 C 21 138/68 99 CPAP 03/07/23 08:00 85 03/07/23 08:00 Nasal Cannula, BiPAP 03/07/23 11:15 36.9 C 96 H 23 139/64 96 Room Air 03/07/23 08:04 75 20 98 Nasal Cannula 03/07/23 07:43 37 C 98 H 33 H 155/64 H 93 Room Air O2 Flow Rate 03/07/23 16:04 03/07/23 15:45 03/07/23 08:00 03/07/23 08:00 4 03/07/23 11:15 03/07/23 08:04 4 03/07/23 07:43 Laboratory Results Laboratory Results - last 24 hr 03/07/23 03/07/23 03/07/23 05:55 07:26 11:05 Sodium 145 Potassium 3.8 Chloride 92 L Carbon Dioxide > 45 H* Anion Gap TNP BUN 21 Creatinine 0.71 Est Cr Clr Drug Dosing 86.0 Est GFR ( Amer) 95.9 Est GFR (Non-Af Amer) 82.7 BUN/Creatinine Ratio 29.6 H Glucose 149 H POC Glucose 159 H 214 H Calcium 8.6 03/07/23 03/07/23 16:36 20:05 Sodium Potassium Chloride Carbon Dioxide Anion Gap BUN Creatinine Est Cr Clr Drug Dosing Est GFR ( Amer) Est GFR (Non-Af Amer) BUN/Creatinine Ratio Glucose POC Glucose 107 H 203 H Calcium PG Care Time/CCT Total # of Minutes Spent Total Time Spent with Patient: Total time spent is greater than 50% in coordination of care (as documented) at patient's floor/unit and/or counseling patient: Coding Level of Care Code 97978 SUB INP/OBS CARE 3/50MIN Diagnoses Acute on chronic respiratory failure with hypoxia and hypercapnia J96.21; J96.22 Acute exacerbation of CHF (congestive heart failure) I50.9 Pneumonia J18.9 Acute hyperkalemia E87.5 Recurrent UTI N39.0 COPD (chronic obstructive pulmonary disease) J44.9 COPD type: unspecified COPD Diabetes mellitus, type 2 E11.9 Obesity hypoventilation syndrome E66.2 Obstructive sleep apnea G47.33 Acute metabolic encephalopathy G93.41 Morbid obesity with BMI of 45.0-49.9, adult E66.01; Z68.42 Bacteremia R78.81 Myalgia M79.10 Chronic prescription benzodiazepine use Z79.899 Lumbar back pain M54.50 Colovesical fistula N32.1 NSVT (nonsustained ventricular tachycardia) I47.29 (6) COPD (chronic obstructive pulmonary disease) COPD type: unspecified COPD Qualified Code(s): J44.9 - Chronic obstructive pulmonary disease, unspecified
[2023-03-07] MEDS ORDERED: INSULIN ASPART PER UNIT CHARGE SC SCH (18:30)
--- NOTE | 2023-03-08 00:10 | Ultrasound Report ---
ULTRASOUND BILATERAL LOWER EXTREMITY VENOUS CLINICAL HISTORY: Immobility. Hypoxia. COMPARISON STUDY: No priors. TECHNIQUE: Real-time, grayscale, and color Doppler sonography of the deep veins of the right and left lower extremity was performed from the inguinal crease to the calf. Compression and augmentation wer e utilized. FINDINGS: There is no sonographic evidence of deep venous thrombosis identified in the right or left lower extremity. The common femoral, superficial femoral, and popliteal veins are patent and normally compressible bilaterally. The greater saphenous vein and the profunda femoris vein at the junction w ith the common femoral vein are clear in both legs. The visualized right calf veins are patent bilate rally. The patient declined evaluation of the left calf vessels. IMPRESSION: 1. There is no sonographic evidence of deep venous thrombosis identified in the right or left lower e xtremity. 2. Note that the patient declined evaluation of the left calf vessels. ACT 112: Negative or not required by law. Electronically signed by: Glenn Cabral M.D. 03/08/2023 12:07 AM
[2023-03-08] MEDS: CIPROFLOXACIN / D5W 400 MG/200 ML BAG IV SCH ×3 (01:58→17:09)
--- NOTE | 2023-03-08 06:31 | Electrocardiogram Report ---
Test Reason : Blood Pressure : / mmHG Vent. Rate : 104 BPM Atrial Rate : 104 BPM P-R Int : 156 ms QRS Dur : 068 ms QT Int : 304 ms P-R-T Axes : 065 045 027 degrees QTc Int : 399 ms Sinus tachycardia Low voltage QRS Cannot rule out Anterior infarct (cited on or before 19-DEC-2022) Abnormal ECG When compared with ECG of 19-DEC-2022 14:46, Premature supraventricular complexes are no longer Present Confirmed by Edmundo Doll ([id number] on 03/08/2023 6:30:32 AM Referred By: REFERRED SELF Confirmed By:Edmundo Doll
[2023-03-08] MEDS: FORMOTEROL 20 MCG/2 ML VIAL NEB SCH ×2 (07:32→19:03)
[2023-03-08] MEDS: BUDESONIDE 0.5 MG/2 ML VIAL (PULMICORT) NEB SCH ×2 (07:32→19:04)
[2023-03-08] MEDS: IPRATROPIUM BROMIDE HFA INHALER INH SCH ×4 (07:33→19:04)
[2023-03-08] MEDS: ALBUTEROL HFA 8 GM INHALER INH SCH ×4 (07:33→19:04)
[2023-03-08 07:57] LABS: Hematocrit (blood only) 31.2 % (37.0-47.0); Mean Corpuscular Hemoglobin 26.7 pg (25.0-34.0); Mean Corpuscular Hgb Conc 28.8 g/dL (32.0-36.0); Mean Corpuscular Volume 92.6 fL (80.0-100.0); Mean Platelet Volume 8.9 fL (9.4-12.4); Platelet Count 210 K/uL (130-400); RDW Coefficient of Variation 15.6 % (11.5-14.5); RDW Standard Deviation 52.1 fL (36.4-46.3); Red Blood Count 3.37 M/uL (4.20-5.40); White Blood Count 4.43 K/ul (4.8-10.8)
[2023-03-08 08:52] LABS: Blood Urea Nitrogen 18 mg/dl (6-23); Calcium 8.6 mg/dl (8.6-10.3); Carbon Dioxide > 45 mmol/L (21-32); Chloride 89 mmol/L (98-107); Creatinine Clr Calc Pharmacy 66.1 ml/min; Est GFR (Non-African American) 62.1 ml/min; Glucose 192 mg/dl (70-99(Fasting)); Sodium 143 mmol/L (136-145)
[2023-03-08] MEDS: LANTUS PER UNIT CHARGE SC SCH ×2 (09:11→20:51)
[2023-03-08] MEDS: INSULIN ASPART PER UNIT CHARGE SC SCH ×4 (09:11→20:51)
[2023-03-08] MEDS: clonazePAM 0.5 MG TAB PO SCH ×2 (09:12→20:53)
[2023-03-08] MEDS: ENOXAPARIN INJ 40 MG/0.4 ML SYR SQ SCH ×2 (09:12→20:51)
[2023-03-08] MEDS: guaiFENesin 600 MG TABCR PO SCH ×2 (09:12→20:50)
[2023-03-08] MEDS: FUROSEMIDE 40 MG/4 ML VIAL IV SCH ×2 (09:13→17:08)
[2023-03-08] MEDS: UMECLIDINIUM BROMIDE 62.5MCG/BLISTER 7 PUFFS/INHALER INH SCH (09:13)
[2023-03-08] MEDS: ACETAMINOPHEN 325 MG TAB PO PRN ×2 (09:15→19:37)
--- NOTE | 2023-03-08 20:12 | Hospitalist Progress Note ---
Date of Service March 08, 2023 Assessment & Plan (1) Acute on chronic respiratory failure with hypoxia and hypercapnia: Plan: Chronic resp failure - due to OHS/CHRISTIANO, restrictive lung disease, ?COPD. Supposed to be on Trilogy machine at home - noncompliant with such, simply won't use it. Acute resp failure - 2nd to decompensated CHF. MUCH improved. weight is down at least 10kg since admission. reports she was hydrated at [facility] in the setting of bacteremia, then upon discharge did not take lasix. Xanax use, narcotic use - will worsen both acute and chronic resp failure. Appears baseline pCO2 is upper 70s/low 80s. keep O2 sats low 90s. encouraged ongoing use of BIPAP with sleep. looks to be approaching euvolemia -see below. (2) Acute exacerbation of CHF (congestive heart failure): Plan: echo 10/2022 - preserved LV function; no RV dysfunction. decompensation likely nearly resolved. looks slightly dry today. hold lasix following this AM dose. re-assess tomorrow. BMP am. (3) Pneumonia: Plan: Low suspicion for pneumonia. Suspect #2 is main culprit for acute resp failure. Elevated procal likely from recent bacteremia/UTI while at [facility]. No Rx needed for pneumonia. Abx are for bacteremia/UTI. (4) Acute hyperkalemia: Plan: Peak K was 5.7 resolved likely was 2nd to K supplementation at home in setting of not taking her daily lasix BMP am (5) Recurrent UTI: Plan: Recent e.coli bacteremia/UTI - dx [facility] 02/27 E.coli sens to ceftriaxone & cipro per records Also grew proteus - sens to ceftriaxone & cipro Stopped rocephin Started cipro 400mg IV q8h 03/07 first day of abx at [facility] was 02/27/23 Thus, today is day #10 of abx total of 14 days planned, last doses on 03/12 can change to PO cipro 750mg BID on 03/09 and stop on 03/12 repeat urine cx negative blood cultures here thus far negative h/o colo-vesicular fistula - see below (6) COPD (chronic obstructive pulmonary disease): Plan: Cont inhalers Wheezing was likely due to pulmonary edema rather than COPD as it improved with diuresis Cont combivent qid (7) Diabetes mellitus, type 2: Plan: pharmacy glycemic team has been consulted appreciate their assistance cont basal-bolus insulinl Hba1c 7.8% (8) Obesity hypoventilation syndrome: Plan: desperately needs to use Trilogy at home continue NC O2 continuously with O2 sat goal 90-92% BIPAP at HS encouraged (9) Obstructive sleep apnea: Plan: severe needs to use Trilogy machine but noncompliant with such (10) Acute metabolic encephalopathy: Plan: resolved 2nd to CO2 retention benzos/narcotics were likely causing toxic effects as well ammonia checked - wnl needs to use BIPAP consistently limit benzos limit narcotics (11) Morbid obesity with BMI of 45.0-49.9, adult: Plan: BMI 46 (12) Bacteremia: Plan: 2nd e.coli source - urinary tract was treated for such at [facility] last week stopped rocephin - now on IV cipro doing well - change to PO cipro tomorrow; stop date 03/12/23 CT a/p without obstructing stones today is day #10 of 14 of abx (13) Myalgia: Plan: diffuse, body-wide etiology?? CPK checked due to recent falls - normal mag/K wnl myalgias are resolved (14) Chronic prescription benzodiazepine use: Plan: xanax - for at least a year or longer to avoid withdrawal cont clonazepam BID (15) Lumbar back pain: Plan: due to recent falls checked lumbar CT scan - no compression fracture seen try to avoid narcotics tylenol prn (16) Colovesical fistula: Plan: by the son's report dx [facility] sometime in the last year or two she will cont to have recurrent UTIs from this not a good operative candidate in light of morbid obesity, chronic resp failure, etc (17) NSVT (nonsustained ventricular tachycardia): Plan: episode of such earlier this week - 16-17 beats no symptoms echo with preserved EF earlier this year K/Mag wnl monitor Plan VTE Prophyalxis - Lovenox 40mg SQ BID patient previously on hospice - obtained palliative care consultation with Dr Motta on 03/07/23 I appreciate her extensive consult Meeting set up for next week with family & [facility] by report patient has revoked hospice multiple times to be hospitalized both here and at [facility] today she voiced she wanted to go to rehab post-d/c, then go home after that with hospice told her that all of her healthcare goals have not been c/w hospice but rather that of routine, ongoing care updated at bedside today will inform social work she is thinking about rehab Admission and Anticipated Discharge Date Admission Date: March 04, 2023 Subjective tele overnight wnl did use BIPAP once again last pm - this time a bit longer she feels good today - very awake and feels alert dyspnea at rest resolved minor MERRILL with getting OOB today- states the MERRILL she had was similar to at home eating well drinking fine no new complaints asks about going to rehab??? she was at [facility] in the past following TKR Review of Systems Review of Systems: gen - no fevers, no chills cv - no chest pain; no orthopnea pulm - no cough GI - no abd pain or nausea Physical Exam Physical Exam: gen - morbidly obese, awake/alert, no distress - best she has looked since admission mouth - MM slightly dry today neck - unable to assess for JVD due to neck size heart - RRR, s1 s2, no obvious murmur lungs - scant end-exp wheezes b/l; no rales; no increased work of breathing abd - soft, ND, BS+, NT; body wall edema improved ext - no edema b/l, pulses 2+ b/l psych - a/o x 3 Results & Data Results & Data Vital Signs (Past 12 Hours) Vital Signs Temp Pulse Pulse Resp BP Pulse Ox O2 Del Method 03/08/23 19:16 20 90 Nasal Cannula 03/08/23 19:11 36.9 C 95 H 22 142/62 H 98 Nasal Cannula 03/08/23 16:13 87 03/08/23 16:01 36.5 C 90 20 113/63 90 BiPAP 03/08/23 15:23 88 18 97 03/08/23 14:07 89 18 92 Nasal Cannula 03/08/23 11:45 36.4 C L 93 H 18 164/78 H 94 Nasal Cannula 03/08/23 10:45 92 H 18 94 Nasal Cannula O2 Flow Rate FiO2 03/08/23 19:16 3 03/08/23 19:11 3 03/08/23 16:13 03/08/23 16:01 09/02/23 15:23 40 03/08/23 14:07 2 03/08/23 11:45 4 03/08/23 10:45 4 Laboratory Results Laboratory Results - last 24 hr 03/08/23 03/08/23 03/08/23 07:33 07:34 07:34 WBC 4.43 L RBC 3.37 L Hgb 9.0 L Hct 31.2 L MCV 92.6 MCH 26.7 MCHC 28.8 L RDW Std Deviation 52.1 H RDW Coeff of Dalton 15.6 H Plt Count 210 MPV 8.9 L Sodium 143 Potassium 4.0 Chloride 89 L Carbon Dioxide > 45 H* Anion Gap TNP BUN 18 Creatinine 0.90 Est Cr Clr Drug Dosing 66.1 Est GFR ( Amer) 72.0 Est GFR (Non-Af Amer) 62.1 BUN/Creatinine Ratio 20.0 Glucose 192 H POC Glucose 191 H Calcium 8.6 03/08/23 03/08/23 11:31 16:18 WBC RBC Hgb Hct MCV MCH MCHC RDW Std Deviation RDW Coeff of Dalton Plt Count MPV Sodium Potassium Chloride Carbon Dioxide Anion Gap BUN Creatinine Est Cr Clr Drug Dosing Est GFR ( Amer) Est GFR (Non-Af Amer) BUN/Creatinine Ratio Glucose POC Glucose 233 H 115 H Calcium Diagnostic Findings blood cx's from admission negative PG Care Time/CCT Total # of Minutes Spent Total Time Spent with Patient: Total time spent is greater than 50% in coordination of care (as documented) at patient's floor/unit and/or counseling patient: Coding Level of Care Code 08663 SUB INP/OBS CARE 2/35MIN Diagnoses Acute on chronic respiratory failure with hypoxia and hypercapnia J96.21; J96.22 Acute exacerbation of CHF (congestive heart failure) I50.9 Pneumonia J18.9 Acute hyperkalemia E87.5 Recurrent UTI N39.0 COPD (chronic obstructive pulmonary disease) J44.9 COPD type: unspecified COPD Diabetes mellitus, type 2 E11.9 Obesity hypoventilation syndrome E66.2 Obstructive sleep apnea G47.33 Acute metabolic encephalopathy G93.41 Morbid obesity with BMI of 45.0-49.9, adult E66.01; Z68.42 Bacteremia R78.81 Myalgia M79.10 Chronic prescription benzodiazepine use Z79.899 Lumbar back pain M54.50 Colovesical fistula N32.1 NSVT (nonsustained ventricular tachycardia) I47.29 (6) COPD (chronic obstructive pulmonary disease) COPD type: unspecified COPD Qualified Code(s): J44.9 - Chronic obstructive pulmonary disease, unspecified
[2023-03-08] MEDS ORDERED: METOPROLOL TARTRATE 1 MG/ML VIAL IV STA (22:05)
[2023-03-09] MEDS: ACETAMINOPHEN 325 MG TAB PO PRN ×2 (06:43→12:21)
[2023-03-09] MEDS: BUDESONIDE 0.5 MG/2 ML VIAL (PULMICORT) NEB SCH ×2 (07:13→18:51)
[2023-03-09] MEDS: IPRATROPIUM BROMIDE HFA INHALER INH SCH ×4 (07:14→18:51)
[2023-03-09] MEDS: ALBUTEROL HFA 8 GM INHALER INH SCH ×4 (07:14→18:51)
[2023-03-09] MEDS: FORMOTEROL 20 MCG/2 ML VIAL NEB SCH ×2 (07:14→18:51)
[2023-03-09] MEDS: INSULIN ASPART PER UNIT CHARGE SC SCH ×4 (07:57→20:51)
[2023-03-09] MEDS: guaiFENesin 600 MG TABCR PO SCH ×2 (08:22→20:46)
[2023-03-09] MEDS: UMECLIDINIUM BROMIDE 62.5MCG/BLISTER 7 PUFFS/INHALER INH SCH (08:22)
[2023-03-09] MEDS: ENOXAPARIN INJ 40 MG/0.4 ML SYR SQ SCH ×2 (08:22→20:47)
[2023-03-09] MEDS: CIPROFLOXACIN 250 MG TAB PO SCH ×2 (08:22→20:46)
[2023-03-09] MEDS: clonazePAM 0.5 MG TAB PO SCH ×2 (08:30→20:48)
[2023-03-09] MEDS ORDERED: LANTUS PER UNIT CHARGE SC SCH ×2 (09:00→21:00)
[2023-03-09 09:33] LABS: Blood Urea Nitrogen 19 mg/dl (6-23); Calcium 8.8 mg/dl (8.6-10.3); Carbon Dioxide > 45 mmol/L (21-32); Chloride 90 mmol/L (98-107); Creatinine Clr Calc Pharmacy 77.9 ml/min; Est GFR (African American) 88.3 ml/min; Est GFR (Non-African American) 76.2 ml/min; Glucose 192 mg/dl (70-99(Fasting)); Potassium 4.5 mmol/L (3.5-5.1); Sodium 142 mmol/L (136-145)
[2023-03-09] MEDS ORDERED: FUROSEMIDE 40 MG/4 ML VIAL IV ONE (11:30)
--- NOTE | 2023-03-09 13:35 | Pharmacy Report ---
Pharmacy Glycemic Short Note 2 - Date of Service March 09, 2023 - Glycemic Short BSG Results (Last 24 hours): 03/08/23 03/08/23 03/09/23 16:18 20:22 07:40 Glucose 192 H POC Glucose 115 H 164 H 03/09/23 03/09/23 03/09/23 07:43 11:00 11:01 Glucose POC Glucose 189 H 302 H* 286 H OUTPATIENT ANTIDIABETIC REGIMEN: * Humalog 75/25 mix, 80 units qAM, 60 units qPM * Semaglutide * HbA1c 7.8% on 03/05/23 ASSESSMENT: 03/09 * BSGs remain labile, ranging 115-233 mg/dL yesterday * Received 77 units of insulin (~50/50 basal/bolus split) * Fasting BSG remains elevated this morning (189 mg/dL) - will increase basal * Tightened Novolog with breakfast this morning, but lunch BSG still elevated - will tighten further tomorrow morning 03/07 * BSGs at goal over last 24 hrs * Fasting BSG 159 this AM with 15 units basal on board. Basal needs this admission lower than prior possibly due to decreased PO intake. May provide additional basal this PM if BSGs climbing * Post-prandial BSGs controlled with current Novolog CR/CF - continue the same 03/06 * Patient now ordered a diet. 39 g CHO consumed with breakfast. May need to adjust regimen per below, but will base on lunch BSG. * AM fasting BSG excellent at 106 mg/dL after 20 units Lantus yesterday. Hesitant to be more aggressive despite higher doses last admin. May need to adjust tomorrow AM. Will schedule at lunch today to gradually coyle sition to AM administration tomorrow, which may help with eventual transition back to Humalog 75/25 mix on discharge. Slightly lower dose today. * Lunch BSG stable from Am and in the lower end of goal range. Will not adjust Novolog. 03/05 * 77 yo F with T2DM admitted with SOB and on continuous BiPAP. On antibiotics. NPO for now. BSG's have trended down significantly from 339 mg/dL yesterday Am to 136 mg/dL this AM after 25 units of Lantus and a weight-based severe stress Novolog regimen * Previous four-day admission this past December reviewed - Lantus 20 units BID, Novolog goal 110-140 mg/dL, CF 20, CR 6, while on antibiotics and ordered/consuming diet. Almost all BSG's (fasting and post-prandial) were > 180 mg/dL. * This admission, patient is NPO which is different from previous. But if/when patient ordered a diet, the above likely will aid with adjustment to current regimen * For now, will be less aggressive given NPO * OK to leave Novolog at q4h - may change to q6h tomorrow if BSG's remain in goal range PLAN FOR INPATIENT GLYCEMIC CONTROL: * Basal insulin * Lantus 20-25 units SC BID * Bolus insulin * NovoLog per scale ACHS or Q6hrs while NPO * Goal Range: Low 110 mg/dL - High 140 mg/dL * Correction Factor: 12 mg/dL/unit at breakfast, 20 mg/dL/unit at lunch, dinner, and HS * Nutritional / Prandial insulin per carb ratio of 1 unit per 4 grams CHO consumed with breakfast, 6 grams CHO consumed with lunch, dinner, and HS
--- NOTE | 2023-03-09 18:43 | Hospitalist Progress Note ---
Date of Service March 09, 2023 Assessment & Plan (1) Fever: Plan: Tm 37.9 this afternoon associated with chills, headache, simply feeling unwell. Increasing cough and wheezing today. Fortunately no increased dyspnea. Pt states her son tested positive for COVID last week? She was COVID negative at time of admission but needs repeat testing now -- check COVID/flu/RSV swab. Repeat pCXR. Due to increased wheezing add dexamethasone 6mg IV daily. Cont combivent - consider changing to nebs. Pulmonary toilet - increase mucinex to 1200mg BID. (2) COPD (chronic obstructive pulmonary disease): Plan: With exacerbation. See #1 above. (3) Acute on chronic respiratory failure with hypoxia and hypercapnia: Plan: Chronic resp failure - due to OHS/CHRISTIANO, restrictive lung disease, ?COPD. Supposed to be on Trilogy machine at home - noncompliant with such, simply won't use it. Acute resp failure - 2nd to decompensated CHF - which has been improving. But now with COPD flare as above. Xanax use, narcotic use - will worsen both acute and chronic resp failure. Both have been stopped. Appears baseline pCO2 is upper 70s/low 80s. keep O2 sats low 90s. encouraged ongoing use of BIPAP with sleep. looks to be approaching euvolemia -see below. (4) Acute exacerbation of CHF (congestive heart failure): Plan: Echo 10/2022 - preserved LV function; no RV dysfunction. decompensation likely nearly resolved. BUN & Cr are stable on AM labs - elected to give another 40mg of IV lasix. Reassess tomorrow for additional diuresis. (5) Pneumonia: Plan: earlier in stay there was concern for such - ultimately felt that pulm sx's were due to pulm edema. Due to #1 will recheck pCXR tonight. (6) Acute hyperkalemia: Plan: Peak K was 5.7 resolved likely was 2nd to K supplementation at home in setting of not taking her daily lasix (7) Recurrent UTI: Plan: Recent e.coli bacteremia/UTI - dx [facility] 02/27 E.coli sens to ceftriaxone & cipro per records Also grew proteus - sens to ceftriaxone & cipro first day of abx at [facility] was 02/27/23 Thus, today is day #11 of abx total of 14 days planned, last doses on 03/12 changed to PO cipro 750mg BID on 03/09 and stop on 03/12 repeat urine cx negative blood cultures here thus far negative h/o colo-vesicular fistula - see below (8) Diabetes mellitus, type 2: Plan: pharmacy glycemic team has been consulted appreciate their assistance cont basal-bolus insulinl Hba1c 7.8% with institution of dexamethasone BSGs will rise (9) Obesity hypoventilation syndrome: Plan: desperately needs to use Trilogy at home continue NC O2 continuously with O2 sat goal 90-92% BIPAP at HS encouraged (10) Obstructive sleep apnea: Plan: severe needs to use Trilogy machine but noncompliant with such (11) Acute metabolic encephalopathy: Plan: resolved 2nd to CO2 retention benzos/narcotics were likely causing toxic effects as well ammonia checked - wnl needs to use BIPAP consistently limit benzos limit narcotics (12) Morbid obesity with BMI of 45.0-49.9, adult: Plan: BMI 46 (13) Bacteremia: Plan: 2nd e.coli source - urinary tract was treated for such at [facility] last week stopped rocephin - now on cipro cipro stop date 03/12/23 CT a/p without obstructing stones today is day #11 of 14 of abx (14) Myalgia: Plan: diffuse, body-wide - earlier in hospital stay resolved CPK checked due to recent falls - normal mag/K wnl (15) Chronic prescription benzodiazepine use: Plan: xanax - for at least a year or longer to avoid withdrawal cont clonazepam BID (16) Lumbar back pain: Plan: due to recent falls checked lumbar CT scan - no compression fracture seen try to avoid narcotics tylenol prn (17) Colovesical fistula: Plan: by the son's report dx [facility] sometime in the last year or two she will cont to have recurrent UTIs from this not a good operative candidate in light of morbid obesity, chronic resp failure, etc (18) NSVT (nonsustained ventricular tachycardia): Plan: episode of such earlier this week - 16-17 beats no symptoms echo with preserved EF earlier this year K/Mag wnl monitor Plan VTE Prophyalxis - Lovenox 40mg SQ BID patient previously on hospice - obtained palliative care consultation with Dr Motta on 03/07/23 I appreciate her extensive consult Meeting set up for next week with family & [facility] by report patient has revoked hospice multiple times to be hospitalized both here and at [facility] yesterday she voiced she wanted to go to rehab post-d/c, then go home after that with hospice told her that all of her healthcare goals have not been c/w hospice but rather that of routine, ongoing care updated at bedside yesterday Admission and Anticipated Discharge Date Admission Date: March 04, 2023 Subjective patient woke up today feeling unwell then had temp of 37.9 this afternoon with chills has had headache, although has headaches on chronic basis as well increased cough increased wheezing denies myalgias recently sick with URI son had COVID recently? ate well today despite the above did not use BIPAP last pm Review of Systems Review of Systems: cv - no chest tightness or pain pulm - no significant sputum GI - had mild stomach upset earlier today - now resolved Physical Exam Physical Exam: gen - morbidly obese, awake/alert, no distress, coughing at times mouth - MMM neck - unable to assess for JVD due to neck size heart - RRR, s1 s2, no obvious murmur lungs - b/l wheezes - worse than yesterday - all lung segments; no rales; no increased work of breathing abd - soft, ND, BS+, NT ext - no edema b/l, pulses 2+ b/l psych - a/o x 3 Results & Data Results & Data Vital Signs (Past 12 Hours) Vital Signs Temp Pulse Pulse Resp BP Pulse Ox O2 Del Method 03/09/23 14:52 82 03/09/23 15:45 37.3 C 82 22 136/64 90 CPAP 03/09/23 11:27 37.9 C H 88 28 H 138/67 94 Nasal Cannula 03/09/23 11:07 92 H 18 94 Nasal Cannula 03/09/23 08:12 Nasal Cannula 03/09/23 08:07 36.9 C 93 H 20 142/75 H 94 Nasal Cannula 03/09/23 07:14 86 21 93 Nasal Cannula O2 Flow Rate 03/09/23 14:52 03/09/23 15:45 03/09/23 11:27 3 03/09/23 11:07 3 03/09/23 08:12 4 03/09/23 08:07 3 03/09/23 07:14 3 Laboratory Results Laboratory Results - last 24 hr 03/08/23 03/09/23 03/09/23 20:22 07:40 07:43 Sodium 142 Potassium 4.5 Chloride 90 L Carbon Dioxide > 45 H* Anion Gap TNP BUN 19 Creatinine 0.76 Est Cr Clr Drug Dosing 77.9 Est GFR ( Amer) 88.3 Est GFR (Non-Af Amer) 76.2 BUN/Creatinine Ratio 25.0 H Glucose 192 H POC Glucose 164 H 189 H Calcium 8.8 03/09/23 03/09/23 03/09/23 11:00 11:01 16:31 Sodium Potassium Chloride Carbon Dioxide Anion Gap BUN Creatinine Est Cr Clr Drug Dosing Est GFR ( Amer) Est GFR (Non-Af Amer) BUN/Creatinine Ratio Glucose POC Glucose 302 H* 286 H 138 H Calcium PG Care Time/CCT Total # of Minutes Spent Total Time Spent with Patient: Total time spent is greater than 50% in coordination of care (as documented) at patient's floor/unit and/or counseling patient: Coding Level of Care Code 80416 SUB INP/OBS CARE 3/50MIN Diagnoses Fever R50.9 COPD (chronic obstructive pulmonary disease) J44.9 COPD type: unspecified COPD Acute on chronic respiratory failure with hypoxia and hypercapnia J96.21; J96.22 Acute exacerbation of CHF (congestive heart failure) I50.9 Pneumonia J18.9 Acute hyperkalemia E87.5 Recurrent UTI N39.0 Diabetes mellitus, type 2 E11.9 Obesity hypoventilation syndrome E66.2 Obstructive sleep apnea G47.33 Acute metabolic encephalopathy G93.41 Morbid obesity with BMI of 45.0-49.9, adult E66.01; Z68.42 Bacteremia R78.81 Myalgia M79.10 Chronic prescription benzodiazepine use Z79.899 Lumbar back pain M54.50 Colovesical fistula N32.1 NSVT (nonsustained ventricular tachycardia) I47.29 (2) COPD (chronic obstructive pulmonary disease) COPD type: unspecified COPD Qualified Code(s): J44.9 - Chronic obstructive pulmonary disease, unspecified
[2023-03-09] MEDS ORDERED: COUGH DROP (SUGAR FREE) LOZ 24 LOZ/1 BOX BUCCAL ONE (20:38)
[2023-03-09] MEDS: dexAMETHasone 6 MG in SYRINGE 0 ML IV SCH (20:58)
[2023-03-09 21:25] LABS: Influenza A virus by PCR Negative (Neg); Influenza B virus by PCR Negative (Neg); RSV by PCR Negative (Neg); SARS CoV2 RNA(COVID-19) Ceph NEGATIVE (Negative)
[2023-03-10] MEDS ORDERED: ALPRAZolam 0.25 MG TABLET PO ONE (02:21)
[2023-03-10] MEDS ORDERED: ALPRAZolam 0.25 MG TABLET ONE (02:31)
[2023-03-10] MEDS: ACETAMINOPHEN 325 MG TAB PO PRN (02:32)
[2023-03-10] MEDS: FORMOTEROL 20 MCG/2 ML VIAL NEB SCH ×2 (07:13→19:09)
[2023-03-10] MEDS: BUDESONIDE 0.5 MG/2 ML VIAL (PULMICORT) NEB SCH ×2 (07:13→19:10)
[2023-03-10] MEDS: ALBUTEROL HFA 8 GM INHALER INH SCH ×4 (07:14→19:10)
[2023-03-10] MEDS: IPRATROPIUM BROMIDE HFA INHALER INH SCH ×4 (07:14→19:10)
[2023-03-10 07:30] LABS: Calcium 8.9 mg/dl (8.6-10.3); Creatinine Clr Calc Pharmacy 80.2 ml/min; Est GFR (African American) 91.2 ml/min; Est GFR (Non-African American) 78.7 ml/min; Potassium 4.9 mmol/L (3.5-5.1)
--- NOTE | 2023-03-10 07:38 | XRay Report ---
XR chest 1V portable HISTORY: worsening wheezing, cough, fever COMPARISON: Chest 03/06/2023. FINDINGS: There are low lung volumes. No pneumothorax. The heart remains enlarged. There is mild cent ral pulmonary vascular congestion without overt edema. Bibasilar densities and small bilateral pleura l effusions persist. IMPRESSION: 1. Cardiomegaly with mild congestive change. 2. Bibasilar densities and small bilateral pleural effusions persist. ACT 112: Negative or not required by law. Electronically signed by: Kike Riley M.D. 03/10/2023 7:37 AM
[2023-03-10] MEDS: LANTUS PER UNIT CHARGE SC SCH ×2 (08:12→21:43)
[2023-03-10] MEDS: INSULIN ASPART PER UNIT CHARGE SC SCH ×4 (08:12→21:43)
[2023-03-10] MEDS: ENOXAPARIN INJ 40 MG/0.4 ML SYR SQ SCH ×2 (08:17→19:47)
[2023-03-10] MEDS: CIPROFLOXACIN 250 MG TAB PO SCH ×2 (08:18→19:47)
[2023-03-10] MEDS: guaiFENesin 600 MG TABCR PO SCH ×2 (08:19→19:47)
[2023-03-10] MEDS: clonazePAM 0.5 MG TAB PO SCH (08:19)
[2023-03-10] MEDS: UMECLIDINIUM BROMIDE 62.5MCG/BLISTER 7 PUFFS/INHALER INH SCH (08:20)
[2023-03-10] MEDS ORDERED: NYSTATIN CR 15 GM TUBE EXT SCH (11:00)
[2023-03-10] MEDS: MICONAZOLE NITRATE POWDER 85 GM EXT SCH ×2 (12:21→19:52)
--- NOTE | 2023-03-10 13:41 | Pharmacy Report ---
Pharmacy Glycemic Short Note 2 - Date of Service March 10, 2023 - Glycemic Short BSG Results (Last 24 hours): 03/09/23 03/09/23 03/10/23 16:31 20:38 06:37 Glucose 259 H POC Glucose 138 H 161 H 03/10/23 03/10/23 07:21 11:22 Glucose POC Glucose 245 H 223 H OUTPATIENT ANTIDIABETIC REGIMEN: * Humalog 75/25 mix, 80 units qAM, 60 units qPM * Semaglutide * HbA1c 7.8% on 03/05/23 ASSESSMENT: 03/10: * Dexamethasone 6 mg IV q24h initiated last evening (no insulin changes made at time of order) * BSGs unsurprisingly elevated today - will tighten Novolog and increase basal to better cover steroids 03/09 * BSGs remain labile, ranging 115-233 mg/dL yesterday * Received 77 units of insulin (~50/50 basal/bolus split) * Fasting BSG remains elevated this morning (189 mg/dL) - will increase basal * Tightened Novolog with breakfast this morning, but lunch BSG still elevated - will tighten further tomorrow morning 03/07 * BSGs at goal over last 24 hrs * Fasting BSG 159 this AM with 15 units basal on board. Basal needs this admission lower than prior possibly due to decreased PO intake. May provide additional basal this PM if BSGs climbing * Post-prandial BSGs controlled with current Novolog CR/CF - continue the same 03/05 * 77 yo F with T2DM admitted with SOB and on continuous BiPAP. On antibiotics. NPO for now. BSG's have trended down significantly from 339 mg/dL yesterday Am to 136 mg/dL this AM after 25 units of Lantus and a weight-based severe stress Novolog regimen * Previous four-day admission this past December reviewed - Lantus 20 units BID, Novolog goal 110-140 mg/dL, CF 20, CR 6, while on antibiotics and ordered/consuming diet. Almost all BSG's (fasting and post-prandial) were > 180 mg/dL. * This admission, patient is NPO which is different from previous. But if/ when patient ordered a diet, the above likely will aid with adjustment to current regimen * For now, will be less aggressive given NPO * OK to leave Novolog at q4h - may change to q6h tomorrow if BSG's remain in goal range PLAN FOR INPATIENT GLYCEMIC CONTROL: * Basal insulin - increase * Lantus 30 units SC BID * Bolus insulin * NovoLog per scale ACHS or Q6hrs while NPO * Goal Range: Low 110 mg/dL - High 140 mg/dL * Correction Factor: 10 mg/dL/unit at breakfast, 15 mg/dL/unit at lunch, dinner, and HS * Nutritional / Prandial insulin per carb ratio of 1 unit per 3 grams CHO consumed with breakfast, 5 grams CHO consumed with lunch, dinner, and HS
[2023-03-10] MEDS: LIDOCAINE 5% 1 PATCH TD SCH (19:35)
[2023-03-10] MEDS: dexAMETHasone 6 MG in SYRINGE 0 ML IV SCH (19:43)
--- NOTE | 2023-03-10 20:51 | Hospitalist Progress Note ---
Date of Service March 10, 2023 Assessment & Plan (1) Fever: Plan: COVID at admission negative. COVID/flu/RSV negative 03/09. CXR 03/09 without lobar pneumonia. 03/09 -- Due to increased wheezing added dexamethasone 6mg IV daily. Cont combivent - consider changing to nebs. Pulmonary toilet - cont mucinex 1200mg BID. (2) COPD (chronic obstructive pulmonary disease): Plan: Mild exacerbation. See #1 above. (3) Acute on chronic respiratory failure with hypoxia and hypercapnia: Plan: Chronic resp failure - due to OHS/CHRISTIANO, restrictive lung disease, COPD. Supposed to be on Trilogy machine at home - noncompliant with such, simply won't use it. Acute resp failure - 2nd to decompensated CHF - which has been improving along with COPD exacerbation as in #1 above. Xanax use, narcotic use - will worsen both acute and chronic resp failure. Both have been stopped. Appears baseline pCO2 is upper 70s/low 80s. keep O2 sats low 90s. encouraged ongoing use of BIPAP with sleep. (4) Acute exacerbation of CHF (congestive heart failure): Plan: Echo 10/2022 - preserved LV function; no RV dysfunction. Has had good diuresis most of her stay. Despite 40mg of IV lasix yesterday she did not have robust UOP with such. Defer on additional lasix today. re-eval tomorrow. (5) Pneumonia: Plan: earlier in stay there was concern for such - ultimately felt that pulm sx's were due to pulm edema. repeat cxr 03/09 without lobar pneumonia. RSV/COVID/flu negative. repeat cbc/bmp am. (6) Acute hyperkalemia: Plan: Peak K was 5.7 at time of admission -- resolved likely was 2nd to K supplementation at home in setting of not taking her daily lasix (7) Recurrent UTI: Plan: Recent e.coli bacteremia/UTI - dx [facility] 02/27 E.coli sens to ceftriaxone & cipro per records Also grew proteus - sens to ceftriaxone & cipro first day of abx at [facility] was 02/27/23 Thus, today is day #12 of abx total of 14 days planned, last doses on 03/12 changed to PO cipro 750mg BID on 03/09 and stop on 03/12 repeat urine cx negative blood cultures here thus far negative h/o colo-vesicular fistula - see below (8) Diabetes mellitus, type 2: Plan: pharmacy glycemic team has been consulted appreciate their assistance cont basal-bolus insulinl Hba1c 7.8% control satisfactory (9) Obesity hypoventilation syndrome: Plan: desperately needs to use Trilogy at home continue NC O2 continuously with O2 sat goal 90-92% BIPAP at HS encouraged (10) Obstructive sleep apnea: Plan: severe needs to use Trilogy machine but noncompliant with such cont BIPAP here (11) Acute metabolic encephalopathy: Plan: resolved 2nd to CO2 retention at time of admission benzos/narcotics were likely causing toxic effects as well ammonia checked - wnl needs to use BIPAP consistently at HS / naps limit narcotics (12) Morbid obesity with BMI of 45.0-49.9, adult: Plan: BMI 45-50 (13) Bacteremia: Plan: 2nd e.coli source - urinary tract was treated for such at [facility] last week stopped rocephin - now on cipro cipro stop date 03/12/23 CT a/p without obstructing stones today is day #12 of 14 of abx (14) Myalgia: Plan: diffuse, body-wide - earlier in hospital stay resolved CPK checked due to recent falls - normal mag/K wnl (15) Chronic prescription benzodiazepine use: Plan: xanax - for at least a year or longer to avoid withdrawal cont clonazepam BID she is having hard time sleeping at night increase HS dose of clonazepam to 0.75mg add melatonin 3mg at HS as well (16) Lumbar back pain: Plan: due to recent falls checked lumbar CT scan - no compression fracture seen try to avoid narcotics tylenol prn she also had right mid-back pain today bruise from recent fall? rib fracture? other? consider CT chest add lidoderm patches (17) Colovesical fistula: Plan: by the son's report dx [facility] sometime in the last year or two she will cont to have recurrent UTIs from this not a good operative candidate in light of morbid obesity, chronic resp failure, etc (18) NSVT (nonsustained ventricular tachycardia): Plan: episode of such earlier this week - 16-17 beats no symptoms echo with preserved EF earlier this year K/Mag wnl monitor Plan VTE Prophyalxis - Lovenox 40mg SQ BID blister on right upper back - due to recent heat pack usage? no evidence of any superimposed infection follow carefully patient previously on hospice - obtained palliative care consultation with Dr Motta on 03/07/23 I appreciate her extensive consult Meeting set up for next week with family & [facility] (03/12 ?) by report patient has revoked hospice multiple times to be hospitalized both here and at [facility] over the last 6-9 months heavily discussed rehab today while her son/[id number] were present pt on the fence about whether to go to rehab post discharge seems she is leaning towards home with home PT/OT/home health re-eval tomorrow Admission and Anticipated Discharge Date Admission Date: March 04, 2023 Subjective sitting in chair during the visit feeling good overall although she reports very poor sleep last pm could not fall asleep ongoing cough but dyspnea improved today reports a pain in her right side - present for several days? son & daughter in law were present during the visit they asked about d/c planning we discussed rehab vs home with HH discussed rehab options son inquires about doing home PT/OT Review of Systems Review of Systems: gen - had fever yesterday, none today; ate well today - 100% meals cv - no chest pain pulm - no sputum; congestion is worse at night GI - no nausea/emesis Physical Exam Physical Exam: gen - morbidly obese, sitting in chair, NAD mouth - MMM neck - no obvious JVD heart - RRR, s1 s2, no obvious murmur lungs - no wheezes or rales today; airation fair; no increased work of breathing chest/back - tender just inferior to right scapula posterior back but no deformity abd - soft, ND, BS+, NT ext - no edema b/l, pulses 2+ b/l psych - a/o x 3 skin - blister right upper back near the right shoulder - blister intact, no erythema Results & Data Results & Data Vital Signs (Past 12 Hours) Vital Signs Temp Pulse Pulse Resp BP Pulse Ox O2 Del Method 03/10/23 20:06 37.0 C 76 21 131/67 98 Nasal Cannula 03/10/23 19:10 98 H 95 H Nasal Cannula 03/10/23 15:43 36.6 C 100 H 18 152/83 H 94 Nasal Cannula 03/10/23 15:31 92 H 03/10/23 14:31 97 H 20 94 Nasal Cannula 03/10/23 11:20 36.8 C 106 H 20 140/76 97 Nasal Cannula 03/10/23 10:57 101 H 20 96 Nasal Cannula O2 Flow Rate 03/10/23 20:06 4.0 03/10/23 19:10 4 03/10/23 15:43 3 03/10/23 15:31 03/10/23 14:31 4 03/10/23 11:20 3 03/10/23 10:57 4 Laboratory Results Laboratory Results - last 24 hr 03/10/23 03/10/23 03/10/23 06:37 07:21 11:22 Sodium 140 Potassium 4.9 Chloride 91 L Carbon Dioxide 45 H* Anion Gap 4 BUN 20 Creatinine 0.74 Est Cr Clr Drug Dosing 80.2 Est GFR ( Amer) 91.2 Est GFR (Non-Af Amer) 78.7 BUN/Creatinine Ratio 27.0 H Glucose 259 H POC Glucose 245 H 223 H Calcium 8.9 03/10/23 03/10/23 16:27 21:04 Sodium Potassium Chloride Carbon Dioxide Anion Gap BUN Creatinine Est Cr Clr Drug Dosing Est GFR ( Amer) Est GFR (Non-Af Amer) BUN/Creatinine Ratio Glucose POC Glucose 161 H 213 H Calcium PG Care Time/CCT Total # of Minutes Spent Total Time Spent with Patient: Total time spent is greater than 50% in coordination of care (as documented) at patient's floor/unit and/or counseling patient: Coding Level of Care Code 11901 SUB INP/OBS CARE 2/35MIN Diagnoses Fever R50.9 COPD (chronic obstructive pulmonary disease) J44.9 COPD type: unspecified COPD Acute on chronic respiratory failure with hypoxia and hypercapnia J96.21; J96.22 Acute exacerbation of CHF (congestive heart failure) I50.9 Pneumonia J18.9 Acute hyperkalemia E87.5 Recurrent UTI N39.0 Diabetes mellitus, type 2 E11.9 Obesity hypoventilation syndrome E66.2 Obstructive sleep apnea G47.33 Acute metabolic encephalopathy G93.41 Morbid obesity with BMI of 45.0-49.9, adult E66.01; Z68.42 Bacteremia R78.81 Myalgia M79.10 Chronic prescription benzodiazepine use Z79.899 Lumbar back pain M54.50 Colovesical fistula N32.1 NSVT (nonsustained ventricular tachycardia) I47.29 (2) COPD (chronic obstructive pulmonary disease) COPD type: unspecified COPD Qualified Code(s): J44.9 - Chronic obstructive pulmonary disease, unspecified
[2023-03-10] MEDS: clonazePAM 0.25 MG TAB PO SCH (21:41)
[2023-03-10] MEDS: MELATONIN 3 MG TAB PO SCH (21:41)
[2023-03-11] MEDS: BUDESONIDE 0.5 MG/2 ML VIAL (PULMICORT) NEB SCH ×2 (07:04→18:52)
[2023-03-11] MEDS: IPRATROPIUM BROMIDE HFA INHALER INH SCH ×4 (07:04→18:52)
[2023-03-11] MEDS: ALBUTEROL HFA 8 GM INHALER INH SCH ×4 (07:04→18:52)
[2023-03-11] MEDS: FORMOTEROL 20 MCG/2 ML VIAL NEB SCH ×2 (07:04→18:52)
[2023-03-11] MEDS: INSULIN ASPART PER UNIT CHARGE SC SCH ×4 (08:26→21:45)
[2023-03-11] MEDS: LIDOCAINE 5% 1 PATCH TD SCH (08:27)
[2023-03-11] MEDS: guaiFENesin 600 MG TABCR PO SCH ×2 (08:28→20:15)
[2023-03-11] MEDS: CIPROFLOXACIN 250 MG TAB PO SCH (08:28)
[2023-03-11] MEDS: ENOXAPARIN INJ 40 MG/0.4 ML SYR SQ SCH ×2 (08:28→20:15)
[2023-03-11] MEDS: UMECLIDINIUM BROMIDE 62.5MCG/BLISTER 7 PUFFS/INHALER INH SCH (08:29)
[2023-03-11] MEDS: MICONAZOLE NITRATE POWDER 85 GM EXT SCH ×2 (08:30→20:15)
[2023-03-11] MEDS: clonazePAM 0.5 MG TAB PO SCH (08:35)
[2023-03-11] MEDS ORDERED: LANTUS PER UNIT CHARGE SC SCH ×2 (09:00→21:00)
[2023-03-11 10:12] LABS: Basophils # (auto) 0.01 K/uL (0.00-0.20); Basophils % (auto) 0.2 %; Hematocrit (blood only) 33.6 % (37.0-47.0); Hemoglobin 9.8 g/dl (12.0-16.0); Immature Granulocytes # (auto) 0.05 K/uL (0.01-0.20); Immature Granulocytes % (auto) 1.2 %; Lymphocytes % (auto) 13.8 %; Mean Corpuscular Hemoglobin 27.3 pg (25.0-34.0); Mean Corpuscular Hgb Conc 29.2 g/dL (32.0-36.0); Mean Corpuscular Volume 93.6 fL (80.0-100.0); Mean Platelet Volume 9.9 fL (9.4-12.4); Monocytes # (auto) 0.18 K/uL (0.11-0.59); Monocytes % (auto) 4.1 %; Neutrophils % (auto) 80.7 %; Platelet Count 282 K/uL (130-400); RDW Coefficient of Variation 15.9 % (11.5-14.5); Red Blood Count 3.59 M/uL (4.20-5.40); White Blood Count 4.34 K/ul (4.8-10.8)
[2023-03-11 10:46] LABS: BUN Creatinine Ratio 33.3 (10-20); Calcium 9.4 mg/dl (8.6-10.3); Creatinine Clr Calc Pharmacy 76.6 ml/min; Est GFR (African American) 85.6 ml/min; Est GFR (Non-African American) 73.8 ml/min; Magnesium 2.3 mg/dl (1.7-2.4); Potassium 4.3 mmol/L (3.5-5.1)
--- NOTE | 2023-03-11 11:19 | Pharmacy Report ---
Pharmacy Glycemic Short Note 2 - Date of Service March 11, 2023 - Glycemic Short BSG Results (Last 24 hours): 03/10/23 03/10/23 03/10/23 11:22 16:27 21:04 Glucose POC Glucose 223 H 161 H 213 H 03/11/23 03/11/23 07:34 08:44 Glucose 326 H* POC Glucose 249 H OUTPATIENT ANTIDIABETIC REGIMEN: * Humalog 75/25 mix, 80 units qAM, 60 units qPM * Semaglutide * HbA1c 7.8% on 03/05/23 ASSESSMENT: 03/11: * BSGs yesterday were [phone] mg/dL and fasting was 249 mg/dL this morning. * Novolog already tightened for this morning. Will also increase basal insulin. Will also adjust IV steroid timing from evening to morning administration. * Patient is tolerating a diet. 03/10: * Dexamethasone 6 mg IV q24h initiated last evening (no insulin changes made at time of order) * BSGs unsurprisingly elevated today - will tighten Novolog and increase basal to better cover steroids 03/09 * BSGs remain labile, ranging 115-233 mg/dL yesterday * Received 77 units of insulin (~50/50 basal/bolus split) * Fasting BSG remains elevated this morning (189 mg/dL) - will increase basal * Tightened Novolog with breakfast this morning, but lunch BSG still elevated - will tighten further tomorrow morning 03/07 * BSGs at goal over last 24 hrs * Fasting BSG 159 this AM with 15 units basal on board. Basal needs this admission lower than prior possibly due to decreased PO intake. May provide additional basal this PM if BSGs climbing * Post-prandial BSGs controlled with current Novolog CR/CF - continue the same 03/05 * 77 yo F with T2DM admitted with SOB and on continuous BiPAP. On antibiotics. NPO for now. BSG's have trended down significantly from 339 mg/dL yesterday Am to 136 mg/dL this AM after 25 units of Lantus and a weight-based severe stress Novolog regimen * Previous four-day admission this past December reviewed - Lantus 20 units BID, Novolog goal 110-140 mg/dL, CF 20, CR 6, while on antibiotics and ordered/consuming diet. Almost all BSG's (fasting and post-prandial) were > 180 mg/dL. * This admission, patient is NPO which is different from previous. But if/when patient ordered a diet, the above likely will aid with adjustment to current regimen * For now, will be less aggressive given NPO * OK to leave Novolog at q4h - may change to q6h tomorrow if BSG's remain in goal range PLAN FOR INPATIENT GLYCEMIC CONTROL: * Basal insulin - increase * Lantus 40 units SC this morning, then 30 or 35 units this evening based on BSG * Bolus insulin * NovoLog per scale ACHS or Q6hrs while NPO * Goal Range: Low 110 mg/dL - High 140 mg/dL * Correction Factor: 10 mg/dL/unit at breakfast, 15 mg/dL/unit at lunch, dinner, and HS * Nutritional / Prandial insulin per carb ratio of 1 unit per 3 grams CHO consumed with breakfast, 5 grams CHO consumed with lunch, dinner, and HS
[2023-03-11] MEDS ORDERED: FUROSEMIDE 40 MG/4 ML VIAL IV ONE (12:43)
[2023-03-11] MEDS: dexAMETHasone 6 MG in SYRINGE 0 ML IV SCH (13:59)
--- NOTE | 2023-03-11 14:48 | Hospitalist Progress Note ---
Date of Service March 11, 2023 Assessment & Plan (1) Pneumonia: Plan: 03/09 and 03/10 patient had low-grade temps. son/ have had URIs and they had been visiting RSV/COVID/flu test obtained 03/09 and was negative. CXRs have continued to show pulmonary edema. she reported increased cough/congestion yesterday and today. also c/o right mid back pain - ?due to recent fall at home? due to limitations of cxr's elected today to obtain CTA chest. CTA did not show obvious PE (?artifactual filling defect). Only minimal pulmonary edema. However, LLL collapse was seen. RLL infiltrates also seen. LLL collapse - 2nd to mucous plugging? Other? endobronchial lesion not readily seen by radiology. she had been on broad-spectrum IV antibiotics earlier in the stay. then changed to IV/PO cipro for her recent bacteremia/UTI. will change cipro to levaquin. may need to broaden the levaquin further depending on her clinical status. add saline nebs BID due to LLL collapse. add chest vest/chest PT BID. change combivent nebs to duonebs QID. could consider mucomyst. consider pulmonary consultation but she is a very poor bronch candidate. cont dexamethasone 6mg IV daily. cont mucinex 1200mg BID. (2) Fever: Plan: COVID at admission negative. COVID/flu/RSV negative 03/09. CXR 03/09 without lobar pneumonia. 03/09 -- Due to increased wheezing added dexamethasone 6mg IV daily. Due to increased cough/congestion completed CTA chest - see #1 above. (3) COPD (chronic obstructive pulmonary disease): Plan: Mild exacerbation. Mild emphysematous changes on CTA chest today. See #1 above. (4) Acute on chronic respiratory failure with hypoxia and hypercapnia: Plan: Chronic resp failure - due to OHS/CHRISTIANO, restrictive lung disease, COPD. Supposed to be on Trilogy machine at home - noncompliant with such, simply won't use it. Acute resp failure - 2nd to decompensated CHF, COPD exacerbation, and pneumonia / LLL collapse as seen on CT chest today. Xanax use, narcotic use - will worsen both acute and chronic resp failure. Both have been stopped. Appears baseline pCO2 is upper 70s/low 80s. keep O2 sats low 90s. encouraged ongoing use of BIPAP with sleep. she has been doing a good job with this - wearing it at least 4 hours/night and with daytime naps. (5) Acute exacerbation of CHF (congestive heart failure): Plan: Echo 10/2022 - preserved LV function; no RV dysfunction. Has had good diuresis most of her stay. Gave additional dose of IV lasix 40mg today. CTA chest with only minimal residual pulmonary edema. Reassess tomorrow for need for ongoing diuresis. (6) Acute hyperkalemia: Plan: Peak K was 5.7 at time of admission -- resolved likely was 2nd to K supplementation at home in setting of not taking her daily lasix (7) Recurrent UTI: Plan: Recent e.coli bacteremia/UTI - dx [facility] 02/27 E.coli sens to ceftriaxone & cipro per records Also grew proteus - sens to ceftriaxone & cipro first day of abx at [facility] was 02/27/23 Thus, today is day #13 of abx original plan had been total of 14 days abx with last dose on 03/12 changed to PO cipro 750mg BID on 03/09 given #1 - cipro changed to levaquin thus, abx course for bacteremia/UTI just about complete repeat urine cx negative blood cultures negative h/o colo-vesicular fistula - see below (8) Diabetes mellitus, type 2: Plan: pharmacy glycemic team assistance appreciated cont basal-bolus insulin Hba1c 7.8% control satisfactory (9) Obesity hypoventilation syndrome: Plan: desperately needs to use Trilogy at home continue NC O2 continuously with O2 sat goal 90-92% BIPAP at HS and with naps (10) Obstructive sleep apnea: Plan: severe needs to use Trilogy machine at home but noncompliant with such cont BIPAP here (11) Acute metabolic encephalopathy: Plan: resolved 2nd to CO2 retention at time of admission benzos/narcotics were likely causing toxic effects as well ammonia checked - wnl needs to use BIPAP consistently at HS / naps limit narcotics (12) Morbid obesity with BMI of 45.0-49.9, adult: Plan: BMI 45-50 (13) Bacteremia: Plan: 2nd e.coli source - urinary tract was treated for such at [facility] 02/27 to 03/02 stopped rocephin - now on cipro starting 03/09 cipro changed to levaquin 03/11 due to #[address] a/p without obstructing stones today is day #13 of 14 of abx (14) Myalgia: Plan: diffuse, body-wide - earlier in hospital stay resolved CPK checked due to recent falls - normal mag/K wnl (15) Chronic prescription benzodiazepine use: Plan: xanax - for at least a year or longer to avoid withdrawal and to reduce sedation she was changed to clonazepam BID cont clonazepam 0.75mg HS cont AM clonazepam 0.5mg cont melatonin 3mg at HS (16) Lumbar back pain: Plan: due to recent falls checked lumbar CT scan - no compression fracture seen try to avoid narcotics tylenol prn she also has right mid-back pain CTA chest without rib fractures cont heating pad cont lidoderm patches (17) Colovesical fistula: Plan: by the son's report dx [facility] sometime in the last year or two she will cont to have recurrent UTIs from this not a good operative candidate in light of morbid obesity, chronic resp failure, etc we discussed prophylactic antibiotics and recommended against such consider going back on methenamine once or twice daily (18) NSVT (nonsustained ventricular tachycardia): Plan: episode of such last week - 16-17 beats no symptoms echo with preserved EF earlier this year K/Mag wnl monitor for recurrence Plan VTE Prophyalxis - Lovenox 40mg SQ BID blister on right upper back - due to recent heat pack usage? no evidence of any superimposed infection follow carefully patient previously on hospice - obtained palliative care consultation with Dr Motta on 03/07/23 I appreciate her extensive consult Meeting set up for tomorrow - 03/12/23 at noon - with patient, her family, and [facility] by report patient has revoked hospice multiple times to be hospitalized both here and at [facility] over the last 6-9 months last few days have discussed rehab vs home with HH this will be discussed further on 03/12 at meeting updated pt's at bedside today updated pt's son by phone this evening Admission and Anticipated Discharge Date Admission Date: March 04, 2023 Subjective patient resting comfortably in bed BIPAP in place - taking a nap at bedside tele overnight wnl patient reports increased cough today some sputum more congested denies dyspnea at rest eating well still with rib pain on right posterior back had low-grade fever yesterday - had some chills during that episode Review of Systems Review of Systems: gen - tired/fatigue, ate well today cv - no central chest pain, no orthopnea, no edema pul - cough/congestion GI - no abd pain or nausea/emesis Physical Exam Physical Exam: gen - morbidly obese, NAD, BIPAP in place and resting in bed neck - no obvious JVD heart - RRR, s1 s2, no obvious murmur lungs - decreased BS left base, minimal rales right base, airation fair at best, no distress, no wheezes abd - soft, ND, BS+, NT ext - no edema b/l, pulses 2+ b/l psych - a/o x 3 Results & Data Results & Data Vital Signs (Past 12 Hours) Vital Signs Temp Pulse Pulse Resp BP Pulse Ox O2 Del Method 03/11/23 12:03 36.9 C 93 H 22 132/67 94 Nasal Cannula 03/11/23 10:59 95 H 16 94 Nasal Cannula 03/11/23 08:09 36.5 C 93 H 18 148/60 H 92 Nasal Cannula 03/11/23 07:45 85 03/11/23 07:45 Nasal Cannula 03/11/23 07:05 92 H 22 93 Nasal Cannula 03/11/23 03:28 36.8 C 93 H 20 127/72 94 Nasal Cannula O2 Flow Rate 03/11/23 12:03 4 03/11/23 10:59 4 03/11/23 08:09 4 03/11/23 07:45 03/11/23 07:45 4 03/11/23 07:05 4 03/11/23 03:28 4.0 Laboratory Results Laboratory Results - last 24 hr 03/11/23 03/11/23 03/11/23 07:34 08:44 08:44 WBC 4.34 L RBC 3.59 L Hgb 9.8 L Hct 33.6 L MCV 93.6 MCH 27.3 MCHC 29.2 L RDW Std Deviation 54.0 H RDW Coeff of Dalton 15.9 H Plt Count 282 MPV 9.9 Immature Gran % (Auto) 1.2 Neut % (Auto) 80.7 Lymph % (Auto) 13.8 Mcpherson % (Auto) 4.1 Eos % (Auto) 0.0 Baso % (Auto) 0.2 Neut # (Auto) 3.50 Lymph # (Auto) 0.60 L Mcpherson # (Auto) 0.18 Eos # (Auto) 0.00 Baso # (Auto) 0.01 Immature Gran # (Auto) 0.05 Sodium 141 Potassium 4.3 Chloride 92 L Carbon Dioxide 43 H* Anion Gap 6 BUN 26 H Creatinine 0.78 Est Cr Clr Drug Dosing 76.6 Est GFR ( Amer) 85.6 Est GFR (Non-Af Amer) 73.8 BUN/Creatinine Ratio 33.3 H Glucose 326 H* POC Glucose 249 H Calcium 9.4 Magnesium 2.3 03/11/23 03/11/23 03/11/23 11:31 17:15 20:32 WBC RBC Hgb Hct MCV MCH MCHC RDW Std Deviation RDW Coeff of Dalton Plt Count MPV Immature Gran % (Auto) Neut % (Auto) Lymph % (Auto) Mcpherson % (Auto) Eos % (Auto) Baso % (Auto) Neut # (Auto) Lymph # (Auto) Mcpherson # (Auto) Eos # (Auto) Baso # (Auto) Immature Gran # (Auto) Sodium Potassium Chloride Carbon Dioxide Anion Gap BUN Creatinine Est Cr Clr Drug Dosing Est GFR ( Amer) Est GFR (Non-Af Amer) BUN/Creatinine Ratio Glucose POC Glucose 224 H 128 H 242 H Calcium Magnesium Diagnostic Findings Chest CTA 03/11/23 14:47 CT angio chest PE protocol CT DOSE: 1172.52 mGy.cm HISTORY: 77 years-old Female with acute/chronic resp failure, CHF, fever. Acute shortness of breath TECHNIQUE: Multiple CTA images of the chest were obtained after the intravenous administration of 117 ml Optiray. Coronal and sagittal MIPS were obtained from the axial data set and were submitted for review. All measurements were obtained according to NASCET criteria. A dose lowering technique was utilized adhering to the principles of ALARA. COMPARISON: CTA 10/29/2022, Doppler study 03/07/2023. FINDINGS: CTA: Moderate cardiomegaly. No pericardial effusion. Moderate coronary artery calcifications. Atherosclerosis of the thoracic aorta without aneurysm or disse ction. Limited evaluation of the pulmonary arterial tree secondary to upper extremity positioning and respiratory motion artifact. No central pulmonary emboli identified. Equivocal plain defects are noted within left upper lobe subsegmental branches on image [address] CHEST: A large thyroid nodule lymphadenopathy. Small pleural effusions. Complete collapse/consolidation of the left lower lobe. No obstructing endobronchial lesion. Dependent consolidation of the basal right lower lobe. No pneumothorax. Minimal intralobular septal thickening. Mild pulmonary emphysema. No acute process of the imaged upper abdomen. Unremarkable soft tissues. No acute fracture. IMPRESSION: 1. Limited exam as above. No central pulmonary emboli identified. Equivocal subsegmental filling defects in the left upper lobe are favored to be artifactual. Tiny pulmonary emboli considered less likely. 2. Cardiomegaly with minimal pulmonary edema. 3. Small pleural effusions with dependent atelectasis and complete collapse of the left lower lobe. 4. No obstructing endobronchial lesion identified. ACT 112: Negative or not required by law. The above report was generated using voice recognition software. It may contain grammatical, syntax or spelling errors. Electronically signed by: Jack Espinal M.D. 03/11/2023 5:44 PM PG Care Time/CCT Total # of Minutes Spent Total Time Spent with Patient: Total time spent is greater than 50% in coordination of care (as documented) at patient's floor/unit and/or counseling patient: Coding Level of Care Code 28010 SUB INP/OBS CARE 3/50MIN Diagnoses Pneumonia J18.9 Fever R50.9 COPD (chronic obstructive pulmonary disease) J44.9 COPD type: unspecified COPD Acute on chronic respiratory failure with hypoxia and hypercapnia J96.21; J96.22 Acute exacerbation of CHF (congestive heart failure) I50.9 Acute hyperkalemia E87.5 Recurrent UTI N39.0 Diabetes mellitus, type 2 E11.9 Obesity hypoventilation syndrome E66.2 Obstructive sleep apnea G47.33 Acute metabolic encephalopathy G93.41 Morbid obesity with BMI of 45.0-49.9, adult E66.01; Z68.42 Bacteremia R78.81 Myalgia M79.10 Chronic prescription benzodiazepine use Z79.899 Lumbar back pain M54.50 Colovesical fistula N32.1 NSVT (nonsustained ventricular tachycardia) I47.29 (3) COPD (chronic obstructive pulmonary disease) COPD type: unspecified COPD Qualified Code(s): J44.9 - Chronic obstructive pulmonary disease, unspecified
[2023-03-11] MEDS ORDERED: IOVERSOL 350 MG 125mL Prefilled Syringe IV ONE (16:43)
--- NOTE | 2023-03-11 17:45 | CT Scan Report ---
CT angio chest PE protocol CT DOSE: 1172.52 mGy.cm HISTORY: 77 years-old Female with acute/chronic resp failure, CHF, fever. Acute shortness of breath TECHNIQUE: Multiple CTA images of the chest were obtained after the intravenous administration of 117 ml Optiray. Coronal and sagittal MIPS were obtained from the axial data set and were submitted for review. All measurements were obtained according to NASCET criteria. A dose lowering technique was u tilized adhering to the principles of ALARA. COMPARISON: CTA 10/29/2022, Doppler study 03/07/2023. FINDINGS: CTA: Moderate cardiomegaly. No pericardial effusion. Moderate coronary artery calcifications. Atherosclero sis of the thoracic aorta without aneurysm or dissection. Limited evaluation of the pulmonary arteria l tree secondary to upper extremity positioning and respiratory motion artifact. No central pulmonary emboli identified. Equivocal plain defects are noted within left upper lobe subsegmental branches on image [address] CHEST: A large thyroid nodule lymphadenopathy. Small pleural effusions. Complete collapse/consolidation of t he left lower lobe. No obstructing endobronchial lesion. Dependent consolidation of the basal right l ower lobe. No pneumothorax. Minimal intralobular septal thickening. Mild pulmonary emphysema. No acut e process of the imaged upper abdomen. Unremarkable soft tissues. No acute fracture. IMPRESSION: 1. Limited exam as above. No central pulmonary emboli identified. Equivocal subsegmental filling defe cts in the left upper lobe are favored to be artifactual. Tiny pulmonary emboli considered less likel y. 2. Cardiomegaly with minimal pulmonary edema. 3. Small pleural effusions with dependent atelectasis and complete collapse of the left lower lobe. 4. No obstructing endobronchial lesion identified. ACT 112: Negative or not required by law. The above report was generated using voice recognition software. It may contain grammatical, syntax o r spelling errors. Electronically signed by: Jack Espinal M.D. 03/11/2023 5:44 PM
[2023-03-11] MEDS ORDERED: ALBUT/IPRATROP 3MG/0.5MG NEB 3 ML VIAL NEB SCH (19:00)
[2023-03-11] MEDS: SODIUM CHLOR 7% 4 ML NEB NEB SCH (19:10)
[2023-03-11] MEDS: levoFLOXacin 750 MG TAB PO SCH (19:57)
[2023-03-11] MEDS: clonazePAM 0.25 MG TAB PO SCH (20:14)
[2023-03-11] MEDS: MELATONIN 3 MG TAB PO SCH (20:14)
[2023-03-12] MEDS: ACETAMINOPHEN 325 MG TAB PO PRN ×2 (04:34→17:31)
[2023-03-12] MEDS: ALBUT/IPRATROP 3MG/0.5MG NEB 3 ML VIAL NEB SCH ×4 (07:35→19:46)
[2023-03-12] MEDS: BUDESONIDE 0.5 MG/2 ML VIAL (PULMICORT) NEB SCH ×2 (07:35→19:45)
[2023-03-12] MEDS: SODIUM CHLOR 7% 4 ML NEB NEB SCH ×2 (07:35→19:46)
[2023-03-12] MEDS: FORMOTEROL 20 MCG/2 ML VIAL NEB SCH ×2 (07:35→19:45)
[2023-03-12 07:38] LABS: BUN Creatinine Ratio 31.9 (10-20); Calcium 9.2 mg/dl (8.6-10.3); Creatinine Clr Calc Pharmacy 63.7 ml/min; Est GFR (African American) 68.3 ml/min; Est GFR (Non-African American) 58.9 ml/min; Potassium 3.9 mmol/L (3.5-5.1)
--- NOTE | 2023-03-12 08:06 | Hospitalist Progress Note ---
Date of Service March 12, 2023 Assessment & Plan (1) Pneumonia: Plan: LLL pneumonia concern for gram negative infection, antibiotics changed to levaquin 03/11/23 to also cover atypicals CTA did not show obvious PE (?artifactual filling defect). minimal pulmonary edema. However, LLL collapse was seen? mucus plugging RLL infiltrates also seen. add saline nebs BID due to LLL collapse. add chest vest/chest PT BID. change combivent nebs to duonebs QID. could consider mucomyst. consider pulmonary consultation but she is a very poor bronch candidate. cont dexamethasone 6mg IV daily added for cough cont mucinex 1200mg BID. RSV/COVID/flu test obtained 03/09 and was negative. CXRs have continued to show pulmonary edema. metabolic encephalopathy on presentation resolved (2) COPD (chronic obstructive pulmonary disease): Plan: Mild exacerbation. Mild emphysematous changes on CTA chest today. (3) Acute on chronic respiratory failure with hypoxia and hypercapnia: Plan: Chronic resp failure - due to OHS/CHRISTIANO, restrictive lung disease, COPD. Supposed to be on Trilogy machine at home - noncompliant with such, simply won't use it. Acute resp failure - 2nd to decompensated CHF, COPD exacerbation, and pneumonia / LLL collapse as seen on CT chest today. Xanax use, narcotic use - will worsen both acute and chronic resp failure. Both have been stopped. Appears baseline pCO2 is upper 70s/low 80s. keep O2 sats low 90s. encouraged ongoing use of BIPAP with sleep. she has been doing a good job with this - wearing it at least 4 hours/night and with daytime naps. (4) Acute exacerbation of CHF (congestive heart failure): Plan: acute on chronic diastolic heart failure Echo 10/2022 - preserved LV function; no RV dysfunction. decision on daily diuretics. hypokalmeia replete as needed, follow manesium (5) Recurrent UTI: Plan: Recent e.coli bacteremia/UTI - dx [facility] 02/27 E.coli sens to ceftriaxone & cipro per records Also grew proteus - sens to ceftriaxone & cipro first day of abx at [facility] was 02/27/23 last dose on 03/12 repeat urine cx negative blood cultures negative h/o colo-vesicular fistula - by the son's report dx [facility] sometime in the last year or two she will cont to have recurrent UTIs from this not a good operative candidate in light of morbid obesity, chronic resp failure, etc we discussed prophylactic antibiotics and recommended against such consider going back on methenamine once or twice daily infectious disease consultation will be undertaken on 03/13/2023 (6) Diabetes mellitus, type 2: Plan: pharmacy glycemic team assistance appreciated cont basal-bolus insulin Hba1c 7.8% control satisfactory (7) Morbid obesity with BMI of 45.0-49.9, adult: Plan: BMI 45-50 (8) Chronic prescription benzodiazepine use: Plan: xanax - for at least a year or longer to avoid withdrawal and to reduce sedation she was changed to clonazepam BID cont clonazepam 0.75mg HS cont AM clonazepam 0.5mg cont melatonin 3mg at HS (9) NSVT (nonsustained ventricular tachycardia): Plan: episode of such last week - 16-17 beats no symptoms echo with preserved EF earlier this year Plan VTE Prophyalxis - Lovenox 40mg SQ BID blister on right upper back - due to recent heat pack usage? no evidence of any superimposed infection follow carefully patient previously on hospice - obtained palliative care consultation with Dr Motta on 03/07/23 I appreciate her extensive consult Meeting set up for tomorrow - 03/12/23 at noon - with patient, her family, and [facility] by report patient has revoked hospice multiple times to be hospitalized both here and [facility] over the last 6-9 months last few days have discussed rehab vs home with HH this will be discussed further on 03/12 at meeting updated pt's at bedside today updated pt's son by phone this evening Admission and Anticipated Discharge Date Admission Date: March 04, 2023 Subjective Patient was seen on 2 occasions today she was sitting up on the second occasion having no complaints or distress with exception of frequent urination. She had a poor night sleep just with restlessness. She continues to endorse the need to want to have persistent aggressive care of her medical problems. A family meeting with palliative care was held on 03/12/2023 and the palliative care company feels she is not appropriate candidate as she wishes to continue aggressive treatment of her medical problems Physical Exam Physical Exam: Patient is awake alert he is making sense her card exam is regular Lung exam is decreased at the bases left greater than right Abdomen is NABS extremities are with 1+ edema bilaterally Results & Data Results & Data Vital Signs (Past 12 Hours) Vital Signs Temp Pulse Pulse Resp BP Pulse Ox O2 Del Method 03/12/23 07:40 Nasal Cannula 03/12/23 07:35 89 18 96 Nasal Cannula 03/12/23 03:22 98.2 F 87 20 146/69 H 94 Nasal Cannula 03/11/23 22:01 87 03/12/23 00:01 98.6 F 85 18 144/78 H 95 CPAP 03/11/23 23:18 87 20 95 03/11/23 22:31 84 21 96 03/11/23 20:03 98.4 F 92 H 19 166/99 H 93 Nasal Cannula O2 Flow Rate FiO2 03/12/23 07:40 4 03/12/23 07:35 4 03/12/23 03:22 4.0 03/11/23 22:01 03/12/23 00:01 03/11/23 23:18 30 03/11/23 22:31 30 03/11/23 20:03 4.0 Laboratory Results Reviewed chemistry Personally spoke to infectious disease regarding upcoming consult Personally spoke to MEG Aquino and palliative care regarding the results of the family meeting PG Care Time/CCT Total # of Minutes Spent Total Time Spent with Patient: Total time spent is greater than 50% in coordination of care (as documented) at patient's floor/unit and/or counseling patient: Coding Level of Care Code 22813 SUB INP/OBS CARE 3/50MIN Diagnoses Pneumonia J18.9 COPD (chronic obstructive pulmonary disease) J44.9 COPD type: unspecified COPD Acute on chronic respiratory failure with hypoxia and hypercapnia J96.21; J96.22 Acute exacerbation of CHF (congestive heart failure) I50.9 Recurrent UTI N39.0 Diabetes mellitus, type 2 E11.9 Morbid obesity with BMI of 45.0-49.9, adult E66.01; Z68.42 Chronic prescription benzodiazepine use Z79.899 NSVT (nonsustained ventricular tachycardia) I47.29 (2) COPD (chronic obstructive pulmonary disease) COPD type: unspecified COPD Qualified Code(s): J44.9 - Chronic obstructive pulmonary disease, unspecified
[2023-03-12] MEDS: INSULIN ASPART PER UNIT CHARGE SC SCH ×4 (08:12→22:14)
[2023-03-12] MEDS: dexAMETHasone 6 MG in SYRINGE 0 ML IV SCH (08:27)
[2023-03-12] MEDS: guaiFENesin 600 MG TABCR PO SCH ×2 (08:28→20:55)
[2023-03-12] MEDS: ENOXAPARIN INJ 40 MG/0.4 ML SYR SQ SCH ×2 (08:29→20:54)
[2023-03-12] MEDS: LIDOCAINE 5% 1 PATCH TD SCH (08:29)
[2023-03-12] MEDS: MICONAZOLE NITRATE POWDER 85 GM EXT SCH ×2 (08:31→20:53)
[2023-03-12] MEDS: clonazePAM 0.5 MG TAB PO SCH (08:32)
[2023-03-12] MEDS ORDERED: LANTUS PER UNIT CHARGE SC SCH ×2 (09:00→21:00)
[2023-03-12] MEDS: UMECLIDINIUM BROMIDE 62.5MCG/BLISTER 7 PUFFS/INHALER INH SCH (09:32)
[2023-03-12] MEDS: levoFLOXacin 750 MG TAB PO SCH (12:40)
[2023-03-12] MEDS: MELATONIN 3 MG TAB PO SCH (20:54)
[2023-03-12] MEDS: clonazePAM 0.25 MG TAB PO SCH (20:54)
--- NOTE | 2023-03-13 00:47 | Palliative Care Progress Note ---
Date of Service March 13, 2023 Assessment & Plan (1) Dyspnea and respiratory abnormalities: Plan: Complex, advancing lung disease to to COPD, CHRISTIANO, [facility]. She has a documented history of longstanding noncompliance with home NIV. This admission, she has been more compliant and tolerant of NIV with sustained good results. She states today that she plans to be consistent and compliant with home use of her NIV. She states that she follows with a pulmonary provider who told her that her lungs are getting better. (2) Weakness generalized: (3) Abdominal pain, generalized: (4) Colovesical fistula: (5) Palliative care by specialist: Plan: Met with pt/family. Provided overview of Palliative Medicine, a subspecialty that provides specialized medical care for people living with a serious illness by offering a focus on quality of life. Palliative Medicine is often conflated with hospice: I advised patient/family that Palliative and hospice can be partners but we are not the same. It is important to understand the difference so that we may be informed, and not afraid. Palliative Medicine works to improve QOL through reduction of symptom burden/more control over their illness, for both the patient and family. Palliative medicine clinicians are board certified, specially-trained and another member of the patient's medical care team. We often provide an extra layer of support because our care is based on the needs of the patient, not the prognosis; as such, it's appropriate at any age/advancing stage of a serious illness and can be provided along with curative treatment. Palliative Medicine clinicians are also trained in advanced communication methodologies, to facilitate complex discussions about advanced illness planning, which are needed to help assure that the treatment choices match the patient's goals, aka delivering Goal Concordant care. Finally, we discussed that hospice is a visiting nurse service that focuses on care delivered at the very end of life for patients with terminal illness, with life expectancy less than 6 month. (6) Advanced care planning/counseling discussion: Plan: A 75-minute xwoh-ci-vvwj ACP discussion was held at the bedside with patient, her , her son Patrice Sharpe/leadership development manager from [facility], [place] estimate clerk, [place] estimate clerk new trainee (observer role only). We had a very detailed, lengthy and exhaustive discussion of all of patient's medical issues, their current status, and overall her expressed wishes to seek continued, escalated medical therapy and intervention for recurrent UTIs and/or respiratory failure. She states that she would be more compliant with NIV "at this time." She states that in prior discussion with medical teams earlier this week, she was leaning towards a skilled rehab discharge before returning home. Through the course of our 1 hour discussion, she repeatedly vacillated and remained inconsistent on this decision alternately stating that she knew it was what she needed and what would help her the most and then stating she just wanted to go home. I discussed with her and her family that I do not believe she is hospice appropriate at this time. The mission and the philosophy of hospice is to provide care for patients with a terminal illness will have a focus and a desire to controlled her symptoms, maintain quality of life and remain in their home or setting of choice for continued hospice directed care. Patient has expressed a desire to continue to return to the hospital for escalating medical care for any future complications including urinary tract infections. We discussed the chronic nature of her UTIs, noting that these are related to her colovesicular fistula. She felt that this was a resolved issue and she did not have an active fistula. Her son clarified that when she had had surgery to remove the mesh from her hernia, the surgeon at the time had tried to locate the fistula with the hope of trying to repair it but due to the very complex and prolonged nature of her hernia related mesh removal, there was not time to pursue the fistula repair nor could the fistula easily be accessed. She continues to struggle with recurrent UTIs. Recent urine cultures demonstrate bacterial growth of Klebsiella with a relatively wide sensitivity panel and intermittent sensitivity to nitrofurantoin. Her son noted with frustration that she "never would have needed this admission if only she had been given the antibiotic for her urinary tract infection when she first started complaining of symptoms." At that time, she was still on hospice and the hospice medical office asst felt that due to her colonization of bacteria there was not an indication for pursuing antibiotic therapy. Patient expressed some interest in finding out whether or not there is a role for any suppressive antibiotics. She feels that if she could "have something that could just keep it at bay and not let it get so bad" that she would not have to frequently return to the hospital. We discussed her history and struggle with remaining compliant with NIV. She has several reasons for why her compliance was not ideal, noting that at one point the machine was recalled and when it was replaced, she and her felt it was not programmed with the current settings. Her son noted that the machine was brought to the house already programmed. Her felt that no one had come to the house to program the machine and showed him how to use it. Hospice medical team reviewed that the machine that was returned to her was the exact same as the one that had been recalled, only this 1 did not have a recall related issues and was fully functional. Her nurses through hospice have noted that she was not using her NIV (trilogy device) at home at all. She was noted to be spending close to 80 to 90% of her time in a resting position, usually in a recliner or in bed. We had a lengthy discussion about the options for moving forward: 1. She is not hospice appropriate. Hospice is for patient to want to focus on comfort and quality of life without returning to the hospital to treat ongoing medical issues or see curative repair. Additionally, hospice is there to provide guidance and resource support for patients and their families but not to be in their home [id number]-[id number] 24/7 basis or "on demand"--> ex: hospice reports family routinely calling hospice on emergency line when patient needed to use the toilet/requesting hospice assist with her toileting needs. Dell became frustrated/raised his voice several times throughout this conversation, repeatedly stating "she has lung disease and is 77yo, what do you think she's going to need at rehab?" We discussed the concerns of the multiple revocations of hospice including this current admission, which is now her fifth revocation of hospice. [facility] team reviewed that the repeated revocation of hospice and patient's own expressed wishes to continue to seek escalated and advanced medical therapies for her chronic issues when exacerbated demonstrates that she is not ready for hospice plan of care she continues to want treatment t hat helps her live longer. patient's goals for herself are not aligned with hospice philosophy . 2. She is appropriate for skilled level of rehab. We discussed the intensity of these rehab sessions at a skilled facility versus at an acute rehab center. She is aware that she would not qualify nor could she participate in rehab at the level of an acute center and agreed, initially, that skilled rehab would be best for her to allow her to regain some strength. Her son became angry, raising his voice, stating "what rehab would even do for her? nothung." he felt that her age and her existing debility due to the weakness in her abdominal wall from hernia with mesh removal (son states that during the mesh removal surgery, patient did not have enough fascia or muscle to bring together and a skin flap was used to close the surgical wound & she has significant abdominal wall weakness) He does not believe that rehab will offer any meaningful benefit for her. 3. Reviewed with patient that the decision at this junction would be to either pursue skilled rehab versus returning home with visiting nurse service and home- based PT. I advised her that I did not believe home-based PT would be s ufficient, as there is no daily and ongoing monitoring for each session. Home- based PT through visiting nurse service would likely be 1 to 2 days a week of an hour or less per session with some "homework" assigned for her to work on on the days that therapist is not there. I expressed my concern that this would not be optimal for her given that skilled rehab could offer more supportive staff, mo nitoring during physical therapy sessions, and monitor and target her progress through the weeks. I advised her that if she went to rehab, I would anticipate she needed to give that at least 3 weeks before making a determination of whether or not it was helping. I advised her that sometimes rehab can last anywhere from the 6 to 8-week range as well. I also advised her that if at any point at rehab she felt she was not deriving significant benefit or she was too unhappy with the conditions of rehab, then she could decide to go home and the social service assistant team at the rehab facility would coordinate her discharge back home with appropriate referrals for home health support through the visiting nurse service at that time. Patient continued to express uncertainty about what she wanted to do. At different times during the conversation she expressed a wish to go to rehab but would then turn to her son and tell him that it was his decision and to tell her what he wanted her to do. Ultimately, I suggested that they discuss this further as a family and that we would ask case management to come visit with them in about an hour so that they could share with case management what their preferences are at that junction and we could work on the proper arrangements for discharge planning at that time. I reinforced the patient again the importance of staying compliant and adherent with her NIV therapy whether it is at home or at a skilled rehab facility. I also encouraged her to participate as much as possible with physical therapy while she is here in the hospital as well as have a schedule at home for when she will do her home-based physical therapy exercises every day and to stick to a schedule to be able to assess if she is making progress. Patient and family verbalized understanding. All questions were answered to their apparent satisfaction. Hospice team reiterated that she is not appropriate for hospice at this time and after this fifth revocation they would be taking her off hospice and formally recommended that she return to visiting nurse service if she does not wish to go to rehab. Her hospice nurse noted that they had had prior discussions at home that rehab would be the likely best place for patient to try and get stronger and see if she could be optimized before returning home. I expressed to patient the concern that the medical teams have that her needs are becoming more than what may possibly be able to be managed at home. She had been approved for some caregiver support through her local area agency on aging, but had refused to allow them to come because "I do not like strangers in my home." She states now that she would accept that help. Care management can coordinate with the area agency office in her county to reinstate those services. Since she has had a change in her medical condition from when the original evaluation and determination were made, it is not unreasonable to request that the area agency return to evaluate her to see if they can qualify her for more hours. I also advised the family that if the overall goal is to remain home and they want xrkgff-pjd-[id number] care, then it may be something they have to pursue with some private/rgt-lz-ybpait caregivers plus supplemental support from visiting nurse service plus the approved caregivers through the area agency on aging. I again reiterated requirements for hospice candidacy which is ideally patient with no curative therapies remaining, her home medical therapy has been maximized and no longer providing relief or reduction of suffering, and who does not desire any further escalation of medical therapies or the pursuit of curative therapies. Plan * Extensive, lengthy family meeting for advance care planning with her multidisciplinary team from [facility] as outlined above. * Case management notes indicate that after meeting with patient and her family, they expressed a preference to return home with visiting nurse service and home-based PT. Case management notes indicate that there were some issues with the agency family chose and that son was going to call the agency directly to see what he could facilitate. Please see case management notes for further updates and information. * She is not hospice appropriate at this time. She continues to desire returns to the hospital, continued escalations of medical care and interventions, and curative therapy pursuits. * Suggest establishing patient with a dedicated urogyn provider after discharge given recurrent UTIs and complications of the colovesicular fistula. I am unsure if her area has an accessible urogyn provider, however, there are several at [facility] in [place] and that could be a consideration if a local provider cannot be identified. * Consider infectious disease evaluation for formal opinion on the role if any of suppressive antibiotics as patient has been asking if this was an option for her. * Patient is aware and verbalized clearly to me that she would be too high risk for surgical interventions for her fistula. * I have updated nursing, care management, primary team. * Patient has several advancing and complex medical conditions. Her respiratory issues have significantly improved with regular use and adherence to an NIV regimen. Her colovesicular fistula related chronic UTIs will remain problematic though at this time she is not demonstrating significant multidrug-resistant organisms. Her Klebsiella cultured out of urine this admission demonstrated an intermittent susceptibility to nitrofurantoin but susceptible to the remaining antibiotics including Cipro. * Palliative medicine was asked to see this patient to facilitate and clarify the goals of care which has been done and outlined above in the detailed discussion note. At this time she has no acute inpatient palliative medicine needs and I will sign off. Please not hesitate to call or page me for any urgent reinvolvement needs. * Please note: the above document was generated using voice recognition software. It may contain unintentional grammatical, syntax or spelling errors. Any formal questions or concerns about the content, text or information contained within the body of this dictation should be directly addressed to the provider for clarification. Thank you for allowing us to participate in the ongoing care of this patient. Please don't hesitate to call or page with any additional concerns. Dr. Cindy Motta DNP Director, Palliative Care Admission and Anticipated Discharge Date Admission Date: March 04, 2023 Prachi Hernadez is seen at bedside with both her and son Dell present. She reports she is feeling substantially better, has been very compliant with her noninvasive ventilation, has been working with physical therapy, and happily reports that she was able to tolerate getting out of bed and transferring to the recliner chair for short while earlier today. Appetite remains stable. There is no nausea vomiting or diarrhea. There is no constipation. She remains on chronic nasal oxygen. Review of Systems Review of Systems: All systems reviewed & are unremarkable except as noted in Subjective Physical Exam Physical Exam: Resting in bed, semireclined, no respiratory distress noted No use of accessory muscles, no stridor No gross JVD Lungs dramatically diminished bilaterally with distant breath sounds on limited anterior exam, patient is not able to turn to her side. Abdomen with generalized mild tenderness Urinary catheter in place Generalized edema to the lower extremities +1 to borderline to Venous insufficiency changes to bilateral lower extremities Skin is pale but warm to touch She is awake, alert and oriented x3 Mood is pleasant and cooperative. Results & Data Vital Signs (Past 12 Hours) Vital Signs Temp Pulse Pulse Resp BP Pulse Ox O2 Del Method 03/12/23 23:51 36.8 C 88 19 132/89 93 CPAP 03/12/23 19:50 Nasal Cannula, BiPAP 03/12/23 21:59 86 03/12/23 22:08 96 H 23 96 03/12/23 20:12 36.7 C 85 18 139/57 L 94 Nasal Cannula 03/12/23 19:47 96 H 19 98 Nasal Cannula 03/12/23 18:00 97 H 22 97 03/12/23 15:50 37.2 C 90 18 124/76 97 Room Air 03/12/23 15:00 91 H 03/12/23 15:34 105 H 20 95 Nasal Cannula 03/12/23 12:42 O2 Flow Rate FiO2 03/12/23 23:51 03/12/23 19:50 03/12/23 21:59 03/12/23 22:08 30 03/12/23 20:12 4.0 03/12/23 19:47 4 03/12/23 18:00 30 03/12/23 15:50 03/12/23 15:00 03/12/23 15:34 4 03/12/23 12:42 4 Laboratory Results Data reviewed Diagnostic Findings Data reviewed PG Care Time/CCT Total # of Minutes Spent Total Time Spent: 145 Total Time Spent with Patient: Total time spent is greater than 50% in coordination of care (as documented) at patient's floor/unit and/or counseling patient: I spent 145 minutes overall addressing this extremely complicated case: 15in medical data review/discussion with referring provider(s) and/or preparation for the visit including [facility] 20 in direct interaction with the patient 75 Advance Care Planning/Goals of Care discussions as detailed above in note (must be >16min) 15 in subsequent review and synthesis of assessment and plan 20 in communicating with other providers regarding the patient's case: Nursing, care management, primary team, [facility] MDT. Prolonged Care Time Prolonged Care Time: Yes Advanced Care Planning 22052 Advanced Care Planning 30 Min 85114 Advanced Care Planning Additional 30 [place] [address] SUB INP/OBS CARE 3/50MIN Patient Type Established History Comprehensive Exam Expanded Problem Focused Medical Decision Making High Complexity Diagnoses Dyspnea and respiratory abnormalities R06.00; R06.89 Weakness generalized R53.1 Abdominal pain, generalized R10.84 Colovesical fistula N32.1 Palliative care by specialist Z51.5 Advanced care planning/counseling discussion Z71.89 Additional Codes Advanced Care Planning - 23471 Advanced Care Planning 30 Min: 75293 Advanced Care Planning 30 Min ([id number]) Advanced Care Planning - 66915 Advanced Care Planning Additional 30 Min: 95252 Advanced Care Planning Additional 30 Min ([id number]) Prolonged Care Time - Prolonged Care Time: Yes ([id number])
[2023-03-13] MEDS: ALBUT/IPRATROP 3MG/0.5MG NEB 3 ML VIAL NEB SCH ×4 (07:09→19:02)
[2023-03-13] MEDS: FORMOTEROL 20 MCG/2 ML VIAL NEB SCH ×2 (07:17→19:01)
[2023-03-13] MEDS: SODIUM CHLOR 7% 4 ML NEB NEB SCH ×2 (07:17→19:01)
[2023-03-13] MEDS: BUDESONIDE 0.5 MG/2 ML VIAL (PULMICORT) NEB SCH ×2 (07:17→19:01)
[2023-03-13] MEDS: UMECLIDINIUM BROMIDE 62.5MCG/BLISTER 7 PUFFS/INHALER INH SCH (07:28)
[2023-03-13] MEDS: LIDOCAINE 5% 1 PATCH TD SCH (07:29)
[2023-03-13] MEDS: ENOXAPARIN INJ 40 MG/0.4 ML SYR SQ SCH ×2 (07:30→20:42)
[2023-03-13] MEDS: guaiFENesin 600 MG TABCR PO SCH ×2 (07:30→20:43)
[2023-03-13] MEDS: dexAMETHasone 6 MG in SYRINGE 0 ML IV SCH (07:30)
[2023-03-13] MEDS: MICONAZOLE NITRATE POWDER 85 GM EXT SCH ×2 (07:30→20:44)
[2023-03-13 07:40] LABS: Creatinine Clr Calc Pharmacy 75.6 ml/min; Est GFR (African American) 84.3 ml/min; Est GFR (Non-African American) 72.7 ml/min
[2023-03-13] MEDS: INSULIN ASPART PER UNIT CHARGE SC SCH ×4 (08:05→20:40)
[2023-03-13] MEDS: clonazePAM 0.5 MG TAB PO SCH (08:11)
[2023-03-13] MEDS ORDERED: LANTUS PER UNIT CHARGE SC SCH ×3 (09:00→21:00)
--- NOTE | 2023-03-13 09:51 | Infectious Disease Consult ---
Date of Consultation March 13, 2023 Assessment & Plan (1) Dyspnea and respiratory abnormalities: (2) Colovesical fistula: (3) Morbid obesity with BMI of 45.0-49.9, adult: (4) Obstructive sleep apnea: (5) Obesity hypoventilation syndrome: Plan 77 year old female with morbid obesity, CHRISTIANO, chronic respiratory failure on 4lnc, [place] vesicular fistula, recurrent UTIs presents with altered mental state and sob. She was recently admitted to [facility] from 02/27-03/02 for Ecoli sepsis 2/2 uti and was treated with Ceftriaxone and discharged on a course of cefdinir. She presents to [facility] on 03/04 with Altered mental status. She missed several doses of Lasix at home. She is not compliant with Trllogy machine since discharge. On admission she is tachypneic and hypoxic to 50% on room air and was placed on her baseline 4 L nasal cannula with saturations to 80%. She was transitioned to a non-rebreather mask and then Bipap. Covid/Inf/RSV negative. Abg ph 7.25, co2 88, o2 126. UA 10-30 wbc, 10-30 rbc , 1+ bacteria. UC Sterile. BC sterile. Procal 0.78. Cxr showed signs of vascular congestion, pulmonary edema and basilar infiltrates. A Ct chest shows no central pulmonary emboli, cardiomegaly with minimal pulmonary edema, small pleural effusions with dependent atelectasis and complete collapse of the left lower lobe. Has been treated with supplemental 02, diuretics and abx. She was on ceftriaxone then cipro and is now on Levaquin. Her respiratory status is improving and she on her baseline 4l supp 02 and using bipap at night. She had concerns of recurrent Utis and had questions on her candidacy for suppressive abx. She denies fever, abdominal pain , back pain, dysuria, or change in urine frequency. ID consulted for history of colovesicular fistula and need for suppressive abx. Micro UC 03/04/23 < 1000 cfu , no growth 03/04/23 sterile Prior Micro: UC 02/27/23 >100,000cfu Ecoli R Amp > 100, 000cfu R nitro 02/27/23 Ecoli R Amp 10/30 E feacalis R tet 10/02/22 E feacali R tet 01/2020 Kleb pna R amp UC 11/2019 Citrobacter R ceftaz 07/2019 EColi R amp, amp/sul, cef, cefepime, ceftaz, ceftr, tmp/sulf UC 04/2019 Ecoli panS 03/2019 EColi R amp, amp/sul, cef, cefepime, ceftaz, ceftr, tmp/sulf UC 02/2019 EColi R amp, amp/sul, cef, cefepime, ceftaz, ceftr, tmp/sulf 01/2019 Kleb pna R amp nitro Abx Ceftriaxone 03/04-03/06 Cipro 03/07-03/11 Levaquin 03/11- ongoing #Recurrent UTIs #Colovesicular fistula # Recent Ecoli UTI with septicemia sp treatment (on appr abx since 02/27) #Acute on chronic respiratory failure with hypoxia and hypercapnia -OHS/CHRISTIANO, COPD exacerbation,decompensated CHF , ? pneumonia / LLL collapse on CT -not c/w Trilogy machine at home #AMS: resolved - likely from CO2 narcosis She has concerns of getting recurrent UTI's. She usually gets suprapubic tenderness, dysuria, back pain or abdominal pain with UTI. She denies these symptoms on admission or now. She has pyuria on UA but sterile UC on abx from recent admission at [facility]. She has been appropriately treated at this time for recent Ecoli urosepsis. I discussed her concerns of recurrent UIi. She understands that a colovesicular fistula puts her at higher risk for cystitis, ascending urinary infections, sepsis as well as urine colonization as there is a connection for GI miller to get to her bladder. She reports that she was told she is not a candidate for colovesicular fistula repair given her comorbidities. The presence of bacteria in the urine does not require treatment unless she is symptomatic, neutropenic or pending urologic procedure. Unnecessary exposure to antibiotics put her at risk of developing side effects from abx, C diff or development of resistant organisms. I do not recommend antibiotic suppressive antibiotics for UTI provention for the same reasons. Additionallyper review of prior + UC data from 2019 ( [facility] chart and [place] bacilio ), UC + for different organisms with diff susceptibilities( different stains of Ecoli, klebsiella pn, Enterococcus Faecalis, Proteus, Citrobacter). It would be difficult to suppress all the possible GI organism that lead to UTI. She verbalized understanding. Recommendation -Hold off on suppressive abx for recurrent UTI for now -Consider establishing care with a local ID provider who can monitor longitudinally for frequency of uti and other options such as methenamine -Consider reestablishing care with Urology outpatient - treat + UA/UC only if symptomatic for UTI and as per above - complete 7 days of Levaquin for possible pna. Thank you for this consultation. ID will sign off Updated primary team on recs Jacki Timmons MD, MPH Infectious Disease [facility], ID Division Call [phone] with questions - Consultation Information Consultation was provided via telemedicine using two-way real-time interactive telecommunication between the patient and the telemedicine provider. For the duration of the visit, the provider was performing the assessment from a different facility than the patient. This includesuse of bluetooth stethoscope forauscultationperformed by the telepresenter that the telemedicine provider can hear if described in the physical exam. Clinical Analyst contact information: Please call [facility] Call Center . (Phone Number For Physician Use Only) After establishing a telemedicine visit, patient was: Patient was verified with two unique identifiers and Patient/authorized rep acknowledged consent and understanding Time Spent with Patient: Initial => 75 min History of Present Illness Reason for Consultation: Rectovesicular fistula - need for oral suppressive abx Requesting Physician: Sanchez Magana MD Attending Physician: Sanchez Magana MD History of Present Illness 77 year old female with morbid obesity, CHRISTIANO, chronic respiratory failure on 4lnc, [place] vesicular fistula, recurrent UTIs presents with altered mental state and sob. She was recently admitted to [facility] from 02/27-03/02 for Ecoli sepsis 2/2 uti and was treated with Ceftriaxone and discharged on a course of cefdinir. She presents to [facility] on 03/04 with Altered mental status. She missed several doses of Lasix at home. She is not compliant with Trllogy machine since discharge. On admission she is tachypneic and hypoxic to 50% on room air and was placed on her baseline 4 L nasal cannula with saturations to 80%. She was transitioned to a non-rebreather mask and then Bipap. Covid/Inf/RSV negative. Abg ph 7.25, co2 88, o2 126. UA 10-30 wbc, 10-30 rbc , 1+ bacteria. UC Sterile. BC sterile. Procal 0.78. Cxr showed signs of vascular congestion, pulmonary edema and basilar infiltrates. A Ct chest shows no central pulmonary emboli, cardiomegaly with minimal pulmonary edema, small pleural effusions with dependent atelectasis and complete collapse of the left lower lobe. Has been treated with supplemental 02, diuretics and abx. She was on ceftriaxone then cipro and is now on Levaquin. Her respiratory status is improving and she on her baseline 4l supp 02 and using bipap at night. She had concerns of recurrent Utis and had questions on her candidacy for suppressive abx. She denies fever, abdominal pain, back pain, dysuria, or change in urine frequency. ID consulted for history of colovesicular fistula and need for suppressive abx. Allergies Allergy/AdvReac Type Severity Reaction Status Date / Time empagliflozin AdvReac Intermediate RECURRENT Verified 12/19/22 15:46 [From Jardiance] UTI'S metformin AdvReac Intermediate Gastrointestinal Verified 12/19/22 15:46 Upset oxycodone AdvReac Intermediate HALLUCINATI Verified 12/19/22 15:48 ONS Home Medications Medication Instructions Recorded Confirmed Type albuterol sulfate 90 mcg/actuation 2 puff inhalation Q4H PRN Wheezing 10/29/22 03/04/23 History aerosol inhaler insulin lispro protamine-lispro See Rx Instructions .Route .COMPLEX 10/29/22 03/04/23 History 100 unit/mL (75-25) subcutaneous pen (Humalog Mix 75-25 KwikPen) furosemide 80 mg tablet 80 mg PO DAILY #30 tabs 12/23/22 03/04/23 Rx alprazolam 0.25 mg tablet 0.25 mg PO Q6H PRN Anxiety 03/04/23 03/04/23 History cefdinir 300 mg capsule 300 mg PO BID 03/04/23 03/04/23 History fluticasone fur. 100 mcg-umeclid 1 inh inhalation DAILY 03/04/23 03/04/23 History 62.5 mcg-vilant 25 mcg inhalat.powder (Trelegy Ellipta) hydrocodone 10 mg-acetaminophen 1 tab PO Q4H PRN Pain 03/04/23 03/04/23 History 325 mg tablet semaglutide 0.25 mg or 0.5 mg (2 0.25 mg subcut WK 03/04/23 03/04/23 History mg/3 mL) subcutaneous pen injector (Ozempic) Patient History Medical History (Updated 03/09/23 @ 21:00 by Abdirahman Landers MD) Chronic respiratory acidosis COPD (chronic obstructive pulmonary disease) Diabetes mellitus, type 2 Hypertension Hypoxia Morbid obesity Pleural effusion Pneumonia Recurrent 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" Right ankle swelling SOB (shortness of breath) Weakness Surgical History H/O ventral hernia repair Social History Smoking Status: Former smoker Tobacco Type: Cigarettes Cigarettes Per Day: 20; Second Hand Exposure: No; Do You Dip or Chew Tobacco: No; Tobacco Cessation Education Requested by Patient: No Hx Alcohol Use: Yes Alcohol type: hard liquor Hx Substance Use: No Preferred Language: Amharic Communication Ability: Effective Sizer Machine Required: No Beliefs That Will Affect Care: None Current Living Situation: Spouse Other Information That Helps Us Care for You: No Feels Safe at Home: Yes Safety Concerns: Feels Safe At This Time Assistive Devices: Lift Chair, Oxygen - Continuous, Walker and Wheelchair Review of System A 10 point ROS obtained. Pertinent positives as per HPI. Physical Exam Constitutional: morbidly Obese, pleasant, sitting up in chair with 4l nc Eyes: EOMI, anicteric sclera Neck: Thick, supple Respiratory: No increased Work of breathing Gastrointestinal (Abdomen): soft, obese, Not distended or tender Skin: No rash Neurologic: Awake, alert, oriented times 3 Psychiatric: Cooperative, appropriate Genitourinary: No lowe, NO suprapubic tenderness, No cva tenderness. Results & Data Vital Signs (Past 12 Hours) Vital Signs Temp Pulse Pulse Resp BP Pulse Ox O2 Del Method 03/13/23 08:45 37.1 C 93 H 24 128/67 95 Nasal Cannula 03/13/23 07:18 95 H 18 94 Nasal Cannula 03/13/23 03:48 36.8 C 78 20 121/71 96 CPAP 03/13/23 02:32 79 17 90 03/12/23 23:51 36.8 C 88 19 132/89 93 CPAP 03/12/23 21:59 86 03/12/23 22:08 96 H 23 96 O2 Flow Rate FiO2 03/13/23 08:45 4 03/13/23 07:18 4 03/13/23 03:48 03/13/23 02:32 30 03/12/23 23:51 03/12/23 21:59 03/12/23 22:08 30 Laboratory Results Laboratory Results - last 48 hr 03/11/23 03/11/23 03/11/23 08:44 08:44 11:31 WBC 4.34 L RBC 3.59 L Hgb 9.8 L Hct 33.6 L MCV 93.6 MCH 27.3 MCHC 29.2 L RDW Std Deviation 54.0 H RDW Coeff of Dalton 15.9 H Plt Count 282 MPV 9.9 Immature Gran % (Auto) 1.2 Neut % (Auto) 80.7 Lymph % (Auto) 13.8 Franklin % (Auto) 4.1 Eos % (Auto) 0.0 Baso % (Auto) 0.2 Neut # (Auto) 3.50 Lymph # (Auto) 0.60 L Franklin # (Auto) 0.18 Eos # (Auto) 0.00 Baso # (Auto) 0.01 Immature Gran # (Auto) 0.05 Sodium 141 Potassium 4.3 Chloride 92 L Carbon Dioxide 43 H* Anion Gap 6 BUN 26 H Creatinine 0.78 Est Cr Clr Drug Dosing 76.6 Est GFR ( Amer) 85.6 Est GFR (Non-Af Amer) 73.8 BUN/Creatinine Ratio 33.3 H Glucose 326 H* POC Glucose 224 H Calcium 9.4 Magnesium 2.3 03/11/23 03/11/23 03/12/23 17:15 20:32 06:29 WBC RBC Hgb Hct MCV MCH MCHC RDW Std Deviation RDW Coeff of Dalton Plt Count MPV Immature Gran % (Auto) Neut % (Auto) Lymph % (Auto) Franklin % (Auto) Eos % (Auto) Baso % (Auto) Neut # (Auto) Lymph # (Auto) Franklin # (Auto) Eos # (Auto) Baso # (Auto) Immature Gran # (Auto) Sodium 141 Potassium 3.9 Chloride 95 L Carbon Dioxide 42 H* Anion Gap 4 BUN 30 H Creatinine 0.94 Est Cr Clr Drug Dosing 63.7 Est GFR ( Amer) 68.3 Est GFR (Non-Af Amer) 58.9 BUN/Creatinine Ratio 31.9 H Glucose 139 H POC Glucose 128 H 242 H Calcium 9.2 Magnesium 03/12/23 03/12/23 03/12/23 07:32 11:29 16:13 WBC RBC Hgb Hct MCV MCH MCHC RDW Std Deviation RDW Coeff of Dalton Plt Count MPV Immature Gran % (Auto) Neut % (Auto) Lymph % (Auto) Franklin % (Auto) Eos % (Auto) Baso % (Auto) Neut # (Auto) Lymph # (Auto) Franklin # (Auto) Eos # (Auto) Baso # (Auto) Immature Gran # (Auto) Sodium Potassium Chloride Carbon Dioxide Anion Gap BUN Creatinine Est Cr Clr Drug Dosing Est GFR ( Amer) Est GFR (Non-Af Amer) BUN/Creatinine Ratio Glucose POC Glucose 146 H 110 H 293 H Calcium Magnesium 03/12/23 03/13/23 03/13/23 20:35 06:44 07:20 WBC RBC Hgb Hct MCV MCH MCHC RDW Std Deviation RDW Coeff of Dalton Plt Count MPV Immature Gran % (Auto) Neut % (Auto) Lymph % (Auto) Franklin % (Auto) Eos % (Auto) Baso % (Auto) Neut # (Auto) Lymph # (Auto) Franklin # (Auto) Eos # (Auto) Baso # (Auto) Immature Gran # (Auto) Sodium Potassium Chloride Carbon Dioxide Anion Gap BUN Creatinine 0.79 Est Cr Clr Drug Dosing 75.6 Est GFR ( Amer) 84.3 Est GFR (Non-Af Amer) 72.7 BUN/Creatinine Ratio Glucose POC Glucose 185 H 88 Calcium Magnesium Diagnostic Findings Microbiology 03/04/23 10:29 Blood Aerobic Blood Culture - Final No growth in Aerobic bottle after 5 days. 03/04/23 10:29 Blood Anaerobic Blood Culture - Final No growth in Anaerobic bottle after 5 days. 03/04/23 09:53 Blood Aerobic Blood Culture - Final No growth in Aerobic bottle after 5 days. 03/04/23 09:53 Blood Anaerobic Blood Culture - Final 03/04/23 12:35 Urine,Straight Cath Urine Culture - Final No growth - less than 1,000 colonies/mL. Chest CTA 03/11/23 14:47 CT angio chest PE protocol CT DOSE: 1172.52 mGy.cm HISTORY: 77 years-old Female with acute/chronic resp failure, CHF, fever. Acu te shortness of breath TECHNIQUE: Multiple CTA images of the chest were obtained after the intravenous administration of 117 ml Optiray. Coronal and sagittal MIPS were obtained from the axial data set and were submitted for review. All measurements were obtained according to NASCET criteria. A dose lowering technique was utilized adhering to the principles of ALARA. COMPARISON: CTA 10/29/2022, Doppler study 03/07/2023. FINDINGS: CTA: Moderate cardiomegaly. No pericardial effusion. Moderate coronary artery calcifications. Atherosclerosis of the thoracic aorta without aneurysm or dis section. Limited evaluation of the pulmonary arterial tree secondary to upper extremity positioning and respiratory motion artifact. No central pulmonary emboli identified. Equivocal plain defects are noted within left upper lobe subsegmental branches on image [address] CHEST: A large thyroid nodule lymphadenopathy. Small pleural effusions. Complete collapse/consolidation of the left lower lobe. No obstructing endobronchial lesion. Dependent consolidation of the basal right lower lobe. No pneumothorax. Minimal intralobular septal thickening. Mild pulmonary emphysema. No acute process of the imaged upper abdomen. Unremarkable soft tissues. No acute fracture. IMPRESSION: 1. Limited exam as above. No central pulmonary emboli identified. Equivocal subsegmental filling defects in the left upper lobe are favored to be artifactual. Tiny pulmonary emboli considered less likely. 2. Cardiomegaly with minimal pulmonary edema. 3. Small pleural effusions with dependent atelectasis and complete collapse of the left lower lobe. 4. No obstructing endobronchial lesion identified. ACT 112: Negative or not required by law. The above report was generated using voice recognition software. It may contain grammatical, syntax or spelling errors. Electronically signed by: Jack Espinal M.D. 03/11/2023 5:44 PM Medications Administered Home Medications Medication Instructions Recorded Confirmed Last Taken albuterol sulfate 90 mcg/actuation 2 puff inhalation Q4H PRN Wheezing 10/29/22 03/04/23 Unknown aerosol inhaler insulin lispro protamine-lispro See Rx Instructions .Route .COMPLEX 10/29/22 03/04/23 12/19/22 08:00 100 unit/mL (75-25) subcutaneous 70 UNITS pen (Humalog Mix 75-25 KwikPen) furosemide 80 mg tablet 80 mg PO DAILY #30 tabs 12/23/22 03/04/23 Unknown alprazolam 0.25 mg tablet 0.25 mg PO Q6H PRN Anxiety 03/04/23 03/04/23 Unknown cefdinir 300 mg capsule 300 mg PO BID 03/04/23 03/04/23 Unknown fluticasone fur. 100 mcg-umeclid 1 inh inhalation DAILY 03/04/23 03/04/23 Unknown 62.5 mcg-vilant 25 mcg inhalat.powder (Trelegy Ellipta) hydrocodone 10 mg-acetaminophen 1 tab PO Q4H PRN Pain 03/04/23 03/04/23 Unknown 325 mg tablet semaglutide 0.25 mg or 0.5 mg (2 0.25 mg subcut WK 03/04/23 03/04/23 Unknown mg/3 mL) subcutaneous pen injector (Ozempic) Active Medications Generic Name Dose Route Start Last Admin Trade Name Freq PRN Reason Stop Dose Admin Acetaminophen 650 mg 03/04/23 21:56 03/12/23 17:31 Acetaminophen 325 Mg Tab PO 04/03/23 21:55 650 mg Q4H PRN Administration Pain or Fever Albuterol 3 ml 03/12/23 07:00 03/13/23 07:09 Albut/Ipratrop 3mg/0.5mg Neb 3 Ml Vial NEB 04/11/23 06:59 Not Given QIDR CRYSTAL Protocol Budesonide 0.5 mg 03/04/23 19:00 03/13/23 07:17 Budesonide 0.5 Mg/2 Ml Vial (Pulmicort) NEB 04/03/23 18:59 0.5 mg BIDR CRYSTAL Administration Clonazepam 0.5 mg 03/06/23 09:00 03/13/23 08:11 Clonazepam 0.5 Mg Tab PO 04/05/23 08:59 0.5 mg QAM CRYSTAL Administration Clonazepam 0.75 mg 03/10/23 21:00 03/12/23 20:54 Clonazepam 0.25 Mg Tab PO 04/09/23 20:59 0.75 mg HS CRYSTAL Administration Enoxaparin Sodium 40 mg 03/04/23 21:00 03/13/23 07:30 Enoxaparin Inj 40 Mg/0.4 Ml Syr SQ 04/03/23 20:59 40 mg BID CRYSTAL Administration Formoterol Fumarate 20 mcg 03/04/23 21:00 03/13/23 07:17 Formoterol 20 Mcg/2 Ml Vial NEB 04/03/23 20:59 20 mcg BID CRYSTAL Administration Guaifenesin 1,200 mg 03/09/23 21:00 03/13/23 07:30 Guaifenesin 600 Mg Tabcr PO 04/08/23 20:59 1,200 mg Q12 CRYSTAL Administration Dexamethasone 6 mg/ Syringe 1.5 mls @ 1 mls/min 03/09/23 20:15 03/13/23 07:30 IV 04/08/23 20:14 1 mls/min Q24H CRYSTAL Administration Insulin Aspart 0 units 03/09/23 07:30 03/13/23 08:05 Insulin Aspart Per Unit Charge OR 04/05/23 07:29 16 units 0730 CRYSTAL Administration Insulin Aspart 0 units 03/09/23 11:30 03/12/23 22:14 Insulin Aspart Per Unit Charge OR 04/08/23 11:29 3 units 1130,1630,2100 CRYSTAL Administration Insulin Glargine 30 units 03/12/23 21:00 03/12/23 22:15 Lantus Per Unit Charge SC 04/11/23 20:59 30 units HS CRYSTAL Administration Levofloxacin 750 mg 03/11/23 18:55 03/12/23 12:40 Levofloxacin 750 Mg Tab PO 03/18/23 18:54 750 mg DAILY@1100 CRYSTAL Administration Protocol Lidocaine 3 patch 03/10/23 18:50 03/13/23 07:29 Lidocaine 5% 1 Patch TD 04/09/23 18:49 3 patch QAM CRYSTAL Administration Melatonin 3 mg 03/10/23 21:00 03/12/23 20:54 Melatonin 3 Mg Tab PO 04/09/23 20:59 3 mg HS CRYSTAL Administration Miconazole Nitrate 1 appln 03/10/23 11:30 03/13/23 07:30 Miconazole Nitrate Powder 85 Gm EXT 04/09/23 11:29 1 appln BID CRYSTAL Administration Miscellaneous 1 each 03/10/23 21:00 03/12/23 20:56 Remove Lidoderm Patch N/A 04/09/23 20:59 1 each DAILY@2100 CRYSTAL Administration Ondansetron HCl 4 mg 03/05/23 20:10 03/07/23 05:14 Ondansetron Inj 2 Mg/Ml 2 Ml Vial IV 04/04/23 20:09 4 mg Q6H PRN Administration Nausea And Vomiting Sodium Chloride 4 ml 03/11/23 19:00 03/13/23 07:17 Sodium Chlor 7% 4 Ml Neb NEB 04/10/23 18:59 4 ml BIDR CRYSTAL Administration Umeclidinium [place] 1 puffs 03/05/23 09:00 03/13/23 07:28 Umeclidinium [place] 62.5mcg/Blister 7 Puffs/Inhaler INH 04/04/23 08:59 1 puffs QAM CRYSTAL Administration
--- NOTE | 2023-03-13 11:28 | Hospitalist Progress Note ---
Date of Service March 13, 2023 Assessment & Plan (1) Pneumonia: Plan: LLL pneumonia concern for gram negative infection, antibiotics changed to levaquin 03/11/23 to also cover atypicals LD 03/18/23 CTA did not show obvious PE (?artifactual filling defect). minimal pulmonary edema. However, LLL collapse was seen? mucus plugging RLL infiltrates also seen. add saline nebs BID due to LLL collapse. add chest vest/chest PT BID. change combivent nebs to duonebs QID. could consider mucomyst. patient sees outpatient pulmonary medicine in the [place] area. I encouraged her to have a close outpatient appointment to consider if she would be a candidate for home vibration vest completed steroids at this time cont mucinex 1200mg BID. RSV/COVID/flu test obtained 03/09 and was negative. CXRs have continued to show pulmonary edema. metabolic encephalopathy on presentation resolved (2) COPD (chronic obstructive pulmonary disease): Plan: Mild exacerbation. Mild emphysematous changes on CTA chest, recommend outpatient follow-up for her COPD (3) Acute on chronic respiratory failure with hypoxia and hypercapnia: Plan: Chronic resp failure - due to OHS/CHRISTIANO, restrictive lung disease, COPD. Supposed to be on Trilogy machine at home - noncompliant with such, simply won't use it. Acute resp failure - 2nd to decompensated CHF, COPD exacerbation, and pneumonia / LLL collapse as seen on CT chest today. Xanax use, narcotic use - will worsen both acute and chronic resp failure. Both have been stopped. Appears baseline pCO2 is upper 70s/low 80s. keep O2 sats low 90s. encouraged ongoing use of BIPAP with sleep. she has been doing a good job with this - wearing it at least 4 hours/night and with daytime naps. patient has a noninvasive positive pressure ventilation machine at night for home (4) Acute exacerbation of CHF (congestive heart failure): Plan: acute on chronic diastolic heart failure Echo 10/2022 - preserved LV function; no RV dysfunction. decision on daily diuretics. hypokalmeia replete as needed, follow manesium (5) Recurrent UTI: Plan: Recent e.coli bacteremia/UTI - dx [facility] 02/27 E.coli sens to ceftriaxone & cipro per records Also grew proteus - sens to ceftriaxone & cipro [facility] currently on Levaquin for her lungs will have last dose on 18 March repeat urine cx negative blood cultures negative h/o colo-vesicular fistula - by the son's report dx [facility] sometime in the last year or two she will cont to have recurrent UTIs from this not a good operative candidate in light of morbid obesity, chronic resp failure, etc we discussed prophylactic antibiotics and recommended against such consider going back on methenamine once or twice daily infectious disease consultation will be undertaken on 03/13/2023 (6) Diabetes mellitus, type 2: Plan: pharmacy glycemic team assistance appreciated cont basal-bolus insulin Hba1c 7.8% control satisfactory (7) Morbid obesity with BMI of 45.0-49.9, adult: Plan: BMI 45-50 (8) Chronic prescription benzodiazepine use: Plan: xanax - for at least a year or longer to avoid withdrawal and to reduce sedation she was changed to clonazepam BID cont clonazepam 0.75mg HS cont AM clonazepam 0.5mg cont melatonin 3mg at HS (9) NSVT (nonsustained ventricular tachycardia): Plan: episode of such last week - 16-17 beats no symptoms echo with preserved EF earlier this year Plan VTE Prophyalxis - Lovenox 40mg SQ BID patient previously on hospice - obtained palliative care consultation with Dr Motta patient no longer candidate for hospice home services possible home 03/14/23 Admission and Anticipated Discharge Date Admission Date: March 04, 2023 Subjective patient seen in her room she had no particular distress she was very pleased with infectious disease consultation . Feels near her baseline her fatigue still persist perhaps another day in the hospital Physical Exam Physical Exam: Patient is awake alert he is making sense her card exam is regular Lung exam is decreased at the bases left greater than right Abdomen is NABS extremities are with 1+ edema bilaterally Results & Data Results & Data Vital Signs (Past 12 Hours) Vital Signs Temp Pulse Pulse Resp BP Pulse Ox O2 Del Method 03/13/23 09:00 75 03/13/23 10:39 Nasal Cannula 03/13/23 08:45 98.8 F 93 H 24 128/67 95 Nasal Cannula 03/13/23 07:18 95 H 18 94 Nasal Cannula 03/13/23 03:48 98.2 F 78 20 121/71 96 CPAP 03/13/23 02:32 79 17 90 09/06/23 23:51 98.2 F 88 19 132/89 93 CPAP O2 Flow Rate FiO2 03/13/23 09:00 03/13/23 10:39 4 03/13/23 08:45 4 03/13/23 07:18 4 03/13/23 03:48 03/13/23 02:32 30 03/12/23 23:51 PG Care Time/CCT Total # of Minutes Spent Total Time Spent with Patient: Total time spent is greater than 50% in coordination of care (as documented) at patient's floor/unit and/or counseling patient: Coding Level of Care Code 17805 SUB INP/OBS CARE 2MIN Diagnoses Pneumonia J18.9 COPD (chronic obstructive pulmonary disease) J44.9 COPD type: unspecified COPD Acute on chronic respiratory failure with hypoxia and hypercapnia J96.21; J96.22 Acute exacerbation of CHF (congestive heart failure) I50.9 Recurrent UTI N39.0 Diabetes mellitus, type 2 E11.9 Morbid obesity with BMI of 45.0-49.9, adult E66.01; Z68.42 Chronic prescription benzodiazepine use Z79.899 NSVT (nonsustained ventricular tachycardia) I47.29 (2) COPD (chronic obstructive pulmonary disease) COPD type: unspecified COPD Qualified Code(s): J44.9 - Chronic obstructive pulmonary disease, unspecified
[2023-03-13] MEDS: levoFLOXacin 750 MG TAB PO SCH (11:42)
[2023-03-13] MEDS ORDERED: FUROSEMIDE 40 MG TAB PO ONE (13:34)
--- NOTE | 2023-03-13 14:39 | Pharmacy Report ---
Pharmacy Glycemic Short Note 2 - Date of Service March 13, 2023 - Glycemic Short BSG Results (Last 24 hours): 03/12/23 03/12/23 03/13/23 16:13 20:35 07:20 POC Glucose 293 H 185 H 88 03/13/23 11:10 POC Glucose 128 H OUTPATIENT ANTIDIABETIC REGIMEN: * Humalog 75/25 mix, 80 units qAM, 60 units qPM * Semaglutide * HbA1c 7.8% on 03/05/23 ASSESSMENT: 03/13: * BSGs yesterday were 319-192-152-185 mg/dL and patient received 109 units of insulin yesterday (70 of which was basal). * Fasting BSG downtrended significantly this morning to 88 mg/dL. Because of this, Lantus was held until lunch BSG trend could be evaluated and dose was subsequently decreased. Will continue with current novolog scale but decrease total daily Lantus dose. * Patient remains on dexamethasone and is ordered a diet. 03/11: * BSGs yesterday were [phone] mg/dL and fasting was 249 mg/dL this morning. * Novolog already tightened for this morning. Will also increase basal insulin. Will also adjust IV steroid timing from evening to morning administration. * Patient is tolerating a diet. 03/10: * Dexamethasone 6 mg IV q24h initiated last evening (no insulin changes made at time of order) * BSGs unsurprisingly elevated today - will tighten Novolog and increase basal to better cover steroids 03/09 * BSGs remain labile, ranging 115-233 mg/dL yesterday * Received 77 units of insulin (~50/50 basal/bolus split) * Fasting BSG remains elevated this morning (189 mg/dL) - will increase basal * Tightened Novolog with breakfast this morning, but lunch BSG still elevated - will tighten further tomorrow morning 03/07 * BSGs at goal over last 24 hrs * Fasting BSG 159 this AM with 15 units basal on board. Basal needs this admission lower than prior possibly due to decreased PO intake. May provide additional basal this PM if BSGs climbing * Post-prandial BSGs controlled with current Novolog CR/CF - continue the same 03/05 * 77 yo F with T2DM admitted with SOB and on continuous BiPAP. On antibiotics. NPO for now. BSG's have trended down significantly from 339 mg/dL yesterday Am to 136 mg/dL this AM after 25 units of Lantus and a weight-based severe stress Novolog regimen * Previous four-day admission this past December reviewed - Lantus 20 units BID, Novolog goal 110-140 mg/dL, CF 20, CR 6, while on antibiotics and ordered/consuming diet. Almost all BSG's (fasting and post-prandial) were > 180 mg/dL. * This admission, patient is NPO which is different from previous. But if/when patient ordered a diet, the above likely will aid with adjustment to current regimen * For now, will be less aggressive given NPO * OK to leave Novolog at q4h - may change to q6h tomorrow if BSG's remain in goal range PLAN FOR INPATIENT GLYCEMIC CONTROL: * Basal insulin - decrease * Lantus 20 units SC at lunchtime, then 15, 20, or 25 units this evening based on BSG * Bolus insulin * NovoLog per scale ACHS or Q6hrs while NPO * Goal Range: Low 110 mg/dL - High 140 mg/dL * Correction Factor: 10 mg/dL/unit at breakfast, 15 mg/dL/unit at lunch, dinner, and HS * Nutritional / Prandial insulin per carb ratio of 1 unit per 3 grams CHO consumed with breakfast, 5 grams CHO consumed with lunch, dinner, and HS
[2023-03-13] MEDS: clonazePAM 0.25 MG TAB PO SCH (20:39)
[2023-03-13] MEDS: MELATONIN 3 MG TAB PO SCH (20:39)
[2023-03-14] MEDS: BUDESONIDE 0.5 MG/2 ML VIAL (PULMICORT) NEB SCH (06:55)
[2023-03-14] MEDS: ALBUT/IPRATROP 3MG/0.5MG NEB 3 ML VIAL NEB SCH ×2 (06:55→11:15)
[2023-03-14] MEDS: SODIUM CHLOR 7% 4 ML NEB NEB SCH (06:55)
[2023-03-14] MEDS: FORMOTEROL 20 MCG/2 ML VIAL NEB SCH (06:55)
[2023-03-14] MEDS: ENOXAPARIN INJ 40 MG/0.4 ML SYR SQ SCH (07:34)
[2023-03-14] MEDS: guaiFENesin 600 MG TABCR PO SCH (07:35)
[2023-03-14] MEDS: levoFLOXacin 750 MG TAB PO SCH (07:35)
[2023-03-14] MEDS: dexAMETHasone 6 MG in SYRINGE 0 ML IV SCH (07:35)
[2023-03-14] MEDS: UMECLIDINIUM BROMIDE 62.5MCG/BLISTER 7 PUFFS/INHALER INH SCH (07:35)
[2023-03-14] MEDS: LIDOCAINE 5% 1 PATCH TD SCH (07:36)
[2023-03-14] MEDS: MICONAZOLE NITRATE POWDER 85 GM EXT SCH (07:37)
[2023-03-14] MEDS: clonazePAM 0.5 MG TAB PO SCH (07:39)
[2023-03-14] MEDS: INSULIN ASPART PER UNIT CHARGE SC SCH ×2 (08:15→12:12)
[2023-03-14] MEDS ORDERED: FUROSEMIDE 80 MG TAB PO SCH (09:00)
[2023-03-14] MEDS ORDERED: LANTUS PER UNIT CHARGE SC SCH (09:00)
--- NOTE | 2023-03-14 12:30 | Discharge Summary ---
Date of Service March 14, 2023 Admission HPI Per Admitting Provider Rosa North is a 77 year old female who presents to the ER via ALS due to altered mental state, hypoxia and shortness of breath following recent discharge from [facility] on March 02. Not taken her Lasix since discharge although was noted she should be on 80mg PO daily on discharge summary. This was also held during her admission due to concerns for dehydration. Progressively worsening altered mental state at home since discharge but her also feels they discharged her too early from [place] as she was far from her baseline. He is unclear whether she has started on the cefdinir yet as she does all her own medications. She has not used her Trilogy machine since discharge. She usually is on 4LPM home O2 but was placed on non-rebreather 10LPM to bring her O2 sats from 85% to 96% per EMS. Also administered 400ml NSS en route. She was recently hospitalized at [facility] February 27 - 2022 for E. coli bacteremia sepsis with suspected urinary source resistant to ampicillin. She was treated with IV ceftriaxone in the hospital and switched to cefdinir on discharge. She was given Xanax during that admission although was discontinued on her discharge summary. However she has continued to take Xanax four times a day. She also has [place] for pain relief although unclear if she has been taking this. She also has lorazepam at home and unclear if she was taking this in addition to her Xanax. She no longer takes citalopram for anxiety as she doesn't like how it makes her feel and just takes Xanax 4 times a day currently. Other medications discontinued include amlodipine, atorvastatin, citalopram, potassium, guaifenesin, citalopram, Xanax, Vitamin C, Docusate, Ferrous sulfate, methenamine, zinc sulfate. Admission Exam Per Admitting Provider Constitutional: well developed and + acute distress; + not well nourished Eyes: PERRL, conjunctivae normal, anicteric sclerae ENMT: external ear and nose normal, oropharynx normal Neck: trachea midline, no thyromegaly Respiratory: + respiratory distress, + labored breathing, + uses accessory muscles, + tachypneic and + prolonged expiratory phase; + abnormal respiratory effort, + not able to speak in complete sentence, no audible wheezes and no stridor Cardiovascular: Rate/Rhythm: regular rate and + tachycardic Heart Sounds: no murmur Extremities: + pedal edema (1+ pitting b/l equal) Gastrointestinal (Abdomen): normal bowel sounds, soft, nontender, no hepatosplenomegaly Musculoskeletal: no cyanosis or clubbing, extremities motor strength 5/5 Skin: no rashes, warm and dry Psychiatric: Orientation: alert, oriented to person and oriented to place; + not oriented to time Eye Contact: + poor eye contact Principal Diagnosis acute hypoxic respiratory failure due to a combination of CHF exacerbation, pneumonia, COPD exacerbation Discharge Exam general: Awake, conversant, obese Heart: S1, S2/regular rate and rhythm, no murmur rubs or gallops Lungs: Clear to auscultation bilaterally. Normal effort Abdomen: Soft/nontender/nondistended. No hepatosplenomegaly Extremities: No clubbing/cyanosis. No edema Behavior: Appropriate, cooperative Discharge Data Allergies Allergy/AdvReac Type Severity Reaction Status Date / Time empagliflozin AdvReac Intermediate RECURRENT Verified 12/19/22 15:46 [From Jardiance] UTI'S metformin AdvReac Intermediate Gastrointestinal Verified 12/19/22 15:46 Upset oxycodone AdvReac Intermediate HALLUCINATI Verified 12/19/22 15:48 ONS Consultations 03/04/23 12:05 ED Decision to Admit Stat 03/07/23 09:56 Consult Palliative Care Routine 03/12/23 13:41 Consult Infectious Diseases Routine Ordered Studies 03/06/23 15:27 CT abd pelvis wo con Routine CT lumbar spine wo con Routine 03/07/23 18:19 US venous doppler LE BI Routine 03/11/23 14:47 CT angio chest PE protocol Routine Hospital Course (1) Pneumonia: LLL pneumonia concern for gram negative infection, antibiotics changed to levaquin 03/11/23 to also cover atypicals LD 03/18/23. Discharged on Levaquin. CTA did not show obvious PE (?artifactual filling defect). minimal pulmonary edema. However, LLL collapse was seen? mucus plugging RLL infiltrates also seen. patient sees outpatient pulmonary medicine in the [place] area. I encouraged her to have a close outpatient appointment to consider if she would be a candidate for home vibration vest completed steroids at this time cont mucinex 1200mg BID. RSV/COVID/flu test obtained 03/09 and was negative. CXRs have continued to show pulmonary edema. metabolic encephalopathy on presentation resolved (2) COPD (chronic obstructive pulmonary disease): Mild exacerbation. Mild emphysematous changes on CTA chest, recommend outpatient follow-up for her COPD (3) Acute on chronic respiratory failure with hypoxia and hypercapnia: Chronic resp failure - due to OHS/CHRISTIANO, restrictive lung disease, COPD. Supposed to be on Trilogy machine at home - noncompliant with such, simply won't use it. Acute resp failure - 2nd to decompensated CHF, COPD exacerbation, and pneumonia / LLL collapse Xanax use, narcotic use - will worsen both acute and chronic resp failure. Both have been stopped. Appears baseline pCO2 is upper 70s/low 80s. keep O2 sats low 90s. encouraged ongoing use of BIPAP with sleep. she has been doing a good job with this - wearing it at least 4 hours/night and with daytime naps. patient has a noninvasive positive pressure ventilation machine at night for home (4) Acute exacerbation of CHF (congestive heart failure): acute on chronic diastolic heart failure Echo 10/2022 - preserved LV function; no RV dysfunction. Resume daily diuretics. hypokalmeia replete as needed, follow manesium (5) Recurrent UTI: Recent e.coli bacteremia/UTI - dx [facility] 02/27 E.coli sens to ceftriaxone & cipro per records Also grew proteus - sens to ceftriaxone & cipro first day of abx at [facility] was 02/27/23 currently on Levaquin for her lungs will have last dose on 18 March repeat urine cx negative blood cultures negative h/o colo-vesicular fistula - by the son's report dx [facility] sometime in the last year or two she will cont to have recurrent UTIs from this not a good operative candidate in light of morbid obesity, chronic resp failure, etc we discussed prophylactic antibiotics and recommended against such . ID recommended against suppressive antibiotics as well. (6) Diabetes mellitus, type 2: pharmacy glycemic team assistance appreciated cont basal-bolus insulin Hba1c 7.8% control satisfactory (7) Morbid obesity with BMI of 45.0-49.9, adult: BMI 45-50 (8) Chronic prescription benzodiazepine use: xanax - for at least a year or longer to avoid withdrawal and to reduce sedation she was changed to clonazepam BID cont clonazepam 0.75mg HS cont AM clonazepam 0.5mg cont melatonin 3mg at HS (9) NSVT (nonsustained ventricular tachycardia): episode of such last week - 16-17 beats no symptoms echo with preserved EF earlier this year Plan patient previously on hospice - obtained palliative care consultation with Dr Motta patient no longer candidate for hospice home services Discharge to home today Total Time Total Time Spent Total Time Spent (In Minutes): 35 Discharge Plan Discharge Items Patient Disposition: Home - Home Health Services Reason For Visit: ACUTE RESP FAILURE WITH HYPOXICA AND HYPERCAPNIA, Discharge Diagnosis: Pneumonia, CHF flare Activity: Resume your previous activity Non-emergency contact: Primary Care Provider Call non-emergency contact if: you have any medication questions and your symptoms worsen Follow-up/Referrals: Kings Nichols MD [Primary Care Provider] - 03/21/23 1:00 pm (appointment with BRODERICK Watson) Diet: Carb Consistent or DM2 and Heart Healthy Addtl Attending Provider Instructions: Advised to follow-up with PCP in 1 week Pending Studies at Discharge: No Stand-Alone Forms: My FID3, Smoking Cessation Medications and DC Order Prescriptions: New levofloxacin 750 mg Tablet 750 mg PO DAILY@1100 3 Days Qty: 3 0RF lidocaine 5 % adhesive patch,medicated 1 patch topical DAILY Qty: 15 0RF Rx Instructions: leave on most painful area for up to 12 hrs Continued albuterol sulfate 90 mcg/actuation Hfa Aerosol Inhaler 2 puff INHALATION Q4H PRN (Reason: Wheezing) insulin lispro protamin-lispro [Humalog Mix 75-25 KwikPen] 100 unit/mL (75-25) insulin pen See Rx Instructions .ROUTE .COMPLEX Rx Instructions: TAKES 80 UNITS QAM, THEN 60 UNITS QPM. furosemide 80 mg Tablet 80 mg PO DAILY Qty: 30 0RF Trelegy Ellipta 100-62.5-25 mcg blister with device 1 inh INHALATION DAILY Ozempic 0.25 mg or 0.5 mg (2 mg/3 mL) pen injector 0.25 mg SUBCUT WK Rx Instructions: Friday hydrocodone-acetaminophen 10-325 mg tablet 1 tab PO Q4H PRN (Reason: Pain) alprazolam 0.25 mg tablet 0.25 mg PO Q6H PRN (Reason: Anxiety) Discontinued cefdinir 300 mg capsule 300 mg PO BID Rx Instructions: last day 12 March Discharge Orders: Discharge Order (Routine); Ordered 03/14/23 Ordered By: Andreas Sousa/Other Patient Handouts: Managing Type 2 Diabetes Admission Data Admit Date/Time: 03/04/23 12:12 Attending Provider: Andreas Mccollum Admit Provider: Abdirahman Villareal Primary Care Provider: Kings Nichols Other Providers: Abdirahman Villareal ; Cindy Motta ; Damaris Gallardo ; Hermann Pierce ; Ninfa Moncada ; Gricelda Hung ; Fabby Duffy ; Lilia Lee ; Rere Parham ; Jacki Timmons ; Mary Vaughn ; [facility] Other Interventions: Discharge Summary Assessment (RN) Last Done: 03/14/23 12:47 Coding Level of Care Code 93807 INP/OBS DISCH >30 MIN Diagnoses Pneumonia J18.9 COPD (chronic obstructive pulmonary disease) J44.9 COPD type: unspecified COPD Acute on chronic respiratory failure with hypoxia and hypercapnia J96.21; J96.22 Acute exacerbation of CHF (congestive heart failure) I50.9 Recurrent UTI N39.0 Diabetes mellitus, type 2 E11.9 Morbid obesity with BMI of 45.0-49.9, adult E66.01; Z68.42 Chronic prescription benzodiazepine use Z79.899 NSVT (nonsustained ventricular tachycardia) I47.29
[2023-03-14] MEDS: ACETAMINOPHEN 325 MG TAB PO PRN (13:15)
== END 2023-03-14 14:30 | disposition home health service (06) | DRG 291 ==
LOC: ED 08:47 → 2E 12:12 → SUATTDRO 12:12 → 2E 14:26

== ENCOUNTER 2025-01-18 15:13 | Inpatient (IN) ==
--- NOTE | 2025-01-18 15:55 | Emergency Department Note ---
Impression & Plan Anemia Admission ED Provider Note HPI: History obtained from patient. The patient is a 79-year-old female who presents emergency department with chief complaint of intermittent headaches and fatigue. Patient states she has had the symptoms for about the past 2 weeks. Patient states she is also had shortness of breath. Patient states in the past when she had similar feelings she had "high carbon dioxide". Patient therefore thought she might be suffering a COPD exacerbation. On arrival here to the ED the patient is saturating well on her baseline nasal cannula oxygen, she is alert and oriented x 3, patient otherwise appears to be in no acute distress on my initial evaluation. ROS: - Per HPI Differential Diagnosis: Acute COPD exacerbation, hypercarbic respiratory failure, tension headache, migraine headache, intracranial hemorrhage, critical electrolyte abnormalities to include hyponatremia, acute kidney injury/dehydration, symptomatic anemia, amongst other potential pathologies. *Outpatient medications and allergy history reviewed. PE: General: Alert, obese, no acute distress HEENT: Normocephalic, trachea midline Eyes: Extraocular eye movement is intact, no scleral erythema Pulmonary: Diminished air movement bilaterally without expiratory wheezing Cardio: Regular rate and rhythm GI: Abdomen is soft to palpation : No suprapubic tenderness MSK: No evidence of trauma or malformation of the extremities, no edema Skin: No evidence of rash Neuro: Alert, no focal deficits, equal bilateral fire crew worker strength, symmetrical facial movements are appreciated Psychiatric: Cooperative INDEPENDENT INTERPRETATIONS: log operations coordinator: (As interpreted by myself): - An order was placed for continuous cardiac monitoring - Patient was noted to be in sinus rhythm with a rate of 98 EKG: (As interpreted by myself): Rate: 103 Rhythm: Sinus tachycardia Intervals: Within normal limits ST changes: No ST elevation Time: 1528 Chest x-ray: (As interpreted by myself): Left lower lung opacity Interventions provided in ED: - IV cefepime Medical Decision Making: IV was established and lab work obtained, patient was placed on senior attorney. Lab work shows a mild leukocytosis of 12.84, hemoglobin is noted to be reduced at 7.2 (recent baseline around 10.3), platelet count is also noted to be reduced at 55 which also appears to be acute. Venous blood gas shows a pH of 7.39, pCO2 is 59, CMP does not show any evidence of any critical findings. BNP is within normal limits, urinalysis does not show any evidence of any acute infection. Viral panel testing is negative. I was informed by the lab that the patient had blast cells on her peripheral smear. Given this I did discuss the patient's presentation with on-call hematology, Dr. Dunaway. He recommended admission and the patient will require a bone marrow biopsy tomorrow for further workup of her potential leukemia. I discussed this with the patient and her family at the bedside and they are in agreement for admission. Case was discussed with the on-call hospitalist for [facility], Dr. Narayan, and the patient was placed for admission in stable condition. Consultants/Discussions held with other healthcare providers: - Hospitalist, Dr. Narayan Disposition discussion held by myself with: - Patient and family at bedside Diagnosis: 1. Anemia, acute 2. Thrombocytopenia, acute 3. Blast cells on peripheral smear, acute 4. Generalized weakness/fatigue Disposition: Admission Gregorio Winter DO Emergency Medicine Past Med/Surg History Problem List (Updated 01/18/25 @ 20:57 by Gregorio Winter DO) Anemia (Acute) Fever NSVT (nonsustained ventricular tachycardia) Advanced care planning/counseling discussion Palliative care by specialist Abdominal pain, generalized Weakness generalized Dyspnea and respiratory abnormalities Colovesical fistula Lumbar back pain Chronic prescription benzodiazepine use Myalgia Bacteremia Morbid obesity with BMI of 45.0-49.9, adult Acute metabolic encephalopathy Obstructive sleep apnea Obesity hypoventilation syndrome Pneumonia Diabetes mellitus, type 2 COPD (chronic obstructive pulmonary disease) Acute on chronic respiratory failure with hypoxia and hypercapnia Sepsis (Acute) AMS (altered mental status) (Acute) Acute respiratory failure with hypoxia and hypercarbia (Acute) Elevated procalcitonin (Acute) Acute exacerbation of CHF (congestive heart failure) (Acute) Non-ST elevation [place] (NSTEMI) (Acute) Acute hyperkalemia (Acute) Acute and chronic respiratory failure ([id number]) Diverticular disease of colon (Chronic) History of colonic diverticulitis (Chronic) Recurrent UTI (Chronic) "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 fistula" Status post cholecystectomy (Chronic) Status post appendectomy (Chronic) Status post partial colectomy (Chronic) Status post total knee replacement (Chronic) Incarcerated ventral hernia (Acute) Small bowel obstruction (Acute) Diastolic heart failure Right ankle sprain B12 deficiency anemia Urinary tract infection (Acute) Medical History (Updated 01/18/25 @ 20:57 by Gregorio Winter DO) Morbid obesity Chronic respiratory acidosis Right ankle swelling Pneumonia Pleural effusion Weakness SOB (shortness of breath) Hypoxia Hypertension Surgical History H/O ventral hernia repair Social History Smoking Status: Former smoker Tobacco Type: Cigarettes Cigarettes Per Day: 20; Second Hand Exposure: No; Do You Dip or Chew Tobacco: No; Hx Alcohol Use: Yes Alcohol type: hard liquor Hx Substance Use: No Preferred Language: Somali Communication Ability: Effective Cryptographic Technician Required: No Beliefs That Will Affect Care: Congregational Congregational Beliefs: Buddhist. Current Living Situation: Spouse Feels Safe at Home: Yes Assistive Devices: Lift Chair, Oxygen - Continuous, Walker and Wheelchair Allergies Allergies Allergy/AdvReac Type Severity Reaction Status Date / Time latex Allergy Severe Rash Unverified 01/18/25 17:45 empagliflozin AdvReac Intermediate RECURRENT Verified 01/18/25 17:45 [From Jardiance] UTI'S metformin AdvReac Intermediate Gastrointestinal Verified 01/18/25 17:45 Upset oxycodone AdvReac Intermediate HALLUCINATI Verified 01/18/25 17:45 ONS Home Meds Home Medications Medication Instructions Recorded Confirmed albuterol sulfate 90 mcg/actuation 2 puff inhalation Q4H PRN Wheezing 10/29/22 01/18/25 aerosol inhaler insulin lispro protamine-lispro See Rx Instructions .Route .COMPLEX 10/29/22 01/18/25 100 unit/mL (75-25) subcutaneous pen (Humalog Mix 75-25 KwikPen) fluticasone fur. 100 mcg-umeclid 1 inh inhalation DAILY 03/04/23 01/18/25 62.5 mcg-vilant 25 mcg inhalat.powder (Trelegy Ellipta) furosemide 40 mg tablet 80 mg PO QAM 01/18/25 01/18/25 guaifenesin 600 mg tablet, 600 mg PO Q12H PRN Congestion 01/18/25 01/18/25 extended release 12 hr (Mucinex) semaglutide 1 mg/dose (4 mg/3 mL) 1 mg subcut WK 01/18/25 01/18/25 subcutaneous pen injector (Ozempic) sertraline 50 mg tablet 50 mg PO DAILY 01/18/25 01/18/25 spironolactone 25 mg tablet 25 mg PO QAM 01/18/25 01/18/25 zinc glycinate 30 mg capsule 30 mg PO DAILY 01/18/25 01/18/25 Results & Data (ED) Vital Signs Vital Signs - 24 hr 01/18/25 15:13 01/18/25 15:13 01/18/25 15:42 Temperature 36.6 C Temperature Source Temporal Artery Scan Pulse Rate 103 H 94 H Pulse Rate [Left Apical] Pulse Rate [Right Brachial] 103 H Pulse Rhythm [Right Brachial] Regular Pulse Strength [Right Brachial] Normal Respiratory Rate 18 22 Respiratory Effort / Characteristics Non-Labored Respiratory Depth Normal Respiratory Pattern Regular Blood Pressure 128/56 L Blood Pressure [Right Arm] 128/65 Blood Pressure [Right Radial Artery] Blood Pressure Mean 80 Blood Pressure Mean [Right Arm] 86 Blood Pressure Mean [Right Radial Artery] Blood Pressure Position [Right Arm] Lying Pulse Oximetry 96 96 Oxygen Delivery Method Nasal Cannula Room Air Oxygen Flow Rate 6 Sepsis Recent Fever Within 48 Hours No Sepsis New/Unexplained Change in Mental Status N/A Sepsis Action Taken by Nursing No Action Required 01/18/25 15:51 01/18/25 17:29 01/18/25 18:09 Temperature Temperature Source Pulse Rate 100 H Pulse Rate [Left Apical] 97 H Pulse Rate [Right Brachial] Pulse Rhythm [Right Brachial] Pulse Strength [Right Brachial] Respiratory Rate 20 21 Respiratory Effort / Characteristics Non-Labored Spontaneous Respiratory Depth Normal Respiratory Pattern Regular Blood Pressure 123/58 L Blood Pressure [Right Arm] Blood Pressure [Right Radial Artery] 111/75 Blood Pressure Mean 79 Blood Pressure Mean [Right Arm] Blood Pressure Mean [Right Radial Artery] 87 Blood Pressure Position [Right Arm] Pulse Oximetry 95 99 96 Oxygen Delivery Method Nasal Cannula Nasal Cannula Nasal Cannula Oxygen Flow Rate 2 4 4 Sepsis Recent Fever Within 48 Hours Sepsis New/Unexplained Change in Mental Status Sepsis Action Taken by Nursing 01/18/25 18:39 01/18/25 19:45 Temperature Temperature Source Pulse Rate 100 H 100 H Pulse Rate [Left Apical] Pulse Rate [Right Brachial] Pulse Rhythm [Right Brachial] Pulse Strength [Right Brachial] Respiratory Rate 24 Respiratory Effort / Characteristics Respiratory Depth Respiratory Pattern Blood Pressure 132/50 L Blood Pressure [Right Arm] Blood Pressure [Right Radial Artery] Blood Pressure Mean 77 Blood Pressure Mean [Right Arm] Blood Pressure Mean [Right Radial Artery] Blood Pressure Position [Right Arm] Pulse Oximetry 98 Oxygen Delivery Method Nasal Cannula Oxygen Flow Rate 4 Sepsis Recent Fever Within 48 Hours Sepsis New/Unexplained Change in Mental Status Sepsis Action Taken by Nursing Laboratory Data 01/18/25 15:30 01/18/25 15:30 Lab Results 01/18/25 01/18/25 01/18/25 Range/Units 15:30 16:04 17:24 WBC 12.84 H (4.8-10.8) K/ul RBC 2.20 L (4.20-5.40) M/uL Hgb 7.2 L (12.0-16.0) g/dl Hct 21.8 L (37.0-47.0) % MCV 99.1 (80.0-100.0) fL MCH 32.7 (25.0-34.0) pg MCHC 33.0 (32.0-36.0) g/dL RDW Std Deviation 58.4 H (36.4-46.3) fL RDW Coeff of Dalton 16.1 H (11.5-14.5) % Plt Count 55 L (130-400) K/uL MPV 10.4 (9.4-12.4) fL Absolute Nucleated RBC 1.72 H (0.00-0.12) K/uL Nucleated RBC % (auto) 13.4 % Neutrophils % (Manual) 30 % Lymphocytes % (Manual) 40 % Monocytes % (Manual) 13 % Metamyelocytes % (Man) 3 % Myelocytes % (Man) 3 % Promyelocytes % (Man) 4 % Blast Cells % (Manual) 7 % Neutrophils # (Manual) 3.85 (1.40-6.50) K/uL Total Absolute Neuts 3.85 (1.4-6.5) K/uL Lymphocytes # (Manual) 5.14 H (1.2-3.4) K/uL Total Abs Lymphocytes 5.14 H (1.2-3.4) K/uL Monocytes # (Manual) 1.67 H (0.11-0.59) K/uL Metamyelocytes # (Man) 0.39 H (0-0) K/uL Myelocytes # (Manual) 0.39 H (0-0) K/uL Promyelocytes # (Man) 0.51 H (0-0) K/uL Blast Cells # (Man) 0.90 H (0-0) K/uL Tear Drop Cells 1+ PT 10.5 (9.0-12.0) Seconds INR 1.0 (0.9-1.1) VBG pH 7.39 (7.36-7.41) VBG pCO2 59 H (38-50) mmHg VBG pO2 28 mmHg VBG HCO3 36 mmol/L VBG O2 Saturation < 60.0 % VBG Base Excess 8.6 mEq/L Sodium 136 (136-145) mmol/L Potassium 3.8 (3.5-5.1) mmol/L Chloride 94 L (98-107) mmol/L Carbon Dioxide 34 H (21-32) mmol/L Anion Gap 8 (3-11) BUN 41 H (6-23) mg/dl Creatinine 1.14 (0.6-1.2) mg/dl Est Cr Clr Drug Dosing 52.8 ml/min eGFR 49.27 BUN/Creatinine Ratio 36.0 H (10-20) Glucose 221 H (70-99(Fasting)) mg/dl POC Glucose 183 H (70-99) mg/dl Calcium 9.0 (8.6-10.3) mg/dl Total Bilirubin 0.9 (0.2-1.0) mg/dl AST 34 (13-39) U/L ALT 16 (7-52) U/L Alkaline Phosphatase 73 (34-104) U/L Troponin I High Sens 14.7 H (0-14) pg/ml B-Natriuretic Peptide 81 (0-100) pg/ml Total Protein 7.2 (6.0-8.3) gm/dl Albumin 3.8 (3.4-5.0) gm/dl Globulin 3.4 (2.5-4.0) gm/dl Albumin/Globulin Ratio 1.1 (0.9-2) Urine Color Urine Appearance (Clear) Urine pH (4.5-7.5) Ur Specific [place] (1.000-1.030) Urine Protein (Negative) Urine Glucose (UA) (Negative) Urine Ketones (Negative) Urine Blood (Negative) Urine Nitrite (Negative) Urine Bilirubin (Negative) Urine Urobilinogen (Negative) Ur Leukocyte Esterase (Negative) Urine Comment Adenovirus (PCR) Not Detected (NotDetected) B. pertussis DNA (PCR) Not Detected (NotDetected) B.parapertussis DNA PCR Not Detected (NotDetected) C. pneumoniae DNA (PCR) Not Detected (NotDetected) Coronavirus OC43 (PCR) Not Detected (NotDetected) Coronavirus HKU1 (PCR) Not Detected (NotDetected) Coronavirus 229E (PCR) Not Detected (NotDetected) SARS-CoV-2 (PCR) Not Detected (NotDetected) Coronavirus NL63 (PCR) Not Detected (NotDetected) Human Metapneumovir PCR Not Detected (NotDetected) Influenza Type A (PCR) Not Detected (NotDetected) Influenza Type B (PCR) Not Detected (NotDetected) M. pneumoniae (PCR) Not Detected (NotDetected) Parainfluenza 1 (PCR) Not Detected (NotDetected) Parainfluenza 2 (PCR) Not Detected (NotDetected) Parainfluenza 3 (PCR) Not Detected (NotDetected) Parainfluenza 4 (PCR) Not Detected (NotDetected) RSV (PCR) Not Detected (NotDetected) Entero/Rhino (PCR) Not Detected (NotDetected) 01/18/25 Range/Units 17:31 WBC (4.8-10.8) K/ul RBC (4.20-5.40) M/uL Hgb (12.0-16.0) g/dl Hct (37.0-47.0) % MCV (80.0-100.0) fL MCH (25.0-34.0) pg MCHC (32.0-36.0) g/dL RDW Std Deviation (36.4-46.3) fL RDW Coeff of Dalton (11.5-14.5) % Plt Count (130-400) K/uL MPV (9.4-12.4) fL Absolute Nucleated RBC (0.00-0.12) K/uL Nucleated RBC % (auto) % Neutrophils % (Manual) % Lymphocytes % (Manual) % Monocytes % (Manual) % Metamyelocytes % (Man) % Myelocytes % (Man) % Promyelocytes % (Man) % Blast Cells % (Manual) % Neutrophils # (Manual) (1.40-6.50) K/uL Total Absolute Neuts (1.4-6.5) K/uL Lymphocytes # (Manual) (1.2-3.4) K/uL Total Abs Lymphocytes (1.2-3.4) K/uL Monocytes # (Manual) (0.11-0.59) K/uL Metamyelocytes # (Man) (0-0) K/uL Myelocytes # (Manual) (0-0) K/uL Promyelocytes # (Man) (0-0) K/uL Blast Cells # (Man) (0-0) K/uL Tear Drop Cells PT (9.0-12.0) Seconds INR (0.9-1.1) VBG pH (7.36-7.41) VBG pCO2 (38-50) mmHg VBG pO2 mmHg VBG HCO3 mmol/L VBG O2 Saturation % VBG Base Excess mEq/L Sodium (136-145) mmol/L Potassium (3.5-5.1) mmol/L Chloride (98-107) mmol/L Carbon Dioxide (21-32) mmol/L Anion Gap (3-11) BUN (6-23) mg/dl Creatinine (0.6-1.2) mg/dl Est Cr Clr Drug Dosing ml/min eGFR BUN/Creatinine Ratio (10-20) Glucose (70-99(Fasting)) mg/dl POC Glucose (70-99) mg/dl Calcium (8.6-10.3) mg/dl Total Bilirubin (0.2-1.0) mg/dl AST (13-39) U/L ALT (7-52) U/L Alkaline Phosphatase (34-104) U/L Troponin I High Sens (0-14) pg/ml B-Natriuretic Peptide (0-100) pg/ml Total Protein (6.0-8.3) gm/dl Albumin (3.4-5.0) gm/dl Globulin (2.5-4.0) gm/dl Albumin/Globulin Ratio (0.9-2) Urine Color Yellow Urine Appearance Clear (Clear) Urine pH 5.0 (4.5-7.5) Ur Specific [place] 1.011 (1.000-1.030) Urine Protein Negative (Negative) Urine Glucose (UA) Negative (Negative) Urine Ketones Negative (Negative) Urine Blood Negative (Negative) Urine Nitrite Negative (Negative) Urine Bilirubin Negative (Negative) Urine Urobilinogen Negative (Negative) Ur Leukocyte Esterase Negative (Negative) Urine Comment Adenovirus (PCR) (NotDetected) B. pertussis DNA (PCR) (NotDetected) B.parapertussis DNA PCR (NotDetected) C. pneumoniae DNA (PCR) (NotDetected) Coronavirus OC43 (PCR) (NotDetected) Coronavirus HKU1 (PCR) (NotDetected) Coronavirus 229E (PCR) (NotDetected) SARS-CoV-2 (PCR) (NotDetected) Coronavirus NL63 (PCR) (NotDetected) Human Metapneumovir PCR (NotDetected) Influenza Type A (PCR) (NotDetected) Influenza Type B (PCR) (NotDetected) M. pneumoniae (PCR) (NotDetected) Parainfluenza 1 (PCR) (NotDetected) Parainfluenza 2 (PCR) (NotDetected) Parainfluenza 3 (PCR) (NotDetected) Parainfluenza 4 (PCR) (NotDetected) RSV (PCR) (NotDetected) Entero/Rhino (PCR) (NotDetected) Administered Medications Discontinued Medications Acetaminophen (Acetaminophen 325 Mg Tab) 650 mg PO NOW STA Stop: 01/18/25 19:38 Last Admin: 01/18/25 19:49 Dose: 650 mg Documented By: LANIE Albuterol (Albut/Ipratrop 3mg/0.5mg Neb 3 Ml Vial) 3 ml INH NOW STA Stop: 01/18/25 15:52 Last Admin: 01/18/25 16:07 Dose: 3 ml Documented By: ROCKY Cefepime HCl (Maxipime 2000mg) 2,000 mg in 20 mls @ 5 mls/min IV NOW STA; Protocol Stop: 01/18/25 17:57 Last Admin: 01/18/25 19:49 Dose: 5 mls/min Documented By: LANIE Imaging Data Radiologist's Impression: Chest X-Ray 01/18/25 15:51 EXAM: XR chest 1V portable CLINICAL HISTORY: Dyspnea TECHNIQUE: X-ray images of the chest were obtained in AP projection. COMPARISON: 03/09/2023. FINDINGS: Pulmonary Parenchyma: Newly developed left lower lung zone opacity silhouetting the lower part of the left cardiac border likely representing inflammatory/infectious process. Unchanged right lower lung zone atelectataic bands. Progressive course regarding the previously noted left pleural effusion Blunted right costodiaphragmatic recess likely by pleural effusion/pleural thickening. Heart and Mediastinum: Heart size could not be assessed. No mediastinal widening or masses. No hilar or mediastinal lymphadenopathy. Aortic knuckle calcified atheromatous plaque is noted. Bony Thorax: Bony thorax appears intact without fractures or deformities. Soft Tissues: Soft tissues overlying the chest wall are unremarkable. IMPRESSION: 1. Newly developed left lower lung zone opacity silhouetting the lower part of the left cardiac border likely representing inflammatory/infectious process for correlation with clinical data. 2. Progressive course regarding the previously noted left pleural effusion. Electronically signed by Kenyon Alfred 01-18-2025 5:15 PM Discharge Plan Visit Data Chief Complaint: Weakness Stated Complaint: WEAK HEADACHE SOB COUGH ED Provider: Gregorio Winter Discharge Problem: Anemia Patient Disposition: Admitted As Inpatient Condition: Fair Forms Stand Alone Forms: [facility], [facility] Prescriptions Prescriptions: No Action albuterol sulfate 90 mcg/actuation Hfa Aerosol Inhaler 2 puff INHALATION Q4H PRN (Reason: Wheezing) insulin lispro protamin-lispro [Humalog Mix 75-25 KwikPen] 100 unit/mL (75-25) insulin pen See Rx Instructions .ROUTE .COMPLEX Patient Comments: Pt injects 80 units in the morning and 60 units in the evening Rx Instructions: TAKES 80 UNITS QAM, THEN 60 UNITS QPM. Trelegy Ellipta 100-62.5-25 mcg blister with device 1 inh INHALATION DAILY furosemide 40 mg tablet 80 mg PO QAM spironolactone 25 mg tablet 25 mg PO QAM sertraline 50 mg tablet 50 mg PO DAILY guaifenesin [Mucinex] 600 mg Tablet Extended Release 12hr 600 mg PO Q12H PRN (Reason: Congestion) Ozempic 1 mg/dose (4 mg/3 mL) pen injector 1 mg subcut WK Patient Comments: Inject on Fridays zinc glycinate 30 mg Capsule 30 mg PO DAILY Referrals Referrals: Kings Nichols MD [Primary Care Provider] -
[2025-01-18 16:00] LABS: Base Excess VBG 8.6 mEq/L; HCO3 VBG 36 mmol/L; Oxygen Saturation VBG < 60.0 %; PCO2 VBG 59 mmHg (38-50); PO2 VBG 28 mmHg; pH VBG 7.39 (7.36-7.41)
[2025-01-18] MEDS: ALBUT/IPRATROP 3MG/0.5MG NEB 3 ML VIAL INH STA (16:07)
[2025-01-18 16:25] LABS: Alanine Aminotransferase 16.0 U/L (7-52); Albumin Globulin Ratio 1.1 (0.9-2); Alkaline Phosphatase 73.0 U/L (34-104); Anion Gap 8.0 (3-11); Bilirubin,Total 0.9 mg/dl (0.2-1.0); Blood Urea Nitrogen 41.0 mg/dl (6-23); Calcium 9.0 mg/dl (8.6-10.3); Carbon Dioxide 34.0 mmol/L (21-32); Chloride 94.0 mmol/L (98-107); Creatinine Clr Calc Pharmacy 52.8 ml/min; Globulin 3.4 gm/dl (2.5-4.0); Glucose 221.0 mg/dl (70-99(Fasting)); Potassium 3.8 mmol/L (3.5-5.1); Sodium 136.0 mmol/L (136-145); Total Protein 7.2 gm/dl (6.0-8.3)
[2025-01-18 16:29] LABS: INR 1.0 (0.9-1.1); Prothrombin Time 10.5 Seconds (9.0-12.0)
[2025-01-18 16:32] LABS: Hematocrit (blood only) 21.8 % (37.0-47.0); Hemoglobin 7.2 g/dl (12.0-16.0); Mean Corpuscular Hemoglobin 32.7 pg (25.0-34.0); Mean Corpuscular Volume 99.1 fL (80.0-100.0); Platelet Count 55 K/uL (130-400); RDW Standard Deviation 58.4 fL (36.4-46.3); Red Blood Count 2.20 M/uL (4.20-5.40); White Blood Count 12.84 K/ul (4.8-10.8)
[2025-01-18 17:10] LABS: Chlamydia pneumoniae PCR Not Detected (NotDetected); Coronavirus 229E PCR Not Detected (NotDetected); Coronavirus CoV-2 (COVID19)PCR Not Detected (NotDetected); Coronavirus HKU1 PCR Not Detected (NotDetected); Coronavirus NL63 PCR Not Detected (NotDetected); Coronavirus OC43PCR Not Detected (NotDetected); Human Metapneumovirus PCR Not Detected (NotDetected); Parainfluenza Virus 1 PCR Not Detected (NotDetected); Parainfluenza Virus 2 PCR Not Detected (NotDetected); Parainfluenza Virus 3 PCR Not Detected (NotDetected); Parainfluenza Virus 4 PCR Not Detected (NotDetected); Respiratory Syncytial VirusPCR Not Detected (NotDetected); Rhinovirus/Enterovirus PCR Not Detected (NotDetected)
--- NOTE | 2025-01-18 17:15 | XRay Report ---
EXAM: XR chest 1V portable CLINICAL HISTORY: Dyspnea TECHNIQUE: X-ray images of the chest were obtained in AP projection. COMPARISON: 03/09/2023. FINDINGS: Pulmonary Parenchyma: Newly developed left lower lung zone opacity silhouetting the lower part of the left cardiac border likely representing inflammatory/infectious process. Unchanged right lower lung zone atelectataic bands. Progressive course regarding the previously noted left pleural effusion Blunted right costodiaphragmatic recess likely by pleural effusion/pleural thickening. Heart and Mediastinum: Heart size could not be assessed. No mediastinal widening or masses. No hilar or mediastinal lymphadenopathy. Aortic knuckle calcified atheromatous plaque is noted. Bony Thorax: Bony thorax appears intact without fractures or deformities. Soft Tissues: Soft tissues overlying the chest wall are unremarkable. IMPRESSION: 1. Newly developed left lower lung zone opacity silhouetting the lower part of the left cardiac border likely representing inflammatory/infectious process for correlation with clinical data. 2. Progressive course regarding the previously noted left pleural effusion. Electronically signed by Kenyon Alfred 01-18-2025 5:15 PM
[2025-01-18 17:32] LABS: ALC (manual) 5.14 K/uL (1.2-3.4); ANC (manual) 3.85 K/uL (1.4-6.5); Blast # (manual) 0.90 K/uL (0-0); Tear Drop Cells 1+
[2025-01-18 17:54] LABS: Appearance Urine Clear (Clear); Glucose Urine UA Negative (Negative)
--- NOTE | 2025-01-18 18:16 | History & Physical Report ---
Date of Service January 18, 2025 Assessment & Plan (1) Abnormal CBC: (2) Community acquired pneumonia: (3) Obstructive sleep apnea: (4) Obesity hypoventilation syndrome: (5) COPD (chronic obstructive pulmonary disease): (6) Diabetes mellitus, type 2: Plan 79 y/o woman with chronic hypoxic and hypercarbic respiratory failure related to COPD and CHRISTIANO/OHS on nocturnal trilogy ventilator, Diabetes type 2 and HFpEF who came in with malaise, weakness, dyspnea ED evaluation notable for left basilar infiltrate on chest x-ray, hematologic abnormalities including leukocytosis with 7% blasts, thrombocytopenia, anemia # Thrombocytopenia, anemia, leukocytosis with 7% blasts -heme onc consulted - ED discussed with Dr. Dunaway - may be new onset leukemia - will see in AM -BMBx with IR ordered for tomorrow -flow cytometry pending # chronic hypoxic and hypercarbic respiratory failure caused by COPD, CHRISTIANO/OHS mild compensated hypercarbia on vbg - not in COPD exacerbation, no wheezing good air movement -continue trelegy INH, Mucinex -prn albuterol - continue nocturnal trilogy ventilator # possible LLL pneumonia, versus radiographic evidence of previously treated pneumonia she did recently complete a course of Augmentin -resp biofire neg -cefepime, azithro -check procalcitonins # Type 2 diabetes -hold semaglutide - she is normally on lispro 7525. The closest approximation to this is NPH and lispro. I ordered this according to her home regimen since she may not need to be in the hospital very long - before every meal blood glucose checks -A1c # chronic HFpEF - difficult physical exam but probably euvolemic -cont spironolactone and furosemide - she is not on a beta-imelda or antihypertensives # CKD-3 - stable -CR at baseline mood disordercontinue sertraline Morbid obesity BMI 46 DVT prophylaxis with SCDs at this time, if she is going to have a prolonged hospitalization chemo prophylaxis with a heparinoid may be reasonable despite her thrombocytopenia she wishes to be DNR/DNI, she would not want to be intubated if she would develop progressive respiratory failure unable to be treated with noninvasive ventilation PT/OT evaluation History of Present Illness Chief Complaint: malaise Primary Care Provider: Kings Nichols MD Mraicarmen is a 79-year-old woman with chronic hypoxic and hypercarbic respiratory failure related to COPD and CHRISTIANO/OHS on nocturnal trilogy ventilator Diabetes type 2 and HFpEF who came in with malaise. She has just not felt well for about 6 weeks and symptoms have been very nonspecific. She has had some shortness of breath and she thought she may have had a pneumonia as she recently completed a course of Augmentin. She also took some steroids for COPD flareup. She has had some increased dyspnea no fevers or chills/Sweats no purulent sputum no chest pain. no nausea vomiting abdominal pain, no dysuria, no rashes, no acute joint problems. Allergies Allergy/AdvReac Type Severity Reaction Status Date / Time latex Allergy Severe Rash Unverified 01/18/25 17:45 empagliflozin AdvReac Intermediate RECURRENT Verified 01/18/25 17:45 [From Rigobertodiance] UTI'S metformin AdvReac Intermediate Gastrointestinal Verified 01/18/25 17:45 Upset oxycodone AdvReac Intermediate HALLUCINATI Verified 01/18/25 17:45 ONS Home Medications Medication Instructions Recorded Confirmed Type albuterol sulfate 90 mcg/actuation 2 puff inhalation Q4H PRN Wheezing 10/29/22 01/18/25 History aerosol inhaler insulin lispro protamine-lispro See Rx Instructions .Route .COMPLEX 10/29/22 01/18/25 History 100 unit/mL (75-25) subcutaneous pen (Humalog Mix 75-25 KwikPen) fluticasone fur. 100 mcg-umeclid 1 inh inhalation DAILY 03/04/23 01/18/25 History 62.5 mcg-vilant 25 mcg inhalat.powder (Trelegy Ellipta) furosemide 40 mg tablet 80 mg PO QAM 01/18/25 01/18/25 History guaifenesin 600 mg tablet, 600 mg PO Q12H PRN Congestion 01/18/25 01/18/25 History extended release 12 hr (Mucinex) semaglutide 1 mg/dose (4 mg/3 mL) 1 mg subcut WK 01/18/25 01/18/25 History subcutaneous pen injector (Ozempic) sertraline 50 mg tablet 50 mg PO DAILY 01/18/25 01/18/25 History spironolactone 25 mg tablet 25 mg PO QAM 01/18/25 01/18/25 History zinc glycinate 30 mg capsule 30 mg PO DAILY 01/18/25 01/18/25 History Past Med/Surg History Problem List (Updated 01/18/25 @ 22:12 by Mary Narayan MD) Community acquired pneumonia Abnormal CBC Anemia (Acute) Fever NSVT (nonsustained ventricular tachycardia) Advanced care planning/counseling discussion Palliative care by specialist Abdominal pain, generalized Weakness generalized Dyspnea and respiratory abnormalities Colovesical fistula Lumbar back pain Chronic prescription benzodiazepine use Myalgia Bacteremia Morbid obesity with BMI of 45.0-49.9, adult Acute metabolic encephalopathy Obstructive sleep apnea Obesity hypoventilation syndrome Pneumonia Diabetes mellitus, type 2 COPD (chronic obstructive pulmonary disease) Acute on chronic respiratory failure with hypoxia and hypercapnia Sepsis (Acute) AMS (altered mental status) (Acute) Acute respiratory failure with hypoxia and hypercarbia (Acute) Elevated procalcitonin (Acute) Acute exacerbation of CHF (congestive heart failure) (Acute) Non-ST elevation LA (NSTEMI) (Acute) Acute hyperkalemia (Acute) Acute and chronic respiratory failure (heixh-fo-hbcjyce) Diverticular disease of colon (Chronic) History of colonic diverticulitis (Chronic) Recurrent UTI (Chronic) "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 fistula" Status post cholecystectomy (Chronic) Status post appendectomy (Chronic) Status post partial colectomy (Chronic) Status post total knee replacement (Chronic) Incarcerated ventral hernia (Acute) Small bowel obstruction (Acute) Diastolic heart failure Right ankle sprain B12 deficiency anemia Urinary tract infection (Acute) Medical History Morbid obesity Chronic respiratory acidosis Right ankle swelling Pneumonia Pleural effusion Weakness SOB (shortness of breath) Hypoxia Hypertension Surgical History H/O ventral hernia repair Social History Smoking Status: Former smoker Tobacco Type: Cigarettes Cigarettes Per Day: 20; Second Hand Exposure: No; Do You Dip or Chew Tobacco: No; Hx Alcohol Use: Yes Alcohol type: hard liquor Hx Substance Use: No Preferred Language: German Communication Ability: Effective Oncology Research Rn Required: No Beliefs That Will Affect Care: Scientologist Scientologist Beliefs: Congregation. Current Living Situation: Spouse Feels Safe at Home: Yes Assistive Devices: Lift Chair, Oxygen - Continuous, Walker and Wheelchair Review of Systems 2 Review of Systems: All systems reviewed & are unremarkable except as noted in HPI & below Physical Exam 2 Physical Exam: Last 24h vitals reviewed GEN: no acute distress, sitting in bed HEENT: pupils equal, sclerae anicteric, moist MM RESP: normal WOB, CTAB except some by the basilar crackles, no wheezing CV: reg no mrg, unable to see neck veins ABD: soft/nt/nd +BT : no lowe SKIN: warm and dry, no generalized rashes lower extremities warm and well-perfused with some edema but she states this is at her baseline NEURO: AOx person, place, and situation. Face symmetric, speech normal, moves 4 ext spontaneously and equally Results & Data Results & Data Vital Signs (Past 12 Hours) Vital Signs Temp Pulse Pulse Pulse Resp BP BP 01/18/25 17:29 97 H 20 01/18/25 15:51 01/18/25 15:42 94 H 01/18/25 15:13 103 H 22 128/65 01/18/25 15:13 36.6 C 103 H 18 128/56 L BP Pulse Ox O2 Del Method O2 Flow Rate 01/18/25 17:29 111/75 99 Nasal Cannula 4 01/18/25 15:51 95 Nasal Cannula 2 01/18/25 15:42 01/18/25 15:13 96 Room Air 01/18/25 15:13 96 Nasal Cannula 6 Laboratory Results 01/18/25 15:30 01/18/25 15:30 Diagnostic Findings Personally reviewed CXR film which shows left base opacity ECG Additional Comments: personally reviewed EKG tracing - sinus tachycardia no acute ischemic changes PG Care Time/CCT Total # of Minutes Spent Total Time Spent with Patient: Total time spent is greater than 50% in coordination of care (as documented) at patient's floor/unit and/or counseling patient: Coding Level of Care Code 66181 INT INP/OBS CARE 3/75MIN Diagnoses Abnormal CBC R79.89 Community acquired pneumonia J18.9 Obstructive sleep apnea G47.33 Obesity hypoventilation syndrome E66.2 COPD (chronic obstructive pulmonary disease) J44.9 COPD type: unspecified COPD Diabetes mellitus, type 2 E11.9 (5) COPD (chronic obstructive pulmonary disease) COPD type: unspecified COPD Qualified Code(s): J44.9 - Chronic obstructive pulmonary disease, unspecified
[2025-01-18] MEDS: CEFEPIME 2000MG 2,000 MG/20 ML SYR IV STA (19:49)
[2025-01-18] MEDS: ACETAMINOPHEN 325 MG TAB PO STA (19:49)
[2025-01-18] MEDS ORDERED: DEXTROSE 50% 50 ML SYRINGE IV PRN (19:52)
[2025-01-18] MEDS ORDERED: GLUCOSE 40% GEL 15 GM TUBE PO PRN (19:52)
[2025-01-18] MEDS ORDERED: CARBOHYDRATES FOR HYPOGLYCEMIA PO PRN (19:52)
[2025-01-18] MEDS ORDERED: GLUCOSE 10 TAB/TUBE PO PRN (19:52)
[2025-01-18] MEDS ORDERED: GLUCAGON FOR INJ 1 MG VIAL SQ PRN (19:52)
[2025-01-18] MEDS: INSULIN ASPART PER UNIT CHARGE SC SCH (21:10)
[2025-01-18] MEDS: NovoLIN-N (NPH) PER UNIT CHARGE SQ SCH (21:10)
[2025-01-18] MEDS ORDERED: POLYETHYLENE (MIRALAX) 17 GM PACK PO PRN (22:04)
[2025-01-18] MEDS ORDERED: ONDANSETRON INJ 2 MG/ML 2 ML VIAL IV PRN (22:04)
[2025-01-18] MEDS: AZITHROMYCIN 250 MG TAB PO SCH (23:43)
[2025-01-18] MEDS: BUTALBITAL/ACETAMIN/CAFFEINE TAB PO STA (23:43)
[2025-01-19] MEDS: BUTALBITAL/ACETAMIN/CAFFEINE TAB PO STA ×2 (05:47→20:16)
--- NOTE | 2025-01-19 07:24 | Oncology Consultation ---
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 Will await the official results of bone marrow biopsy before initiating a transfer to [facility] like [place]. Given that she is older than 75 she is unlikely to be a transplant candidate, unlikely to be a candidate for intensive therapy such as 7+3 or VYXEOS. Most likely she will need treatment along the lines of Vidaza plus venetoclax if she has acute myeloid leukemia, that can be initiated here at [facility], in our oncology department for now we will recommend supportive care with transfusion of packed red blood cells if the hemoglobin is less than 7 g/dL or if she is hemodynamically unstable, transfusion of platelets if they are less than 10,000/mcL or if she is actively bleeding. Will recommend initiation of prophylactic antibiotics including levofloxacin 500 mg p.o. daily, acyclovir 400 mg p.o. twice daily, fluconazole 400 mg p.o. daily Plan thank you for this interesting hematological consult. Hematology will continue to follow the patient and make appropriate recommendations. Will initiate discussion with our [place] colleagues if there is a need for urgent inpatient management which I do not see at this point. Once the results of the bone marrow biopsy are made available, we will most likely switch to outpatient treatment with treatment with Vidaza plus venetoclax, however we will keep our [place] colleagues in loop for this patient with suspected acute leukemia. She History of Present Illness Reason for Consultation: Symptomatic anemia blasts on peripheral smear Attending Physician: Meli Alves MD History of Present Illness patient presented to the ER with fatigue, significant lab abnormalities with significant anemia, thrombocytopenia. she had a bone marrow biopsy today, results are pending. Hematology has been consulted to assist in management of this patient who possibly has acute leukemia. Today hemoglobin was less than 7 show received another Allergies Allergy/AdvReac Type Severity Reaction Status Date / Time latex Allergy Severe Rash Unverified 01/18/25 17:45 empagliflozin AdvReac Intermediate RECURRENT Verified 01/18/25 17:45 [From Jardiance] UTI'S metformin AdvReac Intermediate Gastrointestinal Verified 01/18/25 17:45 Upset oxycodone AdvReac Intermediate HALLUCINATI Verified 01/18/25 17:45 ONS Home Medications Medication Instructions Recorded Confirmed Type albuterol sulfate 90 mcg/actuation 2 puff inhalation Q4H PRN Wheezing 10/29/22 01/18/25 History aerosol inhaler insulin lispro protamine-lispro See Rx Instructions .Route .COMPLEX 10/29/22 01/18/25 History 100 unit/mL (75-25) subcutaneous pen (Humalog Mix 75-25 KwikPen) fluticasone fur. 100 mcg-umeclid 1 inh inhalation DAILY 03/04/23 01/18/25 History 62.5 mcg-vilant 25 mcg inhalat.powder (Trelegy Ellipta) furosemide 40 mg tablet 80 mg PO QAM 01/18/25 01/18/25 History guaifenesin 600 mg tablet, 600 mg PO Q12H PRN Congestion 01/18/25 01/18/25 History extended release 12 hr (Mucinex) semaglutide 1 mg/dose (4 mg/3 mL) 1 mg subcut WK 01/18/25 01/18/25 History subcutaneous pen injector (Ozempic) sertraline 50 mg tablet 50 mg PO DAILY 01/18/25 01/18/25 History spironolactone 25 mg tablet 25 mg PO QAM 01/18/25 01/18/25 History zinc glycinate 30 mg capsule 30 mg PO DAILY 01/18/25 01/18/25 History Patient History Medical History Morbid obesity Chronic respiratory acidosis Right ankle swelling Pneumonia Pleural effusion Weakness SOB (shortness of breath) Hypoxia Hypertension Surgical History H/O ventral hernia repair Social History Smoking Status: Never smoker Tobacco Type: Cigarettes Cigarettes Per Day: 20; Second Hand Exposure: No; Do You Dip or Chew Tobacco: No; Hx Alcohol Use: No Hx Substance Use: No Preferred Language: Ghanaian Communication Ability: Effective Straightening Roll Operator Required: No Beliefs That Will Affect Care: None Current Living Situation: Spouse Feels Safe at Home: Yes Assistive Devices: CPAP, Lift Chair, Oxygen - Continuous, Scooter/Electric Scooter, Walker and Wheelchair Review of Systems Review of Systems: Fatigue, tiredness, failure to thrive Constitutional: as per Subjective / HPI Eyes: as per Subjective / HPI Ear, Nose, Mouth, Throat: as per Subjective / HPI Respiratory: as per Subjective / HPI Cardiovascular: as per Subjective / HPI Gastrointestinal: as per Subjective / HPI Genitourinary: as per Subjective / HPI Musculoskeletal: as per Subjective / HPI Integumentary: as per Subjective / HPI Neurologic: as per Subjective / HPI Psychiatric: as per Subjective / HPI Physical Exam Constitutional: WD/WN, vitals as above Eyes: PERRL, conjunctivae normal, anicteric sclerae ENMT: external ear and nose normal, oropharynx normal Neck: trachea midline, no thyromegaly Respiratory: normal respiratory effort, lungs clear to auscultation Cardiovascular: RRR, no murmur, no edema Gastrointestinal (Abdomen): normal bowel sounds, soft, nontender, no hepatosplenomegaly Musculoskeletal: no cyanosis or clubbing, extremities motor strength 5/5 Skin: no rashes, warm and dry Neurologic: patellar DTR's 2+ bilat, sensation intact Psychiatric: A+Ox3, euthymic affect Results & Data Vital Signs (Past 12 Hours) Vital Signs Temp Pulse Pulse Resp BP BP Pulse Ox 01/19/25 07:03 37.2 C 105 H 16 131/68 97 01/19/25 02:57 138/75 01/18/25 22:08 01/18/25 22:08 36.7 C 109 H 20 133/61 96 01/18/25 21:14 104 H 19 136/59 L 95 01/18/25 19:45 100 H O2 Del Method O2 Flow Rate 01/19/25 07:03 Room Air 01/19/25 02:57 01/18/25 22:08 Nasal Cannula 4 01/18/25 22:08 Nasal Cannula 4 01/18/25 21:14 Nasal Cannula 4 01/18/25 19:45
[2025-01-19] MEDS: FUROSEMIDE 80 MG TAB PO SCH (08:07)
[2025-01-19] MEDS: ZINC SULFATE 220 MG CAPSULE PO SCH (08:07)
[2025-01-19] MEDS: FLUTICASONE FUROATE 100MCG 14 PUFFS/INHALER INH SCH (08:07)
[2025-01-19] MEDS: guaiFENesin 600 MG TABCR PO PRN (08:07)
[2025-01-19] MEDS: UMECLIDINIUM/VILANTEROL 62.5/25MCG 7 PUFFS/INHALER INH SCH (08:07)
[2025-01-19] MEDS: SPIRONOLACTONE 25 MG TAB PO SCH (08:07)
[2025-01-19] MEDS: CEFEPIME 2000MG 2,000 MG/20 ML SYR IV SCH (08:10)
[2025-01-19 08:37] LABS: Hemoglobin A1C 8.0 % (4.5-5.6)
[2025-01-19 08:48] LABS: Alanine Aminotransferase 13.0 U/L (7-52); Albumin Globulin Ratio 1.3 (0.9-2); Alkaline Phosphatase 54.0 U/L (34-104); Anion Gap 4.0 (3-11); Bilirubin,Total 0.8 mg/dl (0.2-1.0); Blood Urea Nitrogen 32.0 mg/dl (6-23); Calcium 8.5 mg/dl (8.6-10.3); Carbon Dioxide 38.0 mmol/L (21-32); Chloride 98.0 mmol/L (98-107); Creatinine Clr Calc Pharmacy 58.3 ml/min; Globulin 2.8 gm/dl (2.5-4.0); Glucose 105.0 mg/dl (70-99(Fasting)); Potassium 4.0 mmol/L (3.5-5.1); Sodium 140.0 mmol/L (136-145); Total Protein 6.5 gm/dl (6.0-8.3)
[2025-01-19] MEDS ORDERED: INSULIN ASPART PER UNIT CHARGE SC SCH (09:00)
[2025-01-19] MEDS ORDERED: INSULIN HUMAN NPH SC SCH ×2 (09:00→15:30)
[2025-01-19 09:08] LABS: Hematocrit (blood only) 19.5 % (37.0-47.0); Hemoglobin 6.4 g/dl (12.0-16.0); Mean Corpuscular Hemoglobin 32.8 pg (25.0-34.0); Mean Corpuscular Volume 100.0 fL (80.0-100.0); Platelet Count 39 K/uL (130-400); RDW Standard Deviation 58.6 fL (36.4-46.3); Red Blood Count 1.95 M/uL (4.20-5.40); White Blood Count 12.65 K/ul (4.8-10.8)
[2025-01-19] MEDS ORDERED: SODIUM CHLORIDE 0.9% 100 ML IV PRN (09:23)
[2025-01-19] MEDS: ACETAMINOPHEN 1000 MG/100 ML IV IV ONE (09:49)
[2025-01-19] MEDS: INSULIN HUMAN NPH SC SCH ×2 (09:51→17:11)
[2025-01-19 09:58] LABS: Bone Marrow Smear SLHOLD
[2025-01-19] MEDS: SERTRALINE HCL 50 MG TABLET PO SCH ×2 (10:40→20:48)
[2025-01-19 10:47] LABS: ALC (manual) 6.20 K/uL (1.2-3.4); ANC (manual) 3.04 K/uL (1.4-6.5); Blast # (manual) 0.76 K/uL (0-0); Ovalocytes 1+
[2025-01-19] MEDS: PROCHLORPERAZINE 5 MG in SYRINGE 4 ML IV ONE (11:02)
--- NOTE | 2025-01-19 11:06 | Hospitalist Progress Note ---
Date of Service January 19, 2025 Assessment & Plan (1) Abnormal CBC: (2) Community acquired pneumonia: (3) COPD (chronic obstructive pulmonary disease): (4) Diabetes mellitus, type 2: Plan This patient is a 79 y/o female with a H/L chronic hypoxic and hypercarbic respiratory failure related to COPD and CHRISTIANO/OHS on nocturnal trilogy ventilator, DM 2, HFpEF, obesity, CKD stage III, depression, B12 deficiency who P/W 6 weeks of malaise, weakness, and dyspnea after being treated for pneumonia as an outpatient. She was found to have lymphocytosis with 7% blasts, and severe anemia and thrombocytopenia, concerning for acute leukemia. CXR also with LLL pneumonia and small pleural effusion. #Thrombocytopenia, anemia, leukocytosis with 7% blasts-with lymphocytosis, blasts concerning for acute leukemia. Heme-onc consulted and recommended bone marrow biopsy which she had on 01/19. Hgb worsened to 6.4, no evidence of bleeding from anywhere. Platelets down to 39. She has a history of longstanding anemia at least since 2017 with baseline Hgb 9-11. Borderline macrocytic here. Platelets and WBC count have almost always been normal. B12 level borderline low in 2022 and folate was normal at that time. -Check B12, folate, TSH, iron studies, and Monospot -flow cytometry and bone marrow biopsies pending -Transfuse 1 unit PRBCs and follow CBC after that, give another unit to keep hemoglobin greater than 7 if needed #Possible LLL pneumonia-was treated as an outpatient with Augmentin in the last few weeks-could be residual radiographic evidence of previously treated pneumonia versus ongoing community-acquired pneumonia. Respiratory BioFire is negative. She is afebrile but has leukocytosis which may be from infection versus leukemia. BNP is normal although she is morbidly obese so it is likely falsely low. Procalcitonin negative. -Nonetheless, will treat for gram-negative and community-acquired, atypical pneumonia's with broad-spectrum antibiotics -Continue cefepime, azithro -Pulmonary toilet - Follow-up chest imaging in 4 weeks to ensure resolution #Nausea/vomiting-possibly secondary to taking zinc on an empty stomach - Zofran and Compazine as needed - Discontinue zinc - Clear liquids diet only and advance as tolerated #Headache-possibly due to severe anemia. Now completely resolved with Fioricet. No focal neurological deficits - Can give Fioricet again as needed versus acetaminophen #Chronic hypoxic and hypercarbic respiratory failure caused by COPD, CHRISTIANO/OHS - mild compensated hypercarbia on vbg- not in COPD exacerbation, no wheezing good air movement -continue trelegy INH, Mucinex, and prn albuterol -continue nocturnal trilogy ventilator-her will bring it in from home #DM2-HgbA1c elevated 8.0%. She is normally on lispro 75/25. She is n.p.o. and vomiting this morning. - Cut NPH in half for morning dose to 30 units and keep evening dose of 45 units - Discontinue standing dose of lispro and order NovoLog SSI -Continue BSG's #Chronic HFpEF - difficult physical exam but probably euvolemic. Echo from 2022 with preserved EF and no valvular pathology -cont spironolactone and furosemide - she is not on a beta-imelda or antihypertensives # CKD-3 - stable creatinine at 1.02 -Avoid nephrotoxins, renally dose medications - Follow BMP #Mood disorderno acute issues - Continue sertraline #Morbid obesity BMI 46 -Holding home semaglutide DVT prophylaxis-with SCDs at this time, if she is going to have a prolonged hospitalization chemo prophylaxis with a heparinoid may be reasonable if platelets increase above 50 Disposition-continued stay on medical/surgical floor Admission and Anticipated Discharge Date Admission Date: January 18, 2025 Subjective Patient reports nausea and some vomiting after returning from bone marrow biopsy. She did take zinc on an empty stomach this morning. She denies fevers or chills. Denies bone pain or pain anywhere. She has been feeling a little short of breath with exertion and thought that it was from heart failure so she doubled up on her diuretics recently. She denies any bleeding from anywhere to include mucosal bleeding or epistaxis, no GI bleeding or bleeding, no vaginal bleeding, no hematomas or bruises. She had a bad headache overnight which was resolved after receiving Fioricet. She has been having headaches off and on for the last few weeks. I discussed her care with her son at the bedside Physical Exam Constitutional: WD/WN, vitals as above + morbidly obese Eyes: + anicteric sclerae Respiratory: normal respiratory effort, lungs clear to auscultation Cardiovascular: RRR, no murmur, no edema Gastrointestinal (Abdomen): normal bowel sounds, soft, nontender, no hepatosplenomegaly Skin: no rashes, warm and dry Neurologic: PERRL, EOMI, accommodation nl, no face palsy, no dysarthria Psychiatric: A+Ox3, euthymic affect Results & Data Results & Data Vital Signs (Past 12 Hours) Vital Signs Temp Pulse Resp BP Pulse Ox O2 Del Method 01/19/25 07:03 37.2 C 105 H 16 131/68 97 Room Air 01/19/25 02:57 138/75 Laboratory Results CBC, CMP, HgbA1c, procalcitonin reviewed PG Care Time/CCT Total # of Minutes Spent Total Time Spent with Patient: Total time spent is greater than 50% in coordination of care (as documented) at patient's floor/unit and/or counseling patient: Coding Level of Care Code 11376 SUB INP/OBS CARE 3/50MIN Diagnoses Abnormal CBC R79.89 Community acquired pneumonia J18.9 COPD (chronic obstructive pulmonary disease) J44.9 COPD type: unspecified COPD Diabetes mellitus, type 2 E11.9 (3) COPD (chronic obstructive pulmonary disease) COPD type: unspecified COPD Qualified Code(s): J44.9 - Chronic obstructive pulmonary disease, unspecified
[2025-01-19] MEDS ORDERED: GLUCAGON FOR INJ 1 MG VIAL SQ PRN (12:05)
[2025-01-19] MEDS ORDERED: CARBOHYDRATES FOR HYPOGLYCEMIA PO PRN (12:05)
[2025-01-19] MEDS ORDERED: DEXTROSE 50% 50 ML SYRINGE IV PRN (12:05)
[2025-01-19] MEDS ORDERED: GLUCOSE 40% GEL 15 GM TUBE PO PRN (12:05)
[2025-01-19] MEDS ORDERED: GLUCOSE 10 TAB/TUBE PO PRN (12:05)
--- NOTE | 2025-01-19 12:54 | Electrocardiogram Report ---
Test Reason : Blood Pressure : */* mmHG Vent. Rate : 103 BPM Atrial Rate : 103 BPM P-R Int : 168 ms QRS Dur : 66 ms QT Int : 320 ms P-R-T Axes : 61 39 50 degrees QTcB Int : 419 ms Sinus tachycardia Low voltage QRS Borderline ECG When compared with ECG of 04-Mar-2023 08:58, No significant change was found Confirmed by Joshua Pardo ([id number]) on 01/19/2025 12:54:21 PM Referred By: REFERRED SELF Confirmed By: Joshua Pardo
[2025-01-19] MEDS: INSULIN ASPART PER UNIT CHARGE SC SCH (13:10)
--- NOTE | 2025-01-19 13:23 | CT Scan Report ---
CT GUIDED BONE MARROW BIOPSY CLINICAL HISTORY: An cytopenia PROCEDURE: Procedure and risks were explained. Informed consent was obtained. A final timeout was com pleted. The patient was right lateral decubitus position on the CT exam table. The right gluteal renata on was prepped and draped in sterile fashion. 1% lidocaine was utilized for skin anesthesia. The henrietta ent received 1 g Tylenol IV. Utilizing CT guidance, an 11-gauge bone biopsy needle was advanced into the right iliac bone. Multipl e aspirates and one bone core was obtained and given to the lab. The needle was removed and Band-Aid applied. The patient tolerated the procedure well. Vital signs will be monitored postprocedure. IMPRESSION: Bone marrow biopsy as above. Performed, dictated, and signed by Alexsander Mcdonald PA-C; to be co-signed by Dr. Oracio Rojas. Electronically signed by: Oracio Rojas M.D. 01/19/2025 1:33 PM
[2025-01-19 16:47] LABS: Iron 89.0 mcg/dl (35-150); Total Iron Binding Cap Calc 298.0 mcg/dl (250-450); Transferrin 213.0 mg/dl (200-360); Transferrin (FE) Percent Satur 30.0 % (15-50)
[2025-01-19 16:56] LABS: Hematocrit (blood only) 22.1 % (37.0-47.0); Hemoglobin 7.3 g/dl (12.0-16.0); Mean Corpuscular Hemoglobin 31.6 pg (25.0-34.0); Mean Corpuscular Volume 95.7 fL (80.0-100.0); Platelet Count 38 K/uL (130-400); RDW Standard Deviation 60.3 fL (36.4-46.3); Red Blood Count 2.31 M/uL (4.20-5.40); White Blood Count 12.03 K/ul (4.8-10.8)
[2025-01-19 17:02] LABS: Thyroid Stimulating Hormone 2.624 uIu/ml (0.300-4.500)
[2025-01-19 17:08] LABS: Ferritin 536.4 ng/ml (8-388)
[2025-01-19 17:13] LABS: Folate (Folic Acid),Ser orPlas > 22.30 ng/ml (>5.38)
[2025-01-19 17:14] LABS: Vitamin B12 > 1500 pg/ml (180-914)
[2025-01-19 17:36] LABS: ALC (manual) 5.89 K/uL (1.2-3.4); ANC (manual) 1.80 K/uL (1.4-6.5); Blast # (manual) 0.96 K/uL (0-0)
[2025-01-19 17:38] LABS: EBV Early Antigen IgG Ab Positive (Negative); EBV Early Antigen IgG Quant > 150.0 U/mL (< 9.0); EBV Nuclear Antigen IgG Ab Positive; EBV Nuclear Antigen IgG Quant 502.0 U/mL (< 18.0)
[2025-01-19 17:39] LABS: EBV IgG Quant > 750.0 U/mL (< 18.0)
[2025-01-19 17:42] LABS: EBV IgM Quant < 10.0 U/mL (< 36.0)
[2025-01-19] MEDS: MELATONIN 3 MG TAB PO PRN (20:16)
[2025-01-20 07:51] LABS: Hematocrit (blood only) 23.0 % (37.0-47.0); Hemoglobin 7.5 g/dl (12.0-16.0); Mean Corpuscular Hemoglobin 31.5 pg (25.0-34.0); Mean Corpuscular Volume 96.6 fL (80.0-100.0); Platelet Count 34 K/uL (130-400); RDW Standard Deviation 62.3 fL (36.4-46.3); Red Blood Count 2.38 M/uL (4.20-5.40); White Blood Count 13.13 K/ul (4.8-10.8)
[2025-01-20 07:56] LABS: Alanine Aminotransferase 16.0 U/L (7-52); Albumin Globulin Ratio 1.2 (0.9-2); Alkaline Phosphatase 60.0 U/L (34-104); Anion Gap 7.0 (3-11); Bilirubin,Total 0.9 mg/dl (0.2-1.0); Blood Urea Nitrogen 24.0 mg/dl (6-23); Calcium 8.4 mg/dl (8.6-10.3); Carbon Dioxide 34.0 mmol/L (21-32); Chloride 99.0 mmol/L (98-107); Creatinine Clr Calc Pharmacy 63.2 ml/min; Globulin 3.1 gm/dl (2.5-4.0); Glucose 159.0 mg/dl (70-99(Fasting)); Magnesium 2.3 mg/dl (1.7-2.4); Potassium 4.2 mmol/L (3.5-5.1); Sodium 140.0 mmol/L (136-145); Total Protein 6.7 gm/dl (6.0-8.3)
[2025-01-20 08:40] LABS: ALC (manual) 5.78 K/uL (1.2-3.4); ANC (manual) 2.23 K/uL (1.4-6.5); Blast # (manual) 1.05 K/uL (0-0); Polychromasia 1+
--- NOTE | 2025-01-20 13:18 | Hospitalist Progress Note ---
Date of Service January 20, 2025 Assessment & Plan (1) Abnormal CBC: (2) Community acquired pneumonia: (3) COPD (chronic obstructive pulmonary disease): (4) Diabetes mellitus, type 2: Plan This patient is a 79 y/o female with a H/L chronic hypoxic and hypercarbic respiratory failure related to COPD and CHRISTIANO/OHS on nocturnal trilogy ventilator, DM 2, HFpEF, obesity, CKD stage III, depression, B12 deficiency who P/W 6 weeks of malaise, weakness, and dyspnea after being treated for pneumonia as an outpatient. She was found to have lymphocytosis with 7% blasts, and severe anemia and thrombocytopenia, concerning for acute leukemia. CXR also with LLL pneumonia and small pleural effusion. #Thrombocytopenia, anemia, leukocytosis with 7% blasts-with lymphocytosis, blasts concerning for acute leukemia. Heme-onc consulted and recommended bone marrow biopsy which she had on 01/19. Hgb worsened to 6.4, no evidence of bleeding from anywhere. Platelets down to 39. She has a history of longstanding anemia at least since 2017 with baseline Hgb 9-11. Borderline macrocytic here. Platelets and WBC count have almost always been normal. B12, folate, Fe studies, and TSH all normal here.Monospot neg, EBV titer shows past infection. Transfused 1 unit PRBCs 01/19 and now hgb stable at 7.5. -flow cytometry and bone marrow biopsies pending -follow CBC and keep hemoglobin greater than 7 with PRBC transfusion if needed -transfuse plts if <15k or <50k with bleeding -appreciate Oncology consult-will start acyclovir and fluconazole for prophylaxis; start Levaquin for prophylaxis once Cefepime completed -QTc normal #Possible LLL pneumonia-was treated as an outpatient with Augmentin in the last few weeks-could be residual radiographic evidence of previously treated pneumonia versus ongoing community-acquired pneumonia. Respiratory BioFire is negative. She is afebrile but has leukocytosis which may be from infection versus leukemia. BNP is normal although she is morbidly obese so it is likely falsely low. Procalcitonin negative. -Nonetheless, will treat for gram-negative and community-acquired, atypical pneumonia with broad-spectrum antibiotics -Continue cefepime, azithro -Pulmonary toilet - Follow-up chest imaging in 4 weeks to ensure resolution -check sputum cx #Nausea/vomiting-possibly secondary to taking zinc on an empty stomach on 01/19. Now resolved - Zofran and Compazine as needed - Discontinued zinc - advance diet to regular #Headache-possibly due to severe anemia. Now completely resolved with Fioricet each night. No focal neurological deficits. Pt declines to have CT head - Can give Fioricet again as needed versus acetaminophen #Chronic hypoxic and hypercarbic respiratory failure caused by COPD, CHRISTIANO/OHS - mild compensated hypercarbia on vbg- not in COPD exacerbation, no wheezing good air movement -continue trelegy INH, Mucinex, and prn albuterol -continue nocturnal trilogy ventilator-her will bring it in from home #DM2-HgbA1c elevated 8.0%. She is normally on lispro 75/25. N/V now resolved and tolerating regular diet, having hyperglycemia - increase AM NPH to 40 units and keep evening dose of 45 units - continue NovoLog SSI and tighten down CR and CF -Continue BSG's #Chronic HFpEF - difficult physical exam but probably euvolemic. Echo from 2022 with preserved EF and no valvular pathology -cont spironolactone and furosemide - she is not on a beta-imelda or antihypertensives # CKD-3 - stable creatinine -Avoid nephrotoxins, renally dose medications - Follow BMP #Mood disorderno acute issues - Continue sertraline #Morbid obesity BMI 46 -Holding home semaglutide DVT prophylaxis-with SCDs at this time, if she is going to have a prolonged hospitalization chemo prophylaxis with a heparinoid may be reasonable if platelets increase above 50 Disposition-continued stay on medical/surgical floor, awaiting bone marrow results t determine disposition-transfer to tertiary care for inpatient hemo vs [facility] Admission and Anticipated Discharge Date Admission Date: January 19, 2025 Subjective Pt denies nausea today. She is eating regular food, no vomiting, no abd pain, no BM in 4 days. Had a headache again overnight requiring fioricet and now completely resolved. Declines to have head CT. She and her two sons, at bedside asked questions about diagnosis, prognosis. I discussed her care with Oncology Physical Exam Constitutional: WD/WN, vitals as above + morbidly obese Eyes: + anicteric sclerae Respiratory: normal respiratory effort, lungs clear to auscultation Cardiovascular: RRR, no murmur, no edema Gastrointestinal (Abdomen): normal bowel sounds, soft, nontender, no hepatosplenomegaly Skin: no rashes, warm and dry Psychiatric: A+Ox3, euthymic affect Results & Data Results & Data Vital Signs (Past 12 Hours) Vital Signs Temp Pulse Resp BP Pulse Ox O2 Del Method O2 Flow Rate 01/20/25 08:05 37.4 C 100 H 20 145/75 H 96 Nasal Cannula 4 Laboratory Results CBC, CMP. LDH, phos, mag reviewed PG Care Time/CCT Total # of Minutes Spent Total Time Spent with Patient: Total time spent is greater than 50% in coordination of care (as documented) at patient's floor/unit and/or counseling patient: Coding Level of Care Code 47219 SUB INP/OBS CARE 3/50MIN Diagnoses Abnormal CBC R79.89 Community acquired pneumonia J18.9 COPD (chronic obstructive pulmonary disease) J44.9 COPD type: unspecified COPD Diabetes mellitus, type 2 E11.9 (3) COPD (chronic obstructive pulmonary disease) COPD type: unspecified COPD Qualified Code(s): J44.9 - Chronic obstructive pulmonary disease, unspecified
[2025-01-20] MEDS: DOCUSATE SODIUM/SENNA 50/8.6MG TAB PO SCH (13:38)
[2025-01-20] MEDS: FLUCONAZOLE 100 MG TAB PO SCH (14:53)
[2025-01-20] MEDS: BUTALBITAL/ACETAMIN/CAFFEINE TAB PO PRN (15:05)
[2025-01-20] MEDS: CEFEPIME 2000MG 2,000 MG/20 ML SYR IV SCH (16:30)
[2025-01-20] MEDS: ACYCLOVIR 400 MG TAB PO SCH (20:10)
[2025-01-20] MEDS: COUGH DROP (SUGAR FREE) LOZ 24 LOZ/1 BOX BUCCAL PRN (23:47)
[2025-01-21 08:00] LABS: Hematocrit (blood only) 21.0 % (37.0-47.0); Hemoglobin 6.9 g/dl (12.0-16.0); Mean Corpuscular Hemoglobin 31.9 pg (25.0-34.0); Mean Corpuscular Volume 97.2 fL (80.0-100.0); Platelet Count 32 K/uL (130-400); RDW Standard Deviation 60.4 fL (36.4-46.3); Red Blood Count 2.16 M/uL (4.20-5.40); White Blood Count 21.04 K/ul (4.8-10.8)
[2025-01-21 08:02] LABS: Alanine Aminotransferase 15.0 U/L (7-52); Albumin Globulin Ratio 1.1 (0.9-2); Alkaline Phosphatase 59.0 U/L (34-104); Anion Gap 9.0 (3-11); Bilirubin,Total 0.8 mg/dl (0.2-1.0); Blood Urea Nitrogen 28.0 mg/dl (6-23); Calcium 8.5 mg/dl (8.6-10.3); Carbon Dioxide 32.0 mmol/L (21-32); Chloride 97.0 mmol/L (98-107); Creatinine Clr Calc Pharmacy 54.5 ml/min; Globulin 3.2 gm/dl (2.5-4.0); Glucose 144.0 mg/dl (70-99(Fasting)); Magnesium 2.3 mg/dl (1.7-2.4); Potassium 4.2 mmol/L (3.5-5.1); Sodium 138.0 mmol/L (136-145); Total Protein 6.7 gm/dl (6.0-8.3)
[2025-01-21] MEDS: INSULIN HUMAN NPH SC SCH (08:27)
[2025-01-21] MEDS ORDERED: SODIUM CHLORIDE 0.9% 100 ML IV PRN (08:31)
[2025-01-21 09:00] LABS: ALC (manual) 7.78 K/uL (1.2-3.4); ANC (manual) 2.10 K/uL (1.4-6.5); Blast # (manual) 5.05 K/uL (0-0); Hypochromasia Present; Ovalocytes 1+; Polychromasia 1+; Stomatocytes 1+; Tear Drop Cells 1+
[2025-01-21] MEDS: SENNA 8.6 MG TAB PO SCH (12:32)
--- NOTE | 2025-01-21 12:54 | Hospitalist Progress Note ---
Date of Service January 21, 2025 Assessment & Plan (1) Acute monocytic leukemia: (2) Community acquired pneumonia: (3) COPD (chronic obstructive pulmonary disease): (4) Diabetes mellitus, type 2: Plan This patient is a 79 y/o female with a H/L chronic hypoxic and hypercarbic respiratory failure related to COPD and CHRISTIANO/OHS on nocturnal trilogy ventilator, DM 2, HFpEF, obesity, CKD stage III, depression, B12 deficiency who P/W 6 weeks of malaise, weakness, and dyspnea after being treated for pneumonia as an outpatient. She was found to have lymphocytosis with 7% blasts, and severe anemia and thrombocytopenia, concerning for acute leukemia. CXR also with LLL pneumonia and small pleural effusion. #Acute monomyelocytic leukemia- p/w Thrombocytopenia, anemia, leukocytosis with 7% blasts-with lymphocytosis, blasts concerning for acute leukemia. Heme-onc consulted and recommended bone marrow biopsy which she had on 01/19. Results show AML and pt declines treatment. There is no evidence of bleeding from anywhere. Platelets in the 30s, hgb 6-7. She has a history of longstanding anemia at least since 2017 with baseline Hgb 9-11. Borderline macrocytic here. B12, folate, Fe studies, and TSH all normal here. Monospot neg, EBV titer shows past infection. Transfused 1 unit PRBCs 01/19 and another 1 unit PRBCs 01/21 Pt desires to go home with hospice once her son is back in town and can help care for her on Tuesday 01/23. -she wants to continue transfusions as needed as it does help her feel better, but will discontinue transfusional support after she enrolls in hospice -follow CBC and keep hemoglobin greater than 7 with PRBC transfusion if needed -transfuse plts if <15k or <50k with bleeding -appreciate Oncology consult-can now dc acyclovir and fluconazole for prophylaxis as she deires comfort #Possible LLL pneumonia-was treated as an outpatient with Augmentin in the last few weeks-could be residual radiographic evidence of previously treated pneumonia versus ongoing community-acquired pneumonia. Respiratory BioFire is negative. She is afebrile but has leukocytosis which may be from infection versus more likely leukemia. BNP is normal although she is morbidly obese so it is likely falsely low. Procalcitonin negative. -Nonetheless, will treat for gram-negative and community-acquired, atypical pneumonia with broad-spectrum antibiotics -Continue cefepime, azithro -Pulmonary toilet - Follow-up chest imaging in 4 weeks to ensure resolution can be deferred if on hospice -check sputum cx #Nausea/vomiting-possibly secondary to taking zinc on an empty stomach on 01/19. Now resolved - Zofran and Compazine as needed - Discontinued zinc #Headache-possibly due to severe anemia. Now completely resolved with Fioricet each night. No focal neurological deficits. Pt declines to have CT head - Can give Fioricet again as needed versus acetaminophen #Chronic hypoxic and hypercarbic respiratory failure caused by COPD, CHRISTIANO/OHS - mild compensated hypercarbia on vbg- not in COPD exacerbation, no wheezing good air movement -continue trelegy INH, Mucinex, and prn albuterol -continue nocturnal trilogy ventilator-her will bring it in from home #DM2-HgbA1c elevated 8.0%. She is normally on lispro 75/25. N/V now resolved and tolerating regular diet, continues to be having hyperglycemia - increase AM NPH to 50 units and keep evening dose of 45 units - continue NovoLog SSI -Continue BSG's #Chronic HFpEF - difficult physical exam but probably euvolemic. Echo from 2022 with preserved EF and no valvular pathology -cont spironolactone and furosemide - she is not on a beta-imelda or antihypertensives # CKD-3 - stable creatinine -Avoid nephrotoxins, renally dose medications - Follow BMP #Mood disorderno acute issues - Continue sertraline #Morbid obesity BMI 46 -Holding home semaglutide DVT prophylaxis-with SCDs , holding AC due to thrombocytopenia Disposition-continued stay on medical/surgical floor, plan for dc to home with hospice on Friday Admission and Anticipated Discharge Date Admission Date: January 19, 2025 Subjective Pt had a headache off and on again through the night, relieved with fioricet. Has some occasional nausea, feels constipated. We discussed her diagnosis of acute leukemia and she is adamant that she not receive any chemotherapy. She has already asked for a referral to hospice through and says her family is aware of her wishes. The PRBC transfusions do help her feel better Physical Exam Constitutional: WD/WN, vitals as above + morbidly obese Eyes: + anicteric sclerae Skin: no rashes, warm and dry Psychiatric: A+Ox3, euthymic affect Results & Data Results & Data Vital Signs (Past 12 Hours) Vital Signs Temp Pulse Pulse Resp BP BP Pulse Ox 01/21/25 12:42 37.2 C 95 H 20 144/82 H 96 01/21/25 11:43 37.2 C 96 H 18 122/70 99 01/21/25 11:13 36.8 C 102 H 20 130/68 98 01/21/25 10:58 37.0 C 102 H 20 109/54 L 97 01/21/25 10:30 37.2 C 108 H 20 122/51 L 01/21/25 07:34 37.0 C 99 H 18 118/72 96 O2 Del Method O2 Flow Rate 01/21/25 12:42 4 01/21/25 11:43 4 01/21/25 11:13 4 01/21/25 10:58 4 01/21/25 10:30 4 01/21/25 07:34 Nasal Cannula 4 Laboratory Results CBC, bmp, LFTs, mag, LDH, blood cultures reviewed PG Care Time/CCT Total # of Minutes Spent Total Time Spent with Patient: Total time spent is greater than 50% in coordination of care (as documented) at patient's floor/unit and/or counseling patient: Coding Level of Care Code 30790 SUB INP/OBS CARE 2/35MIN Diagnoses Acute monocytic leukemia C93.00 Community acquired pneumonia J18.9 COPD (chronic obstructive pulmonary disease) J44.9 COPD type: unspecified COPD Diabetes mellitus, type 2 E11.9 (3) COPD (chronic obstructive pulmonary disease) COPD type: unspecified COPD Qualified Code(s): J44.9 - Chronic obstructive pulmonary disease, unspecified
[2025-01-21] MEDS: CEFEPIME 2000MG 2,000 MG/20 ML SYR IV SCH (19:34)
[2025-01-22] MEDS: ALBUTEROL HFA 8 GM INHALER INH PRN (07:06)
--- NOTE | 2025-01-22 07:42 | Hospitalist Progress Note ---
Date of Service January 22, 2025 Assessment & Plan (1) Acute monocytic leukemia: (2) Community acquired pneumonia: (3) COPD (chronic obstructive pulmonary disease): (4) Diabetes mellitus, type 2: Plan This patient is a 79 y/o female with a H/L chronic hypoxic and hypercarbic res piratory failure related to COPD and CHRISTIANO/OHS on nocturnal trilogy ventilator, DM 2, HFpEF, obesity, CKD stage III, depression, B12 deficiency who P/W 6 weeks of malaise, weakness, and dyspnea after being treated for pneumonia as an outpatient. She was found to have lymphocytosis with 7% blasts, and severe anemia and thrombocytopenia, concerning for acute leukemia. CXR also with LLL pneumonia and small pleural effusion. #Acute monomyelocytic leukemia- p/w Thrombocytopenia, anemia, leukocytosis with 7% blasts. Heme-onc consulted and recommended bone marrow biopsy which she had on 01/19. Results show AML. Pt declines treatment. There is no evidence of ongoing bleeding. Platelets in the 30s, hgb 6-7. She has a history of longstanding anemia at least since 2017 with baseline Hgb 9-11. Borderline macrocytic here. B12, folate, Fe studies, and TSH all normal here. Monospot neg, EBV titer shows past infection. Transfused 1 unit pRBCs 01/19 and another 1 unit pRBCs 01/21. Pt reconsidered her stance on home hospice and would like to discuss her options with oncology. - Follow CBC daily, transfuse for Hgb < 7 - Transfuse plts if <15k or <50k with bleeding - Oncology consulted, appreciate recs Had recommended ppx with levofloxacin 500 mg po daily, acyclovir 400 mg po BID, and fluconazole 400 mg po daily These were held due to expectation of hospice, but started 01/22 PM after pt decided to explore options Will obtain EKG tomorrow AM d/t multiple QT prolonging meds #Possible LLL pneumonia- Failed outpatient treatment with Augmentin in the last few weeks. Current results could be residual radiographic evidence of that previously treated pneumonia vs. ongoing CAP. Respiratory BioFire is negative. She is afebrile but has leukocytosis which is more likely 2/2 leukemia. BNP is normal, although she is morbidly obese so it is likely falsely low. Procal neg. - D/t immunocompromised state, will still treat for gram-negative and community- acquired, atypical pneumonia with broad-spectrum antibiotics - Pt completed 3-day course of azithro. Will stop cefepime and start levaquin as above - Pulmonary toilet - Follow-up chest imaging in 4 weeks to ensure resolution can be deferred if on hospice - Sputum cx pending #Nausea/vomiting-possibly secondary to taking zinc on an empty stomach on 01/19. Now resolved - Zofran and Compazine as needed; be careful with administration d/t other QT prolonging drugs - Discontinued zinc - May now be 2/2 constipation. 1x Bisacodyl pr given today #Headache-possibly due to severe anemia. Now completely resolved with Fioricet each night. No focal neurological deficits. Pt declines to have CT head - Continue Fioricet prn #Chronic hypoxic and hypercarbic respiratory failure caused by COPD, CHRISTIANO/OHS - mild compensated hypercarbia on vbg- not in COPD exacerbation, no wheezing good air movement -continue pt's home Trelegy Ellipta Mucinex, and prn albuterol -continue nocturnal trilogy ventilator-her will bring it in from home #DM2-HgbA1c elevated 8.0%. She is normally on lispro 75/25. N/V now resolved and tolerating regular diet, continues to be having hyperglycemia - increase AM NPH to 50 units and keep evening dose of 45 units - continue NovoLog SSI - Continue FSBG #Chronic HFpEF - difficult physical exam but probably euvolemic. Echo from 2022 with preserved EF and no valvular pathology - cont spironolactone and furosemide - she is not on a beta-imelda or antihypertensives - pt has tachypnea/sob lying flat. if sx worsen or concern for volume overload, can give 1x Lasix # CKD-3 - stable creatinine - Avoid nephrotoxins, renally dose medications - Follow BMP #Mood disorderno acute issues - Continue sertraline #Morbid obesity BMI 46 - Holding home semaglutide DVT prophylaxis- with SCDs; ensure actually applied. Holding AC due to thrombocytopenia Disposition - continued stay on medical/surgical floor, pt reconsidering tx and cancelled dc to hospice on Friday Admission and Anticipated Discharge Date Admission Date: January 19, 2025 Supervising Physician Co-Signing Physician Notes I personally examined the patient and verified all little points of history and exam, discussed case, and agree with decision making with Dr. Mayberry with the following additions/exceptions: S-patient struggling with constipation today which is causing some intermittent nausea. She is passing gas and denies abdominal pains. She has decided she would like to hear options for treatment and speak with oncology with her family present-I discussed her care with oncology who will see her in the family tomorrow O- Vitals Reviewed Gen: AAOx3, NAD HEENT: Anicteric sclerae, EOMI CV: RRR no mgr nl S1S2 Pulm: CTAB no wcr Abd: +BS soft NT ND Ext: 1+ edema of the legs bilaterally Skin: No rashes, warm/dry Neuro: Full strength throughout A/P: 79-year-old female here with acute presentation of acute mono myelocytic leukemia, requiring transfusional support. Also with left lower lobe pneumonia. Now with constipation - Continue treatment for pneumonia as stated above - She wants to discuss possible treatment options of leukemia with oncology on 01/23, but is leaning towards going home with hospice - Provide transfusional support as needed-follow daily CBC - Give bisacodyl suppository x 1, continue Senokot, and give milk of magnesia Subjective NAEO. Is feeling poorly this morning. Had an upset stomach, which mostly resolved after having some yogurt, but she did not eat any more of her breakfast. Also complains of constipation, would like an enema. Has been coughing intermittently, especially when lying flat, and does report a lot of phlegm. Says she feels better after her breathing treatment. Denies ZELAYA, CP, abd pain, n/v. Review of Systems Review of Systems: As per HPI. Physical Exam Physical Exam: Gen: NAD, WD/WN, exam somewhat limited by body habitus HEENT: NCAT, normal conjunctiva, anicteric sclera, MMM CV: RRR, no m/r/g, S1/S2 normal, no deep calf tenderness Resp: Lung sounds clear but diminished throughout, symmetrical chest rise, breathing non-labored Abd: Soft, NT/ND, +BS, no HSM MSK: No gross deformities on inspection Skin: Warm, dry, well-perfused, no rashes appreciated Results & Data Results & Data Vital Signs (Past 12 Hours) Vital Signs Temp Pulse Resp BP Pulse Ox O2 Del Method O2 Flow Rate 01/22/25 07:19 37.2 C 97 H 18 133/76 95 Nasal Cannula 4 01/22/25 07:09 95 H 20 95 Nasal Cannula 4 01/21/25 21:24 37.6 C H 103 H 20 146/76 H 94 Nasal Cannula 4 01/21/25 20:00 Nasal Cannula 4 Laboratory Results CBC, BMP, blood cultures reviewed Resident Activity Tracking Resident Involvement: Resident Care Provided Care Provided: Adult Hospital Medicine (3) COPD (chronic obstructive pulmonary disease) COPD type: unspecified COPD Qualified Code(s): J44.9 - Chronic obstructive pulmonary disease, unspecified
[2025-01-22 07:46] LABS: Hematocrit (blood only) 24.3 % (37.0-47.0); Hemoglobin 7.9 g/dl (12.0-16.0); Mean Corpuscular Hemoglobin 30.9 pg (25.0-34.0); Mean Corpuscular Volume 94.9 fL (80.0-100.0); Platelet Count 30 K/uL (130-400); RDW Standard Deviation 62.6 fL (36.4-46.3); Red Blood Count 2.56 M/uL (4.20-5.40); White Blood Count 20.56 K/ul (4.8-10.8)
[2025-01-22 08:00] LABS: Anion Gap 7.0 (3-11); Blood Urea Nitrogen 28.0 mg/dl (6-23); Calcium 8.4 mg/dl (8.6-10.3); Carbon Dioxide 34.0 mmol/L (21-32); Chloride 96.0 mmol/L (98-107); Creatinine Clr Calc Pharmacy 57.7 ml/min; Glucose 165.0 mg/dl (70-99(Fasting)); Potassium 4.0 mmol/L (3.5-5.1); Sodium 137.0 mmol/L (136-145)
[2025-01-22 08:57] LABS: ALC (manual) 7.20 K/uL (1.2-3.4); ANC (manual) 1.64 K/uL (1.4-6.5); Blast # (manual) 2.06 K/uL (0-0); Polychromasia 1+
[2025-01-22] MEDS: INSULIN HUMAN NPH SC SCH (10:21)
[2025-01-22] MEDS: FLUTICASONE/UMECLIDIN/VILANTER 100-62.5-25 INH SCH (15:35)
[2025-01-22] MEDS: ALUMINUM/MAGNESIUM SUSP 30 ML UDC PO PRN (16:52)
[2025-01-22] MEDS: MAGNESIUM HYDROXIDE SUSP 30 ML UDC PO ONE (17:42)
[2025-01-22] MEDS: ACETAMINOPHEN 325 MG TAB PO PRN (17:42)
--- NOTE | 2025-01-22 19:07 | Billing Data ---
Date of Service January 22, 2025 Coding Level of Care Code 04861 SUB INP/OBS CARE
[2025-01-22] MEDS: ACYCLOVIR 400 MG TAB PO SCH (21:35)
--- NOTE | 2025-01-23 07:25 | Hospitalist Progress Note ---
Date of Service January 23, 2025 Assessment & Plan (1) Acute monocytic leukemia: (2) Community acquired pneumonia: (3) COPD (chronic obstructive pulmonary disease): (4) Diabetes mellitus, type 2: Plan This patient is a 79 y/o female with a H/L chronic hypoxic and hypercarbic res piratory failure related to COPD and CHRISTIANO/OHS on nocturnal trilogy ventilator, DM 2, HFpEF, obesity, CKD stage III, depression, B12 deficiency who P/W 6 weeks of malaise, weakness, and dyspnea after being treated for pneumonia as an outpatient. She was found to have lymphocytosis with 7% blasts, and severe anemia and thrombocytopenia, concerning for acute leukemia. CXR also with LLL pneumonia and small pleural effusion. #Acute monomyelocytic leukemia- p/w Thrombocytopenia, anemia, leukocytosis with 7% blasts. Heme-onc consulted and recommended bone marrow biopsy which she had on 01/19. Results show AML. Pt declines treatment. There is no evidence of ongoing bleeding. Platelets in the 30s, hgb 6-7. She has a history of longstanding anemia at least since 2017 with baseline Hgb 9-11. Borderline macrocytic here. B12, folate, Fe studies, and TSH all normal here. Monospot neg, EBV titer c/w past infection. Transfused 1 unit pRBCs 01/19 and another 1 unit pRBCs 01/21. Patient's final decision is to proceed with home hospice. - Patient does want to continue transfusions as needed, as they help her QOL, but will discontinue transfusional support after she enrolls in hospice - Follow CBC daily, transfuse for Hgb < 7 - Transfuse plts if <15k or <50k with bleeding - Oncology consulted, appreciate recs Had recommended ppx with levofloxacin 500 mg po daily, acyclovir 400 mg po BID, and fluconazole 400 mg po daily These were held due to expectation of hospice, but started 01/22 PM after pt decided to explore options EKG today did not show QT prolongation Acyclovir and fluconazole discontinued on 01/23 as patient confirmed decision for home hospice #Possible LLL pneumonia- Failed outpatient treatment with Augmentin in the last few weeks. Current results could be residual radiographic evidence of that previously treated pneumonia vs. ongoing CAP. Respiratory BioFire is negative. She is afebrile but has leukocytosis which is more likely 2/2 leukemia. BNP is normal, although she is morbidly obese so it is likely falsely low. Procal neg. - D/t immunocompromised state, will still treat for gram-negative, community-acquired, atypical pneumonia - Pt completed 3-day course of azithro. Will continue levaquin for total 7-day course - Pulmonary toilet - Follow-up chest imaging in 4 weeks to ensure resolution; can be deferred if on hospice #Nausea/vomiting-possibly secondary to taking zinc on an empty stomach on 01/19. Now resolved - Zofran and Compazine as needed; be careful with administration d/t other QT prolonging drugs - Discontinued zinc - May now be 2/2 constipation. 1x Bisacodyl pr given 01/22. Pt did have +1 BM and reports improvement of sx #Headache-possibly due to severe anemia. Now completely resolved with Fioricet each night. No focal neurological deficits. Pt declines to have CT head as is now enrolling in hospice - Continue Fioricet prn #Chronic hypoxic and hypercarbic respiratory failure caused by COPD, CHRISTIANO/OHS - mild compensated hypercarbia on vbg- not in COPD exacerbation, no wheezing good air movement - Pt uses nocturnal trilogy ventilator at home - Continue pt's home Trelegy Ellipta, Mucinex, and prn albuterol #DM2-HgbA1c elevated 8.0%. She is normally on lispro 75/25. N/V now resolved and tolerating regular diet, continues to be having hyperglycemia - Continue decreased dose of AM NPH at 50 units and keep evening dose of 45 units (home dose is 60 units in the morning) - continue NovoLog SSI - Continue FSBG #Chronic HFpEF - difficult physical exam but probably euvolemic. Echo from 2022 with preserved EF and no valvular pathology - cont spironolactone and furosemide - she is not on a beta-imelda or antihypertensives - pt has tachypnea/sob lying flat. if sx worsen or concern for volume overload, can give 1x Lasix # CKD-3 - stable creatinine - Avoid nephrotoxins, renally dose medications #Mood disorderno acute issues - Continue sertraline - Pt takes Ativan 0.5mg q12h PRN at home. Given 0.5mg daily prn while admitted #Morbid obesity BMI 46 - Holding home semaglutide DVT prophylaxis- with SCDs; ensure actually applied. Holding AC due to thrombocytopenia Disposition - continued stay on medical/surgical floor; pt confirmed decision for home hospice, CM informed-possible discharge to home on Friday if no further transfusions needed and hospice at home is arranged Admission and Anticipated Discharge Date Admission Date: January 19, 2025 Supervising Physician Co-Signing Physician Notes I personally examined the patient and verified all little points of history and exam, discussed case, and agree with decision making with Dr. Mayberry with the following additions/exceptions: S-met with patient and her multiple family members at the bedside-patient had not yet met with oncology but was willing to hear about options for treatment. She is leaning towards hospice however. After her discussion with oncology, she made a final decision to go home with hospice. Even with aggressive treatment and likely multiple transfusions and side effects, given comorbidities, her prognosis would still be about 6 months to live as per oncology. She continues to struggle with intermittent headaches relieved with Fioricet. She did move her bowels a few times since yesterday and her belly is feeling better, no further nausea O- Vitals Reviewed Gen: AAOx3, NAD A/P: 79-year-old female here with acute presentation of acute mono myelocytic leukemia, requiring transfusional support. Also with left lower lobe pneumonia. Patient has decided ultimately to defer any treatment for her acute leukemia and to go home with hospice - Continue treatment for pneumonia switch to oral antibiotics and complete a 7- day course of levofloxacin - Provide transfusional support as needed prior to discharge-follow daily CBC -Continue bowel regimen for constipation and nausea - Continue Fioricet as needed for headaches Gave my condolences to the patient and her family and support Subjective NAEO. Patient reports feeling well this morning but does endorse ZELAYA. Initially agreed to head CT to determine cause. Denied SOB, CP, abd pain, n/v. +BM yesterday. Meeting w/ several family members and oncologist in the afternoon. Patient decided on home hospice and would not like to pursue further imaging or intensive tx. Review of Systems Review of Systems: As per HPI. Physical Exam Physical Exam: Gen: NAD, WD/WN, exam somewhat limited by body habitus HEENT: NCAT, normal conjunctiva, anicteric sclera, MMM CV: RRR, no m/r/g, S1/S2 normal, no deep calf tenderness Resp: Lung sounds clear but diminished throughout, symmetrical chest rise, breathing non-labored Abd: Soft, NT/ND, +BS, no HSM MSK: No gross deformities on inspection Skin: Warm, dry, well-perfused, no rashes appreciated Results & Data Results & Data Vital Signs (Past 12 Hours) Vital Signs Temp Pulse Resp BP Pulse Ox O2 Del Method O2 Flow Rate 01/22/25 23:58 94 H 20 95 Nasal Cannula 4 01/22/25 21:00 Nasal Cannula 4 01/22/25 20:36 37.2 C 93 H 16 140/77 94 Room Air Laboratory Results CBC, CMP, blood cultures, ECG reviewed Resident Activity Tracking Resident Involvement: Resident Care Provided Care Provided: Adult Hospital Medicine (3) COPD (chronic obstructive pulmonary disease) COPD type: unspecified COPD Qualified Code(s): J44.9 - Chronic obstructive pulmonary disease, unspecified
[2025-01-23 07:29] LABS: Hematocrit (blood only) 23.1 % (37.0-47.0); Hemoglobin 7.7 g/dl (12.0-16.0); Mean Corpuscular Hemoglobin 31.6 pg (25.0-34.0); Mean Corpuscular Volume 94.7 fL (80.0-100.0); Platelet Count 24 K/uL (130-400); RDW Standard Deviation 59.8 fL (36.4-46.3); Red Blood Count 2.44 M/uL (4.20-5.40); White Blood Count 21.68 K/ul (4.8-10.8)
[2025-01-23 07:40] LABS: Alanine Aminotransferase 13.0 U/L (7-52); Albumin Globulin Ratio 1.1 (0.9-2); Alkaline Phosphatase 61.0 U/L (34-104); Anion Gap 6.0 (3-11); Bilirubin,Total 0.5 mg/dl (0.2-1.0); Blood Urea Nitrogen 28.0 mg/dl (6-23); Calcium 8.6 mg/dl (8.6-10.3); Carbon Dioxide 36.0 mmol/L (21-32); Chloride 94.0 mmol/L (98-107); Creatinine Clr Calc Pharmacy 58.3 ml/min; Globulin 3.1 gm/dl (2.5-4.0); Glucose 108.0 mg/dl (70-99(Fasting)); Potassium 4.0 mmol/L (3.5-5.1); Sodium 136.0 mmol/L (136-145); Total Protein 6.4 gm/dl (6.0-8.3)
[2025-01-23 07:45] LABS: ALC (manual) 8.89 K/uL (1.2-3.4); ANC (manual) 1.30 K/uL (1.4-6.5); Blast # (manual) 2.17 K/uL (0-0); Polychromasia 1+
[2025-01-23] MEDS: FLUCONAZOLE 100 MG TAB PO SCH (09:06)
[2025-01-23] MEDS: MAGNESIUM HYDROXIDE SUSP 30 ML UDC PO PRN (09:12)
[2025-01-23] MEDS: LORazepam 0.5 MG TAB PO PRN (12:04)
[2025-01-23] MEDS: levoFLOXacin 500 MG TAB PO SCH (12:09)
--- NOTE | 2025-01-23 16:54 | Billing Data ---
Date of Service January 23, 2025 Coding Level of Care Code 86077 SUB INP/OBS CARE
--- NOTE | 2025-01-23 17:09 | Electrocardiogram Report ---
Test Reason : Blood Pressure : */* mmHG Vent. Rate : 88 BPM Atrial Rate : 88 BPM P-R Int : 142 ms QRS Dur : 64 ms QT Int : 356 ms P-R-T Axes : 5 20 31 degrees QTcB Int : 430 ms Sinus rhythm with Premature atrial complexes Low voltage QRS Borderline ECG When compared with ECG of 18-Jan-2025 15:28, Premature atrial complexes are now Present Confirmed by Nav Thomas ([id number]) on 01/23/2025 5:09:34 PM Referred By: REFERRED SELF Confirmed By: Nav Thomas
--- NOTE | 2025-01-24 06:38 | Communication Note ---
Date of Service: January 24, 2025 Alerted by nurse around 0600 that pt had episode of significant hypoxia in the 40% range. She was transitioned from NC to oxymask 15L now saturating low 90s. Went to bedside. Pt noted to be in mild respiratory distress; sitting up in bed with tachypnea, fatigued appearing. Also notably tachycardic 100s-110s. She states she does feel a little better now that she is on oxymask. Per day team yesterday, goal was home with hospice today. Pt has globally poor air movement but especially so in the lung bases. Ordered CXR, labs; CBC, CMP, VBG, lactate, procal. Advised nurse to continue oxygen support at this point as pt is NOT comfort measures only at this point in time. Based on VBG, consider BIPAP. Resident Activity Tracking Resident Involvement: Resident Care Provided Care Provided: Adult Hospital Medicine
[2025-01-24 07:07] LABS: Base Excess VBG 4.5 mEq/L; HCO3 VBG 33 mmol/L; Oxygen Saturation VBG < 60.0 %; PCO2 VBG 76 mmHg (38-50); PO2 VBG 32 mmHg; pH VBG 7.24 (7.36-7.41)
--- NOTE | 2025-01-24 07:11 | XRay Report ---
EXAM: XR chest 1V portable CLINICAL HISTORY: increase oxyg requirement TECHNIQUE: An X-ray image of the chest is obtained in AP projection. COMPARISON: 01/18/2025 15:17:03 OPERATOR CATALYST CONCENTRATION FINDINGS: Pulmonary Parenchyma: Both lungs shows diffuse prominent bronchovascular markings - suggest possibility of congestive changes. Interval stable left lower lung zone opacity silhouetting the lower part of the left cardiac border likely representing inflammatory/infectious process. Unchanged right lower lung zone atelectataic bands. Mildly reduced previously noted left pleural effusion Blunted right costodiaphragmatic recess likely by pleural effusion/pleural thickening.- stable since prior Heart and Mediastinum: Heart size could not be assessed. No mediastinal widening or masses. No hilar or mediastinal lymphadenopathy. Aortic knuckle calcified atheromatous plaque is noted. Bony Thorax: Bony thorax appears intact without fractures or deformities. Soft Tissues: Soft tissues overlying the chest wall are unremarkable. IMPRESSION: Both lungs shows diffuse prominent bronchovascular markings - suggest possibility of congestive changes.- more prominent in the present study. Interval stable left lower lung zone opacity silhouetting the lower part of the left cardiac border likely representing inflammatory/infectious process for correlation with clinical data. Mildly reduced previously noted left pleural effusion. Electronically signed by Frankie Mensah 01-24-2025 07:11 AM
[2025-01-24 07:22] LABS: Hematocrit (blood only) 24.9 % (37.0-47.0); Hemoglobin 7.8 g/dl (12.0-16.0); Mean Corpuscular Hemoglobin 31.0 pg (25.0-34.0); Mean Corpuscular Volume 98.8 fL (80.0-100.0); Platelet Count 21 K/uL (130-400); RDW Standard Deviation 62.4 fL (36.4-46.3); Red Blood Count 2.52 M/uL (4.20-5.40); White Blood Count 41.77 K/ul (4.8-10.8)
[2025-01-24 07:32] LABS: Alanine Aminotransferase 15.0 U/L (7-52); Albumin Globulin Ratio 1.0 (0.9-2); Alkaline Phosphatase 76.0 U/L (34-104); Anion Gap 8.0 (3-11); Bilirubin,Total 0.6 mg/dl (0.2-1.0); Blood Urea Nitrogen 32.0 mg/dl (6-23); Calcium 8.7 mg/dl (8.6-10.3); Carbon Dioxide 35.0 mmol/L (21-32); Chloride 91.0 mmol/L (98-107); Creatinine Clr Calc Pharmacy 52.1 ml/min; Globulin 3.3 gm/dl (2.5-4.0); Glucose 349.0 mg/dl (70-99(Fasting)); Potassium 5.1 mmol/L (3.5-5.1); Sodium 134.0 mmol/L (136-145); Total Protein 6.7 gm/dl (6.0-8.3)
[2025-01-24 09:12] LABS: ALC (manual) 9.61 K/uL (1.2-3.4); ANC (manual) 2.51 K/uL (1.4-6.5); Blast # (manual) 15.45 K/uL (0-0); Polychromasia 1+
--- NOTE | 2025-01-24 13:59 | Hospitalist Progress Note ---
Date of Service January 24, 2025 Assessment & Plan (1) Acute monocytic leukemia: (2) Community acquired pneumonia: (3) COPD (chronic obstructive pulmonary disease): (4) Diabetes mellitus, type 2: Plan This patient is a 79 y/o female with a H/L chronic hypoxic and hypercarbic res piratory failure related to COPD and CHRISTIANO/OHS on nocturnal trilogy ventilator, DM 2, HFpEF, obesity, CKD stage III, depression, B12 deficiency who P/W 6 weeks of malaise, weakness, and dyspnea after being treated for pneumonia as an outpatient. She was found to have lymphocytosis with 7% blasts, and severe anemia and thrombocytopenia, concerning for acute leukemia. CXR also with LLL pneumonia and small pleural effusion. #Acute monomyelocytic leukemia- p/w Thrombocytopenia, anemia, leukocytosis with 7% blasts. Heme-onc consulted and recommended bone marrow biopsy which she had on 01/19. Results show AML. Pt declines treatment. There is no evidence of ongoing bleeding. Platelets in the 30s, hgb 6-7. She has a history of longstanding anemia at least since 2017 with baseline Hgb 9-11. Borderline macrocytic here. B12, folate, Fe studies, and TSH all normal here. Monospot neg, EBV titer c/w past infection. Transfused 1 unit pRBCs 01/19 and another 1 unit pRBCs 01/21. Patient's final decision is to proceed with home hospice. - Patient does want to continue transfusions as needed, as they help her QOL, but will discontinue transfusional support after she enrolls in hospice - Follow CBC daily, transfuse for Hgb < 7 - Transfuse plts if <15k or <50k with bleeding - Oncology consulted, appreciate recs Had recommended ppx with levofloxacin 500 mg po daily, acyclovir 400 mg po BID, and fluconazole 400 mg po daily These were held due to expectation of hospice, but started 01/22 PM after pt decided to explore options EKG today did not show QT prolongation Acyclovir and fluconazole discontinued on 01/23 as patient confirmed decision for home hospice -Levaquin to be continued upon d/c for 7 day total course, case discussed with family who report home hospice has been confirmed and can transport patient to home tomorrow morning #Possible LLL pneumonia- Failed outpatient treatment with Augmentin in the last few weeks. Current results could be residual radiographic evidence of that previously treated pneumonia vs. ongoing CAP. Respiratory BioFire is negative. She is afebrile but has leukocytosis which is more likely 2/2 leukemia. BNP is normal, although she is morbidly obese so it is likely falsely low. Procal neg. - D/t immunocompromised state, will still treat for gram-negative, community- acquired, atypical pneumonia - Pt completed 3-day course of azithro. Will continue levaquin for total 7-day course - Pulmonary toilet - Follow-up chest imaging in 4 weeks to ensure resolution; can be deferred if on hospice #Nausea/vomiting-possibly secondary to taking zinc on an empty stomach on 01/19. Now resolved - Zofran and Compazine as needed; be careful with administration d/t other QT prolonging drugs - Discontinued zinc - May now be 2/2 constipation. 1x Bisacodyl pr given 01/22. Pt did have +1 BM and reports improvement of sx #Headache-possibly due to severe anemia. Now completely resolved with Fioricet each night. No focal neurological deficits. Pt declines to have CT head - Continue Fioricet prn #Chronic hypoxic and hypercarbic respiratory failure caused by COPD, CHRISTIANO/OHS - mild compensated hypercarbia on vbg- not in COPD exacerbation, no wheezing good air movement - Pt uses nocturnal trilogy ventilator at home - Continue pt's home Trelegy Ellipta, Mucinex, and prn albuterol #DM2-HgbA1c elevated 8.0%. She is normally on lispro 75/25. N/V now resolved and tolerating regular diet, continues to be having hyperglycemia - increase AM NPH to 50 units and keep evening dose of 45 units - continue NovoLog SSI - Continue FSBG #Chronic HFpEF - difficult physical exam but probably euvolemic. Echo from 2022 with preserved EF and no valvular pathology - cont spironolactone and furosemide - she is not on a beta-imelda or antihypertensives - pt has tachypnea/sob lying flat. if sx worsen or concern for volume overload, can give 1x Lasix # CKD-3 - stable creatinine - Avoid nephrotoxins, renally dose medications #Mood disorderno acute issues - Continue sertraline - Pt takes Ativan 0.5mg q12h PRN at home. Given 0.5mg daily prn while admitted #Morbid obesity BMI 46 - Holding home semaglutide DVT prophylaxis- with SCDs; ensure actually applied. Holding AC due to thrombocytopenia Disposition - continued stay on medical/surgical floor; pt confirmed decision for home hospice, CM informed Admission and Anticipated Discharge Date Admission Date: January 19, 2025 Supervising Physician Co-Signing Physician Notes Resident Physician Supervision Note: I personally examined the patient and verified all little points of history and exam, discussed case, and agree with decision making with Dr. Rueda I was present with Dr. Rueda during the history and exam. I discussed the case with the resident and agree with the findings and plan as documented in the note. Any exceptions or clarifications are listed here: Patient does recollect that she had a gilbert night however she is feeling much better today and oxygen requirements are down. Family is bringing invasive positive pressure ventilation machine I will hopefully have some diuresis for her to have a good evening but lower oxygen requirements. Escalation of her white count does raise concern for blast transformation and poor prognosis. Physical exam the patient is not in any acute respiratory distress at the bedside diminished breath sounds at the bases equally which could be from volume overload or even infection/aspiration. #Acute on chronic hypoxic respiratory failure, suspect heart failure preserved ejection fraction plus minus possible infectious etiology, supportive care maximizing her ventilatory status to eventually transition home to hospice care hopefully in the next 24 hours. Documented By: Sanchez Magana MD Subjective Patient reports increased dyspnea and does endorse ZELAYA. Patient reports feeling feverish with worsened dyspnea overnight. Patient had significant drop in O2 saturation to 40% overnight and required 15L via oxymask. This AM patient was weaned off O2 to delivery via NC currently on 6L. Patient Initially agreed to head CT to determine cause. Denies, CP, abd pain, n/v. with small +BM yesterday. Patient amenable to staying in the hospital for one additional day prior to home with hospice care due to severe desaturation overnight, case discussed with and son who are amenable to this plan. Physical Exam Physical Exam: General: patient resting comfortably, NAD, non-toxic in appearance, answers questions appropriately. Skin: warm, dry, intact HEENT: NC/AT, anicteric sclera, conjunctiva without injection, moist mucus membranes. Heart: +S1/S2, regular, no m/r/g Lungs: equal air entry bilaterally, coarse breath sounds present at lung bases, with rales in RLQ Abd: +BS, soft, NT/ND Ext: warm, no clubbing/cyanosis or edema Neuro: nonfocal, speech intact, no facial droop, moving all extremities. Results & Data Results & Data Vital Signs (Past 12 Hours) Vital Signs Temp Pulse Pulse Resp BP Pulse Ox O2 Del Method 01/24/25 12:34 36.5 C 95 H 20 130/75 95 Nasal Cannula 01/24/25 09:45 Oxymask 01/24/25 09:32 97 H 137/77 94 Nasal Cannula 01/24/25 09:02 36.5 C 107 H 24 163/74 H 95 Nasal Cannula 01/24/25 08:34 92 Nasal Cannula 01/24/25 08:22 36.7 C 133 H 28 H 133/75 98 Oxymask 01/24/25 07:11 36.6 C 112 H 18 114/51 L 96 Oxymask 01/24/25 05:59 111 H 34 H 93 Oxymask 01/24/25 05:55 36.8 C 108 H 28 H 144/77 H 83 L Non-rebreather O2 Flow Rate 01/24/25 12:34 01/24/25 09:45 10 01/24/25 09:32 6 01/24/25 09:02 6 01/24/25 08:34 6 01/24/25 08:22 10 01/24/25 07:11 11 01/24/25 05:59 15 01/24/25 05:55 15 Resident Activity Tracking Resident Involvement: Resident Care Provided Care Provided: Adult Hospital Medicine (3) COPD (chronic obstructive pulmonary disease) COPD type: unspecified COPD Qualified Code(s): J44.9 - Chronic obstructive pulmonary disease, unspecified
--- NOTE | 2025-01-24 17:16 | Billing Data ---
Date of Service January 24, 2025 Coding Level of Care Code 35121 SUB INP/OBS CARE MIN
[2025-01-25 07:26] VITALS: BP 135/73; PULSE 92; RESP 20; TEMP 98.1; O2SAT 98
--- NOTE | 2025-01-25 11:08 | Discharge Summary ---
Date of Service January 25, 2025 Admission HPI Per Admitting Provider Maricarmen is a 79-year-old woman with chronic hypoxic and hypercarbic respiratory failure related to COPD and CHRISTIANO/OHS on nocturnal trilogy ventilator Diabetes type 2 and HFpEF who came in with malaise. She has just not felt well for about 6 weeks and symptoms have been very nonspecific. She has had some shortness of breath and she thought she may have had a pneumonia as she recently completed a course of Augmentin. She also took some steroids for COPD flareup. She has had some increased dyspnea no fevers or chills/Sweats no purulent sputum no chest pain. no nausea vomiting abdominal pain, no dysuria, no rashes, no acute joint problems. Admission Exam Per Admitting Provider GEN: no acute distress, sitting in bed HEENT: pupils equal, sclerae anicteric, moist MM RESP: normal WOB, CTAB except some by the basilar crackles, no wheezing CV: reg no mrg, unable to see neck veins ABD: soft/nt/nd +BT : no lowe SKIN: warm and dry, no generalized rashes lower extremities warm and well-perfused with some edema but she states this is at her baseline NEURO: AOx person, place, and situation. Face symmetric, speech normal, moves 4 ext spontaneously and equally Principal Diagnosis AML/pancytopenia, pneumonia Discharge Exam General: patient resting comfortably, NAD, non-toxic in appearance, answers questions appropriately. Skin: warm, dry, intact HEENT: NC/AT, anicteric sclera, conjunctiva without injection, moist mucus membranes. Heart: +S1/S2, regular, no m/r/g Lungs: equal air entry bilaterally, no rhonchi/wheezes, rales present in RLL Abd: +BS, soft, NT/ND Ext: warm, no clubbing/cyanosis Neuro: nonfocal, speech intact, no facial droop, moving all extremities. Discharge Data Allergies Allergy/AdvReac Type Severity Reaction Status Date / Time latex Allergy Severe Rash Unverified 01/18/25 17:45 empagliflozin AdvReac Intermediate RECURRENT Verified 01/18/25 17:45 [From Jardiance] UTI'S metformin AdvReac Intermediate Gastrointestinal Verified 01/18/25 17:45 Upset oxycodone AdvReac Intermediate HALLUCINATI Verified 01/18/25 17:45 ONS Consultations 01/18/25 17:40 Consult Hematology Routine 01/18/25 17:45 ED Decision to Admit Stat Ordered Studies 01/19/25 08:00 IR bone marrow bx & asp Urgent Hospital Course (1) Acute monocytic leukemia: (2) Community acquired pneumonia: (3) COPD (chronic obstructive pulmonary disease): (4) Diabetes mellitus, type 2: Plan This patient is a 79 y/o female with a H/L chronic hypoxic and hypercarbic respiratory failure related to COPD and CHRISTIANO/OHS on nocturnal trilogy ventilator, DM 2, HFpEF, obesity, CKD stage III, depression, B12 deficiency who P/W 6 weeks of malaise, weakness, and dyspnea after being treated for pneumonia as an outpatient. She was found to have lymphocytosis with 7% blasts, and severe anemia and thrombocytopenia, concerning for acute leukemia. CXR also with LLL pneumonia and small pleural effusion. #Acute monomyelocytic leukemia- p/w Thrombocytopenia, anemia, leukocytosis with 7% blasts. Heme-onc consulted and recommended bone marrow biopsy which she had on 01/19. Results show AML. Pt declines treatment. There is no evidence of ongoing bleeding. Platelets in the 30s, hgb 6-7. She has a history of longstanding anemia at least since 2017 with baseline Hgb 9-11. Borderline macrocytic here. B12, folate, Fe studies, and TSH all normal here. Monospot neg, EBV titer c/w past infection. Transfused 1 unit pRBCs 01/19 and another 1 unit pRBCs 01/21. Patient's final decision is to proceed with home hospice. - Patient does want to continue transfusions as needed, as they help her QOL, but will discontinue transfusional support after she enrolls in hospice - Follow CBC daily, transfuse for Hgb < 7 - Transfuse plts if <15k or <50k with bleeding - Oncology consulted, appreciate recs Had recommended ppx with levofloxacin 500 mg po daily, acyclovir 400 mg po BID, and fluconazole 400 mg po daily These were held due to expectation of hospice, but started 01/22 PM after pt decided to explore options EKG today did not show QT prolongation Acyclovir and fluconazole discontinued on 01/23 as patient confirmed decision for home hospice -Levaquin to be continued upon d/c for 7 day total course, case discussed with family who report home hospice has been confirmed and can transport patient to home tomorrow morning #Possible LLL pneumonia- Failed outpatient treatment with Augmentin in the last few weeks. Current results could be residual radiographic evidence of that previously treated pneumonia vs. ongoing CAP. Respiratory BioFire is negative. She is afebrile but has leukocytosis which is more likely 2/2 leukemia. BNP is normal, although she is morbidly obese so it is likely falsely low. Procal neg. - D/t immunocompromised state, will still treat for gram-negative, community- acquired, atypical pneumonia - Pt completed 3-day course of azithro. Will continue levaquin for total 7-day course - Pulmonary toilet - Follow-up chest imaging in 4 weeks to ensure resolution; can be deferred if on hospice #Nausea/vomiting-possibly secondary to taking zinc on an empty stomach on 01/19. Now resolved - Zofran and Compazine as needed; be careful with administration d/t other QT prolonging drugs - Discontinued zinc - May now be 2/2 constipation. 1x Bisacodyl pr given 01/22. Pt did have +1 BM and reports improvement of sx #Headache-possibly due to severe anemia. Now completely resolved with Fioricet each night. No focal neurological deficits. Pt declines to have CT head - Continue Fioricet prn #Chronic hypoxic and hypercarbic respiratory failure caused by COPD, CHRISTIANO/OHS - mild compensated hypercarbia on vbg- not in COPD exacerbation, no wheezing good air movement - Pt uses nocturnal trilogy ventilator at home - Continue pt's home Trelegy Ellipta, Mucinex, and prn albuterol #DM2-HgbA1c elevated 8.0%. She is normally on lispro 75/25. N/V now resolved and tolerating regular diet, continues to be having hyperglycemia - increase AM NPH to 50 units and keep evening dose of 45 units - continue NovoLog SSI - Continue FSBG #Chronic HFpEF - difficult physical exam but probably euvolemic. Echo from 2022 with preserved EF and no valvular pathology - cont spironolactone and furosemide - she is not on a beta-imelda or antihypertensives - pt has tachypnea/sob lying flat. if sx worsen or concern for volume overload, can give 1x Lasix # CKD-3 - stable creatinine - Avoid nephrotoxins, renally dose medications #Mood disorderno acute issues - Continue sertraline - Pt takes Ativan 0.5mg q12h PRN at home. Given 0.5mg daily prn while admitted #Morbid obesity BMI 46 - Holding home semaglutide DVT prophylaxis- with SCDs; ensure actually applied. Holding AC due to thrombocytopenia Disposition - continued stay on medical/surgical floor; pt confirmed decision for home hospice, CM informed Total Time Total Time Spent Total Time Spent (In Minutes): See attending attestation Discharge Plan Discharge Items Patient Disposition: Hospice - Home Reason For Visit: PANCYTOPENIA, PNEUMONIA Discharge Diagnosis: AML, Pancytopenia Condition on Discharge: Fair Activity: Resume your previous activity Non-emergency contact: Primary Care Provider Call non-emergency contact if: your pain is not controlled Follow-up/Referrals: Kings Nichols MD [Primary Care Provider] - Diet: Regular Addtl Attending Provider Instructions: You were admitted to the hospital for a lingering pneumonia, a new diagnosis of AML or acute myelogenous leukemia which affects the production of your white blood cells or immune cells that help fight infections. You have indicated that you would like to proceed with hospice at home which will provide you comfort and the hospice agency will be able to determine future needs such as diuretics that will help you remove excess fluid from your body and lungs to reduce your swelling and improve your work of breathing. While at home you will have access to oxygen as needed as well as portable oxygen as needed. You will be discharged with an antibiotic called Levaquin to help resolve your ongoing pneumonia symptoms, you began this medication on 01/22 and had a total of 4 doses while at the hospital and thus 3 additional doses will be sent to your pharmacy to be continued until 01/28. A discharge summary will be sent to your primary care physician to ensure contin uity of care. Please bring this discharge summary with you to your next office appointment so that your provider can review it at that time. Medications: Your medication list has been reviewed and reconciled upon discharge to ensure accuracy and continuity of care. An updated list of all your medications is included with your hospital discharge paperwork. Please review this list closely, and make note of any changes. We sent a new medication called Levofloxacin (Levaquin) to your pharmacy. Take Levofloxacin 500 mg one tablet daily for 3 days starting tomorrow, your last dose will be on 01/28/25. Take your medications as instructed; do not skip a dose of your medicines. Make sure all of your doctors know every medicine you are taking (including axvp-hhm-xpbcxud medicines, vitamins, and supplements). Call your primary care provider before taking any new medicines (including ifoe-jux-hlymdxv medicines, vitamins, and supplements), because some of these may interact with your current medications, or may make your symptoms worse. Tell your primary care provider if you cannot afford your medications. CONTACT YOUR PRIMARY CARE PROVIDER if you experience any of the following: Difficulty following your treatment plan, or difficulty taking medications CALL 911 OR GO TO THE EMERGENCY DEPARTMENT if you experience any of the following: Sudden, severe abdominal pain or nausea/vomiting Severe chest pain, or chest pain that radiates (moves) to your jaw or arm Sudden, severe shortness of breath or difficulty breathing Thank you for allowing us to participate in your care. Pending Studies at Discharge: No Stand-Alone Forms: [facility] Medications and DC Order Prescriptions: New levofloxacin 500 mg tablet 500 mg PO DAILY 3 Days Qty: 3 0RF Continued albuterol sulfate 90 mcg/actuation Hfa Aerosol Inhaler 2 puff INHALATION Q4H PRN (Reason: Wheezing) insulin lispro protamin-lispro [Humalog Mix 75-25 KwikPen] 100 unit/mL (75-25) insulin pen See Rx Instructions .ROUTE .COMPLEX Patient Comments: Pt injects 80 units in the morning and 60 units in the evening Rx Instructions: TAKES 80 UNITS QAM, THEN 60 UNITS QPM. Trelegy Ellipta 100-62.5-25 mcg blister with device 1 inh INHALATION DAILY furosemide 40 mg tablet 80 mg PO QAM spironolactone 25 mg tablet 25 mg PO QAM sertraline 50 mg tablet 50 mg PO DAILY guaifenesin [Mucinex] 600 mg Tablet Extended Release 12hr 600 mg PO Q12H PRN (Reason: Congestion) Ozempic 1 mg/dose (4 mg/3 mL) pen injector 1 mg subcut WK Patient Comments: Inject on Fridays zinc glycinate 30 mg Capsule 30 mg PO DAILY Discharge Orders: Discharge Order (Routine); Ordered 01/25/25 Ordered By: Dave Sousa/Other Patient Handouts: Managing Type 2 Diabetes Admission Data Admit Date/Time: 01/19/25 14:07 Attending Provider: Sanchez Magana Admit Provider: Meli Alves Primary Care Provider: Kings Nichols Other Providers: Jamie Dunaway; Mary Narayan Other Interventions: Discharge Summary Assessment (RN) Last Done: 01/25/25 09:49 Supervising Physician Co-Signing Physician Notes Resident Physician Supervision Note: I personally examined the patient and verified all little points of history and exam, discussed case, and agree with decision making with Dr. Rueda I discussed the case with the resident and agree with the findings and plan as documented in the note. Any exceptions or clarifications are listed here: Patient does recollect that she had a gilbert night however she is feeling much better today and oxygen requirements are down. Family is bringing invasive positive pressure ventilation machine I will hopefully have some diuresis for her to have a good evening but lower oxygen requirements. Escalation of her white count does raise concern for blast transformation and poor prognosis. Physical exam the patient is not in any acute respiratory distress at the bedside diminished breath sounds at the bases equally which could be from volume overload or even infection/aspiration. #Acute on chronic hypoxic respiratory failure, suspect heart failure preserved ejection fraction plus minus possible infectious etiology, supportive care maximizing her ventilatory status family is at the bedside and want to transition home to hospice care 01/25/25 time for discharge is greater than 30 minutes including chart review and family discussion at bedside Documented By: Sanchez Magana MD Resident Activity Tracking Resident Involvement: Resident Care Provided Care Provided: Adult Hospital Medicine
[2025-01-25 12:35] LABS: Hematocrit (blood only) 23.3 % (37.0-47.0); Hemoglobin 7.5 g/dl (12.0-16.0); Mean Corpuscular Hemoglobin 31.0 pg (25.0-34.0); Mean Corpuscular Volume 96.3 fL (80.0-100.0); Platelet Count 19 K/uL (130-400); RDW Standard Deviation 59.9 fL (36.4-46.3); Red Blood Count 2.42 M/uL (4.20-5.40); White Blood Count 43.80 K/ul (4.8-10.8)
[2025-01-25 12:40] LABS: Anion Gap 6.0 (3-11); Blood Urea Nitrogen 39.0 mg/dl (6-23); Calcium 9.0 mg/dl (8.6-10.3); Carbon Dioxide 37.0 mmol/L (21-32); Chloride 90.0 mmol/L (98-107); Creatinine Clr Calc Pharmacy 49.5 ml/min; Glucose 223.0 mg/dl (70-99(Fasting)); Potassium 4.4 mmol/L (3.5-5.1); Sodium 133.0 mmol/L (136-145)
--- NOTE | 2025-01-25 16:43 | Billing Data ---
Date of Service January 25, 2025 Coding Level of Care Code 23664 INP/OBS DISCH >30 MIN
== END 2025-01-25 12:15 | disposition hospice, home (50) | DRG 834 ==
LOC: ED 15:13 → 3N 15:13 → SUATTDRO 19:36 → 3N 21:14 → SUATTDRO 01-19 14:07